=== PATIENT | male | born 1935 | race Caucasian/White ===

== ENCOUNTER → 2017-05-05 | Outpatient (REF) | payer MEDICARE, OTHER ==
[2017-05-10 00:08] LABS: HEMOGLOBIN A 95.2 % (96.4-98.8); HEMOGLOBIN A2 4.8 % (1.8-3.2); HGB SOLUBILITY Negative (Negative)
== END ==
LOC: M LAB REF 12:21
DX: D56.3 Thalassemia minor (principal)
CPT/HCPCS: 83021

== ENCOUNTER 2017-06-18 09:36 | Inpatient (IN) | payer MEDICARE, OTHER ==
[2017-06-18 10:23] LABS: BASO % 0.6 % (0.0-1.0); EOS # 0.2 10^3/uL (0.0-0.50); EOS % 2.1 % (0.0-3.0); HEMATOCRIT 39.2 % (42.0-52.0); HEMOGLOBIN 12.3 g/dl (14.0-18.0); IMMATURE GRANULOCYTE % 0.3 % (0-3.0); LYMPH # 1.5 10^3/uL (1.5-4.5); LYMPH % 21.9 % (24.0-44.0); MEAN CORPUSCULAR HEMOGLOBIN 18.9 pg (27.0-33.0); MEAN CORPUSCULAR HGB CONC 31.4 g/dl (32.0-36.5); MEAN CORPUSCULAR VOLUME 60.2 fl (80.0-96.0); MONO # 0.8 10^3/uL (0.0-0.8); MONO % 10.7 % (0.0-5.0); NEUTROPHILS # 4.5 10^3/uL (1.8-7.7); NEUTROPHILS % 64.4 % (36.0-66.0); PLATELET COUNT, AUTOMATED 216 10^3/uL (150-450); RED BLOOD COUNT 6.51 10^6/uL (4.30-6.10); RED CELL DISTRIBUTION WIDTH 17.8 % (11.5-14.5)
[2017-06-18] MEDS: NS 1,000 ML IV ×2 (10:23→18:45)
[2017-06-18 10:25] LABS: VENOUS PARTIAL PRESSURE CO2 54.5 mmHg (38.0-50.0); VENOUS PARTIAL PRESSURE O2 32.7 mmHg (30.0-50.0); VENOUS PH 7.328 UNITS (7.330-7.430); VENOUS TOTAL CO2 29.6 MEQ/L (24.0-28.0)
[2017-06-18 10:26] LABS: VENOUS O2 SATURATION 57.4 % (60.0-80.0); VENOUS STANDARD HCO3 24.4 MEQ/L
[2017-06-18 10:43] LABS: AMMONIA 13 uMOL/L (<32)
[2017-06-18 10:49] LABS: ALBUMIN 3.8 GM/DL (3.2-5.2); ALBUMIN/GLOBULIN RATIO 1.12 (1.00-1.93); ALKALINE PHOSPHATASE 124 U/L (45-117); ALT/SGPT 37 U/L (12-78); AMPHETAMINES LEVEL URINE NEGATIVE (NEGATIVE); ANION GAP 7 MEQ/L (8-16); AST/SGOT 25 U/L (7-37); BARBITURATES URINE NEGATIVE (NEGATIVE); BENZODIAZEPINES URINE NEGATIVE (NEGATIVE); BILIRUBIN,DIRECT 0.2 MG/DL (0.0-0.2); BILIRUBIN,TOTAL 0.7 MG/DL (0.2-1.0); BLOOD UREA NITROGEN 19 MG/DL (7-18); CALCIUM LEVEL 8.8 MG/DL (8.8-10.2); CANNABINOIDS URINE NEGATIVE (NEGATIVE); CARBON DIOXIDE LEVEL 29 MEQ/L (21-32); CHLORIDE LEVEL 104 MEQ/L (98-107); COCAINE METABOLITE URINE NEGATIVE (NEGATIVE); CPK CREATINE PHOSPHOKINASE 127 U/L (39-308); CREATININE FOR GFR 1.18 MG/DL (0.70-1.30); GLOMERULAR FILTRATION RATE > 60.0 (>35); GLUCOSE, FASTING 179 MG/DL (70-100); METHADONE URINE NEGATIVE (NEGATIVE); OPIATES URINE NEGATIVE (NEGATIVE); PHENCYCLIDINE URINE NEGATIVE (NEGATIVE); POTASSIUM SERUM 4.1 MEQ/L (3.5-5.1); SALICYLATE LEVEL < 1.7 MG/DL (5.0-30.0); SODIUM LEVEL 140 MEQ/L (136-145); TOTAL PROTEIN 7.2 GM/DL (6.4-8.2); TROPONIN I < 0.02 NG/ML (< 0.10)
[2017-06-18 10:51] LABS: ACETAMINOPHEN LEVEL < 2.0 UG/ML (10.0-30.0); ETHYL ALCOHOL (ETHANOL) < 0.003 % (0.000-0.010); MB/CK RELATIVE INDEX 1.57 (< OR =4)
[2017-06-18 11:08] LABS: APPEARANCE, URINE CLEAR (CLEAR); BACTERIA, URINE AUTO NEGATIVE (NEGATIVE); BILIRUBIN, URINE AUTO NEGATIVE (NEGATIVE); BLOOD, URINE BLOOD NEGATIVE (NEGATIVE); COLOR, URINE YELLOW (YELLOW); GLUCOSE, URINE (UA) AUTO 1+ mg/dL (NEGATIVE); KETONE, URINE AUTO NEGATIVE (NEGATIVE); LEUKOCYTE ESTERASE, URINE AUTO NEGATIVE (NEGATIVE); MUCUS, URINE SMALL (NEGATIVE); NITRITE, URINE AUTO NEGATIVE (NEGATIVE); PROTEIN, URINE AUTO 1+ mg/dL (NEGATIVE); RBC, URINE AUTO 1 /HPF (0-3); SPECIFIC GRAVITY URINE AUTO 1.011 (1.002-1.035); SQUAMOUS EPITHELIAL CELL UR AU 0 /HPF (0-6); WBC, URINE AUTO 0 /HPF (0-3)
[2017-06-18] MEDS ORDERED: ONDANSETRON 4MG/2ML VIAL (J2405) IV (16:15)
[2017-06-18 16:42] LABS: INR 1.05; PROTHROMBIN TIME 13.8 SECONDS (12.4-14.5)
[2017-06-18 16:47] LABS: CHOLESTEROL LEVEL 130 MG/DL (<200); CHOLESTEROL RISK RATIO 3.333 (<5); HDL CHOLESTEROL 39 MG/DL (>40); LDL CHOLESTEROL 71.4 MG/DL (<100); NON-HDL-C 91 MG/DL; TRIGLYCERIDES LEVEL 98 MG/DL (<150)
[2017-06-18 18:34] LABS: ESTIMATED AVERAGE GLUCOSE 137 MG/DL (60-110); HEMOGLOBIN A1c 6.4 %
[2017-06-18] MEDS: HEPARIN SOD (PORCINE) 5000 UNITS/ML VIAL SC (22:22)
[2017-06-18] MEDS: ATORVASTATIN 20 MG TAB PO (22:23)
[2017-06-18] MEDS: FAMOTIDINE 20 MG TAB PO (22:23)
[2017-06-18] MEDS: RAMIPRIL 5 MG CAP PO (22:23)
[2017-06-19] MEDS: NS 1,000 ML IV (04:41)
[2017-06-19] MEDS: HEPARIN SOD (PORCINE) 5000 UNITS/ML VIAL SC ×3 (05:29→20:25)
[2017-06-19 05:36] LABS: HEMOGLOBIN 11.2 g/dl (14.0-18.0); MEAN CORPUSCULAR HEMOGLOBIN 18.7 pg (27.0-33.0); MEAN CORPUSCULAR HGB CONC 31.1 g/dl (32.0-36.5); PLATELET COUNT, AUTOMATED 213 10^3/uL (150-450); RED CELL DISTRIBUTION WIDTH 17.2 % (11.5-14.5); WHITE BLOOD COUNT 6.6 10^3/uL (4.0-10.0)
[2017-06-19 05:59] LABS: ALBUMIN 3.3 GM/DL (3.2-5.2); ALBUMIN/GLOBULIN RATIO 0.87 (1.00-1.93); ALKALINE PHOSPHATASE 110 U/L (45-117); ALT/SGPT 35 U/L (12-78); ANION GAP 8 MEQ/L (8-16); AST/SGOT 24 U/L (7-37); BILIRUBIN,TOTAL 0.8 MG/DL (0.2-1.0); BLOOD UREA NITROGEN 20 MG/DL (7-18); CALCIUM LEVEL 8.3 MG/DL (8.8-10.2); CARBON DIOXIDE LEVEL 27 MEQ/L (21-32); CHLORIDE LEVEL 108 MEQ/L (98-107); CREATININE FOR GFR 1.01 MG/DL (0.70-1.30); GLOMERULAR FILTRATION RATE > 60.0 (>35); GLUCOSE, FASTING 94 MG/DL (70-100); MAGNESIUM LEVEL 2.1 MG/DL (1.8-2.4); POTASSIUM SERUM 4.2 MEQ/L (3.5-5.1); SODIUM LEVEL 143 MEQ/L (136-145); TOTAL PROTEIN 7.1 GM/DL (6.4-8.2)
[2017-06-19] MEDS: FAMOTIDINE 20 MG TAB PO ×2 (09:30→20:25)
[2017-06-19] MEDS: CLOPIDOGREL 75 MG TAB PO (09:30)
[2017-06-19] MEDS ORDERED: SLF 3 ML SYR IV (10:30)
[2017-06-19] MEDS: SLF 3 ML SYR IV ×2 (14:00→20:25)
[2017-06-19] MEDS: ASPIRIN 81 MG ENTERIC TAB PO (14:50)
[2017-06-19] MEDS ORDERED: ISOVUE-370 76% 100ML VIAL (Q9967) As Ordered (17:43)
[2017-06-19] MEDS: RAMIPRIL 5 MG CAP PO (20:26)
[2017-06-19] MEDS: ATORVASTATIN 20 MG TAB PO (20:26)
[2017-06-19] MEDS: ACETAMINOPHEN TAB 650MG DOSE (2X325MG) PO (20:26)
[2017-06-19 20:58] LABS: ANION GAP 8 MEQ/L (8-16); BLOOD UREA NITROGEN 22 MG/DL (7-18); CALCIUM LEVEL 8.3 MG/DL (8.8-10.2); CARBON DIOXIDE LEVEL 27 MEQ/L (21-32); CHLORIDE LEVEL 107 MEQ/L (98-107); GLOMERULAR FILTRATION RATE > 60.0 (>35); GLUCOSE, FASTING 100 MG/DL (70-100); POTASSIUM SERUM 4.3 MEQ/L (3.5-5.1); SODIUM LEVEL 142 MEQ/L (136-145)
[2017-06-19 22:25] LABS: MAGNESIUM LEVEL 2.2 MG/DL (1.8-2.4)
[2017-06-20] MEDS: HEPARIN SOD (PORCINE) 5000 UNITS/ML VIAL SC ×3 (05:41→23:26)
[2017-06-20] MEDS: SLF 3 ML SYR IV ×3 (05:41→23:27)
[2017-06-20 05:58] LABS: HEMATOCRIT 36.3 % (42.0-52.0); HEMOGLOBIN 11.4 g/dl (14.0-18.0); MEAN CORPUSCULAR HEMOGLOBIN 18.9 pg (27.0-33.0); MEAN CORPUSCULAR HGB CONC 31.4 g/dl (32.0-36.5); MEAN CORPUSCULAR VOLUME 60.3 fl (80.0-96.0); PLATELET COUNT, AUTOMATED 228 10^3/uL (150-450); RED BLOOD COUNT 6.02 10^6/uL (4.30-6.10); RED CELL DISTRIBUTION WIDTH 17.5 % (11.5-14.5); WHITE BLOOD COUNT 7.6 10^3/uL (4.0-10.0)
[2017-06-20 06:23] LABS: ALBUMIN 3.6 GM/DL (3.2-5.2); ALBUMIN/GLOBULIN RATIO 0.95 (1.00-1.93); ALKALINE PHOSPHATASE 111 U/L (45-117); ALT/SGPT 34 U/L (12-78); ANION GAP 5 MEQ/L (8-16); AST/SGOT 26 U/L (7-37); BILIRUBIN,TOTAL 0.7 MG/DL (0.2-1.0); BLOOD UREA NITROGEN 19 MG/DL (7-18); CALCIUM LEVEL 8.9 MG/DL (8.8-10.2); CARBON DIOXIDE LEVEL 30 MEQ/L (21-32); CHLORIDE LEVEL 107 MEQ/L (98-107); GLOMERULAR FILTRATION RATE > 60.0 (>35); GLUCOSE, FASTING 93 MG/DL (70-100); MAGNESIUM LEVEL 2.2 MG/DL (1.8-2.4); POTASSIUM SERUM 4.3 MEQ/L (3.5-5.1); SODIUM LEVEL 142 MEQ/L (136-145); TOTAL PROTEIN 7.4 GM/DL (6.4-8.2)
[2017-06-20] MEDS: ASPIRIN 81 MG ENTERIC TAB PO (08:37)
[2017-06-20] MEDS: CLOPIDOGREL 75 MG TAB PO (08:37)
[2017-06-20] MEDS: FAMOTIDINE 20 MG TAB PO ×2 (08:37→19:53)
[2017-06-20 17:27] LABS: CK-MB VALUE MASS 4.4 NG/ML (0.0-3.6); CPK CREATINE PHOSPHOKINASE 236 U/L (39-308); MB/CK RELATIVE INDEX 1.86 (< OR =4); TROPONIN I < 0.02 NG/ML (< 0.10)
[2017-06-20] MEDS: ATORVASTATIN 20 MG TAB PO (19:52)
[2017-06-20] MEDS: RAMIPRIL 5 MG CAP PO (19:53)
[2017-06-21] MEDS: SLF 3 ML SYR IV (05:18)
[2017-06-21] MEDS: HEPARIN SOD (PORCINE) 5000 UNITS/ML VIAL SC (05:18)
[2017-06-21 06:15] LABS: HEMATOCRIT 35.9 % (42.0-52.0); HEMOGLOBIN 11.1 g/dl (14.0-18.0); MEAN CORPUSCULAR HEMOGLOBIN 18.5 pg (27.0-33.0); MEAN CORPUSCULAR HGB CONC 30.9 g/dl (32.0-36.5); MEAN CORPUSCULAR VOLUME 59.8 fl (80.0-96.0); PLATELET COUNT, AUTOMATED 226 10^3/uL (150-450); RED CELL DISTRIBUTION WIDTH 16.8 % (11.5-14.5); WHITE BLOOD COUNT 8.4 10^3/uL (4.0-10.0)
[2017-06-21 06:30] LABS: ALBUMIN 3.5 GM/DL (3.2-5.2); ALBUMIN/GLOBULIN RATIO 0.88 (1.00-1.93); ALKALINE PHOSPHATASE 115 U/L (45-117); ALT/SGPT 37 U/L (12-78); ANION GAP 5 MEQ/L (8-16); AST/SGOT 31 U/L (7-37); BILIRUBIN,TOTAL 0.7 MG/DL (0.2-1.0); BLOOD UREA NITROGEN 16 MG/DL (7-18); CALCIUM LEVEL 8.8 MG/DL (8.8-10.2); CARBON DIOXIDE LEVEL 30 MEQ/L (21-32); CHLORIDE LEVEL 107 MEQ/L (98-107); CREATININE FOR GFR 1.06 MG/DL (0.70-1.30); GLOMERULAR FILTRATION RATE > 60.0 (>35); GLUCOSE, FASTING 89 MG/DL (70-100); MAGNESIUM LEVEL 2.2 MG/DL (1.8-2.4); SODIUM LEVEL 142 MEQ/L (136-145); TOTAL PROTEIN 7.5 GM/DL (6.4-8.2)
[2017-06-21] MEDS: ASPIRIN 81 MG ENTERIC TAB PO (09:54)
[2017-06-21] MEDS: CLOPIDOGREL 75 MG TAB PO (09:54)
[2017-06-21] MEDS: FAMOTIDINE 20 MG TAB PO (09:54)
== END 2017-06-21 17:50 | disposition home or self-care (01) | DRG 65 ==
LOC: M ED 09:36 → M ED INP 16:13 → M PCU 18:17
DX: I63.8 Other cerebral infarction (principal); I47.2 Ventricular tachycardia; E78.5 Hyperlipidemia, unspecified; K21.9 Gastro-esophageal reflux disease without esophagitis; I10 Essential (primary) hypertension; F03.90 Unspecified dementia, unspecified severity, without behavioral disturbance, psychotic disturbance, mood disturbance, and anxiety; Z79.899 Other long term (current) drug therapy; I25.10 Atherosclerotic heart disease of native coronary artery without angina pectoris

== ENCOUNTER 2017-11-08 10:36 | Emergency (ER) | payer MEDICARE, OTHER ==
[2017-11-08 11:33] LABS: KETONE, URINE AUTO RFX NEGATIVE (NEGATIVE); LEUKOCYTE ESTERASE UR AUTO RFX NEGATIVE (NEGATIVE); MUCUS, URINE RFX SMALL (NEGATIVE); NITRITE, URINE AUTO RFX NEGATIVE (NEGATIVE); RBC, URINE AUTO RFX 10 /HPF (0-3); SPECIFIC GRAVITY UR AUTO RFX 1.012 (1.002-1.035); SQUAM EPITHELIAL CELL UR AURFX 0 /HPF (0-6); WBC, URINE AUTO RFX 1 /HPF (0-3)
[2017-11-08 11:41] LABS: BASO # 0.1 10^3/uL (0.0-0.2); BASO % 0.5 % (0.0-1.0); EOS # 0.1 10^3/uL (0.0-0.50); EOS % 0.9 % (0.0-3.0); HEMATOCRIT 37.3 % (42.0-52.0); HEMOGLOBIN 11.7 g/dl (13.5-17.5); IMMATURE GRANULOCYTE % 0.3 % (0-3.0); LYMPH # 1.4 10^3/uL (1.5-4.5); LYMPH % 15.3 % (24.0-44.0); MEAN CORPUSCULAR HEMOGLOBIN 18.6 pg (27.0-33.0); MEAN CORPUSCULAR HGB CONC 31.4 g/dl (32.0-36.5); MEAN CORPUSCULAR VOLUME 59.4 fl (80.0-96.0); MONO # 0.9 10^3/uL (0.0-0.8); MONO % 9.3 % (0.0-5.0); NEUTROPHILS # 6.9 10^3/uL (1.8-7.7); NEUTROPHILS % 73.7 % (36.0-66.0); PLATELET COUNT, AUTOMATED 240 10^3/uL (150-450); RED BLOOD COUNT 6.28 10^6/uL (4.30-6.10); RED CELL DISTRIBUTION WIDTH 17.8 % (11.5-14.5); WHITE BLOOD COUNT 9.4 10^3/uL (4.0-10.0)
[2017-11-08 12:04] LABS: ANION GAP 7 MEQ/L (8-16); BLOOD UREA NITROGEN 20 MG/DL (7-18); CALCIUM LEVEL 9.2 MG/DL (8.8-10.2); CARBON DIOXIDE LEVEL 28 MEQ/L (21-32); CHLORIDE LEVEL 106 MEQ/L (98-107); CREATININE FOR GFR 1.02 MG/DL (0.70-1.30); GLOMERULAR FILTRATION RATE > 60.0 (>35); GLUCOSE, FASTING 121 MG/DL (70-100); POTASSIUM SERUM 4.3 MEQ/L (3.5-5.1); SODIUM LEVEL 141 MEQ/L (136-145)
== END 2017-11-08 15:06 | disposition home or self-care (01) ==
LOC: M ED 10:36
DX: R33.9 Retention of urine, unspecified (principal); I25.2 Old myocardial infarction; I10 Essential (primary) hypertension; K21.9 Gastro-esophageal reflux disease without esophagitis; Z95.5 Presence of coronary angioplasty implant and graft; Z87.891 Personal history of nicotine dependence; Z79.82 Long term (current) use of aspirin; Z79.899 Other long term (current) drug therapy
CPT/HCPCS: 80048

== ENCOUNTER 2017-11-10 06:29 | Emergency (ER) | payer MEDICARE, OTHER | END 2017-11-10 06:57 | disposition home or self-care (01) | LOC: M ED 06:29 | DX: T83.098A Other mechanical complication of other urinary catheter, initial encounter (principal); Y92.9 Unspecified place or not applicable; Y93.9 Activity, unspecified; I25.2 Old myocardial infarction; I10 Essential (primary) hypertension; Z86.73 Personal history of transient ischemic attack (TIA), and cerebral infarction without residual deficits; K21.9 Gastro-esophageal reflux disease without esophagitis; Z79.82 Long term (current) use of aspirin; Z79.899 Other long term (current) drug therapy | CPT/HCPCS: G0463 ==

== ENCOUNTER 2017-11-16 07:33 | Emergency (ER) | payer MEDICARE, OTHER | END 2017-11-16 09:17 | disposition home or self-care (01) | LOC: M ED 07:33 | DX: T83.098A Other mechanical complication of other urinary catheter, initial encounter (principal); X58.XXXA Exposure to other specified factors, initial encounter; Y92.89 Other specified places as the place of occurrence of the external cause; I10 Essential (primary) hypertension; E78.9 Disorder of lipoprotein metabolism, unspecified; I25.2 Old myocardial infarction; Z79.02 Long term (current) use of antithrombotics/antiplatelets; Z79.82 Long term (current) use of aspirin; Z79.899 Other long term (current) drug therapy | CPT/HCPCS: 81001 ==

== ENCOUNTER → 2017-11-16 | Outpatient (REF) | payer MEDICARE, OTHER ==
[2017-11-16 18:03] LABS: APPEARANCE, URINE CLOUDY (CLEAR); BACTERIA, URINE AUTO NEGATIVE (NEGATIVE); BILIRUBIN, URINE AUTO NEGATIVE (NEGATIVE); BLOOD, URINE BLOOD 3+ (NEGATIVE); COLOR, URINE RED (YELLOW); GLUCOSE, URINE (UA) AUTO NEGATIVE (NEGATIVE); KETONE, URINE AUTO NEGATIVE (NEGATIVE); LEUKOCYTE ESTERASE, URINE AUTO 1+ (NEGATIVE); MUCUS, URINE SMALL (NEGATIVE); NITRITE, URINE AUTO NEGATIVE (NEGATIVE); PROTEIN, URINE AUTO 2+ mg/dL (NEGATIVE); RBC, URINE AUTO TNTC /HPF (0-3); SPECIFIC GRAVITY URINE AUTO 1.018 (1.002-1.035); SQUAMOUS EPITHELIAL CELL UR AU 0 /HPF (0-6); UROBILINOGEN, URINE AUTO 0.2 mg/dL (0.0-2.0); WBC, URINE AUTO 29 /HPF (0-3)
== END ==
LOC: M SMT 16:49
DX: R31.0 Gross hematuria (principal)
CPT/HCPCS: 81001

== ENCOUNTER 2017-11-17 00:12 | Emergency (ER) | payer MEDICARE, OTHER | END 2017-11-17 03:39 | disposition home or self-care (01) | LOC: M ED 00:12 | DX: R31.9 Hematuria, unspecified (principal); T83.091A Other mechanical complication of indwelling urethral catheter, initial encounter; Y84.6 Urinary catheterization as the cause of abnormal reaction of the patient, or of later complication, without mention of misadventure at the time of the procedure; N40.0 Benign prostatic hyperplasia without lower urinary tract symptoms; I25.10 Atherosclerotic heart disease of native coronary artery without angina pectoris; I11.9 Hypertensive heart disease without heart failure; K21.9 Gastro-esophageal reflux disease without esophagitis; Z95.5 Presence of coronary angioplasty implant and graft; Z79.899 Other long term (current) drug therapy; Z79.82 Long term (current) use of aspirin | CPT/HCPCS: 51700 ==

== ENCOUNTER → 2017-11-21 | Outpatient (CLI) | payer MEDICARE, OTHER ==
[~2017-11-21] MED LIST: ISOVUE-370 76% 100ML VIAL (Q9967) As Ordered
== END ==
LOC: M RAD 13:34
DX: R31.0 Gross hematuria (principal); J47.9 Bronchiectasis, uncomplicated; R91.1 Solitary pulmonary nodule; N40.0 Benign prostatic hyperplasia without lower urinary tract symptoms; N28.1 Cyst of kidney, acquired
CPT/HCPCS: Q9967

== ENCOUNTER → 2017-12-29 | Outpatient (CLI) | payer MEDICARE, OTHER | LOC: M RAD 10:34 | DX: I66.22 Occlusion and stenosis of left posterior cerebral artery (principal); D18.02 Hemangioma of intracranial structures; I63.09 Cerebral infarction due to thrombosis of other precerebral artery | CPT/HCPCS: Q9967 ==

== ENCOUNTER → 2018-02-08 | Outpatient (CLI) | payer MEDICARE, OTHER ==
[2018-02-08 14:04] LABS: HEMATOCRIT 39.5 % (42.0-52.0); HEMOGLOBIN 11.8 g/dl (13.5-17.5); MEAN CORPUSCULAR HEMOGLOBIN 18.5 pg (27.0-33.0); MEAN CORPUSCULAR HGB CONC 29.9 g/dl (32.0-36.5); MEAN CORPUSCULAR VOLUME 61.9 fl (80.0-96.0); PLATELET COUNT, AUTOMATED 253 10^3/uL (150-450); RED BLOOD COUNT 6.38 10^6/uL (4.30-6.10); RED CELL DISTRIBUTION WIDTH 18.4 % (11.5-14.5); WHITE BLOOD COUNT 7.4 10^3/uL (4.0-10.0)
[2018-02-08 14:13] LABS: ANION GAP 3 MEQ/L (8-16); BLOOD UREA NITROGEN 24 MG/DL (7-18); CALCIUM LEVEL 9.1 MG/DL (8.8-10.2); CARBON DIOXIDE LEVEL 30 MEQ/L (21-32); CHLORIDE LEVEL 110 MEQ/L (98-107); CREATININE FOR GFR 1.11 MG/DL (0.70-1.30); GLOMERULAR FILTRATION RATE > 60.0 (>35); GLUCOSE, FASTING 149 MG/DL (70-100); INR 1.04; POTASSIUM SERUM 4.7 MEQ/L (3.5-5.1); PROTHROMBIN TIME 13.8 SECONDS (12.1-14.4); SODIUM LEVEL 143 MEQ/L (136-145)
[2018-02-08 14:14] LABS: PARTIAL THROMBOPLASTIN TIME 35.4 SECONDS (25.4-37.6)
== END ==
LOC: M SMT 11:05
DX: Z01.818 Encounter for other preprocedural examination (principal); N40.1 Benign prostatic hyperplasia with lower urinary tract symptoms; N39.0 Urinary tract infection, site not specified; E78.00 Pure hypercholesterolemia, unspecified; I10 Essential (primary) hypertension; I25.2 Old myocardial infarction; Z86.73 Personal history of transient ischemic attack (TIA), and cerebral infarction without residual deficits; Z79.01 Long term (current) use of anticoagulants
CPT/HCPCS: 80048

== ENCOUNTER → 2018-02-26 | Outpatient (REF) | payer MEDICARE, OTHER ==
[2018-02-26 17:49] LABS: APPEARANCE, URINE CLEAR (CLEAR); BACTERIA, URINE AUTO NEGATIVE (NEGATIVE); BILIRUBIN, URINE AUTO NEGATIVE (NEGATIVE); BLOOD, URINE BLOOD 2+ (NEGATIVE); COLOR, URINE YELLOW (YELLOW); GLUCOSE, URINE (UA) AUTO NEGATIVE (NEGATIVE); KETONE, URINE AUTO NEGATIVE (NEGATIVE); LEUKOCYTE ESTERASE, URINE AUTO 1+ (NEGATIVE); MUCUS, URINE SMALL (NEGATIVE); NITRITE, URINE AUTO NEGATIVE (NEGATIVE); PROTEIN, URINE AUTO 2+ mg/dL (NEGATIVE); RBC, URINE AUTO 46 /HPF (0-3); SPECIFIC GRAVITY URINE AUTO 1.014 (1.002-1.035); SQUAMOUS EPITHELIAL CELL UR AU 0 /HPF (0-6); UROBILINOGEN, URINE AUTO 0.2 mg/dL (0.0-2.0); WBC, URINE AUTO 5 /HPF (0-3)
== END ==
LOC: M SMT 16:58
DX: N39.0 Urinary tract infection, site not specified (principal)
CPT/HCPCS: 81001

== ENCOUNTER 2018-03-05 11:51 | Day surgery (SDC) | payer MEDICARE, OTHER ==
[2018-03-05] MEDS: LR 1,000 ML IV (12:30)
[2018-03-05] MEDS ORDERED: dexameTHASONE 4 MG/ML 1ML VIAL (J1100) As Ordered ×2 (12:53→18:52)
[2018-03-05] MEDS ORDERED: ROCURONIUM BROMIDE 50 MG/5 ML VIAL As Ordered ×3 (12:53→16:41)
[2018-03-05] MEDS ORDERED: LIDOCAINE 2% INJ 100 MG/5 ML SDV (FOR ANES.) As Ordered (12:53)
[2018-03-05] MEDS ORDERED: PROPOFOL 200 MG/20 ML VIAL As Ordered (12:53)
[2018-03-05] MEDS ORDERED: MIDAZOLAM INJ 2 MG/2 ML VIAL (J2250) As Ordered (12:54)
[2018-03-05] MEDS ORDERED: fentaNYL 100 MCG/2 ML INJECTION (J3010) As Ordered ×3 (12:54→15:01)
[2018-03-05] MEDS ORDERED: ONDANSETRON 4MG/2ML VIAL (J2405) As Ordered (13:54)
[2018-03-05] MEDS ORDERED: NEOSTIGMINE 10 MG/10 ML VIAL (J2710) As Ordered ×2 (15:03)
[2018-03-05] MEDS ORDERED: GLYCOPYRROLATE INJ 0.2 MG/ML 2 ML VIAL As Ordered (15:03)
[2018-03-05] MEDS ORDERED: FUROSEMIDE 100 MG/10 ML VIAL (J1940) As Ordered (17:08)
[2018-03-05] MEDS ORDERED: LR 1,000 ML IV (18:30)
[2018-03-05] MEDS ORDERED: ONDANSETRON 4MG/2ML VIAL (J2405) IV (18:30)
[2018-03-05] MEDS ORDERED: ACETAMINOPHEN TAB 650MG DOSE (2X325MG) PO (18:30)
[2018-03-05] MEDS ORDERED: fentaNYL 100 MCG/2 ML INJECTION (J3010) IV (18:30)
== END 2018-03-05 21:00 | disposition home or self-care (01) ==
LOC: M SDC 11:51
DX: N40.1 Benign prostatic hyperplasia with lower urinary tract symptoms (principal); R32 Unspecified urinary incontinence; I10 Essential (primary) hypertension; I25.10 Atherosclerotic heart disease of native coronary artery without angina pectoris; I25.2 Old myocardial infarction; E78.00 Pure hypercholesterolemia, unspecified; I69.998 Other sequelae following unspecified cerebrovascular disease; R94.31 Abnormal electrocardiogram [ECG] [EKG]; R73.03 Prediabetes; K21.9 Gastro-esophageal reflux disease without esophagitis; I35.8 Other nonrheumatic aortic valve disorders; D56.3 Thalassemia minor; R01.1 Cardiac murmur, unspecified; Z79.899 Other long term (current) drug therapy; Z79.01 Long term (current) use of anticoagulants; Z79.82 Long term (current) use of aspirin; Z95.5 Presence of coronary angioplasty implant and graft; Z87.891 Personal history of nicotine dependence
CPT/HCPCS: 52601

== ENCOUNTER 2018-03-13 07:41 | Emergency (ER) | payer MEDICARE, OTHER ==
[2018-03-13 09:28] LABS: ALBUMIN 3.2 GM/DL (3.2-5.2); ANION GAP 11 MEQ/L (8-16); BLOOD UREA NITROGEN 22 MG/DL (7-18); CALCIUM LEVEL 8.7 MG/DL (8.8-10.2); CARBON DIOXIDE LEVEL 24 MEQ/L (21-32); CHLORIDE LEVEL 102 MEQ/L (98-107); CREATININE FOR GFR 1.54 MG/DL (0.70-1.30); GLOMERULAR FILTRATION RATE 45.9 (>35); GLUCOSE, FASTING 157 MG/DL (70-100); PHOSPHORUS LEVEL 2.2 MG/DL (2.5-4.9); SODIUM LEVEL 137 MEQ/L (136-145)
[2018-03-13 09:34] LABS: APPEARANCE, URINE CLOUDY (CLEAR); BACTERIA, URINE AUTO 1+ (NEGATIVE); BILIRUBIN, URINE AUTO NEGATIVE (NEGATIVE); BLOOD, URINE BLOOD 3+ (NEGATIVE); COLOR, URINE YELLOW (YELLOW); GLUCOSE, URINE (UA) AUTO NEGATIVE (NEGATIVE); KETONE, URINE AUTO NEGATIVE (NEGATIVE); LEUKOCYTE ESTERASE, URINE AUTO 1+ (NEGATIVE); MUCUS, URINE SMALL (NEGATIVE); NITRITE, URINE AUTO NEGATIVE (NEGATIVE); PROTEIN, URINE AUTO 2+ mg/dL (NEGATIVE); RBC, URINE AUTO TNTC /HPF (0-3); SPECIFIC GRAVITY URINE AUTO 1.014 (1.002-1.035); SQUAMOUS EPITHELIAL CELL UR AU 0 /HPF (0-6); UROBILINOGEN, URINE AUTO 0.2 mg/dL (0.0-2.0); WBC, URINE AUTO 109 /HPF (0-3)
== END 2018-03-13 10:37 | disposition home or self-care (01) ==
LOC: M ED 07:41
DX: N13.8 Other obstructive and reflux uropathy (principal); Z98.890 Other specified postprocedural states; N40.1 Benign prostatic hyperplasia with lower urinary tract symptoms; I11.9 Hypertensive heart disease without heart failure; I25.10 Atherosclerotic heart disease of native coronary artery without angina pectoris; I25.2 Old myocardial infarction; Z87.891 Personal history of nicotine dependence; Z79.82 Long term (current) use of aspirin; Z79.899 Other long term (current) drug therapy; Z79.02 Long term (current) use of antithrombotics/antiplatelets
CPT/HCPCS: 80069

== ENCOUNTER 2018-03-15 10:14 | Emergency (ER) | payer MEDICARE, OTHER ==
[2018-03-15] MEDS: LevoFLOXacin 250 MG TABLET PO (11:19)
== END 2018-03-15 11:41 | disposition home or self-care (01) ==
LOC: M ED 10:14
DX: T83.098A Other mechanical complication of other urinary catheter, initial encounter (principal); X58.XXXA Exposure to other specified factors, initial encounter; Y92.89 Other specified places as the place of occurrence of the external cause; N39.0 Urinary tract infection, site not specified; I10 Essential (primary) hypertension; I25.10 Atherosclerotic heart disease of native coronary artery without angina pectoris; K21.9 Gastro-esophageal reflux disease without esophagitis; N40.0 Benign prostatic hyperplasia without lower urinary tract symptoms; Z79.899 Other long term (current) drug therapy
CPT/HCPCS: 99283

== ENCOUNTER 2018-03-16 04:31 | Emergency (ER) | payer MEDICARE, OTHER | END 2018-03-16 06:05 | disposition home or self-care (01) | LOC: M ED 04:31 | DX: T83.031A Leakage of indwelling urethral catheter, initial encounter (principal); Y73.2 Prosthetic and other implants, materials and accessory gastroenterology and urology devices associated with adverse incidents; R33.9 Retention of urine, unspecified; I10 Essential (primary) hypertension; I25.2 Old myocardial infarction; Z79.899 Other long term (current) drug therapy | CPT/HCPCS: 99282 ==

== ENCOUNTER 2018-03-20 21:35 | Emergency (ER) | payer MEDICARE, OTHER | END 2018-03-21 01:35 | disposition home or self-care (01) | LOC: M ED 03-21 01:35 | DX: T83.031A Leakage of indwelling urethral catheter, initial encounter (principal); Y73.2 Prosthetic and other implants, materials and accessory gastroenterology and urology devices associated with adverse incidents; N32.89 Other specified disorders of bladder; N40.0 Benign prostatic hyperplasia without lower urinary tract symptoms; I10 Essential (primary) hypertension; K21.9 Gastro-esophageal reflux disease without esophagitis; Z79.899 Other long term (current) drug therapy; Z95.1 Presence of aortocoronary bypass graft; Z95.5 Presence of coronary angioplasty implant and graft; Z79.02 Long term (current) use of antithrombotics/antiplatelets | CPT/HCPCS: 99284 ==

== ENCOUNTER 2018-03-24 08:45 | Observation (INO) | payer MEDICARE, OTHER ==
[~2018-03-24] VITALS: Ht 167.6 cm; Wt 75.8 kg
[~2018-03-24 08:45] MED LIST changes: +ASPI81TA85 PO; +ASPI81TAEC PO; +ATOR1TAB21 PO; +FLOM0.4C39 PO; -ISOVUE-370 76% 100ML VIAL (Q9967) As Ordered; +LEVA250T13 PO; +MACR25CA2 PO; +PHEN-500 PO; +PLAV1TAB2 PO; +RAMI1CAP26 PO; +RANI150C PO; +TAMS1CAP17
[2018-03-24] MEDS ORDERED: OXYB5TAB PO (08:52)
[2018-03-24 10:06] LABS: BASO # 0.1 10^3/uL (0.0-0.2); BASO % 0.7 % (0.0-1.0); EOS # 0.2 10^3/uL (0.0-0.50); EOS % 2.5 % (0.0-3.0); HEMATOCRIT 24.5 % (42.0-52.0); HEMOGLOBIN 7.6 g/dl (13.5-17.5); LYMPH # 1.5 10^3/uL (1.5-4.5); LYMPH % 18.6 % (24.0-44.0); MEAN CORPUSCULAR HEMOGLOBIN 19.3 pg (27.0-33.0); MEAN CORPUSCULAR VOLUME 62.2 fl (80.0-96.0); MONO # 0.6 10^3/uL (0.0-0.8); MONO % 7.3 % (0.0-5.0); NEUTROPHILS # 5.7 10^3/uL (1.8-7.7); NEUTROPHILS % 70.3 % (36.0-66.0); PLATELET COUNT, AUTOMATED 349 10^3/uL (150-450); RED BLOOD COUNT 3.94 10^6/uL (4.30-6.10); WHITE BLOOD COUNT 8.1 10^3/uL (4.0-10.0)
[2018-03-24] MEDS ORDERED: LIDOCAINE 2% 5ML JELLY UROJET TOP ONE (10:15)
[2018-03-24 10:48] LABS: BLOOD UREA NITROGEN 25 MG/DL (7-18); CALCIUM LEVEL 8.2 MG/DL (8.8-10.2); CARBON DIOXIDE LEVEL 27 MEQ/L (21-32); CHLORIDE LEVEL 108 MEQ/L (98-107); GLOMERULAR FILTRATION RATE > 60.0 (>35); GLUCOSE, FASTING 161 MG/DL (70-100); POTASSIUM SERUM 4.5 MEQ/L (3.5-5.1); SODIUM LEVEL 142 MEQ/L (136-145)
[2018-03-24 10:51] LABS: INR 1.1; PARTIAL THROMBOPLASTIN TIME 30.8 SECONDS (25.4-37.6); PROTHROMBIN TIME 14.4 SECONDS (12.1-14.4)
[2018-03-24] MEDS ORDERED: ONDANSETRON 4MG/2ML VIAL (J2405) IV ONE (11:00)
[2018-03-24] MEDS ORDERED: MORPHINE 2 MG/ML 1ML SYRINGE (J2270) IV ONE (11:00)
[2018-03-24 13:25] VITALS: BP 139/63
--- NOTE | 2018-03-24 14:35 | HPEPDOC ---
General Date of Admission Mar 24, 2018 at 13:57 Attending Physician: FEI MONAHAN MD Chief Complaint The patient is a 83-year-old male admitted with a reason for visit of Pisano Catheter Problem, Symtomatic Anemia. Source: Patient, Family History of Present Illness This patient is a 83-year-old male who recently underwent a TURP procedure with Dr. Nunn for urinary retention secondary to BPH. He was off his Plavix for the procedure but the Plavix was restarted several days after the procedure. Unfortunately he developed gross hematuria after the Plavix was restarted. Unfortunately he has had recurrent gross hematuria since then and been evaluated in the clinic in the emergency department several times. In the last several days there has been some improvement in the degree of gross hematuria however his family reports that last night there was an increased amount of leakage around the urinary catheter. They also report that there was a rupture of the urine catheter bag. They brought him to the emergency department for these concerns. In the emergency department the urine catheter was removed and he was noted to have increased gross hematuria. He replaced a 20 [place] three-way Pisano catheter and his bladder was irrigated. This irrigation yielded large amount of clots. He was started on continuous bladder irrigation in the emergency department. Laboratory examination emerged department demonstrated some anemia with his hemoglobin down to 7.6 from a baseline level of around 11. The urology service was consulted. Home Medications Scheduled Atorvastatin Calcium (Atorvastatin Calcium) 20 Mg Tab, 20 MG PO QHS, (Reported) Oxybutynin Chloride (Oxybutynin Chloride ER) 5 Mg Tab, 5 MG PO DAILY, (Reported) Ramipril (Ramipril) 10 Mg Cap, 10 MG PO QHS, (Reported) Ranitidine HCl (Ranitidine HCl) 150 Mg Cap, 1 CAP PO BID, (Reported) Tamsulosin Hydrochloride (Flomax) 0.4 Mg Cap, 0.4 MG PO DAILY, (Reported) Allergies Coded Allergies: No Known Allergies (Unverified , 02/19/18) Past Medical History Medical History CVA in 2014 and again in 2018 Hypertension Dyslipidemia CAD status post stenting in 1994 and 2004 Aortic valve disease Osteoarthritis First-degree AV block Urinary retention secondary to BPH Surgical History Appendectomy 1969 Cardiac stenting as noted in past medical history TURP on 03/05/2018 Family History Significant Family History: No pertinent family hx, Heart disease Family history of premature coronary artery disease Social History * Smoker: former Smoker Alcohol: occationally Drugs: denies Review of Systems Genitourinary: Reports: Dysuria, Hematuria Physical Examination General Exam: Positive: Alert, No Acute Distress Eye Exam: Positive: PERRLA, Conjunctiva & lids normal, EOMI; Negative: Sclera icteric ENT Exam: Positive: Atraumatic, Mucous membr. moist/pink, Pharynx Normal Neck Exam: Positive: Supple; Negative: JVD, thyromegaly Chest Exam: Positive: Clear to auscultation, Normal air movement Heart Exam: Positive: Rate Normal; Negative: Murmurs, Rubs Telemetry: Positive: No significant arrhythmia Abdomen Exam: Positive: Normal bowel sounds, Soft; Negative: Tenderness, Hepatospenomegaly Extremity Exam: Positive: Normal pulses; Negative: Clubbing, Cyanosis, Edema Skin Exam: Positive: Nl turgor and temperature; Negative: Breakdown, Lesion Neuro Exam: Positive: Normal Gait, Normal Speech, Cranial Nerves 3-12 NL, Reflexes 2+ Psych Exam: Positive: Mental status NL, Mood NL, Oriented x 3 Other physical findings 20 [place] 3-way Pisano catheter in place draining light pink urine while connected to the very low rate continuous bladder irrigation Vital Signs Vital Signs Date Time Temp Pulse Resp B/P (MAP) Pulse Ox O2 Delivery O2 Flow Rate FiO2 03/24/18 13:01 66 03/24/18 12:45 97.2 18 150/64 (92) 98 Room Air Laboratory Data Labs 24H Laboratory Tests 2 03/24/18 09:53: Immature Granulocyte % (Auto) 0.6, White Blood Count 8.1, Red Blood Count 3.94L, Hemoglobin 7.6L, Hematocrit 24.5L, Mean Corpuscular Volume 62.2L, Mean Corpuscular Hemoglobin 19.3L, Mean Corpuscular Hemoglobin Concent 31.0L, Red Cell Distribution Width 17.7H, Platelet Count 349, Neutrophils (%) (Auto) 70.3H, Lymphocytes (%) (Auto) 18.6L, Monocytes (%) (Auto) 7.3H, Eosinophils (%) (Auto) 2.5, Basophils (%) (Auto) 0.7, Neutrophils # (Auto) 5.7, Lymphocytes # (Auto) 1.5, Monocytes # (Auto) 0.6, Eosinophils # (Auto) 0.2, Basophils # (Auto) 0.1, Nucleated Red Blood Cells % (auto) 0.0, Anion Gap 7L, Glomerular Filtration Rate > 60.0, Blood Urea Nitrogen 25H, Creatinine 1.20, Sodium Level 142, Potassium Level 4.5, Chloride Level 108H, Carbon Dioxide Level 27, Calcium Level 8.2L 03/24/18 10:26: Prothrombin Time 14.4, Prothromb Time International Ratio 1.10, Activated Partial Thromboplast Time 30.8 CBC/BMP Laboratory Tests 03/24/18 09:53 Red Blood Count 3.94 L, Mean Corpuscular Volume 62.2 L, Mean Corpuscular Hemoglobin 19.3 L, Mean Corpuscular Hemoglobin Concent 31.0 L, Red Cell Distribution Width 17.7 H, Neutrophils (%) (Auto) 70.3 H, Lymphocytes (%) (Auto) 18.6 L, Monocytes (%) (Auto) 7.3 H, Eosinophils (%) (Auto) 2.5, Basophils (%) (Auto) 0.7, Neutrophils # (Auto) 5.7, Lymphocytes # (Auto) 1.5, Monocytes # (Auto) 0.6, Eosinophils # (Auto) 0.2, Basophils # (Auto) 0.1, Calcium Level 8.2 L Assessment/Plan 83-year-old male status post recent TURP with recurrent gross hematuria and anemia Plan / VTE VTE Prophylaxis Ordered?: Yes VTE Exclusion Pharmacological: Active Bleeding Plan / Urinary Catheter Urinary Catheter: Other Catheter: (20 [place] three-way Pisano catheter with continuous bladder irrigation) Plan Plan #1 admit patient to the urology service. #2 continue giving 2 units of packed red blood cells as ordered by the emergency department team. #3 recheck CBC after the second unit of packed red blood cells is complete. #4 maintain current three-way catheter with continuous bladder irrigation. Titrate the rate of inflow to result in a light pink appearance of the outflow urine. If the urine outflow is light pink or clear even with the continuous bladder irrigation inflow off then discontinue CBI. #5 we appreciate the assistance from the hospitalist team who has ordered the patient's medications and who is following him for his non-urologic issues. FEI MONAHAN MD Mar 24, 2018 14:35
--- NOTE | 2018-03-24 15:54 | CR ---
DATE OF CONSULTATION: 03/24/2018 REASON FOR CONSULTATION: Medical management. PRIMARY CARE PROVIDER: Yoel Pritchard MD UROLOGIST: Christiano Nunn MD HISTORY OF PRESENT ILLNESS: The patient is an 83-year-old man who is status post transurethral resection of prostate (TURP) approximately 2 weeks ago. Since then, he has had recurrent episodes of bleeding, prompting him to have visits in the urology clinic, as well as the emergency room, with catheter exchanges, irrigations. However, each time, he has recurrent bleeding and clotting, which caused him to present to the emergency room once again this morning. He was most recently seen in the urology clinic 2 days ago. At this time, the patient tells me he is feeling tired and weak and frustrated with the situation but otherwise has no specific complaints. He denies nausea, vomiting, diarrhea, lightheadedness, or dizziness, fevers, or chills. PAST MEDICAL HISTORY: 1. Hypertension. 2. Coronary artery disease. 3. Dyslipidemia. 4. Cerebrovascular accident (CVA). HOME MEDICATIONS: - aspirin 81 mg daily - oxybutynin extended release 5 mg daily - tamsulosin 0.4 mg daily - atorvastatin 20 mg nightly - ramipril 10 mg nightly - ranitidine 150 mg twice a day SOCIAL HISTORY: He is a former smoker. He quit in the 1960s. He denies alcohol or illicit drug use. He lives with his . He is accompanied in the emergency room by his son. He is a F[employer]. He has no known drug allergies. SURGICAL HISTORY: He has had an appendectomy, cardiac stent placement, cystoscopy, and TURP completed last month. FAMILY HISTORY: Is noncontributory. REVIEW OF SYSTEMS: Negative other than in history of present illness (HPI). PHYSICAL EXAMINATION: VITAL SIGNS: Temperature 97.6, pulse 84, respiratory rate 16, blood pressure (BP) 143/67, oxygen (O2) saturation 96% on room air. GENERAL: He is a very pleasant elderly man sitting up on the stretcher at a 30-degree angle, accompanied by his and son. The patient does not appear to be in any acute distress. HEENT: He is mildly pallorous. He has moist mucous membranes. No elevation in central venous pressure (CVP). CARDIOVASCULAR EXAMINATION: S1, S2. regular. RESPIRATORY EXAMINATION: Is quite clear. There is no costovertebral angle (CVA) tenderness. There is mild suprapubic tenderness on palpation, but he tells me it is significantly improved. His abdomen is obese. Bowel sounds are present. Abdomen is soft. EXTREMITIES: There is no clubbing, cyanosis, or edema. LABORATORY STUDIES: WBC 8.1, hemoglobin 7.6 dropped down from 11 prior to preoperative Hgb platelet count 349. Chemistry panel: Sodium 142, potassium 4.5, chloride 108, bicarbonate 27, BUN 25, creatinine 1.2. INR is 1.1. No new imaging. ASSESSMENT AND PLAN: This is an 83-year-old man with post TURP continued bleeding and clotting. PROBLEMS: 1. Postprocedural bleeding. This is a known complication related to the procedure. Will defer management of antibiotics, potential cystoscopy as per urology's recommendations. At the present time, his catheter appears to be draining mildly sanguinous urine. 2. Hypertension. Continue with ramipril with holding parameters. Monitor renal function. No evidence of obstruction at this time. 3. History of cerebrovascular accident. Continue with Lipitor. Hold aspirin. It is okay to hold aspirin at the present time. 4. History of coronary artery disease. No anginal symptoms for many years. Stable. Continue with Lipitor. Once again, hold aspirin. He is not on any beta rica. Will defer to his outpatient providers regarding this. 5. Symptomatic anemia. He is somewhat weak related to his anemia. I would recommend transfusing him 2 units of packed red blood cells (PRBC). I think he would benefit from this greatly. 6. In regard to deep venous thrombosis (DVT) prophylaxis, would suggest sequentials and thromboembolic deterrents (TEDs) and avoid pharmacological agents in the setting of his recent bleeding. Thank you for involving us in this interesting patient's care. We will be happy to follow along with you. Please do not hesitate to call with any specific questions. ENHAL
[2018-03-24 16:00] VITALS: BP 121/56
[2018-03-24 17:35] VITALS: BP 134/62
[2018-03-24 19:00] VITALS: BP 142/65
[2018-03-24] MEDS: FAMOTIDINE 20 MG TAB PO SCH (20:27)
[2018-03-24 20:28] VITALS: BP 140/64
[2018-03-24] MEDS ORDERED: ATORVASTATIN 20 MG TAB PO SCH (21:00)
[2018-03-24] MEDS ORDERED: RAMIPRIL 5 MG CAP PO SCH (21:00)
[2018-03-24 21:05] LABS: HEMATOCRIT 29.4 % (42.0-52.0); HEMOGLOBIN 9.4 g/dl (13.5-17.5); MEAN CORPUSCULAR HEMOGLOBIN 21.2 pg (27.0-33.0); MEAN CORPUSCULAR VOLUME 66.2 fl (80.0-96.0); PLATELET COUNT, AUTOMATED 324 10^3/uL (150-450); RED BLOOD COUNT 4.44 10^6/uL (4.30-6.10); WHITE BLOOD COUNT 9.8 10^3/uL (4.0-10.0)
[2018-03-24 22:00] VITALS: BP 140/64
[2018-03-25 04:47] LABS: HEMOGLOBIN 9.5 g/dl (13.5-17.5); MEAN CORPUSCULAR HEMOGLOBIN 20.8 pg (27.0-33.0); MEAN CORPUSCULAR HGB CONC 31.7 g/dl (32.0-36.5); MEAN CORPUSCULAR VOLUME 65.8 fl (80.0-96.0); PLATELET COUNT, AUTOMATED 282 10^3/uL (150-450); RED BLOOD COUNT 4.56 10^6/uL (4.30-6.10); WHITE BLOOD COUNT 8.7 10^3/uL (4.0-10.0)
[2018-03-25 04:58] LABS: BLOOD UREA NITROGEN 21 MG/DL (7-18); CALCIUM LEVEL 8.6 MG/DL (8.8-10.2); CARBON DIOXIDE LEVEL 29 MEQ/L (21-32); CHLORIDE LEVEL 108 MEQ/L (98-107); CREATININE FOR GFR 1.09 MG/DL (0.70-1.30); GLOMERULAR FILTRATION RATE > 60.0 (>35); GLUCOSE, FASTING 94 MG/DL (70-100); POTASSIUM SERUM 4.2 MEQ/L (3.5-5.1); SODIUM LEVEL 142 MEQ/L (136-145)
[2018-03-25 06:00] VITALS: BP 146/65
[2018-03-25] MEDS: FAMOTIDINE 20 MG TAB PO SCH (09:43)
--- NOTE | 2018-03-25 12:14 | IPNPDOC ---
Date Seen The patient was seen on 03/25/18. Progress Note SUBJECTIVE: Patient tells me he feels significantly better after getting the blood he has no lightheadedness or dizziness he tells me is no abdominal pain and is feeling quite well today OBJECTIVE PHYSICAL EXAMINATION: VITAL SIGNS: Please see below. GENERAL: Elderly man lying flat in bed he does not appear to be in any acute distress whatsoever HEENT: Cranial nerves II through XII grossly intact CARDIOVASCULAR: 1 S2 regular. RESPIRATORY: Clear to auscultation bilaterally. ABDOMINAL: Sounds present abdomen soft and nontenderpubic tenderness no CVA tenderness EXTREMITIES: No clubbing cyanosis or edema he has a Pisano catheter in place which is draining blood-tinged urine LABORATORY DATA, IMAGING STUDIES, MICROBIOLOGY: Please see below. ASSESSMENT AND PLAN: This is an 83-year-old man with post TURP continued bleeding and clotting. PROBLEMS: 1. Postprocedural bleeding. This is a known complication related to the procedure. Will defer management of antibiotics, potential cystoscopy as per urology's recommendations. At the present time, his catheter appears to be draining mildly sanguinous urine. He appears fairly asymptomatic but has had recurrent bleeding 2. Hypertension. Adequate control renal function is stable continue with ramipril 3. History of cerebrovascular accident. Continue with Lipitor. Hold aspirin. Until okay with urology service 4. History of coronary artery disease. No anginal symptoms for many years. Stable. Continue with Lipitor. Once again, hold aspirin as above. He is not on any beta rica. Will defer to his outpatient providers regarding this. 5. Symptomatic anemia. Likely secondary to continued hematuria appears to be significantly improved today and is no longer symptomatically: 2 units of PRBCs provided yesterday 6. In regard to deep venous thrombosis (DVT) prophylaxis, would suggest sequentials and thromboembolic deterrents (TEDs) and avoid pharmacological agents in the setting of his recent bleeding. VS, I&O, 24H, Fishbone Vital Signs/I&O Vital Signs Date Time Temp Pulse Resp B/P (MAP) Pulse Ox O2 Delivery O2 Flow Rate FiO2 03/25/18 06:00 97.8 56 18 146/65 (92) 95 Room Air I&O- Last 24 Hours up to 6 AM 03/25/18 06:00 Intake Total 2180 ml Output Total 1550 ml Balance 630 ml Laboratory Data 24H LABS Laboratory Tests 2 03/24/18 21:01: Nucleated Red Blood Cells % (auto) 0.0 03/25/18 03:55: Nucleated Red Blood Cells % (auto) 0.0, Anion Gap 5L, Glomerular Filtration Rate > 60.0, Blood Urea Nitrogen 21H, Creatinine 1.09, Sodium Level 142, Potassium Level 4.2, Chloride Level 108H, Carbon Dioxide Level 29, Calcium Level 8.6L CBC/BMP Laboratory Tests 03/24/18 21:01 Red Blood Count 4.44, Mean Corpuscular Volume 66.2 L, Mean Corpuscular Hemoglobin 21.2 L, Mean Corpuscular Hemoglobin Concent 32.0, Red Cell Distribution Width 23.0 H 03/25/18 03:55 Red Blood Count 4.56, Mean Corpuscular Volume 65.8 L, Mean Corpuscular Hemoglobin 20.8 L, Mean Corpuscular Hemoglobin Concent 31.7 L, Red Cell Distribution Width 22.8 H, Calcium Level 8.6 L ALISHA LIU MD Mar 25, 2018 12:14
[2018-03-25 14:00] VITALS: BP 137/63
[2018-04-08] MEDS ORDERED: CIPR-249 PO (20:18)
[2018-04-11] MEDS ORDERED: ASPI1TAB PO (15:15)
[2018-04-11] MEDS ORDERED: PLAV1TAB2 PO (15:15)
[2018-04-12] MEDS ORDERED: ACE65ERTAB PO (10:18)
[2018-04-12] MEDS ORDERED: COLA100C5 PO (10:18)
[2018-04-12] MEDS ORDERED: CIPR500T19 PO (10:18)
== END 2018-03-25 15:30 | disposition home or self-care (01) ==
LOC: M ED 08:45 → M ED INP 13:57 → M MS5PR 14:00
PROVIDERS: ADMIT Urology Pediatric Urology; ATTEND Urology Pediatric Urology
DX: N99.820 Postprocedural hemorrhage of a genitourinary system organ or structure following a genitourinary system procedure (principal); D64.9 Anemia, unspecified; I10 Essential (primary) hypertension; Z86.73 Personal history of transient ischemic attack (TIA), and cerebral infarction without residual deficits; Z79.899 Other long term (current) drug therapy; I25.10 Atherosclerotic heart disease of native coronary artery without angina pectoris; E78.5 Hyperlipidemia, unspecified; Z79.82 Long term (current) use of aspirin; Z87.891 Personal history of nicotine dependence
CPT/HCPCS: 36415; 36430; 51700; 80048; 85025; 85027; 85610; 85730; 86850; 86900; 86901; 86920; 88108; 99285; G0378; P9016

== ENCOUNTER 2018-04-08 18:23 | Emergency (ER) | payer MEDICARE, OTHER ==
[2018-04-08 19:27] LABS: KETONE, URINE AUTO RFX NEGATIVE (NEGATIVE); MUCUS, URINE RFX SMALL (NEGATIVE); RBC, URINE AUTO RFX 101 /HPF (0-3); SPECIFIC GRAVITY UR AUTO RFX 1.012 (1.002-1.035); SQUAM EPITHELIAL CELL UR AURFX 0 /HPF (0-6)
[2018-04-08 19:32] LABS: LEUKOCYTE ESTERASE UR AUTO RFX 3+ (NEGATIVE); NITRITE, URINE AUTO RFX POSITIVE (NEGATIVE); WBC, URINE AUTO RFX TNTC /HPF (0-3)
[2018-04-08] MEDS: CIPROFLOXACIN 500 MG TAB PO (20:20)
== END 2018-04-08 21:05 | disposition home or self-care (01) ==
LOC: M ED 18:23
DX: N30.90 Cystitis, unspecified without hematuria (principal); Z79.899 Other long term (current) drug therapy; Z79.82 Long term (current) use of aspirin; Z79.02 Long term (current) use of antithrombotics/antiplatelets
CPT/HCPCS: 81001

== ENCOUNTER 2018-04-11 14:29 | Day surgery (SDC) | payer MEDICARE, OTHER ==
[2018-04-11] MEDS ORDERED: ONDANSETRON 4MG/2ML VIAL (J2405) As Ordered (17:47)
[2018-04-11] MEDS ORDERED: fentaNYL 100 MCG/2 ML INJECTION (J3010) As Ordered ×3 (17:47→19:07)
[2018-04-11] MEDS ORDERED: PROPOFOL 200 MG/20 ML VIAL As Ordered (17:47)
[2018-04-11] MEDS ORDERED: METOCLOPRAMIDE INJ 10MG/2ML VIAL (J2765) As Ordered (17:47)
[2018-04-11] MEDS ORDERED: MIDAZOLAM INJ 2 MG/2 ML VIAL (J2250) As Ordered (17:47)
[2018-04-11] MEDS ORDERED: LIDOCAINE 2% INJ 100 MG/5 ML SDV (FOR ANES.) As Ordered (17:47)
[2018-04-11] MEDS ORDERED: dexameTHASONE 4 MG/ML 1ML VIAL (J1100) As Ordered (17:47)
[2018-04-11] MEDS ORDERED: ePHEDrine SULFATE 25 MG/5 ML(5MG/ML) SYRINGE As Ordered ×3 (18:09→20:24)
[2018-04-11] MEDS ORDERED: FUROSEMIDE 100 MG/10 ML VIAL (J1940) As Ordered ×2 (20:22)
[2018-04-11] MEDS ORDERED: PERCOCET 5MG/325MG TAB PO (21:30)
[2018-04-11] MEDS ORDERED: ONDANSETRON 4MG/2ML VIAL (J2405) IV ×2 (21:30)
[2018-04-11] MEDS ORDERED: fentaNYL 100 MCG/2 ML INJECTION (J3010) IV (21:30)
[2018-04-11] MEDS ORDERED: NITROFURANTOIN (MACROBID) 100 MG CAP PO (21:30)
[2018-04-11] MEDS ORDERED: ACETAMINOPHEN TAB 650MG DOSE (2X325MG) PO (21:30)
[2018-04-11 22:00] LABS: HEMATOCRIT 32.1 % (42.0-52.0); HEMOGLOBIN 9.9 g/dl (13.5-17.5); MEAN CORPUSCULAR HEMOGLOBIN 20.5 pg (27.0-33.0); MEAN CORPUSCULAR HGB CONC 30.8 g/dl (32.0-36.5); MEAN CORPUSCULAR VOLUME 66.6 fl (80.0-96.0); PLATELET COUNT, AUTOMATED 200 10^3/uL (150-450); RED BLOOD COUNT 4.82 10^6/uL (4.30-6.10); RED CELL DISTRIBUTION WIDTH 20.9 % (11.5-14.5); WHITE BLOOD COUNT 10.6 10^3/uL (4.0-10.0)
[2018-04-11 22:19] LABS: ANION GAP 5 MEQ/L (8-16); BLOOD UREA NITROGEN 17 MG/DL (7-18); CALCIUM LEVEL 8.2 MG/DL (8.8-10.2); CARBON DIOXIDE LEVEL 31 MEQ/L (21-32); CHLORIDE LEVEL 107 MEQ/L (98-107); CREATININE FOR GFR 1.16 MG/DL (0.70-1.30); GLOMERULAR FILTRATION RATE > 60.0 (>35); GLUCOSE, FASTING 169 MG/DL (70-100); POTASSIUM SERUM 4.3 MEQ/L (3.5-5.1); SODIUM LEVEL 143 MEQ/L (136-145)
[2018-04-11] MEDS: LR 1,000 ML IV (22:57)
[2018-04-11] MEDS: RAMIPRIL 5 MG CAP PO (23:06)
[2018-04-11] MEDS: DOCUSATE SODIUM 100 MG CAP PO (23:06)
[2018-04-11] MEDS: CIPROFLOXACIN 400 MG in APPROPRIATE DILUENT 1 EA IV (23:06)
[2018-04-11] MEDS: ATORVASTATIN 20 MG TAB PO (23:06)
[2018-04-12] MEDS: GENTAMICIN 80 MG in APPROPRIATE DILUENT 1 EA IV (02:26)
[2018-04-12 06:18] LABS: HEMATOCRIT 30.5 % (42.0-52.0); HEMOGLOBIN 9.4 g/dl (13.5-17.5); MEAN CORPUSCULAR HEMOGLOBIN 20.3 pg (27.0-33.0); MEAN CORPUSCULAR HGB CONC 30.8 g/dl (32.0-36.5); PLATELET COUNT, AUTOMATED 212 10^3/uL (150-450); RED BLOOD COUNT 4.62 10^6/uL (4.30-6.10); RED CELL DISTRIBUTION WIDTH 20.8 % (11.5-14.5); WHITE BLOOD COUNT 6.6 10^3/uL (4.0-10.0)
[2018-04-12 06:33] LABS: ANION GAP 6 MEQ/L (8-16); BLOOD UREA NITROGEN 18 MG/DL (7-18); CALCIUM LEVEL 8.5 MG/DL (8.8-10.2); CARBON DIOXIDE LEVEL 29 MEQ/L (21-32); CHLORIDE LEVEL 105 MEQ/L (98-107); CREATININE FOR GFR 1.25 MG/DL (0.70-1.30); GLOMERULAR FILTRATION RATE 58.4 (>35); GLUCOSE, FASTING 147 MG/DL (70-100); POTASSIUM SERUM 4.5 MEQ/L (3.5-5.1); SODIUM LEVEL 140 MEQ/L (136-145)
[2018-04-12] MEDS: TAMSULOSIN 0.4 MG CAP PO (08:14)
[2018-04-12] MEDS: DOCUSATE SODIUM 100 MG CAP PO (08:14)
[2018-04-12] MEDS: CIPROFLOXACIN 500 MG TAB PO (08:14)
[2018-04-12] MEDS: ASPIRIN 81 MG ENTERIC TAB PO (08:15)
== END 2018-04-12 10:50 | disposition home or self-care (01) ==
LOC: M SDC 04-12 10:50 → M MSPAV 22:13
DX: R31.0 Gross hematuria (principal); R33.9 Retention of urine, unspecified; N40.0 Benign prostatic hyperplasia without lower urinary tract symptoms; I10 Essential (primary) hypertension; I25.2 Old myocardial infarction; Z79.899 Other long term (current) drug therapy; Z79.01 Long term (current) use of anticoagulants; Z86.73 Personal history of transient ischemic attack (TIA), and cerebral infarction without residual deficits
CPT/HCPCS: 52001

== ENCOUNTER → 2018-04-11 | Outpatient (CLI) | payer MEDICARE, OTHER ==
[2018-04-11 12:39] LABS: HEMATOCRIT 34.8 % (42.0-52.0); HEMOGLOBIN 10.6 g/dl (13.5-17.5); MEAN CORPUSCULAR HEMOGLOBIN 20.5 pg (27.0-33.0); MEAN CORPUSCULAR HGB CONC 30.5 g/dl (32.0-36.5); MEAN CORPUSCULAR VOLUME 67.2 fl (80.0-96.0); PLATELET COUNT, AUTOMATED 201 10^3/uL (150-450); RED BLOOD COUNT 5.18 10^6/uL (4.30-6.10); RED CELL DISTRIBUTION WIDTH 21.5 % (11.5-14.5); WHITE BLOOD COUNT 7.5 10^3/uL (4.0-10.0)
[2018-04-11 13:08] LABS: ANION GAP 8 MEQ/L (8-16); BLOOD UREA NITROGEN 19 MG/DL (7-18); CALCIUM LEVEL 8.6 MG/DL (8.8-10.2); CARBON DIOXIDE LEVEL 27 MEQ/L (21-32); CHLORIDE LEVEL 109 MEQ/L (98-107); CREATININE FOR GFR 1.14 MG/DL (0.70-1.30); GLOMERULAR FILTRATION RATE > 60.0 (>35); GLUCOSE, FASTING 117 MG/DL (70-100); POTASSIUM SERUM 4.2 MEQ/L (3.5-5.1); SODIUM LEVEL 144 MEQ/L (136-145)
== END ==
LOC: M LAB 12:06
DX: Z01.818 Encounter for other preprocedural examination (principal); R31.0 Gross hematuria
CPT/HCPCS: 80048

== ENCOUNTER → 2018-04-30 | Outpatient (REF) | payer MEDICARE, OTHER ==
[~2018-04-30] MED LIST changes: +ACE65ERTAB PO; +ASPI1TAB PO; +CIPR-249 PO; +CIPR500T19 PO; +COLA100C5 PO; +OXYB5TAB PO
[2018-04-30 13:43] LABS: APPEARANCE, URINE HAZY (CLEAR); BACTERIA, URINE AUTO 1+ (NEGATIVE); BILIRUBIN, URINE AUTO NEGATIVE (NEGATIVE); BLOOD, URINE BLOOD 3+ (NEGATIVE); COLOR, URINE YELLOW (YELLOW); GLUCOSE, URINE (UA) AUTO NEGATIVE (NEGATIVE); KETONE, URINE AUTO NEGATIVE (NEGATIVE); LEUKOCYTE ESTERASE, URINE AUTO 3+ (NEGATIVE); MUCUS, URINE SMALL (NEGATIVE); NITRITE, URINE AUTO NEGATIVE (NEGATIVE); PROTEIN, URINE AUTO 2+ mg/dL (NEGATIVE); RBC, URINE AUTO TNTC /HPF (0-3); SPECIFIC GRAVITY URINE AUTO 1.014 (1.002-1.035); SQUAMOUS EPITHELIAL CELL UR AU 0 /HPF (0-6); UROBILINOGEN, URINE AUTO 0.2 mg/dL (0.0-2.0); WBC, URINE AUTO TNTC /HPF (0-3)
== END ==
LOC: M SMT 12:48
PROVIDERS: ATTEND Nurse Practitioner Family
DX: R33.9 Retention of urine, unspecified (principal)

== ENCOUNTER → 2018-05-17 | Outpatient (REF) | payer MEDICARE, OTHER ==
[2018-05-17 13:51] LABS: AMORPHOUS SEDIMENT SMALL (NEGATIVE); APPEARANCE, URINE HAZY (CLEAR); BACTERIA, URINE AUTO 1+ (NEGATIVE); BILIRUBIN, URINE AUTO NEGATIVE (NEGATIVE); BLOOD, URINE BLOOD 2+ (NEGATIVE); COLOR, URINE YELLOW (YELLOW); GLUCOSE, URINE (UA) AUTO 2+ mg/dL (NEGATIVE); KETONE, URINE AUTO NEGATIVE (NEGATIVE); LEUKOCYTE ESTERASE, URINE AUTO 3+ (NEGATIVE); MUCUS, URINE SMALL (NEGATIVE); NITRITE, URINE AUTO NEGATIVE (NEGATIVE); PROTEIN, URINE AUTO 2+ mg/dL (NEGATIVE); RBC, URINE AUTO 40 /HPF (0-3); SQUAMOUS EPITHELIAL CELL UR AU 0 /HPF (0-6); UROBILINOGEN, URINE AUTO 0.2 mg/dL (0.0-2.0); WBC, URINE AUTO 111 /HPF (0-3)
== END ==
LOC: M SMT 12:51
PROVIDERS: ATTEND Nurse Practitioner Family
DX: R33.9 Retention of urine, unspecified (principal)

== ENCOUNTER → 2018-07-26 | Outpatient (CLI) | payer MEDICARE, OTHER ==
[~2018-07-26] MED LIST changes: -ASPI1TAB PO; +ASPI81TA26 PO
--- NOTE | 2018-07-26 13:40 | REP ---
Chest x-ray: Two views. History: Cough. Comparison chest x-ray: February 08, 2018. Findings: Some pleuroparenchymal fibrosis in the left base unchanged from prior study. No new infiltrate is seen. Pleural angles are sharp. Heart size is normal. There are degenerative changes in the thoracic spine. Pulmonary vasculature is not increased. Impression: Pleuroparenchymal fibrosis left base. No acute disease seen. Electronically Signed by Gio Read MD 07/26/2018 02:21 P
== END ==
LOC: M WUC 12:01
PROVIDERS: ATTEND Family Medicine
DX: R05 Cough (principal); J84.10 Pulmonary fibrosis, unspecified

== ENCOUNTER → 2018-08-08 | Outpatient (REF) | payer MEDICARE, OTHER ==
[2018-08-08 18:31] LABS: APPEARANCE, URINE CLEAR (CLEAR); BACTERIA, URINE AUTO NEGATIVE (NEGATIVE); BILIRUBIN, URINE AUTO NEGATIVE (NEGATIVE); BLOOD, URINE BLOOD 1+ (NEGATIVE); COLOR, URINE YELLOW (YELLOW); GLUCOSE, URINE (UA) AUTO 2+ mg/dL (NEGATIVE); KETONE, URINE AUTO NEGATIVE (NEGATIVE); LEUKOCYTE ESTERASE, URINE AUTO NEGATIVE (NEGATIVE); MUCUS, URINE SMALL (NEGATIVE); NITRITE, URINE AUTO NEGATIVE (NEGATIVE); PROTEIN, URINE AUTO 2+ mg/dL (NEGATIVE); RBC, URINE AUTO 2 /HPF (0-3); SPECIFIC GRAVITY URINE AUTO 1.021 (1.002-1.035); SQUAMOUS EPITHELIAL CELL UR AU 0 /HPF (0-6); UROBILINOGEN, URINE AUTO 0.2 mg/dL (0.0-2.0); WBC, URINE AUTO 3 /HPF (0-3)
== END ==
LOC: M SMT 17:17
PROVIDERS: ATTEND Nurse Practitioner Family
DX: R35.0 Frequency of micturition (principal)

== ENCOUNTER → 2018-11-02 | Outpatient (REF) | payer MEDICARE, OTHER | LOC: M SMT 13:10 | PROVIDERS: ATTEND Urology | DX: R33.9 Retention of urine, unspecified (principal) ==

== ENCOUNTER → 2019-03-05 | Outpatient (REF) | payer MEDICARE, OTHER ==
[~2019-03-05] MED LIST changes: -OXYB5TAB PO; +OXYB5TAB2 PO
[2019-03-05 18:12] LABS: FREE T4 0.84 NG/DL (0.76-1.46); THYROID STIMULATING HORMONE 2.7 uIU/ML (0.358-3.740)
[2019-03-05 18:21] LABS: HEMOGLOBIN A1c 6.3 %
== END ==
LOC: M LABNEURO 13:39
PROVIDERS: ATTEND Psychiatry & Neurology Neurology
DX: E11.9 Type 2 diabetes mellitus without complications (principal); E07.9 Disorder of thyroid, unspecified

== ENCOUNTER 2019-06-01 01:34 | Emergency (ER) | payer MEDICARE, OTHER ==
[~2019-06-01 01:34] MED LIST changes: +OXYB-54 PO; -OXYB5TAB2 PO
[2019-06-01 05:36] LABS: BASO # 0.1 10^3/uL (0.0-0.2); BASO % 0.5 % (0.0-1.0); EOS # 0.1 10^3/uL (0.0-0.5); EOS % 0.6 % (0.0-3.0); HEMATOCRIT 36.4 % (42.0-52.0); LYMPH # 1.9 10^3/uL (1.5-5.0); LYMPH % 13.2 % (24.0-44.0); MEAN CORPUSCULAR HEMOGLOBIN 18.5 pg (27.0-33.0); MEAN CORPUSCULAR HGB CONC 30.2 g/dl (32.0-36.5); MEAN CORPUSCULAR VOLUME 61.1 fl (80.0-96.0); MONO # 1.2 10^3/uL (0.0-0.8); MONO % 8.6 % (0.0-5.0); NEUTROPHILS # 10.7 10^3/uL (1.5-8.5); NEUTROPHILS % 76.7 % (36.0-66.0); PLATELET COUNT, AUTOMATED 210 10^3/uL (150-450); RED BLOOD COUNT 5.96 10^6/uL (4.30-6.10)
[2019-06-01 05:46] LABS: INR 1.2
[2019-06-01 05:47] LABS: PARTIAL THROMBOPLASTIN TIME 36.9 SECONDS (25.0-38.4)
[2019-06-01 05:57] LABS: BLOOD UREA NITROGEN 24 MG/DL (7-18); CALCIUM LEVEL 8.3 MG/DL (8.8-10.2); CARBON DIOXIDE LEVEL 27 MEQ/L (21-32); CHLORIDE LEVEL 110 MEQ/L (98-107); CREATININE FOR GFR 1.15 MG/DL (0.70-1.30); GLOMERULAR FILTRATION RATE > 60.0 (>35); GLUCOSE, FASTING 136 MG/DL (70-100); POTASSIUM SERUM 4.5 MEQ/L (3.5-5.1); SODIUM LEVEL 141 MEQ/L (136-145)
[2019-06-01] MEDS ORDERED: CIPR-249 PO (08:44)
[2019-06-01] MEDS ORDERED: CIPROFLOXACIN 500 MG TAB PO ONE (08:45)
[2019-06-01 08:56] VITALS: BP 149/71
== END 2019-06-01 09:07 | disposition home or self-care (01) ==
LOC: M ED 01:34
DX: Z46.6 Encounter for fitting and adjustment of urinary device (principal); R31.0 Gross hematuria; N39.0 Urinary tract infection, site not specified; Z96.0 Presence of urogenital implants; I11.0 Hypertensive heart disease with heart failure; Z79.899 Other long term (current) drug therapy

== ENCOUNTER 2019-08-04 12:16 | Inpatient (IN) | payer MEDICARE, OTHER ==
[~2019-08-04] VITALS: Ht 167.6 cm; Wt 103.4 kg
[2019-08-04] MEDS ORDERED: FAMO1TAB11 PO (12:38)
[2019-08-04] MEDS ORDERED: ASPI81TA85 PO (12:38)
[2019-08-04 12:49] LABS: BASO # 0.1 10^3/uL (0.0-0.2); BASO % 0.6 % (0.0-1.0); EOS # 0.2 10^3/uL (0.0-0.5); EOS % 1.5 % (0.0-3.0); HEMATOCRIT 40.1 % (42.0-52.0); LYMPH % 28.4 % (24.0-44.0); MEAN CORPUSCULAR HEMOGLOBIN 18.3 pg (27.0-33.0); MEAN CORPUSCULAR HGB CONC 29.9 g/dl (32.0-36.5); MONO # 1.3 10^3/uL (0.0-0.8); MONO % 12.3 % (0.0-5.0); NEUTROPHILS % 56.9 % (36.0-66.0); PLATELET COUNT, AUTOMATED 213 10^3/uL (150-450); RED BLOOD COUNT 6.57 10^6/uL (4.30-6.10); WHITE BLOOD COUNT 10.5 10^3/uL (4.0-10.0)
--- NOTE | 2019-08-04 13:05 | REP ---
REASON: Altered mental status. COMPARISON EXAMINATIONS: 06/21/2017 and 12/29/2017. There is a new area of decreased density seen in the right temporoparietal lobe watershed distribution. There are other low density areas seen throughout the brain, consistent with old infarctions and unchanged from 06/21/2017. 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 There are no acute extra-axial fluid collections, and there is no shift to the midline structures. The imaged paranasal sinuses show small bilateral maxillary sinus air-fluid levels along with soft tissue density in the frontal sinuses and frontal ethmoid recess on the left. IMPRESSION: 1. Acute infarct is suspected in the right temporoparietal watershed distribution. 2. Chronic brain changes, as described above. 3. Sinusitis. Electronically Signed by Ruperto Candelario DO 08/04/2019 01:51 P
--- NOTE | 2019-08-04 13:08 | REP ---
REASON FOR EXAM: Altered mental status. LATEST PRIOR FOR COMPARISON: 07/26/2018 The technique utilized in obtaining the radiograph has magnified the cardiac silhouette and accentuated the interstitial markings. There is no significant change from the prior exam. There is an area of fibrosis suspected in the left lower lobe, status quo. The cardiac silhouette is magnified by technique. There is no gross cardiomegaly. The pleural angles are sharp. The osseous structures are within normal limits. IMPRESSION: Essentially stable-appearing chronic changes, as described above. There is no evidence of acute cardiopulmonary disease. Electronically Signed by Ruperto Candelario DO 08/04/2019 01:52 P
[2019-08-04 13:18] LABS: ALBUMIN 3.7 GM/DL (3.2-5.2); ALT/SGPT 33 U/L (12-78); BILIRUBIN,DIRECT 0.2 MG/DL (0.0-0.2); BILIRUBIN,TOTAL 0.7 MG/DL (0.2-1.0); BLOOD UREA NITROGEN 21 MG/DL (7-18); CALCIUM LEVEL 8.9 MG/DL (8.8-10.2); CARBON DIOXIDE LEVEL 29 MEQ/L (21-32); CHLORIDE LEVEL 105 MEQ/L (98-107); CK-MB VALUE MASS 3.8 NG/ML (<3.6); CPK CREATINE PHOSPHOKINASE 277 U/L (39-308); CREATININE FOR GFR 1.24 MG/DL (0.70-1.30); GLOMERULAR FILTRATION RATE 58.8 (>35); GLUCOSE, FASTING 106 MG/DL (70-100); MB/CK RELATIVE INDEX 1.37 (< OR =4); SODIUM LEVEL 140 MEQ/L (136-145); TOTAL PROTEIN 7.7 GM/DL (6.4-8.2); TROPONIN I < 0.02 NG/ML (< 0.10)
[2019-08-04] MEDS ORDERED: ACET-907 PO (13:26)
[2019-08-04 13:59] LABS: AMORPHOUS SEDIMENT SMALL (NEGATIVE); APPEARANCE, URINE CLOUDY (CLEAR); BACTERIA, URINE AUTO 1+ (NEGATIVE); BILIRUBIN, URINE AUTO NEGATIVE (NEGATIVE); BLOOD, URINE BLOOD 1+ (NEGATIVE); COLOR, URINE YELLOW (YELLOW); GLUCOSE, URINE (UA) AUTO NEGATIVE (NEGATIVE); KETONE, URINE AUTO NEGATIVE (NEGATIVE); LEUKOCYTE ESTERASE, URINE AUTO 3+ (NEGATIVE); MUCUS, URINE SMALL (NEGATIVE); NITRITE, URINE AUTO POSITIVE (NEGATIVE); PROTEIN, URINE AUTO 2+ mg/dL (NEGATIVE); RBC, URINE AUTO 16 /HPF (0-3); SQUAMOUS EPITHELIAL CELL UR AU 0 /HPF (0-6); UROBILINOGEN, URINE AUTO 0.2 mg/dL (0.0-2.0); WBC, URINE AUTO 61 /HPF (0-3)
[2019-08-04 15:24] LABS: INR 1.15; PROTHROMBIN TIME 14.4 SECONDS (11.8-14.0)
[2019-08-04 15:25] LABS: PARTIAL THROMBOPLASTIN TIME 35.5 SECONDS (25.0-38.4)
[2019-08-04] MEDS ORDERED: NS 1,000 ML IV SCH (15:30)
[2019-08-04] MEDS ORDERED: ACETAMINOPHEN TAB 650MG DOSE (2X325MG) PO PRN (15:45)
--- NOTE | 2019-08-04 15:57 | ECGEPIP ---
[facility] - ED Test Date: 2019-08-04 Pat Name: KALYAN MILLAN Department: Room: - Gender: Male Transportation Specialist: annejessica : [id number] Requested By: Todd Torres Order Number: [id number] Reading MD: Onel Salvador Measurements Intervals [place] Rate: 64 P: 56 CO: 236 QRS: 9 QRSD: 95 T: 124 QT: 400 QTc: 414 Interpretive Statements SINUS RHYTHM WITH FIRST DEGREE AV BLOCK WITH OCCASIONAL VENTRICULAR PREMATURE C COMPLEXES LEFT VENTRICULAR HYPERTROPHY AND ST-T CHANGE NONSPECIFIC ST T WAVE CHANGES DELAYED R WAVE PROGRESSION CW 06/18/[address] T WAVE CHANGES Electronically Signed on 08-04-2019 15:57:27 EDT by Onel Salvador
--- NOTE | 2019-08-04 16:26 | HPEPDOC ---
[facility] Medical History & Physical Date of Admission Aug 04, 2019 Date of Service: Aug 04, 2019 Attending Physician: Oliva Rivera MD History and Physical CHIEF COMPLAINT: Altered mental status HISTORY OF PRESENT ILLNESS: The patient is an 84-year-old male with extensive past medical history including multiple CVAs hemorrhagic and ischemic, hypertension, hyperlipidemia, CAD status post stenting, GERD, dementia, BPH with chronic indwelling Nelson catheter who presented to [facility] with the chief complaint by family that he was altered. The patient has been complaining of a headache since yesterday afternoon. He took Tylenol and felt better. According to family he was himself before bed last evening. This morning the patient complained of headache increased with movement of his head and sneezing. He was not oriented according to his family to those around him and was having some depth perception issues. They denied any facial drooping, difficulty walking, difficulty swallowing, slurring of his speech. The patient cannot recall being confused this morning; however, admits to headaches being present and Tylenol helping pain. Due to the patient's history of stroke the family brought him in to get further assessed. In the emergency room the patient's vital signs showed blood pressure 173/77, temperature 90.8, pulse 60, respiratory rate 18, O2 sat 97% on room air. ECG showed first degree AV block, PVCs with nonspecific ST changes. When compared to prior ECG on file this was similar. Troponin was negative. CT of the head showed an acute infarct in the right temporal parietal watershed distribution along with chronic changes from prior infarcts. On examination by the emergency room the patient had no focal deficits and according to his daughter, who was at the bedside, he was at his baseline. The patient was alert and oriented 3 and denies fevers, chills, stressors at home, recent illnesses, falls, recent medication changes, chest pain or shortness of breath. UA was done due to the patient's chronic Nelson catheter and AMS, later found to be UTI positive. Neurological exam by myself showed no focal deficits, strength 5 out of 5 in all extremities, cranial nerves were all intact. The case was discussed with Dr. Hinds, neurology. The patient will be admitted under inpatient status for further workup and close monitoring of acute right temporoparietal CVA. REVIEW OF SYSTEMS: CONSTITUTIONAL: Denies lack of energy, unexplained weight gain or weight loss, loss of appetite, fever, night sweats EYES: Denies eye drainage, eye pain, visual changes, dry/irritated eye EARS, NOSE, MOUTH, THROAT: Denies difficulty hearing, ringing in ears, mouth sor es, loose teeth, sore throat, facial numbness or pain NECK: Denies swollen glands CARDIOVASCULAR: Denies irregular heartbeat, racing heart, chest pains, swelling of feet or legs, pain in legs with walking RESPIRATORY: Denies shortness of breath, night sweats, wheezing, sputum production, oxygen at home, coughing up blood, cough lasting > 1 month GASTROINTESTINAL: Denies abdominal pain, constipation, bloody stool, diarrhea, heartburn, nausea, vomiting GENITOURINARY: Denies painful urination, bloody urine, frequent urination, urgency, leaking urine, impotence MUSCULOSKELETAL: Denies joint pain, muscle pain, leg swelling INTEGUMENTARY: Denies rash, itching, new skin lesion, change in existing skin lesion, hair loss or increase, breast changes. NEUROLOGICAL: Denies dizziness, numbness or tingling PSYCHIATRIC: Denies depression, anxiety, recurrent bad thoughts, mood swings, hallucinations PAST MEDICAL HISTORY: 1. History of CVA (2014, 2017), hemorrhagic and ischemic 2. History of UTI 3. Hypertension 4. Hyperlipidemia 5. Coronary artery disease status post stent 6. GERD 7. Dementia 8. BPH with chronic indwelling Nelson catheter PAST SURGICAL HISTORY: 1. Cardiac stent placement 1997, 2014 2. TRUP 3. Appendectomy 4. Cystoscopy FAMILY HISTORY: Father: CAD, stroke. at 88 years old Mother: DJD. at 94 years old Siblings: Sisterdiabetes, pericarditis. in her 60s SOCIAL HISTORY: The patient has a remote smoking history in his 20s of cigarettes; however did not smoke daily. He has a history of occasionally smoking cigars for the past 20 years. He has social alcohol history, no drug use history. He lives with his independently in a house. He does not use a walker or cane. He is a DNR but it was unclear about intubation by his daughter. His healthcare proxy is his Migdalia [phone] and his daughter Mirela [phone]. PCP is unknown by patient and his daughter at the bedside. Neurologist is Dr. Arellano. Dividend Clerk is Dr. Sam. Urologist is Dr. Nunn. ALLERGIES: Please see below. HOME MEDICATIONS: Please see below. PHYSICAL EXAMINATION: CONSTITUTIONAL: Very pleasant older male, in no acute distress, resting comfortably, AAO x 3 EYES: PERRLA, EOM intact HENT, MOUTH: Normocephalic, atraumatic, moist mucous membranes, NECK: SUPPLE, no JVD, no lymphadenopathy, no carotid bruit CV: Regular rate and rhythm, S1S2 normal, no murmurs/rubs/gallops RESPIRATORY: Clear to auscultation bilaterally, no rales/rhonchi/wheezes GI: BS positive in 4 quadrants, soft, nontender, nondistended, no rebound or guarding, no organomegaly : Deferred MUSCULOSKELETAL: Normal ROM. No cyanosis, clubbing, swelling, joint deformity, extremity edema INTEGUMENTARY: Intact, no rashes, no lesions, no erythema NEUROLOGIC: Cranial Nerves II-XII are intact, no focal deficits, strength 5/5 in all extremities. No sensory or motor deficits on exam. PSYCHIATRIC: Mood and affect are normal LABORATORY DATA: Please see below IMAGING: CT head: Acute infarct in the right temporal parietal watershed distribution. CXR: Essentially stable-appearing chronic changes, as described above. There is no evidence of acute cardiopulmonary disease. ASSESSMENT: 84-year-old male admitted under inpatient status for further treatment and monitoring of acute right temporal parietal CVA. PLAN: 1. Acute ischemic right temporoparietal CVA. History of multiple CVAs in past of ischemic and hemorrhagic etiology. Keep IVFs to allow BP to stay in 140-150 mmHg systolic, permissive HTN. As per neurology, continue aspirin, Plavix, statin. Follow-up swallow evaluation, PT/OT, neuro checks Q2hrs, echocardiogram, carotid doppler. Neurology to follow up as outpatient. 2. UTI. Chronic indwelling nelson catheter (last changed on 07/31/19 and then today also). Ceftriaxone IV Q24 hrs. F/u UCx. 3. Abnormal ECG. Hx of CAD. Trop neg, when compared to prior on file, similar. Cycle 2 more sets of troponin. Monitor on tele. C/w ASA, statin. 4. HTN. C/w plan above under problem #1. Holding antihypertensive meds. 5. HLD. C/w statin 6. CAD s/p stent. Trop neg. C/w plan under problem #3. 7. BPH. Chronic nelson catheter. F/u with urology as outpatient. 8. GERD. C/w famotidine. 9. 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 Operates independently with , Taryn 3 c urrently. According to daughter, this can wax and wane. Encourage gentle redirection. 10. DVT px. On ASA, plavix only. Hold heparin products. SCDs. DISPOSITION: The patient is currently admitted under inpatient status. We will monitor closely with the aforementioned plan and hope to discharge patient home when medically improved. Vital Signs Vital Signs Date Time Temp Pulse Resp B/P (MAP) Pulse Ox O2 Delivery O2 Flow Rate FiO2 08/04/19 15:45 52 18 139/66 (90) 97 08/04/19 12:31 98.0 Laboratory Data Labs 24H Laboratory Tests 2 08/04/19 12:34: Immature Granulocyte % (Auto) 0.3, Neutrophils (%) (Auto) 56.9, Lymphocytes (%) (Auto) 28.4, Monocytes (%) (Auto) 12.3H, Eosinophils (%) (Auto) 1.5, Basophils (%) (Auto) 0.6, Neutrophils # (Auto) 6.0, Lymphocytes # (Auto) 3.0, Monocytes # (Auto) 1.3H, Eosinophils # (Auto) 0.2, Basophils # (Auto) 0.1, Nucleated Red Blood Cells % (auto) 0.0, Prothrombin Time 14.4H, Prothromb Time International Ratio 1.15, Activated Partial Thromboplast Time 35.5, Anion Gap 6L, Glomerular Filtration Rate 58.8, Lactic Acid Level 1.7, Calcium Level 8.9, Total Bilirubin 0.7, Direct Bilirubin 0.2, Aspartate Amino Transf (AST/SGOT) 27, Alanine Amino transferase (ALT/SGPT) 33, Alkaline Phosphatase 144H, Total Creatine Kinase 277, Creatine Kinase MB 3.8H, Creatine Kinase MB Relative Index 1.37, Troponin I < 0.02, Total Protein 7.7, Albumin 3.7, Albumin/Globulin Ratio 0.93L, Thyroid Stimulating Hormone (TSH) 2.330 08/04/19 12:45: Bedside Glucose (Misc Panel) 106 08/04/19 13:44: Urine Color YELLOW, Urine Appearance CLOUDYH, Urine pH 6.0, Urine Specific [place] 1.010, Urine Protein 2+H, Urine Glucose (Auto)(UA) NEGATIVE, Urine Ketones (Auto) NEGATIVE, Urine Blood 1+H, Urine Nitrite POSITIVE, Urine Bilir ubin NEGATIVE, Urine Urobilinogen 0.2, Urine Leukocyte Esterase (Auto) 3+H, Urine WBC (Auto) 61H, Urine RBC (Auto) 16H, Urine Hyaline Casts (Auto) 0, Urine Bacteria (Auto) 1+H, Urine Squamous Epithelial Cells 0, Urine Amorphous Sediment (Auto) SMALLH, Urine Mucus (Auto) SMALL, Urine Sperm (Auto) CBC/BMP Laboratory Tests 08/04/19 12:34 Microbiology Microbiology 08/04/19 Urine Culture, Received Pending 08/04/19 Blood Culture, Received Pending 08/04/19 Blood Culture, Received Pending Home Medications Scheduled Aspirin (Aspir 81) 81 Mg Tablet.dr, 81 MG PO DAILY Atorvastatin Calcium (Atorvastatin Calcium) 20 Mg Tab, 20 MG PO QHS Clopidogrel Bisulfate (Plavix) 75 Mg Tab, 75 MG PO DAILY Famotidine (Famotidine) 20 Mg Tablet, 20 MG PO BID Ramipril (Ramipril) 10 Mg Cap, 10 MG PO QHS Scheduled PRN Acetaminophen (Tylenol) 325 Mg Tablet, 325 MG PO QID PRN for PAIN Allergies Coded Allergies: No Known Allergies (Unverified , 04/11/18) A-FIB/CHADSVASC A-FIB History Current/History of A-Fib/PAF?: No Current PO Anticoag Therapy: No Age/Risk Factor Scoring CHADSVASC: CHADSVASC Response (Comments) Value Age Risk Factor Age >/= 75 years old 2 Gender Risk Factor Male 0 Hx of CHF No 0 Hx of HTN Yes 1 Hx of Stroke/TIA/or VTE Yes 2 Hx of Diabetes No 0 Hx of Vascular Disease No 0 Total 5 Treatment Treatment ordered: Other Other anticoagulant ordered: ASA, plavix Oliva Rivera MD Aug 04, 2019 16:26
[2019-08-04] MEDS ORDERED: ASPIRIN 81 MG CHEW TABLET PO ONE (16:30)
[2019-08-04] MEDS ORDERED: CLOPIDOGREL 75 MG TAB PO ONE (16:30)
[2019-08-04 16:39] VITALS: BP 180/75
[2019-08-04] MEDS: cefTRIAXone SOD 1 GM in D5W MINI-BAG PLUS 50 ML IV SCH (17:38)
[2019-08-04 18:08] VITALS: BP 165/70
[2019-08-04 20:00] VITALS: BP 158/70
[2019-08-04] MEDS: FAMOTIDINE 20 MG TAB PO SCH (20:29)
[2019-08-04] MEDS: ATORVASTATIN 20 MG TAB PO SCH (20:29)
[2019-08-04 22:00] VITALS: BP 156/68
[2019-08-05] VITALS (8 sets, daily range): BP systolic 146–160; BP diastolic 46–80
[2019-08-05 06:00] LABS: HEMATOCRIT 35.5 % (42.0-52.0); HEMOGLOBIN 10.9 g/dl (13.5-17.5); MEAN CORPUSCULAR HEMOGLOBIN 18.5 pg (27.0-33.0); MEAN CORPUSCULAR HGB CONC 30.7 g/dl (32.0-36.5); MEAN CORPUSCULAR VOLUME 60.3 fl (80.0-96.0); PLATELET COUNT, AUTOMATED 194 10^3/uL (150-450); RED BLOOD COUNT 5.89 10^6/uL (4.30-6.10); WHITE BLOOD COUNT 10.8 10^3/uL (4.0-10.0)
[2019-08-05 06:28] LABS: BLOOD UREA NITROGEN 18 MG/DL (7-18); CALCIUM LEVEL 8.7 MG/DL (8.8-10.2); CARBON DIOXIDE LEVEL 26 MEQ/L (21-32); CHLORIDE LEVEL 107 MEQ/L (98-107); CHOLESTEROL LEVEL 108 MG/DL (<200); CREATININE FOR GFR 1.09 MG/DL (0.70-1.30); GLOMERULAR FILTRATION RATE > 60.0 (>35); GLUCOSE, FASTING 96 MG/DL (70-100); HDL CHOLESTEROL 36 MG/DL (>40); LDL CHOLESTEROL 57 MG/DL (<100); NON-HDL-C 72 MG/DL; POTASSIUM SERUM 4.2 MEQ/L (3.5-5.1); SODIUM LEVEL 140 MEQ/L (136-145); TRIGLYCERIDES LEVEL 76 MG/DL (<150)
--- NOTE | 2019-08-05 07:21 | REP ---
REASON: Stroke-like symptoms. Comp 06/18/2017 Once again, patchy echogenic material is seen along the carotid arterial carmichael, some of which cast a slight acoustic shadow but essentially unchanged from the prior exam. RIGHT LEFT CCA systolic 57.2 cm/s 57.0 cm/s CCA diastolic 10.2 cm/s 12.2 cm/s ICA systolic 48.7 cm/s 33.3 cm/s ICA diastolic 12.6 cm/s 8.44 cm/s ICA/CCA ratio 0.85 0.76 Analysis of the spectral waveforms shows no significant spectral broadening. There is antegrade flow seen in both vertebral arteries. IMPRESSION: No significant change from the prior exam. Once again, according to the NASCET consensus criteria, there is less than 50% stenosis of the internal carotid artery bilaterally. Electronically Signed by Ruperto Candelario DO 08/05/2019 08:56 A
[2019-08-05] MEDS: FAMOTIDINE 20 MG TAB PO SCH ×2 (08:30→20:41)
[2019-08-05] MEDS: cefTRIAXone SOD 1 GM in D5W MINI-BAG PLUS 50 ML IV SCH (15:42)
[2019-08-05] MEDS: ASPIRIN 81 MG CHEW TABLET PO SCH (16:41)
[2019-08-05] MEDS: CLOPIDOGREL 75 MG TAB PO SCH (16:41)
[2019-08-05] MEDS ORDERED: SLF 3 ML SYR IV PRN (19:00)
[2019-08-05] MEDS: SLF 3 ML SYR IV SCH (20:41)
[2019-08-05] MEDS: ATORVASTATIN 20 MG TAB PO SCH (20:41)
--- NOTE | 2019-08-05 23:43 | IPNPDOC ---
Date Seen The patient was seen on 08/05/19. Progress Note SUBJECTIVE: Confused today from his baseline; however, no neurological deficits. Would not sit still for MRI brain so it was cancelled. When PT when in to evaluate, patient was moving with adequate mobility but was very confused. Family was attempted to be called and message left. He did not sleep well last evening with Q2 hr neuro and VS ordered and he is + for UTI. Hoping for him to sleep better this evening and will order MRI in AM. He is following commands well. He denies any pain, n/v, shortness of breath, chest pain but is unreliable source at this time. OBJECTIVE: VITAL SIGNS: see below PHYSICAL EXAMINATION: CONSTITUTIONAL: confused male but in no acute distress, resting comfortably, AAO x 3 EYES: PERRLA, EOM intact HENT, MOUTH: Normocephalic, atraumatic, moist mucous membranes, NECK: SUPPLE, no JVD, no lymphadenopathy, no carotid bruit CV: Regular rate and rhythm, S1S2 normal, no murmurs/rubs/gallops RESPIRATORY: Clear to auscultation bilaterally, no rales/rhonchi/wheezes GI: BS positive in 4 quadrants, soft, nontender, nondistended, no rebound or guarding, no organomegaly : Deferred MUSCULOSKELETAL: Normal ROM. No cyanosis, clubbing, swelling, joint deformity, extremity edema INTEGUMENTARY: Intact, no rashes, no lesions, no erythema NEUROLOGIC: Cranial Nerves II-XII are intact, no focal deficits, strength 5/5 in all extremities. No sensory or motor deficits on exam. PSYCHIATRIC: Mood and affect are normal LABORATORY DATA: Please see below IMAGING: Carotid doppler: <50% stenosis bilaterally Echocardiogram pending dictation. ASSESSMENT: 84-year-old male admitted under inpatient status for further treatment and monitoring of acute right temporal parietal CVA. PLAN: 1. Altered mental status likely 2/2 to sleep deprivation, UTI and pt with dementia in new setting. His dementia is not normally this confused. No new neurological deficits, neuro exam wnl. Can given something for sleep this evening to have him rest. F/u in the AM. Encourage gentle redirection. 2. Acute ischemic right temporoparietal CVA. No new neuro changes overnight outside of increased confusion. BP 140-160's. History of multiple CVAs in past of ischemic and hemorrhagic etiology. Echo pending dictation. As per neurology, continue aspirin, Plavix, statin. PT/OT evaluated and he was very confused today. Neurology to follow up as outpatient. Rescheduled MRI for the AM 3. UTI. Chronic indwelling nelson catheter (last changed on 08/04/19). Ceftriaxone (day 2) Q24 hrs. F/u UCx. 4. Abnormal ECG. Hx of CAD. Trops neg. Monitor on tele. C/w ASA, statin. 5. HTN. C/w plan above under problem #1. Holding antihypertensive meds. 6. HLD. C/w statin 7. CAD s/p stent. Trop neg. C/w plan under problem #3. 8. BPH. Chronic nelson catheter. F/u with urology as outpatient. 9. GERD. C/w famotidine. 10. 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 Operates independently with , Taryn 3 currently. According to daughter, this can wax and wane. 11. DVT px. On ASA, plavix only. Hold heparin products. SCDs. DISPOSITION: The patient is currently admitted under inpatient status. If patient remains this confused will need 24 hour care. We will monitor closely with the aforementioned plan and hope to discharge patient home when medically improved. VS, I&O, 24H, Ami Vital Signs/I&O Vital Signs Date Time Temp Pulse Resp B/P (MAP) Pulse Ox O2 Delivery O2 Flow Rate FiO2 08/05/19 20:00 99.0 68 18 147/72 (97) 93 Room Air I&O- Last 24 Hours up to 6 AM 08/05/19 06:00 Intake Total 200 ml Output Total 1450 ml Balance -1250 ml Laboratory Data 24H LABS Laboratory Tests 2 08/05/19 05:37: Nucleated Red Blood Cells % (auto) 0.0, Anion Gap 7L, Glomerular Filtration Rate > 60.0, Calcium Level 8.7L, Triglycerides Level 76, Total Cholesterol 108, LDL Cholesterol 57, Non-HDL Cholesterol (LDL + VLDL) 72, Total HDL Cholesterol 36L, Cholesterol/HDL Ratio 3.000 CBC/BMP Laboratory Tests 08/05/19 05:37 Microbiology Microbiology 08/04/19 Urine Culture, Received Pending 08/04/19 Blood Culture - Preliminary, Resulted No growth after 24 hours . All specim... 08/04/19 Blood Culture - Preliminary, Resulted No growth after 24 hours . All specim... Current Medications Current Medications Medications (Trade) Dose Ordered Sig/Anson Route PRN Reason Start Time Stop Time Status Last Admin Dose Admin Acetaminophen (Tylenol Tab) 650 mg Q6HP PRN PO PAIN / FEVER 08/04/19 15:45 Aspirin (Aspirin Chewable) 81 mg DAILY PO 08/05/19 09:00 08/05/19 16:41 Atorvastatin Calcium (Lipitor) 20 mg QHS PO 08/04/19 21:00 08/05/19 20:41 Ceftriaxone Sodium 1 gm/ Dextrose 50 ml @ 100 mls/hr Q24H IV 08/04/19 16:00 08/05/19 15:42 Clopidogrel Bisulfate (PLAVix) 75 mg DAILY PO 08/05/19 09:00 08/05/19 16:41 Famotidine (Pepcid) 20 mg BID PO 08/04/19 21:00 08/05/19 20:41 Home Med (Med Rec Complete!) ASDIRECTED XX 08/04/19 13:30 08/04/19 13:28 DC Sodium Chloride 1,000 ml @ 60 mls/hr [id number] IV 08/04/19 15:30 08/05/19 08:50 DC 08/04/19 17:38 Sodium Chloride (Saline Lock Flush) 2 ml ASDIRECTED PRN IV SEE LABEL COMMENTS 08/05/19 19:00 Sodium Chloride (Saline Lock Flush) 2 ml SLF IV 08/05/19 22:00 08/05/19 20:41 Allergies Coded Allergies: No Known Allergies (Unverified , 04/11/18) Oliva Rivera MD Aug 05, 2019 23:43
[2019-08-06] VITALS: BP 142/55
[2019-08-06 04:00] VITALS: BP 162/79
[2019-08-06] MEDS: SLF 3 ML SYR IV SCH (05:18)
[2019-08-06 06:05] LABS: HEMOGLOBIN 11.4 g/dl (13.5-17.5); MEAN CORPUSCULAR HEMOGLOBIN 18.7 pg (27.0-33.0); MEAN CORPUSCULAR HGB CONC 30.8 g/dl (32.0-36.5); MEAN CORPUSCULAR VOLUME 60.6 fl (80.0-96.0); PLATELET COUNT, AUTOMATED 198 10^3/uL (150-450); RED BLOOD COUNT 6.11 10^6/uL (4.30-6.10); WHITE BLOOD COUNT 9.5 10^3/uL (4.0-10.0)
[2019-08-06 06:11] LABS: CALCIUM LEVEL 8.7 MG/DL (8.8-10.2); CREATININE FOR GFR 1.24 MG/DL (0.70-1.30); GLOMERULAR FILTRATION RATE 58.8 (>35); POTASSIUM SERUM 4.4 MEQ/L (3.5-5.1)
[2019-08-06 07:26] VITALS: BP 162/73
[2019-08-06] MEDS: CLOPIDOGREL 75 MG TAB PO SCH (08:08)
[2019-08-06] MEDS: ASPIRIN 81 MG CHEW TABLET PO SCH (08:08)
[2019-08-06] MEDS: FAMOTIDINE 20 MG TAB PO SCH (08:08)
[2019-08-06] MEDS ORDERED: amLODIPine 5 MG TAB PO SCH (09:00)
--- NOTE | 2019-08-06 09:13 | ECHO ---
DATE OF PROCEDURE: 08/05/2019 REFERRING PHYSICIAN: Dr. Oliva Rivera. INDICATION: Acute stroke. HEIGHT: 168 cm. WEIGHT: 81 kg. 2D MEASUREMENTS: Aortic root - 3.3 cm Left atrium - 3.5 cm Aortic annulus - 2.4 cm Ventricular septum - 1.31 cm Posterior wall - 1.31 cm Left ventricle diastole - 3.8 cm DOPPLER MEASUREMENTS: Mild aortic regurgitation. No aortic stenosis. Aortic valve velocity - 210 cm/s. LVOT velocity - 98.7 cm/s LVOT VTI - 21.6 cm. Very mild mitral regurgitation. Mitral E velocity - 46.9 cm/s Mitral A velocity - 116 cm/s Mitral deceleration time - 204 ms Mild tricuspid regurgitation. Estimated right ventricle systolic pressure - 53-58 mmHg. Estimated right atrial pressure - 5-10 mmHg. No pulmonic regurgitation. Pulmonary artery systolic pressure - 43 mmHg. MITRAL ANNULAR TISSUE DOPPLER: E prime septal - 4.3 cm/s E prime lateral - 7.3 cm/s DESCRIPTION: Rhythm was sinus. This was a moderately technically difficult echocardiogram. No pericardial effusion. This study was 2D, M-mode, color flow Doppler, pulsed wave Doppler, continuous wave Doppler and mitral annular tissue Doppler. CONCLUSIONS: 1. Mild concentric left ventricular hypertrophy without regional wall motion abnormalities. Hyperdynamic LV systolic function LVEF 75% by visual estimate. Grade 1 LV diastolic dysfunction (impaired relaxation filling time). 2. Moderate aortic valve sclerosis of a three-cuspid aortic valve. Mild aortic regurgitation. No aortic stenosis. 3. Mild mitral annular calcification. Very mild mitral regurgitation. 4. Suggestive of moderate elevation of estimated right ventricle systolic pressure (53-58 mmHg). Very mild tricuspid regurgitation. Normal right ventricle size and systolic function. Appearance of normal right atrial size. 5. No pericardial effusion.
--- NOTE | 2019-08-06 10:43 | REP ---
MRI BRAIN: MRI brain performed utilizing sagittal and axial sequences without the use of intravenous contrast. Sagittal T1, axial ADC, DWI, and T2-weighted images performed. Other imaging sequences could not be performed as the patient would not remain still for the exam. There is moderate atrophy. There is no midline shift or mass effect. Old left occipital infarct and right temporal lobe infarct are noted. There is an old lacunar infarct in the right basal ganglia. Hyperintense signal is seen in the peripheral right parietal region in the vascular distribution of the right middle cerebral artery. This hyperintensity on DWI images is hypointense on ADC images. This is consistent with an acute infarct. There is no abnormal signal in the brainstem or cerebellum. There is diffuse moderate mucosal thickening throughout the paranasal sinuses. The seventh and eighth cranial nerve complexes appear unremarkable. IMPRESSION: Acute infarct right parietal lobe peripherally in the vascular distribution of the right middle cerebral artery. There are other chronic ischemic changes as discussed above. Electronically Signed by Endy Busch MD 08/06/2019 12:46 P
--- NOTE | 2019-08-06 11:52 | IPNPDOC ---
Subjective Date Seen The patient was seen on 08/06/19. Subjective Chief Complaint/HPI Patient is comfortable and in no apparent distress. Offers no new complaints General: Denies: ROS Unobtainable, Chills, Night Sweats, Fatigue, Malaise, Normal Appetite, Other Symptoms Constitutional: Denies: Chills, Fever, Malaise, Night Sweats, Weakness, Fatigue, Weight Loss, Lethargy, Other Pulmonary: Denies: Dyspnea, Cough, Pleuritic Chest Pain, Other Symptoms Cardiovascular: Denies: Chest Pain, Palpitations, Orthopnea, Paroxysmal Noc. Dyspnea, Edema, Lt Headedness, Other Symptoms Gastrointestinal: Denies: Nausea, Vomiting, Abdominal Pain, Diarrhea, Constipation, Melena, Hematochezia, Other Symptoms Genitourinary: Denies: Dysuria, Frequency, Incontinence, Hematuria, Retention, Other Symptoms Musculoskeletal: Denies: Neck Pain, Back Pain, Shoulder Pain, Arm Pain, Hand Pain, Leg Pain, Foot Pain, Joint Pain, Muscle Pain, Spasms, Other Symptoms Neurological: Denies: Weakness, Numbness, Incoordination, Change in speech, Confusion, Seizures, Other Symptoms Objective Physical Examination Eye Exam: Positive: PERRLA, Conjunctiva & lids normal Neck Exam: Positive: Supple Chest Exam: Positive: Clear to auscultation, Normal air movement Heart Exam: Positive: Rate Normal, Normal S1, Normal S2 Abdomen Exam: Positive: Normal bowel sounds, Soft Extremity Exam: Positive: Normal pulses Skin Exam: Positive: Nl turgor and temperature Neuro Exam: Positive: Strength at 5/5 X4 ext, Sensation Intact, Cranial Nerves 3-12 NL Assessment /Plan Problems (1) Acute metabolic encephalopathy Status: Acute Problem Text: Acute metabolic encephalopathy secondary to acute right parietal lobe infarct and UTI MRI of the brain shows: Acute infarct right parietal lobe peripherally in the vascular distribution of the right middle cerebral artery. There are other chronic ischemic changes as discussed above. . She was already started on aspirin, Plavix and statin Neurology consultation is still pending PT, OT evaluation Possible transfer to rehabilitation facility (2) CVA (cerebral vascular accident) Status: Acute Problem Text: MRI of the brain showed acute right temporal CVA Continue aspirin, Plavix and Lipitor Physical therapy and occupational therapy consult called Possible transfer to rehabilitation facility (3) UTI (urinary tract infection) Status: Acute Problem Text: UA consistent with UTI Urine cultures pending Continue Rocephin as per orders (4) HTN (hypertension) Status: Chronic Problem Text: Most likely chronic hypertension, which is not under well control Started Norvasc 5 mg by mouth daily and adjust dose accordingly Plan/VTE VTE Prophylaxis Ordered?: Yes VS, I&O, 24H, Fishbone Vital Signs/I&O Vital Signs Date Time Temp Pulse Resp B/P (MAP) Pulse Ox O2 Delivery O2 Flow Rate FiO2 08/06/19 07:26 98.4 57 18 162/73 (102) 98 Room Air I&O- Last 24 Hours up to 6 AM 08/06/19 05:59 Intake Total 920 ml Output Total 2775 ml Balance -1855 ml Laboratory Data 24H LABS Laboratory Tests 2 08/06/19 05:14: Nucleated Red Blood Cells % (auto) 0.0, Anion Gap 5L, Glomerular Filtration Rate 58.8, Calcium Level 8.7L CBC/BMP Laboratory Tests 08/06/19 05:14 Microbiology Microbiology 08/04/19 Urine Culture, Received Pending 08/04/19 Blood Culture - Preliminary, Resulted No growth after 24 hours . All specim... 08/04/19 Blood Culture - Preliminary, Resulted No growth after 24 hours . All specim... LES BARONE MD Aug 06, 2019 11:51
[2019-08-06 12:00] VITALS: BP 148/73
[2019-08-06] MEDS ORDERED: AMLO5TAB6 PO (12:30)
[2019-08-06] MEDS ORDERED: KEFL250C11 PO (12:30)
[2019-08-06 13:17] VITALS: BP 148/73
--- NOTE | 2019-08-06 13:22 | DS.PDOC ---
Discharge Summary General Date of Admission Aug 04, 2019 at 15:01 Date of Discharge 08/06/19 Primary Care Physician: Evelyn Discharge Summary PROCEDURES PERFORMED DURING STAY: None. ADMITTING DIAGNOSES: 1. CVA. DISCHARGE DIAGNOSES: 1. Acute metabolic encephalopathy, acute right parietal ischemic CVA, chronic cerebral ischemic changes, UTI, dementia, hypertension, hyperlipidemia, CAD, G ERD, BPH. COMPLICATIONS/CHIEF COMPLAINT: CVA. HISTORY OF PRESENT ILLNESS: The patient is an 84-year-old male with extensive past medical history including multiple CVAs hemorrhagic and ischemic, hyp ertension, hyperlipidemia, CAD status post stenting, GERD, dementia, BPH with chronic indwelling Pisano catheter who presented to [facility] with the chief complaint by family that he was altered. The patient has been complaining of a headache since yesterday afternoon. He took Tylenol and felt better. According to family he was himself before bed last evening. This morning the patient complained of headache increased with movement of his head and sneezing. He was not oriented according to his family to those around him and was having some depth perception issues. They denied any facial drooping, difficulty walking, difficulty swallowing, slurring of his speech. The patient cannot recall being confused this morning; however, admits to headaches being present and Tylenol helping pain. Due to the patient's history of stroke the family brought him in to get further assessed. In the emergency room the patient's vital signs showed blood pressure 173/77, temperature 90.8, pulse 60, respiratory rate 18, O2 sat 97% on room air. ECG showed first degree AV block, PVCs with nonspecific ST changes. When compared to prior ECG on file this was similar. Troponin was negative. CT of the head showed an acute infarct in the right temporal parietal watershed distribution along with chronic changes from prior infarcts. On examination by the emergency room the patient had no focal deficits and according to his daughter, who was at the bedside, he was at his baseline. The patient was alert and oriented 3 and denies fevers, chills, stressors at home, recent illnesses, falls, recent medication changes, chest pain or shortness of breath. UA was done due to the patient's chronic Pisano catheter and AMS, later found to be UTI positive. Neurological exam by myself showed no focal deficits, strength 5 out of 5 in all extremities, cranial nerves were all intact. The case was discussed with Dr. Hinds, neurology. The patient will be admitted under inpatient status for further workup and close monitoring of acute right temporoparietal CVA.. HOSPITAL COURSE: Acute metabolic encephalopathy secondary to acute right parietal lobe infarct and UTI MRI of the brain shows: Acute infarct right parietal lobe peripherally in the vascular distribution of the right middle cerebral artery. There are other chronic ischemic changes as discussed above. Pt was already started on aspirin, Plavix and statin Physical therapy and occupational therapy evaluation has been called. Patient will be seen and hopefully will be transferred to acute rehabilitation unit for further rehabilitation Patient was started on Rocephin for UTI. Urine cultures are pending, but p atient's antibiotic has been changed to by mouth Keflex. Please follow his urine cultures when available Shows blood pressure wasn't under control with the ramipril hence Norvasc 5 mg by mouth daily has been started. Please follow the patient's vital signs and adjust medication accordingly. For further information, please review patient's from inpatient admission. . DISCHARGE MEDICATIONS: Please see below. ALLERGIES: Please see below. PHYSICAL EXAMINATION ON DISCHARGE: VITAL SIGNS: Please see below. GENERAL: Within normal limits HEENT: PERRLA. Extraocular muscles intact NECK: Supple CARDIOVASCULAR EXAMINATION: S1, S2, regular RESPIRATORY EXAMINATION: Clear to A&P ABDOMINAL EXAMINATION: , Soft, nontender, bowel sounds present EXTREMITIES: No clubbing, cyanosis, edema SKIN: Normal NEUROLOGICAL EXAMINATION: PSYCHIATRIC EXAMINATION: Normal LABORATORY DATA: Please see below. IMAGING: MRI brain:Acute infarct right parietal lobe peripherally in the va scular distribution of the right middle cerebral artery. There are other chronic ischemic changes as discussed above. PROGNOSIS: Good ACTIVITY: As tolerated. DIET: As tolerated DISCHARGE PLAN: Discharged to acute rehabilitation unit DISPOSITION: . DISCHARGE INSTRUCTIONS: 1. As per discharge instructions. ITEMS TO FOLLOWUP ON ON OUTPATIENT: 1. Urine cultures. DISCHARGE CONDITION: Stable. TIME SPENT ON DISCHARGE: 38 minutes. Vital Signs/I&Os Vital Signs Date Time Temp Pulse Resp B/P (MAP) Pulse Ox O2 Delivery O2 Flow Rate FiO2 08/06/19 12:00 97.9 55 20 148/73 (98) 96 Room Air I&O- Last 24 Hours up to 6 AM 08/06/19 05:59 Intake Total 920 ml Output Total 2775 ml Balance -1855 ml Laboratory Data Labs 24H Laboratory Tests 2 08/06/19 05:14: Nucleated Red Blood Cells % (auto) 0.0, Anion Gap 5L, Glomerular Filtration Rate 58.8, Calcium Level 8.7L CBC/BMP Laboratory Tests 08/06/19 05:14 Microbiology Microbiology 08/04/19 Urine Culture, Received Pending 08/04/19 Blood Culture - Preliminary, Resulted No growth after 24 hours . All specim... 08/04/19 Blood Culture - Preliminary, Resulted No Growth after 48 hours. All Specime... Discharge Medications Scheduled Amlodipine Besylate (Amlodipine Besylate) 5 Mg Tablet, 5 MG PO DAILY Aspirin (Aspir 81) 81 Mg Tablet.dr, 81 MG PO DAILY, (Reported) Atorvastatin Calcium (Atorvastatin Calcium) 20 Mg Tab, 20 MG PO QHS, (Reported) Cephalexin (Keflex) 250 Mg Capsule, 1 CAP PO TID Clopidogrel Bisulfate (Plavix) 75 Mg Tab, 75 MG PO DAILY, (Reported) Famotidine (Famotidine) 20 Mg Tablet, 20 MG PO BID, (Reported) Ramipril (Ramipril) 10 Mg Cap, 10 MG PO QHS, (Reported) Scheduled PRN Acetaminophen (Tylenol) 325 Mg Tablet, 325 MG PO QID PRN for PAIN, (Reported) Allergies Coded Allergies: No Known Allergies (Unverified , 04/11/18) LES BARONE MD Aug 06, 2019 13:22
--- NOTE | 2019-08-06 15:29 | HPEPDOC ---
Moth Proofer Note DATE OF ADMISSION: 08-06-19 DATE OF SERVICE: 08-06-19 TIME OF ADMISSION: Please refer to physician's admission order. SOURCE OF ADMISSION INFORMATION: [facility] record and patient CHIEF COMPLAINT: stroke with encephalopathy HISTORY OF PRESENT ILLNESS: 84M pmh multiple CVA both hemorrhagic and ischemic, BPH with chronic Nelson, GERD, dementia, HTN, HLD, CAD s/p stent who presented to [facility] ED on 08-04-19 with worsening confusion and headaches. Cardiac work-up was negative for acute pathology, but CTH did show, Acute infarct is suspected in the right temporoparietal watershed distribution and MRI confirmed, Acute infarct right parietal lobe peripherally in the vascular distribution of the right middle cerebral artery. He was outside the TPA window and monitored closely on telemetry with ECHO findings consistent with grade 1 diastolic CHF . He was found to be encephalopathic likely due to stroke and found to have a urinary tract infection for which he was started on IV ceftriaxone. He was evaluated by therapy, noted to be below his prior level of function in mobility and ADLs and deemed medically appropriate for discharge to ARU on 08-06-19. REVIEW OF SYSTEMS: The following is a completed review of systems and has been r eviewed. Review of systems otherwise unremarkable. PAIN: Patient self reports [no pain]. EYES: [No recent vision changes]. EARS, NOSE, & THROAT: [No throat pain, or dysphagia, or rhinorrhea]. CARDIOVASCULAR: [Denies chest pain or palpitations]. PULMONARY: [Denies shortness of breath]. GASTROINTESTINAL: [Denies constipation/diarrhea]. GENITOURINARY: +nelson MUSCULOSKELETAL: . NEUROLOGICAL:. HEMATOLOGICAL: . SKIN: . PSYCHIATRIC: [Unremarkable]. All other review of systems found to be negative. PAST MEDICAL HISTORY: as per HPI PAST SURGICAL HISTORY: Appendectomy, cystoscopy, TURP, cardiac stents ALLERGIES: Please see below. MEDICATIONS: Please see below. FAMILY HISTORY: Cardiac, stroke, DM SOCIAL HISTORY: Former smoker, no etoh/illicit drugs DIET: low sodium, fluid restrict PHYSICAL EXAMINATION: VITAL SIGNS: Please see below. GENERAL: [Pleasant and cooperative. No acute distress. Alert and oriented times three.] HEENT: [PERRL. Extraocular movements intact. Clear conjunctiva]. CARDIOVASCULAR: [Regular rate and rhythm. No murmurs, rubs, or gallops]. LUNGS: [Clear to auscultation bilaterally. No wheezes. No rhonchi]. ABDOMEN: [Soft, nontender, nondistended. Positive bowel sounds. Normal active bowel sounds]. NEUROLOGICAL: [Alert and oriented times three. Cranial nerves II through XII grossly intact. Sensation grossly intact]. EXTREMITIES: [\5 strength bilateral upper extremities. \5 strength right lower extremity. /5 strength in left lower extremity. range of motion in left lower extremity]. SKIN: . LABORATORY DATA: Please see below. IMAGING: Imaging documentation personally reviewed by record FUNCTIONAL STATUS: Premorbid: Modified Independent with mobility, requiring some assistance with ADLs On Admission: Contact guard with RW 10 feet, Min assist for lower body dressing, Mod-assist for toileting GOALS: Mod-I community distances, stairs, functional transfers, toileting, dressing, toileting, supervision bathing, medical optimization, assess for DME needs ASSESSMENT:84-year-old M with past medical history of HTN, multiple CVAs, dementia who presents status post new right parietal infarct PLAN: 1. Rehab- PT/OT advance gait and ADL impairment, strengthen/stretch/maintain ROM all 4 limbs, dynamic balance -ORGANIZATIONAL CONSULTANT f/u Sobeida f/u with Dr. Nunn f/u with Dr. Arellano f/u Dr Sam POST ADMISSION PHYSICIAN EVALUATION: Medical and functional status: Description of medical status, medical assessment: As above. Rehabilitation diagnosis and current and prior cold morbid medical conditions as above. Risk of complications and plans to mitigate them as above. Description of functional status current status is as above. Prior status as above. Status compared to preadmission: There are no clinically significant differences between the patient's current status and the information described on the preadmission screening document. Treatment plan anticipated: Treatment plan is as described above. Required disciplines including physical therapy, occupational therapy, others as noted above. Intensity of services: 3 hours a day, 6 days a week. Special considerations: There are no specific special or safety considerations that would likely preclude immediate implementation of an intensive rehabilitation program or subsequently influence the plan of care. ATTESTATION: Considering all the information above, it is my best judgment that this patient requires intensive rehabilitation therapy as described above and an inpatient hospital environment due to the complexity of nursing, medical, and rehabilitation needs required by the patient. Furthermore, this patient can reasonably be expected to participate in an benefit from an inpatient rehabilitation stay with an interdisciplinary team approach to the delivery of rehabilitation care under the direction and supervision of rehabilitation physician. PROGNOSIS: good ESTIMATED LENGTH OF STAY:18-21 days. PROJECTED DISCHARGE DESTINATION: Home with family support and any durable medical equipment required to increase functional safety and mobility. TIME SPENT COUNSELING AND COORDINATING INITIAL CARE: Greater than 70 minutes. Vital Signs Vital Sign - Last 24 Hours 08/05/19 08/05/19 08/06/19 08/06/19 16:00 20:00 00:00 04:00 Temp 98.6 99.0 98.4 100.1 Pulse 77 68 60 59 Resp 18 18 18 16 B/P (MAP) 156/46 (82) 147/72 (97) 142/55 (84) 162/79 (106) Pulse Ox 92 93 93 98 O2 Delivery Room Air Room Air Room Air Room Air 08/06/19 08/06/19 08/06/19 08/06/19 06:05 07:26 12:00 13:17 Temp 98.5 98.4 97.9 Pulse 57 55 55 Resp 18 20 B/P (MAP) 162/73 (102) 148/73 (98) 148/73 Pulse Ox 98 96 O2 Delivery Room Air Room Air Laboratory Data CBC/BMP Laboratory Tests 08/06/19 05:14 Labs 24H Laboratory Tests 2 08/06/19 05:14: Nucleated Red Blood Cells % (auto) 0.0, Anion Gap 5L, Glomerular Filtration Rate 58.8, Calcium Level 8.7L Microbiology Microbiology 08/04/19 Urine Culture, Received Pending 08/04/19 Blood Culture - Preliminary, Resulted No Growth after 48 hours. All Specime... 08/04/19 Blood Culture - Preliminary, Resulted No Growth after 48 hours. All Specime... Home Medications Scheduled Amlodipine Besylate (Amlodipine Besylate) 5 Mg Tablet, 5 MG PO DAILY Aspirin (Aspir 81) 81 Mg Tablet.dr, 81 MG PO DAILY, (Reported) Atorvastatin Calcium (Atorvastatin Calcium) 20 Mg Tab, 20 MG PO QHS, (Reported) Cephalexin (Keflex) 250 Mg Capsule, 1 CAP PO TID Clopidogrel Bisulfate (Plavix) 75 Mg Tab, 75 MG PO DAILY, (Reported) Famotidine (Famotidine) 20 Mg Tablet, 20 MG PO BID, (Reported) Ramipril (Ramipril) 10 Mg Cap, 10 MG PO QHS, (Reported) Scheduled PRN Acetaminophen (Tylenol) 325 Mg Tablet, 325 MG PO QID PRN for PAIN, (Reported) Allergies Coded Allergies: No Known Allergies (Unverified , 04/11/18) A-FIB/CHADSVASC A-FIB History Current/History of A-Fib/PAF?: No LILLY DE LA TORRE MD Aug 06, 2019 15:29
== END 2019-08-06 14:11 | DRG 64 ==
LOC: M ED 12:16 → M ED INP 15:01 → ENRESERV 15:28 → M PCU 16:03 → M MSPAV 08-05 14:04
PROVIDERS: ADMIT Internal Medicine; ATTEND Internal Medicine
DX: I63.9 Cerebral infarction, unspecified (principal); G93.41 Metabolic encephalopathy; N39.0 Urinary tract infection, site not specified; F03.90 Unspecified dementia, unspecified severity, without behavioral disturbance, psychotic disturbance, mood disturbance, and anxiety; I10 Essential (primary) hypertension; E78.5 Hyperlipidemia, unspecified; I25.10 Atherosclerotic heart disease of native coronary artery without angina pectoris; K21.9 Gastro-esophageal reflux disease without esophagitis; N40.0 Benign prostatic hyperplasia without lower urinary tract symptoms; Z95.2 Presence of prosthetic heart valve; Z79.82 Long term (current) use of aspirin; Z79.899 Other long term (current) drug therapy; Z86.73 Personal history of transient ischemic attack (TIA), and cerebral infarction without residual deficits

== ENCOUNTER 2019-08-06 14:15 | Inpatient (IN) | payer MEDICARE, OTHER ==
[~2019-08-06] VITALS: Ht 167.6 cm; Wt 76.5 kg
[~2019-08-06 14:15] MED LIST changes: +ACET-907 PO; +AMLO5TAB6 PO; +FAMO1TAB11 PO; +KEFL250C11 PO
[2019-08-06 14:41] VITALS: BP 167/74
--- NOTE | 2019-08-06 15:36 | HPEPDOC ---
Buyers' Agent Note DATE OF ADMISSION: 08-06-19 DATE OF SERVICE: 08-06-19 TIME OF ADMISSION: Please refer to physician's admission order. SOURCE OF ADMISSION INFORMATION: [facility] record and patient CHIEF COMPLAINT: stroke with encephalopathy HISTORY OF PRESENT ILLNESS: 84M pmh multiple CVA both hemorrhagic and ischemic, BPH with chronic Nelson, GERD, dementia, HTN, HLD, CAD s/p stent who presented to [facility] ED on 08-04-19 with worsening confusion and headaches. Cardiac work-up was negative for acute pathology, but CTH did show, Acute infarct is suspected in the right temporoparietal watershed distribution and MRI confirmed, Acute infarct right parietal lobe peripherally in the vascular distribution of the right middle cerebral artery. He was outside the TPA window and monitored closely on telemetry with ECHO findings consistent with grade 1 diastolic CHF . He was found to be encephalopathic likely due to stroke and found to have a urinary tract infection for which he was started on IV ceftriaxone. He was evaluated by therapy, noted to be below his prior level of function in mobility and ADLs and deemed medically appropriate for discharge to ARU on 08-06-19. REVIEW OF SYSTEMS: The following is a completed review of systems and has been reviewed. Review of systems otherwise unremarkable. PAIN: Patient self reports no pain EYES: No recent vision changes EARS, NOSE, & THROAT: No throat pain, or dysphagia, or rhinorrhea CARDIOVASCULAR: Denies chest pain or palpitations PULMONARY: Denies shortness of breath GASTROINTESTINAL: Denies constipation/diarrhea GENITOURINARY: +nelson MUSCULOSKELETAL:denies weakness NEUROLOGICAL: +confused SKIN: no rash PSYCHIATRIC: +dementia All other review of systems found to be negative. PAST MEDICAL HISTORY: as per HPI PAST SURGICAL HISTORY: Appendectomy, cystoscopy, TURP, cardiac stents ALLERGIES: Please see below. MEDICATIONS: Please see below. FAMILY HISTORY: Cardiac, stroke, DM SOCIAL HISTORY: Former smoker, no etoh/illicit drugs DIET: low sodium, fluid restrict PHYSICAL EXAMINATION: VITAL SIGNS: Please see below. GENERAL: Pleasant and cooperative. No acute distress. HEENT: PERRL. Extraocular movements intact. Clear conjunctiva CARDIOVASCULAR: Regular rate and rhythm. No murmurs, rubs, or gallops LUNGS: Clear to auscultation bilaterally. No wheezes. No rhonchi ABDOMEN: Soft, nontender, nondistended. Positive bowel sounds. Normal active bowel sounds NEUROLOGICAL: Alert and oriented to self only. Cranial nerves II through XII grossly intact. Sensation grossly intact (-) pronator drift EXTREMITIES:5\5 strength bilateral upper extremities. 5\5 strength right lower extremity. 5/5 strength in left lower extremity. SKIN: intact LABORATORY DATA: Please see below. IMAGING: Imaging documentation personally reviewed by record FUNCTIONAL STATUS: Premorbid: Modified Independent with mobility, requiring some assistance with ADLs On Admission: Contact guard with RW 10 feet, Min assist for lower body dressing, Mod-assist for toileting GOALS: Mod-I community distances, stairs, functional transfers, toileting, dressing, toileting, supervision bathing, medical optimization, assess for DME needs ASSESSMENT:84-year-old M with past medical history of HTN, multiple CVAs, dementia who presents status post new right parietal infarct PLAN: 1. Rehab- PT/OT advance gait and ADL impairment, strengthen/stretch/maintain ROM all 4 limbs, dynamic balance -CADET DECK for cognition, c/u regular consistency diet 2. Neuro: hx of multiple CVA both hemorrhagic and ischemic now s/p right parietal lobe infarct- c/u statin and DAPT, optimize BP control -will start SSRI for motor recovery and for possible pseudodementia -encephalopathy c/u stroke and UTI treatment -f/u with Dr. Arellano on d/c 3. CArdiac: hx of CAD s/p stenting, c/u ASA and Plavix -HTN with grade 1 diastolic CHF c/u amlodipine, MARVIN-I, daily weights, fluid restrict, medicine consulted to assist in overall management -HLD-c/u statin -f/u Dr Sam on d/c 4. Resp: encourage incentive spirometry, monitor for infection 5. : hx of BPH with chronic Nelson, c/u Keflex for suspected UTI, f/u Ucx -f/u with Dr. Nunn on d/c 6. DVT ppx: TEDs, holding heparin given hx of hemorrhagic infarcts, on ASA and Plavix 7. GI ppx: protonix 8. Dispo: TBD POST ADMISSION PHYSICIAN EVALUATION: Medical and functional status: Description of medical status, medical assessment: As above. Rehabilitation diagnosis and current and prior cold morbid medical conditions as above. Risk of complications and plans to mitigate them as above. Description of functional status current status is as above. Prior status as above. Status compared to preadmission: There are no clinically significant differences between the patient's current status and the information described on the preadmission screening document. Treatment plan anticipated: Treatment plan is as described above. Required disci plines including physical therapy, occupational therapy, others as noted above. Intensity of services: 3 hours a day, 6 days a week. Special considerations: There are no specific special or safety considerations that would likely preclude immediate implementation of an intensive rehabilitation program or subsequently influence the plan of care. ATTESTATION: Considering all the information above, it is my best judgment that this patient requires intensive rehabilitation therapy as described above and an inpatient hospital environment due to the complexity of nursing, medical, and re habilitation needs required by the patient. Furthermore, this patient can reasonably be expected to participate in an benefit from an inpatient rehabilitation stay with an interdisciplinary team approach to the delivery of rehabilitation care under the direction and supervision of rehabilitation physician. PROGNOSIS: good ESTIMATED LENGTH OF STAY:10-14 days. PROJECTED DISCHARGE DESTINATION: Home with family support and any durable medical equipment required to increase functional safety and mobility. TIME SPENT COUNSELING AND COORDINATING INITIAL CARE: Greater than 70 minutes. Vital Signs Vital Sign - Last 24 Hours 08/06/19 14:41 Temp 97.4 Pulse 55 Resp 17 B/P (MAP) 167/74 (105) Pulse Ox 97 O2 Delivery Room Air Home Medications Scheduled Amlodipine Besylate (Amlodipine Besylate) 5 Mg Tablet, 5 MG PO DAILY Aspirin (Aspir 81) 81 Mg Tablet.dr, 81 MG PO DAILY, (Reported) Atorvastatin Calcium (Atorvastatin Calcium) 20 Mg Tab, 20 MG PO QHS, (Reported) Cephalexin (Keflex) 250 Mg Capsule, 1 CAP PO TID Clopidogrel Bisulfate (Plavix) 75 Mg Tab, 75 MG PO DAILY, (Reported) Famotidine (Famotidine) 20 Mg Tablet, 20 MG PO BID, (Reported) Ramipril (Ramipril) 10 Mg Cap, 10 MG PO QHS, (Reported) Scheduled PRN Acetaminophen (Tylenol) 325 Mg Tablet, 325 MG PO QID PRN for PAIN, (Reported) Allergies Coded Allergies: No Known Allergies (Unverified , 04/11/18) A-FIB/CHADSVASC A-FIB History Current/History of A-Fib/PAF?: No LILLY DE LA TORRE MD Aug 06, 2019 15:36
[2019-08-06] MEDS ORDERED: ACETAMINOPHEN TAB 650MG DOSE (2X325MG) PO PRN (15:45)
[2019-08-06] MEDS: CEPHALEXIN 250MG CAPSULE PO SCH ×2 (17:22→21:00)
[2019-08-06] MEDS: FAMOTIDINE 20 MG TAB PO SCH (21:00)
[2019-08-06] MEDS: DOCUSATE SODIUM 100 MG CAP PO SCH (21:00)
[2019-08-06] MEDS: ramipriL 5 MG CAP PO SCH (21:00)
[2019-08-06] MEDS: SENNA 8.6 MG TAB (SENOKOT) PO SCH (21:00)
[2019-08-06] MEDS: ATORVASTATIN 20 MG TAB PO SCH (21:00)
[2019-08-06] MEDS: REMEDY PHYTOPLEX Z-GUARD PASTE 113GM TUBE (FROM STOREROOM PRODUCT) TOP SCH (21:06)
[2019-08-06 22:00] VITALS: BP 138/62
[2019-08-07 06:00] VITALS: BP 152/68
[2019-08-07 07:26] LABS: BASO # 0.1 10^3/uL (0.0-0.2); BASO % 0.7 % (0.0-1.0); EOS # 0.4 10^3/uL (0.0-0.5); EOS % 4.2 % (0.0-3.0); HEMATOCRIT 40.5 % (42.0-52.0); HEMOGLOBIN 12.4 g/dl (13.5-17.5); LYMPH # 2.2 10^3/uL (1.5-5.0); LYMPH % 23.7 % (24.0-44.0); MEAN CORPUSCULAR HEMOGLOBIN 18.5 pg (27.0-33.0); MEAN CORPUSCULAR HGB CONC 30.6 g/dl (32.0-36.5); MEAN CORPUSCULAR VOLUME 60.4 fl (80.0-96.0); MONO # 0.8 10^3/uL (0.0-0.8); MONO % 8.8 % (0.0-5.0); NEUTROPHILS # 5.9 10^3/uL (1.5-8.5); NEUTROPHILS % 62.3 % (36.0-66.0); PLATELET COUNT, AUTOMATED 230 10^3/uL (150-450); RED BLOOD COUNT 6.71 10^6/uL (4.30-6.10); WHITE BLOOD COUNT 9.5 10^3/uL (4.0-10.0)
[2019-08-07 07:49] LABS: BLOOD UREA NITROGEN 18 MG/DL (7-18); CARBON DIOXIDE LEVEL 26 MEQ/L (21-32); CHLORIDE LEVEL 106 MEQ/L (98-107); CREATININE FOR GFR 1.11 MG/DL (0.70-1.30); GLOMERULAR FILTRATION RATE > 60.0 (>35); GLUCOSE, FASTING 95 MG/DL (70-100); POTASSIUM SERUM 4.4 MEQ/L (3.5-5.1); SODIUM LEVEL 140 MEQ/L (136-145)
[2019-08-07 07:50] LABS: ALBUMIN 3.5 GM/DL (3.2-5.2); ALT/SGPT 42 U/L (12-78); BILIRUBIN,TOTAL 0.7 MG/DL (0.2-1.0); TOTAL PROTEIN 7.4 GM/DL (6.4-8.2)
[2019-08-07] MEDS: CLOPIDOGREL 75 MG TAB PO SCH (09:02)
[2019-08-07] MEDS: PANTOPRAZOLE 40MG TAB (PROTONIX) PO SCH (09:02)
[2019-08-07] MEDS: DOCUSATE SODIUM 100 MG CAP PO SCH ×2 (09:02→22:31)
[2019-08-07] MEDS: FLUoxetine 20 MG CAP PO SCH (09:02)
[2019-08-07] MEDS: ASPIRIN 81 MG ENTERIC TAB PO SCH (09:02)
[2019-08-07] MEDS: CEPHALEXIN 250MG CAPSULE PO SCH ×3 (09:02→22:31)
[2019-08-07] MEDS: amLODIPine 5 MG TAB PO SCH (09:02)
[2019-08-07] MEDS: FAMOTIDINE 20 MG TAB PO SCH ×2 (09:02→22:31)
[2019-08-07] MEDS: REMEDY PHYTOPLEX Z-GUARD PASTE 113GM TUBE (FROM STOREROOM PRODUCT) TOP SCH ×3 (09:13→22:32)
--- NOTE | 2019-08-07 09:58 | CR.PDOC ---
General Date of Consultation: Aug 07, 2019 Referring Provider: LILLY DE LA TORRE MD Consultation REASON FOR CONSULTATION/CHIEF COMPLAINT: [Medical management]. HISTORY OF PRESENT ILLNESS: [This is 84 years old white male was admitted to inpatient medical health unit with the diagnosis of acute right parietal lobe in farct and UTI. Patient's diagnosis was confirmed with MRI which showed right parietal lobe infarct, possible right middle cerebral artery distribution. Patient was also treated for UTI with Rocephin which were changed to by mouth Keflex pending urine cultures. Patient also started on a statin, aspirin and Plavix for CVA and case was discussed with neurology over the phone by admitting physician. Patient has been transferred to acute rehabilitation unit for physical therapy secondary to acute CVA ]. ALLERGIES: Please see below. HOME MEDICATIONS: Please see below. PAST MEDICAL HISTORY: 1. Acute CVA with history of previous CVAs in the past 2. UTI 3. Hypertension 4. Hyperlipidemia 5. Coronary artery disease status post stent 6. GERD 7. Dementia 8. BPH with chronic indwelling Pisano catheter PAST SURGICAL HISTORY: 1. Cardiac stent placement 1997, 2014 2. TRUP 3. Appendectomy 4. Cystoscopy FAMILY HISTORY: Father: CAD, stroke. at 88 years old Mother: DJD. at 94 years old Siblings: Sisterdiabetes, pericarditis. in her 60s SOCIAL HISTORY: The patient has a remote smoking history in his 20s of cigarettes; however did not smoke daily. He has a history of occasionally smoking cigars for the past 20 years. He has social alcohol history, no drug use history. He lives with his independently in a house. He does not use a walker or cane. He is a DNR but it was unclear about intubation by his daughter. His healthcare proxy is his Migdalia [phone] and his daughter Mirela [phone]. PCP is unknown . Neurologist is Dr. Arellano. Inspector Watch Train is Dr. Sam. Urologist is Dr. Nunn. REVIEW OF SYSTEMS: CONSTITUTIONAL: [No fever, lethargy]. HEENT: [No eyes, ear pain]. CARDIOVASCULAR: [no Chest pain, palpitations]. RESPIRATORY: [no Shortness of breath or cough]. GENITOURINARY: [No dysuria, frequency]. MUSCULOSKELETAL: [No muscle aches or ligament injuries]. GASTROINTESTINAL: [, No nausea, vomiting, diarrhea]. SKIN: [No rash]. NEUROLOGICAL: [No motor or sensory weakness]. PSYCHIATRIC: [No anxiety or depression]. ENDOCRINE: [, No thyroid problems]. HEMATOLOGIC/LYMPHATIC: [No history of anemia]. ALLERGIC/IMMUNOLOGIC: [No allergies]. PHYSICAL EXAMINATION: VITAL SIGNS: Please see below. GENERAL APPEARANCE: [Within normal limits]. HEENT: [PERRLA. Extraocular muscles intact]. RESPIRATORY: [Clear to A&P]. CARDIOVASCULAR: [S1, S2, regular]. ABDOMEN: [Benign]. EXTREMITIES: [No clubbing, cyanosis, edema]. NEUROLOGICAL: [. No focal motor sensory deficit]. PSYCHIATRIC: [Normal]. LABORATORY DATA: Please see below. ASSESSMENT/PLAN: #1. Acute metabolic encephalopathy secondary to CVA. Resolved. #2. Acute CVA in the right temporal area #3. UTI #4. Hypertension Patient was started on aspirin, Plavix and statin. During inpatient stay, neurology was also consulted over the phone MRI of the brain was done which confirmed the diagnosis of her acute right temporal CVA Regarding patient's UTI. He was started initially on Rocephin, but has been changed to Keflex and urine cultures are still pending But patient seems to be responding cephalosporins Patient was also added on Norvasc 5 mg by mouth daily along with his MARVIN inhibitor for better blood pressure control Physical therapy as per Dr. Sheets Continue all current meds and will follow patient with you. Thank you for calling this consult, Dr. Sheets Vital Signs/I&O Vital Signs Date Time Temp Pulse Resp B/P (MAP) Pulse Ox O2 Delivery O2 Flow Rate FiO2 08/07/19 09:02 72 138/72 08/07/19 06:00 97.7 16 95 Room Air I&O- Last 24 Hours up to 6 AM 08/07/19 06:00 Intake Total 480 ml Output Total 1500 ml Balance -1020 ml Laboratory Data Labs 24H Laboratory Tests 2 08/07/19 06:55: Immature Granulocyte % (Auto) 0.3, Neutrophils (%) (Auto) 62.3, Lymphocytes (%) (Auto) 23.7L, Monocytes (%) (Auto) 8.8H, Eosinophils (%) (Auto) 4.2H, Basophils (%) (Auto) 0.7, Neutrophils # (Auto) 5.9, Lymphocytes # (Auto) 2.2, Monocytes # (Auto) 0.8, Eosinophils # (Auto) 0.4, Basophils # (Auto) 0.1, Nucleated Red Blood Cells % (auto) 0.0, Anion Gap 8, Glomerular Filtration Rate > 60.0, Calcium Level 9.0, Total Bilirubin 0.7, Aspartate Amino Transf (AST/SGOT) 33, Alanine Aminotransferase (ALT/SGPT) 42, Alkaline Phosphatase 146H, Total Protein 7.4, Albumin 3.5, Albumin/Globulin Ratio 0.90L CBC/BMP Laboratory Tests 08/07/19 06:55 Allergies Coded Allergies: No Known Allergies (Unverified , 04/11/18) Home Medications Scheduled Amlodipine Besylate (Amlodipine Besylate) 5 Mg Tablet, 5 MG PO DAILY, #30 Aspirin (Aspir 81) 81 Mg Tablet.dr, 81 MG PO DAILY, (Reported) Atorvastatin Calcium (Atorvastatin Calcium) 20 Mg Tab, 20 MG PO QHS, (Reported) Cephalexin (Keflex) 250 Mg Capsule, 1 CAP PO TID for 7 Days, #21 Clopidogrel Bisulfate (Plavix) 75 Mg Tab, 75 MG PO DAILY, (Reported) Famotidine (Famotidine) 20 Mg Tablet, 20 MG PO BID, (Reported) Ramipril (Ramipril) 10 Mg Cap, 10 MG PO QHS, (Reported) Scheduled PRN Acetaminophen (Tylenol) 325 Mg Tablet, 325 MG PO QID PRN for PAIN, (Reported) LES BARONE MD Aug 07, 2019 09:58
[2019-08-07] MEDS: FLUTICASONE PROP 0.05% NASAL SPRAY 16 GM (FLONASE) NARES SCH ×2 (12:49→22:32)
[2019-08-07 14:00] VITALS: BP 132/64
[2019-08-07] MEDS: IPRATROPIUM 0.5MG/ALBUTEROL 2.5MG INH SOL UD 3ML (DUONEB)(J7620) NEB SCH ×2 (15:12→19:43)
[2019-08-07] MEDS: guaiFENesin 200 MG TAB PO SCH ×2 (16:46→22:31)
[2019-08-07] MEDS: SODIUM CHLORIDE NASAL 0.65% SPRAY BTL (OCEAN) SCH ×2 (16:46→22:31)
[2019-08-07 22:30] VITALS: BP 146/76
[2019-08-07] MEDS: ramipriL 5 MG CAP PO SCH (22:31)
[2019-08-07] MEDS: SENNA 8.6 MG TAB (SENOKOT) PO SCH (22:31)
[2019-08-07] MEDS: ATORVASTATIN 20 MG TAB PO SCH (22:31)
[2019-08-08 06:00] VITALS: BP 147/67
[2019-08-08] MEDS ORDERED: BACTRIM 160MG/800MG DS TAB PO SCH (09:00)
[2019-08-08] MEDS: REMEDY PHYTOPLEX Z-GUARD PASTE 113GM TUBE (FROM STOREROOM PRODUCT) TOP SCH (09:00)
[2019-08-08] MEDS: IPRATROPIUM 0.5MG/ALBUTEROL 2.5MG INH SOL UD 3ML (DUONEB)(J7620) NEB SCH (09:00)
[2019-08-08 09:05] LABS: BASO # 0.1 10^3/uL (0.0-0.2); BASO % 0.7 % (0.0-1.0); EOS # 0.3 10^3/uL (0.0-0.5); EOS % 2.5 % (0.0-3.0); HEMATOCRIT 41.9 % (42.0-52.0); HEMOGLOBIN 12.8 g/dl (13.5-17.5); LYMPH # 2.2 10^3/uL (1.5-5.0); LYMPH % 19.4 % (24.0-44.0); MEAN CORPUSCULAR HEMOGLOBIN 18.7 pg (27.0-33.0); MEAN CORPUSCULAR HGB CONC 30.5 g/dl (32.0-36.5); MEAN CORPUSCULAR VOLUME 61.1 fl (80.0-96.0); MONO # 0.9 10^3/uL (0.0-0.8); MONO % 7.8 % (0.0-5.0); NEUTROPHILS # 7.9 10^3/uL (1.5-8.5); NEUTROPHILS % 69.3 % (36.0-66.0); PLATELET COUNT, AUTOMATED 271 10^3/uL (150-450); RED BLOOD COUNT 6.86 10^6/uL (4.30-6.10); WHITE BLOOD COUNT 11.4 10^3/uL (4.0-10.0)
[2019-08-08] MEDS: SODIUM CHLORIDE NASAL 0.65% SPRAY BTL (OCEAN) SCH (09:30)
[2019-08-08] MEDS: FLUTICASONE PROP 0.05% NASAL SPRAY 16 GM (FLONASE) NARES SCH (09:30)
[2019-08-08 09:31] VITALS: BP 147/67
[2019-08-08] MEDS: amLODIPine 5 MG TAB PO SCH (09:31)
[2019-08-08] MEDS: CEPHALEXIN 250MG CAPSULE PO SCH (09:31)
[2019-08-08] MEDS: PANTOPRAZOLE 40MG TAB (PROTONIX) PO SCH (09:31)
[2019-08-08] MEDS: DOCUSATE SODIUM 100 MG CAP PO SCH (09:31)
[2019-08-08] MEDS: FLUoxetine 20 MG CAP PO SCH (09:31)
[2019-08-08] MEDS: CLOPIDOGREL 75 MG TAB PO SCH (09:31)
[2019-08-08] MEDS: FAMOTIDINE 20 MG TAB PO SCH (09:31)
[2019-08-08] MEDS: guaiFENesin 200 MG TAB PO SCH (09:31)
[2019-08-08] MEDS: ASPIRIN 81 MG ENTERIC TAB PO SCH (09:31)
[2019-08-08] MEDS ORDERED: ASPI81TA85 PO (11:06)
[2019-08-08] MEDS ORDERED: AMLO5TAB6 PO (11:06)
[2019-08-08] MEDS ORDERED: PLAV1TAB2 PO (11:06)
[2019-08-08] MEDS ORDERED: RAMI1CAP26 PO (11:06)
[2019-08-08] MEDS ORDERED: KEFL250C11 PO (11:06)
[2019-08-08] MEDS ORDERED: ATOR1TAB21 PO (11:06)
[2019-08-08] MEDS ORDERED: FAMO1TAB11 PO (11:06)
[2019-08-08] MEDS ORDERED: BACT800T5 PO (11:29)
--- NOTE | 2019-08-08 11:35 | IPNPDOC ---
PM&R Progress Note DATE OF SERVICE: Aug 07, 2019 Production Support Consultant Progress Note Subjective: Patient seen in OT following a shower stating he feels good, that he has a bit of a cough, but denies fever or chills. REVIEW OF SYSTEMS: The following is a completed review of systems and has been reviewed. Review of systems otherwise unremarkable. PAIN: Patient self reports no pain EYES: No recent vision changes EARS, NOSE, & THROAT: No throat pain, or dysphagia, or rhinorrhea CARDIOVASCULAR: Denies chest pain or palpitations PULMONARY: Denies shortness of breath GASTROINTESTINAL: Denies constipation/diarrhea GENITOURINARY: +nelson MUSCULOSKELETAL:denies weakness NEUROLOGICAL: +confused SKIN: no rash PSYCHIATRIC: +dementia All other review of systems found to be negative. PHYSICAL EXAMINATION: VITAL SIGNS: Please see below. GENERAL: Pleasant and cooperative. No acute distress. HEENT: PERRL. Extraocular movements intact. Clear conjunctiva CARDIOVASCULAR: Regular rate and rhythm. No murmurs, rubs, or gallops LUNGS: Clear to auscultation bilaterally. No wheezes. No rhonchi, +cough with deep inhalations ABDOMEN: Soft, nontender, nondistended. Positive bowel sounds. Normal active bowel sounds NEUROLOGICAL: Alert and oriented to self only. Cranial nerves II through XII grossly intact. Sensation grossly intact (-) pronator drift EXTREMITIES:5\5 strength bilateral upper extremities. 5\5 strength right lower extremity. 5/5 strength in left lower extremity. SKIN: intact ASSESSMENT:84-year-old M with past medical history of HTN, multiple CVAs, dementia who presents status post new right parietal infarct PLAN: 1. Rehab- PT/OT advance gait and ADL impairment, strengthen/stretch/maintain ROM all 4 limbs, dynamic balance, ambulating without AD -SILK WEAVER for cognition, c/u regular consistency diet 2. 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 Arellano on d/c 3. CArdiac: hx of CAD s/p stenting, c/u ASA and Plavix -HTN with grade 1 diastolic CHF c/u amlodipine, MARVIN-I, daily weights, fluid restrict, medicine consulted to assist in overall management -HLD-c/u statin -f/u Dr Sam on d/c 4. Resp: encourage incentive spirometry, monitor for infection -patient with cough following a shower, will start breathing treatments and flonase-no concern at this time for infectious process, will monitor 5. : hx of BPH with chronic Nelson, c/u Keflex for suspected UTI, f/u Ucx -f/u with Dr. Nunn on d/c 6. DVT ppx: TEDs, holding heparin given hx of hemorrhagic infarcts, on ASA and Plavix 7. GI ppx: protonix 8. Dispo: Patient is doing very well in therapy and is functionally/cognitively seems to be at his baseline with good mobility that requires supervision and cueing for completing tasks, will likely be a short stay depending on his quality of participation in therapy tomorrow-patient has 24-7 care at home and family is comfortable taking him home Allergies Coded Allergies: No Known Allergies (Unverified , 04/11/18) Vital Signs Vital Signs Date Time Temp Pulse Resp B/P (MAP) Pulse Ox O2 Delivery O2 Flow Rate FiO2 08/08/19 09:31 56 147/67 08/08/19 06:00 97.9 18 94 Room Air Laboratory Data CBC/BMP Laboratory Tests 08/08/19 08:47 Labs 24H Laboratory Tests 2 08/08/19 08:47: Immature Granulocyte % (Auto) 0.3, Neutrophils (%) (Auto) 69.3H, Lymphocytes (%) (Auto) 19.4L, Monocytes (%) (Auto) 7.8H, Eosinophils (%) (Auto) 2.5, Basophils (%) (Auto) 0.7, Neutrophils # (Auto) 7.9, Lymphocytes # (Auto) 2.2, Monocytes # (Auto) 0.9H, Eosinophils # (Auto) 0.3, Basophils # (Auto) 0.1, Nucleated Red B lood Cells % (auto) 0.0 Current Medications Current Medications Current Medications Medications (Trade) Dose Ordered Sig/Anson Route PRN Reason Start Time Stop Time Status Last Admin Dose Admin Acetaminophen (Tylenol Tab) 650 mg Q4HP PRN PO fever/MILD PAIN (PS 1-4) 08/06/19 15:45 Albuterol/ Ipratropium (Duoneb (Ipr 0.5mg/Alb 2.5mg)) 3 ml RTID NEB 08/07/19 14:00 08/08/19 09:00 Amlodipine Besylate (Norvasc) 5 mg DAILY PO 08/07/19 09:00 08/08/19 09:31 Aspirin (Ecotrin) 81 mg DAILY PO 08/07/19 09:00 08/08/19 09:31 Atorvastatin Calcium (Lipitor) 20 mg QHS PO 08/06/19 21:00 08/07/19 22:31 Cephalexin Monohydrate (Keflex) 250 mg TID PO 08/06/19 16:00 08/08/19 09:31 Clopidogrel Bisulfate (PLAVix) 75 mg DAILY PO 08/07/19 09:00 08/08/19 09:31 Docusate Sodium (Colace) 100 mg BID PO 08/06/19 21:00 08/08/19 09:31 Famotidine (Pepcid) 20 mg BID PO 08/06/19 21:00 08/08/19 09:31 Fluoxetine HCl (PROzac) 20 mg DAILY PO 08/07/19 09:00 08/08/19 09:31 Fluticasone Propionate (Flonase 0.05% Nasal [place]) 1 spray BID NARES 08/07/19 09:00 08/08/19 09:30 Guaifenesin (Robitussin Tab) 400 mg TID PO 08/07/19 16:00 08/08/19 09:31 Pantoprazole Sodium (Protonix) 40 mg DAILY PO 08/07/19 09:00 08/08/19 09:31 Ramipril (Altace) 10 mg QHS PO 08/06/19 21:00 08/07/19 22:31 Senna (Senokot) 1 tab QHS PO 08/06/19 21:00 08/07/19 22:31 Sodium Chloride (Loving Nasal [place]) 2 spray TID NA 08/07/19 16:00 08/08/19 09:30 LILLY DE LA TORRE MD Aug 08, 2019 11:35
--- NOTE | 2019-08-08 11:51 | PMRDS ---
DATE OF ADMISSION: 08/06/2019 DATE OF DISCHARGE: 08/08/2019 CHIEF COMPLAINT/DISCHARGE DIAGNOSIS: Stroke. HISTORY OF PRESENT ILLNESS: 84M pmh multiple CVA both hemorrhagic and ischemic, BPH with chronic Pisano, GERD, dementia, HTN, HLD, CAD s/p stent who presented to [facility] ED on 08-04-19 with worsening confusion and headaches. Cardiac work-up was negative for acute pathology, but CTH did show, Acute infarct is suspected in the right temporoparietal watershed distribution and MRI confirmed, Acute infarct right parietal lobe peripherally in the vascular distribution of the right middle cerebral artery. He was outside the TPA window and monitored closely on telemetry with ECHO findings consistent with grade 1 diastolic CHF . He was found to be encephalopathic likely due to stroke and found to have a urinary tract infection for which he was started on IV ceftriaxone. He was evaluated by therapy, noted to be below his prior level of function in mobility and ADLs and deemed medically appropriate for discharge to ARU on 08-06-19. PAST MEDICAL HISTORY: As per history of present illness (HPI). HOSPITAL COURSE: The patient was admitted and enrolled in a comprehensive physical therapy (PT), occupational therapy (OT), speech language pathology program. He received 24-hour nursing supervision. The patient was quickly deemed to be at his baseline functionally and cognitively following multiple sessions in occupational therapy, physical therapy, and speech therapy. The patient was maintained on antibiotics for his urinary tract infection; and on day of discharge, his antibiotic was switched from Keflex to Bactrim to cover his urine culture. The patient was instructed and his family to followup with urology, neurology, primary care, and cardiology. DISCHARGE MEDICATIONS: As per instructions. FUNCTIONAL HISTORY ON DISCHARGE: The patient was standby assist for functional transfers and toileting, able to ambulate 180 feet, standby assist without an assistive device. In occupational therapy, the patient was independent with grooming, standby assist for bathing. Thank you for this referral. edited: 08/09/2019 Leonel CALEVRT
== END 2019-08-08 13:33 | disposition home or self-care (01) | DRG 57 ==
LOC: M PM&R 14:15
PROVIDERS: ADMIT Physical Medicine & Rehabilitation; ATTEND Physical Medicine & Rehabilitation
DX: I69.398 Other sequelae of cerebral infarction (principal); I50.30 Unspecified diastolic (congestive) heart failure; N39.0 Urinary tract infection, site not specified; N40.0 Benign prostatic hyperplasia without lower urinary tract symptoms; K21.9 Gastro-esophageal reflux disease without esophagitis; F03.90 Unspecified dementia, unspecified severity, without behavioral disturbance, psychotic disturbance, mood disturbance, and anxiety; I10 Essential (primary) hypertension; I25.10 Atherosclerotic heart disease of native coronary artery without angina pectoris; Z95.2 Presence of prosthetic heart valve; Z79.82 Long term (current) use of aspirin; Z79.899 Other long term (current) drug therapy; E78.5 Hyperlipidemia, unspecified; Z87.891 Personal history of nicotine dependence

== ENCOUNTER 2019-08-18 12:40 | Emergency (ER) | payer MEDICARE, OTHER ==
[~2019-08-18] VITALS: Ht 167.6 cm; Wt 74.0 kg
[~2019-08-18 12:40] MED LIST changes: +BACT800T5 PO
[2019-08-18] MEDS ORDERED: NITR100C2 PO (14:32)
[2019-08-18 14:57] VITALS: BP 119/63
== END 2019-08-18 14:58 | disposition home or self-care (01) ==
LOC: M ED 12:40
DX: T83.011A Breakdown (mechanical) of indwelling urethral catheter, initial encounter (principal); Y73.2 Prosthetic and other implants, materials and accessory gastroenterology and urology devices associated with adverse incidents; R33.8 Other retention of urine; N39.0 Urinary tract infection, site not specified; I11.9 Hypertensive heart disease without heart failure; I25.2 Old myocardial infarction; I25.10 Atherosclerotic heart disease of native coronary artery without angina pectoris; F03.90 Unspecified dementia, unspecified severity, without behavioral disturbance, psychotic disturbance, mood disturbance, and anxiety; R51 Headache; Z95.5 Presence of coronary angioplasty implant and graft; Z86.73 Personal history of transient ischemic attack (TIA), and cerebral infarction without residual deficits; Z79.899 Other long term (current) drug therapy; Z79.02 Long term (current) use of antithrombotics/antiplatelets; Z79.82 Long term (current) use of aspirin

== ENCOUNTER → 2019-08-19 | Outpatient (REF) | payer MEDICARE, OTHER ==
[~2019-08-19] MED LIST changes: +NITR100C2 PO
[2019-08-19 17:37] LABS: TOTAL PROTEIN 8.1 GM/DL (6.4-8.2)
== END ==
LOC: M LAB REF 16:09
PROVIDERS: ATTEND Family Medicine
DX: D64.9 Anemia, unspecified (principal)

== ENCOUNTER 2019-09-07 22:41 | Emergency (ER) | payer MEDICARE, OTHER ==
[~2019-09-07] VITALS: Ht 167.6 cm; Wt 80.9 kg
[2019-09-07] MEDS ORDERED: ASPI81TA26 PO (22:54)
[2019-09-07] MEDS ORDERED: FAMO20TA5 PO (22:54)
[2019-09-07] MEDS ORDERED: NORT10CA2 PO (22:54)
[2019-09-07] MEDS ORDERED: CLOP75TA2 (22:54)
[2019-09-08 00:30] LABS: BASO # 0.1 10^3/uL (0.0-0.2); BASO % 0.8 % (0.0-1.0); EOS # 0.7 10^3/uL (0.0-0.5); EOS % 7.4 % (0.0-3.0); HEMATOCRIT 36.3 % (42.0-52.0); LYMPH # 2.3 10^3/uL (1.5-5.0); LYMPH % 23.8 % (24.0-44.0); MEAN CORPUSCULAR HEMOGLOBIN 18.5 pg (27.0-33.0); MEAN CORPUSCULAR HGB CONC 30.3 g/dl (32.0-36.5); MONO % 10.5 % (0.0-5.0); NEUTROPHILS # 5.4 10^3/uL (1.5-8.5); NEUTROPHILS % 57.2 % (36.0-66.0); PLATELET COUNT, AUTOMATED 323 10^3/uL (150-450); RED BLOOD COUNT 5.95 10^6/uL (4.30-6.10); WHITE BLOOD COUNT 9.5 10^3/uL (4.0-10.0)
[2019-09-08 00:31] LABS: INR 1.15; PARTIAL THROMBOPLASTIN TIME 37.1 SECONDS (25.0-38.4); PROTHROMBIN TIME 14.4 SECONDS (11.8-14.0)
[2019-09-08 00:47] VITALS: BP 151/70
== END 2019-09-08 00:57 | disposition home or self-care (01) ==
LOC: M ED 22:41
DX: R31.0 Gross hematuria (principal); T83.098A Other mechanical complication of other urinary catheter, initial encounter; X58.XXXA Exposure to other specified factors, initial encounter; Y92.89 Other specified places as the place of occurrence of the external cause; I10 Essential (primary) hypertension; E78.5 Hyperlipidemia, unspecified; N40.1 Benign prostatic hyperplasia with lower urinary tract symptoms; R33.9 Retention of urine, unspecified; Z86.73 Personal history of transient ischemic attack (TIA), and cerebral infarction without residual deficits; Z95.5 Presence of coronary angioplasty implant and graft; Z79.899 Other long term (current) drug therapy; Z79.82 Long term (current) use of aspirin; Z79.01 Long term (current) use of anticoagulants; Z87.891 Personal history of nicotine dependence

== ENCOUNTER → 2019-09-10 | Outpatient (REF) | payer MEDICARE, OTHER ==
[~2019-09-10] MED LIST changes: +CIPR500T3 PO; +CLOP75TA2; +FAMO20TA5 PO; +NORT10CA2 PO
[2019-09-10 18:13] LABS: APPEARANCE, URINE CLOUDY (CLEAR); BACTERIA, URINE AUTO NEGATIVE (NEGATIVE); BILIRUBIN, URINE AUTO NEGATIVE (NEGATIVE); BLOOD, URINE BLOOD 3+ (NEGATIVE); COLOR, URINE RED (YELLOW); GLUCOSE, URINE (UA) AUTO 2+ mg/dL (NEGATIVE); KETONE, URINE AUTO NEGATIVE (NEGATIVE); LEUKOCYTE ESTERASE, URINE AUTO 1+ (NEGATIVE); NITRITE, URINE AUTO NEGATIVE (NEGATIVE); PROTEIN, URINE AUTO 2+ mg/dL (NEGATIVE); RBC, URINE AUTO TNTC /HPF (0-3); RENAL EPITHELIAL CELLS 1 /HPF; SPECIFIC GRAVITY URINE AUTO 1.017 (1.002-1.035); SQUAMOUS EPITHELIAL CELL UR AU 0 /HPF (0-6); UROBILINOGEN, URINE AUTO 0.2 mg/dL (0.0-2.0); WBC, URINE AUTO TNTC /HPF (0-3)
== END ==
LOC: M SMT 16:38
PROVIDERS: ATTEND Nurse Practitioner Family
DX: R31.0 Gross hematuria (principal)

== ENCOUNTER 2019-09-11 23:06 | Inpatient (IN) | payer MEDICARE, OTHER ==
[~2019-09-11] VITALS: Ht 162.6 cm; Wt 77.6 kg
[~2019-09-11 23:06] MED LIST changes: -CIPR500T3 PO
[2019-09-11] MEDS ORDERED: CIPR500T3 PO (23:15)
[2019-09-12 00:51] LABS: BASO # 0.1 10^3/uL (0.0-0.2); BASO % 0.3 % (0.0-1.0); EOS % 0.2 % (0.0-3.0); HEMATOCRIT 30.8 % (42.0-52.0); HEMOGLOBIN 9.7 g/dl (13.5-17.5); LYMPH # 1.6 10^3/uL (1.5-5.0); LYMPH % 8.4 % (24.0-44.0); MEAN CORPUSCULAR HEMOGLOBIN 18.7 pg (27.0-33.0); MEAN CORPUSCULAR HGB CONC 31.5 g/dl (32.0-36.5); MEAN CORPUSCULAR VOLUME 59.3 fl (80.0-96.0); MONO # 1.5 10^3/uL (0.0-0.8); MONO % 7.6 % (0.0-5.0); NEUTROPHILS # 15.8 10^3/uL (1.5-8.5); NEUTROPHILS % 82.9 % (36.0-66.0); PLATELET COUNT, AUTOMATED 214 10^3/uL (150-450); RED BLOOD COUNT 5.19 10^6/uL (4.30-6.10)
[2019-09-12 02:44] LABS: AMORPHOUS SEDIMENT SMALL (NEGATIVE); APPEARANCE, URINE TURBID (CLEAR); BACTERIA, URINE AUTO 2+ (NEGATIVE); BILIRUBIN, URINE AUTO NEGATIVE (NEGATIVE); BLOOD, URINE BLOOD 3+ (NEGATIVE); COLOR, URINE YELLOW (YELLOW); GLUCOSE, URINE (UA) AUTO NEGATIVE (NEGATIVE); KETONE, URINE AUTO NEGATIVE (NEGATIVE); LEUKOCYTE ESTERASE, URINE AUTO 2+ (NEGATIVE); MUCUS, URINE LARGE (NEGATIVE); NITRITE, URINE AUTO NEGATIVE (NEGATIVE); PROTEIN, URINE AUTO 2+ mg/dL (NEGATIVE); RBC, URINE AUTO 154 /HPF (0-3); SPECIFIC GRAVITY URINE AUTO 1.015 (1.002-1.035); SQUAMOUS EPITHELIAL CELL UR AU 2 /HPF (0-6); TRANSITIONAL EPITHELIAL AUTO 7 /HPF; UROBILINOGEN, URINE AUTO 0.2 mg/dL (0.0-2.0); WBC, URINE AUTO TNTC /HPF (0-3)
[2019-09-12] MEDS ORDERED: cefTRIAXone SOD 1 GM in D5W MINI-BAG PLUS 50 ML IV ONE (03:30)
[2019-09-12] MEDS ORDERED: FLUCONAZOLE 50MG TABLET PO ONE (03:30)
--- NOTE | 2019-09-12 04:24 | HPEPDOC ---
[facility] Medical History & Physical Date of Admission September 12, 2019 Date of Service: September 12, 2019 Primary Care Physician: WALTER DOWELL M.D. Attending Physician: Oliva Rivera MD History and Physical CHIEF COMPLAINT: abdominal pain, decreased drainage from chronic indwelling nelson catheter HISTORY OF PRESENT ILLNESS: The patient is an 84-year-old male with extensive past medical history including multiple CVAs hemorrhagic and ischemic, hypertension, hyperlipidemia, CAD status post stenting, GERD, dementia, BPH with chronic indwelling Nelson catheter who presented to [facility] with the chief complaint of decreased drainage from indwelling Nelson catheter, increased abdominal pain and penile pain. The patient at baseline is pleasantly confused at times but his is at the bedside to help provide information. The patient's followed closely by outpatient urology and he was seen yesterday in the office by Dr. Nunn. There do not appear to be any problems at that time with his catheter. Today his catheter would not drain at home. He was seen a week ago for hematuria. The patient also complained of the abdominal pain which was in the lower left and right quadrants, 3 out of 10 on pain scale, dull in character and nonradiating. Due to the above symptoms the patient was brought to the emergency room for further evaluation. In the emergency room the patient's vital signs were stable. When attempted to flush the Nelson catheter the nurses experienced difficulty. A new Nelson catheter was placed and when it was advanced there was a lot of sediment that passed through the new tubing. His abdominal pain and penile pain significantly improv ed after placement of new catheter. Dr. Nunn with urology was contacted and made aware of Nelson catheter change. WBC 19K, H/H lower than normal at 9.7/36.8. Recent labs done as outpatient on 09/08/2019 reported WBC wnl and H/H 11/36. UA was positive for UTI and appeared cloudy with a lot of sediment. The patient had been on an outpatient antibiotic (believed to be ciprofloxacin) for the past several days, but appeared to have failed outpatient treatment despite compliance according to . He had no acute signs of bleeding, chest pain, shortness of breath, cough, lightheadedness or dizziness. Patient was admitted for further treatment of UTI, worsening anemia. REVIEW OF SYSTEMS: Although pleasantly confused, patient was able to answer the following: CONSTITUTIONAL: Denies lack of energy, unexplained weight gain or weight loss, loss of appetite, fever, night sweats EYES: Denies eye drainage, eye pain, visual changes, dry/irritated eye EARS, NOSE, MOUTH, THROAT: Denies difficulty hearing, ringing in ears, mouth sores, loose teeth, sore throat, facial numbness or pain NECK: Denies swollen glands CARDIOVASCULAR: Denies irregular heartbeat, racing heart, chest pains, swelling of feet or legs, pain in legs with walking RESPIRATORY: Denies shortness of breath, night sweats, wheezing, sputum production, oxygen at home, coughing up blood, cough lasting > 1 month GASTROINTESTINAL: Denies abdominal pain, constipation, bloody stool, diarrhea, heartburn, nausea, vomiting GENITOURINARY: Denies frequent urination, urgency, leaking urine, impotence MUSCULOSKELETAL: Denies joint pain, muscle pain, leg swelling INTEGUMENTARY: Denies rash, itching, new skin lesion, change in existing skin lesion, hair loss or increase, breast changes. NEUROLOGICAL: Denies dizziness, numbness or tingling PSYCHIATRIC: Denies depression, anxiety, recurrent bad thoughts, mood swings, hallucinations PAST MEDICAL HISTORY: 1. History of CVA (2014, 2017), hemorrhagic and ischemic 2. History of UTI 3. Hypertension 4. Hyperlipidemia 5. Coronary artery disease status post stent 6. GERD 7. Dementia 8. BPH with chronic indwelling Nelson catheter PAST SURGICAL HISTORY: 1. Cardiac stent placement 1997, 2014 2. TURP 3. Appendectomy 4. Cystoscopy FAMILY HISTORY: Father: CAD, stroke. at 88 years old Mother: DJD. at 94 years old Siblings: Sisterdiabetes, pericarditis. in her 60s SOCIAL HISTORY: The patient has a remote smoking history in his 20s of cigarettes; however did not smoke daily. He has a history of occasionally smoking cigars for the past 20 years. He has social alcohol history, no drug use history. He lives with his independently in a house. He does not use a walker or cane. He is a DNR but it was unclear about intubation by his daughter. His healthcare proxy is his Migdalia [phone] and his daughter Mirela [phone]. PCP is unknown by patient and his daughter at the bedside. Neurologist is Dr. Arellano. Eastern Philosophy Professor is Dr. Sam. Urologist is Dr. Nunn. ALLERGIES: Please see below. HOME MEDICATIONS: Please see below. PHYSICAL EXAMINATION: CONSTITUTIONAL: NAD, resting comfortably, AAO x 2, pleasantly confused EYES: PERRLA, EOM intact HENT, MOUTH: Normocephalic, atraumatic, moist mucous membranes, NECK: SUPPLE, no JVD, no lymphadenopathy, no carotid bruit CV: Regular rate and rhythm, S1S2 normal, no murmurs/rubs/gallops RESPIRATORY: Clear to auscultation bilaterally, no rales/rhonchi/wheezes GI: BS positive in 4 quadrants, soft, nontender, nondistended, no rebound or guarding, no organomegaly : nelson catheter MUSCULOSKELETAL: Normal ROM. No cyanosis, clubbing, swelling, joint deformity, extremity edema INTEGUMENTARY: Intact, no rashes, no lesions, no erythema NEUROLOGIC: Cranial Nerves II-XII are intact, no focal deficits, strength 5/5 in all extremities. No sensory or motor deficits on exam. PSYCHIATRIC: Mood and affect are normal LABORATORY DATA: Please see below IMAGING: None ASSESSMENT: 84-year-old male admitted under inpatient status for UTI, failing outpatient treatment, urinary retention, worsening anemia. PLAN: 1. UTI. Failed outpatient antibiotics, WBC now 19K. Chronic indwelling nelson catheter changed today. Ceftriaxone IV Q24 hrs. F/u UCx. 2. Urinary retention, abdominal pain likely 2/2 to obstructed nelson catheter. Improved after placement of new catheter. Hx of BPH. Follows with urology, Dr. Nunn, as outpatient. He was notified of current situation by ED. 3. Anemia. No signs of acute bleeding currently;however, recent episode of hematuria with now a sudden drop in H/H. Ordered occult blood, ferritin, TIBC, iron level. Holding ASA, plavix or other anticoagulation. High risk for another CVA so resume as soon as possible. 4. HTN. C/w antihypertensive meds. 5. HLD. C/w statin 6. CAD s/p stent. Denies chest pain, shortness of breath. Holding ASA, C/wstatin. 7. GERD. C/w famotidine. 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 Operates independently with , AAOx 3 currently. According to daughter, this can wax and wane. Encourage gentle redirection. 9. Hx of CVA. No new focal deficits. Holding aspirin, Plavix- resume as soon as possible. C/w statin 10. DVT px. HOlding ASA, plavix or heparin due to drop in H/H. resume when appropriate. SCDs. DISPOSITION: The patient is currently admitted under inpatient status. Plan is discharge home when medically improved. Vital Signs Vital Signs Date Time Temp Pulse Resp B/P (MAP) Pulse Ox O2 Delivery O2 Flow Rate FiO2 09/12/19 01:00 98.5 85 16 146/66 (92) 92 Room Air Laboratory Data Labs 24H Laboratory Tests 2 09/12/19 00:38: POC Glucose (Misc Panel) 155H, POC Sodium (Misc Panel) 138, POC Potassium (Misc Panel) 4.0, POC Chloride (Misc Panel) 101, POC Total CO2 (Misc Panel) 24.0, POC Blood Urea Nitrogen (Misc Panel 29H, POC Ionized Calcium (Misc Panel) 4.7, POC Creatinine (Misc Panel) 1.4H, POC Hematocrit (Misc Panel) 31.0L 09/12/19 02:18: Urine Color YELLOW, Urine Appearance TURBIDH, Urine pH 5.0, Urine Specific [place] 1.015, Urine Protein 2+H, Urine Glucose (Auto)(UA) NEGATIVE, Urine Ketones (Auto) NEGATIVE, Urine Blood 3+H, Urine Nitrite NEGATIVE, Urine Bilirubin NEGATIVE, Urine Urobilinogen 0.2, Urine Leukocyte Esterase (Auto) 2+H, Urine WBC (Auto) TNTCH, Urine RBC (Auto) 154H, Urine Hyaline Casts (Auto) 31, Urine Bacteria (Auto) 2+H, Urine Squamous Epithelial Cells 2, Urine Transitional Epithelial Cells 7, Urine Amorphous Sediment (Auto) SMALLH, Urine Mucus (Auto) LARGE, Urine Yeast-Like Cells (Auto) LARGEH, Urine Sperm (Auto) , Lactic Acid Level 0.8 Microbiology Microbiology 09/12/19 Urine Culture, Received Pending 09/12/19 Blood Culture, Received Pending Home Medications Scheduled Amlodipine Besylate (Amlodipine Besylate) 5 Mg Tablet, 5 MG PO DAILY Atorvastatin Calcium (Atorvastatin Calcium) 20 Mg Tab, 20 MG PO QHS Ciprofloxacin HCl (Ciprofloxacin HCl) 500 Mg Tablet, 500 MG PO DAILY Ramipril (Ramipril) 10 Mg Cap, 10 MG PO QHS Scheduled PRN Acetaminophen (Tylenol) 325 Mg Tablet, 325 MG PO QID PRN for PAIN Miscellaneous Medications Aspirin (Aspirin EC) 81 Mg Tablet. Clopidogrel Bisulfate (Clopidogrel) 75 Mg Tablet Famotidine (Famotidine) 20 Mg Tablet Nortriptyline HCl (Nortriptyline HCl) 10 Mg Capsule Allergies Coded Allergies: No Known Allergies (Unverified , 04/11/18) A-FIB/CHADSVASC A-FIB History Current/History of A-Fib/PAF?: No Current PO Anticoag Therapy: Yes Age/Risk Factor Scoring CHADSVASC: CHADSVASC Response (Comments) Value Age Risk Factor Age >/= 75 years old 2 Gender Risk Factor Male 0 Hx of CHF No 0 Hx of HTN Yes 1 Hx of Stroke/TIA/or VTE Yes 2 Hx of Diabetes No 0 Hx of Vascular Disease No 0 Total 5 Treatment Treatment ordered: NONE Reason Anticoagulant not given: Current bleeding (r/o current bleeding with low h/h) Oliva Rivera MD September 12, 2019 04:24
[2019-09-12 05:00] VITALS: BP 139/80
[2019-09-12] MEDS ORDERED: ACETAMINOPHEN TAB 650MG DOSE (2X325MG) PO PRN (05:15)
[2019-09-12 05:35] LABS: HEMATOCRIT 32.6 % (42.0-52.0); MEAN CORPUSCULAR HEMOGLOBIN 18.2 pg (27.0-33.0); MEAN CORPUSCULAR HGB CONC 30.7 g/dl (32.0-36.5); MEAN CORPUSCULAR VOLUME 59.5 fl (80.0-96.0); PLATELET COUNT, AUTOMATED 222 10^3/uL (150-450); RED BLOOD COUNT 5.48 10^6/uL (4.30-6.10); WHITE BLOOD COUNT 18.6 10^3/uL (4.0-10.0)
[2019-09-12 05:41] LABS: ALBUMIN 2.8 GM/DL (3.2-5.2); BILIRUBIN,TOTAL 0.7 MG/DL (0.2-1.0); CALCIUM LEVEL 8.5 MG/DL (8.8-10.2); CREATININE FOR GFR 1.37 MG/DL (0.70-1.30); GLOMERULAR FILTRATION RATE 52.4 (>35); PERCENT SATURATION 10.7 % (19.7-50.0); POTASSIUM SERUM 3.9 MEQ/L (3.5-5.1)
[2019-09-12] MEDS ORDERED: AMLO5TAB6 PO (06:41)
[2019-09-12] MEDS ORDERED: RAMI1CAP26 PO (06:41)
[2019-09-12] MEDS ORDERED: ATOR1TAB21 PO (06:41)
[2019-09-12] MEDS ORDERED: ASPIRIN 81 MG ENTERIC TAB PO SCH (09:00)
[2019-09-12] MEDS: FAMOTIDINE 20 MG TAB PO SCH (09:22)
[2019-09-12] MEDS: amLODIPine 5 MG TAB PO SCH (09:22)
[2019-09-12 14:00] VITALS: BP 142/66
--- NOTE | 2019-09-12 14:42 | IPNPDOC ---
Text Note Date of Service The patient was seen on 09/12/19. NOTE Subjective: No negative answer overnight. Hematuria resolved Patient denies fever, chills, nausea, chest pain, palpitations, vomiting, diarrhea Objective: VITAL SIGNS: Please see below. GENERAL: awake, alert, NAD HEENT: NCAT, anicteric sclera, LYN NECK: supple, no JVD CARDIOVASCULAR EXAMINATION: NS1S2, regular rate/rhythm RESPIRATORY EXAMINATION: CTA b/l, no wheezes/rales/rhonchi ABDOMINAL EXAMINATION: positive bowel sounds x 4, NT EXTREMITIES: no cyanosis, clubbing, edema SKIN: warm, no rashes. NEUROLOGICAL EXAMINATION: AAO x 3, no motor/sensory deficits PSYCHIATRIC EXAMINATION: calm, normal affect Patient is 84 years old male with past history of a CVA, coronary artery diseases, dementia, BPH with chronic indwelling Pisano catheter presented hospital with UTI UTI UA showed pyuria Await urine culture Continue ceftriaxone IV Urinary retention Resolved, after Pisano was changed Hypertension Blood pressures under control continue home meds Coronary artery diseases Continue home cardioprotective medications Aspirin restarted, hematuria resolved VS,Ruddye, I+O VS, Fishbone, I+O Laboratory Tests 09/12/19 05:06 Vital Signs Date Time Temp Pulse Resp B/P (MAP) Pulse Ox O2 Delivery O2 Flow Rate FiO2 09/12/19 09:22 69 139/80 09/12/19 05:00 98.7 18 94 Room Air I&O- Last 24 Hours up to 6 AM 09/12/19 06:00 Intake Total 50 ml Output Total 450 ml Balance -400 ml POLO CANO DO September 12, 2019 14:42
[2019-09-12] MEDS: NS 1,000 ML IV SCH (14:45)
[2019-09-12 18:47] LABS: HEMOGLOBIN 10.2 g/dl (13.5-17.5)
--- NOTE | 2019-09-12 19:34 | REPVR ---
PROCEDURE INFORMATION: Exam: CT Abdomen And Pelvis Without Contrast Exam date and time: 09/12/2019 6:41 PM Age: 84 years old Clinical indication: Other: R/O kidney and bladder cancer TECHNIQUE: Imaging protocol: Computed tomography of the abdomen and pelvis without contrast. Radiation optimization: All CT scans at this facility use at least one of these dose optimization techniques: automated exposure control; mA and/or kV adjustment per patient size (includes targeted exams where dose is matched to clinical indication); or iterative reconstruction. COMPARISON: CT ABD PELVIS W/O FOL BY WIT 11/21/2017 1:54 PM FINDINGS: Lungs: Consolidation in the visualized left lung base which may represent infiltrates. Mediastinum: Small hiatal hernia. Liver: Normal. No mass. Gallbladder and bile ducts: Normal. No calcified stones. No ductal dilation. Pancreas: Normal. No ductal dilation. Spleen: Normal. No splenomegaly. Adrenals: Normal. No mass. Kidneys and ureters: Cyst in the midpole of the right kidney measuring 9 x 6 cm. 2.4 cm cyst in the midpole of left kidney. Stomach and bowel: Unremarkable. No obstruction. No mucosal thickening. Appendix: No evidence of appendicitis. Intraperitoneal space: Unremarkable. No free air. No significant fluid collection. Vasculature: Unremarkable. No abdominal aortic aneurysm. Lymph nodes: Unremarkable. No enlarged lymph nodes. Bladder: Pisano's catheter in the bladder. The bladder is collapsed. Bladder wall thickening. Reproductive: Prostate is enlarged and measures 5.8 by 6.2 cm. Bones/joints: Unremarkable. No acute fracture. Soft tissues: Right inguinal hernia containing part of the small bowel. No evidence for obstruction. Other findings: Motion artifact degrades the images. IMPRESSION: Consolidation in the visualized left lung base which may represent pneumonia. Bladder wall thickening. Etiology infectious/inflammatory/neoplastic. Direct visualization with cystoscopy is recommended. Enlarged prostate. Electronically signed by: David Rincon On 09/12/2019 19:34:25 PM
[2019-09-12] MEDS ORDERED: NORTRIPTYLINE 10 MG CAP PO SCH (21:00)
[2019-09-12] MEDS ORDERED: ramipriL 5 MG CAP PO SCH (21:00)
[2019-09-12] MEDS ORDERED: ATORVASTATIN 20 MG TAB PO SCH (21:00)
[2019-09-12 21:31] VITALS: BP 147/72
[2019-09-13 00:27] LABS: HEMATOCRIT 31.5 % (42.0-52.0); HEMOGLOBIN 9.8 g/dl (13.5-17.5)
[2019-09-13] MEDS ORDERED: diphenhydrAMINE 50MG/ML VIAL (J1200) IV ONE (01:15)
[2019-09-13] MEDS: NS 1,000 ML IV SCH ×2 (03:48→10:45)
[2019-09-13 05:02] VITALS: BP 141/65
[2019-09-13 06:38] LABS: HEMATOCRIT 29.5 % (42.0-52.0); HEMOGLOBIN 9.1 g/dl (13.5-17.5); MEAN CORPUSCULAR HEMOGLOBIN 18.4 pg (27.0-33.0); MEAN CORPUSCULAR HGB CONC 30.8 g/dl (32.0-36.5); MEAN CORPUSCULAR VOLUME 59.6 fl (80.0-96.0); PLATELET COUNT, AUTOMATED 240 10^3/uL (150-450); RED BLOOD COUNT 4.95 10^6/uL (4.30-6.10); WHITE BLOOD COUNT 9.7 10^3/uL (4.0-10.0)
[2019-09-13 06:58] LABS: BLOOD UREA NITROGEN 29 MG/DL (7-18); CALCIUM LEVEL 8.1 MG/DL (8.8-10.2); CARBON DIOXIDE LEVEL 26 MEQ/L (21-32); CHLORIDE LEVEL 111 MEQ/L (98-107); CREATININE FOR GFR 1.08 MG/DL (0.70-1.30); GLOMERULAR FILTRATION RATE > 60.0 (>35); GLUCOSE, FASTING 113 MG/DL (70-100); MAGNESIUM LEVEL 2.1 MG/DL (1.8-2.4); POTASSIUM SERUM 3.9 MEQ/L (3.5-5.1); SODIUM LEVEL 142 MEQ/L (136-145)
[2019-09-13] MEDS: FAMOTIDINE 20 MG TAB PO SCH (08:36)
[2019-09-13 08:37] VITALS: BP 141/65
[2019-09-13] MEDS: amLODIPine 5 MG TAB PO SCH (08:37)
[2019-09-13] MEDS ORDERED: cefTRIAXone SOD 1 GM in D5W MINI-BAG PLUS 50 ML IV SCH (09:00)
[2019-09-13] MEDS ORDERED: BACT800T5 PO (11:45)
[2019-09-13] MEDS ORDERED: DIFL50TA PO (11:45)
[2019-09-13 12:11] LABS: HEMATOCRIT 29.5 % (42.0-52.0); HEMOGLOBIN 9.1 g/dl (13.5-17.5)
--- NOTE | 2019-09-13 14:32 | DS.PDOC ---
Discharge Summary General Date of Admission September 12, 2019 at 05:56 Date of Discharge 09/13/19 Discharge Summary PROCEDURES PERFORMED DURING STAY: [None]. ADMITTING DIAGNOSES: UTI Urinary retention Anemia HTN HLD CAD s/p stent GERD Dementia Hx of CVA. DISCHARGE DIAGNOSES: UTI Urinary retention Anemia HTN HLD CAD s/p stent GERD Dementia Hx of CVA. COMPLICATIONS/CHIEF COMPLAINT: UTI. HISTORY OF PRESENT ILLNESS: The patient is an 84-year-old male with extensive past medical history including multiple CVAs hemorrhagic and ischemic, hypertension, hyperlipidemia, CAD status post stenting, GERD, dementia, BPH with chronic indwelling Pisano catheter who presented to [facility] with the chief complaint of decreased drainage from indwelling Pisano catheter, increased abdominal pain and penile pain. The patient at baseline is pleasantly confused at times but his is at the bedside to help provide information. The patient's followed closely by outpatient urology and he was seen yesterday in the office by Dr. Nunn. There do not appear to be any problems at that time with his catheter. Today his catheter would not drain at home. He was seen a week ago for hematuria. The patient also complained of the abdominal pain which was in the lower left and right quadrants, 3 out of 10 on pain scale, dull in character and nonradiating. Due to the above symptoms the patient was brought to the emergency room for further evaluation. In the emergency room the patient's vital signs were stable. When attempted to flush the Pisano catheter the nurses experienced difficulty. A new Pisano catheter was placed and when it was advanced there was a lot of sediment that passed through the new tubing. His abdominal pain and penile pain significantly improved after placement of new catheter. Dr. Nunn with urology was contacted and made aware of Pisano catheter change. WBC 19K, H/H lower than normal at 9.7/36.8. Recent labs done as outpatient on 09/08/2019 reported WBC wnl and H/H 11/36. UA was positive for UTI and appeared cloudy with a lot of sediment. The patient had been on an outpatient antibiotic (believed to be ciprofloxacin) for the past several days, but appeared to have failed outpatient treatment despite compliance according to . He had no acute signs of bleeding, chest pain, shortness of breath, cough, lightheadedness or dizziness. Patient was admitted for further treatment of UTI, worsening anemia. HOSPITAL COURSE: During hospital stay following issue addressed UA showed pyuria urine culture positive for Samantha infection Patient received treatment with ceftriaxone IV and Diflucan Urinary retention Resolved, after Pisano was changed DISCHARGE MEDICATIONS: Please see below. ALLERGIES: Please see below. PHYSICAL EXAMINATION ON DISCHARGE: VITAL SIGNS: Please see below. GENERAL: awake, alert, NAD HEENT: NCAT, anicteric sclera, LYN NECK: supple, no JVD CARDIOVASCULAR EXAMINATION: NS1S2, regular rate/rhythm RESPIRATORY EXAMINATION: CTA b/l, no wheezes/rales/rhonchi ABDOMINAL EXAMINATION: positive bowel sounds x 4, NT EXTREMITIES: no cyanosis, clubbing, edema SKIN: warm, no rashes. NEUROLOGICAL EXAMINATION: AAO x 3, no motor/sensory deficits PSYCHIATRIC EXAMINATION: calm, normal affect LABORATORY DATA: Please see below. PROGNOSIS: Fair ACTIVITY: [As tolerated]. DIET: Cardiac DISPOSITION: . Home with home health DISCHARGE INSTRUCTIONS: Pisano care ITEMS TO FOLLOWUP ON ON OUTPATIENT: Urologist and PCP DISCHARGE CONDITION: [Stable]. TIME SPENT ON DISCHARGE: Greater than 20 minutes. Vital Signs/I&Os Vital Signs Date Time Temp Pulse Resp B/P (MAP) Pulse Ox O2 Delivery O2 Flow Rate FiO2 09/13/19 08:37 78 141/65 09/13/19 05:02 97.8 20 97 Room Air I&O- Last 24 Hours up to 6 AM 09/13/19 05:59 Intake Total 660 ml Output Total 1000 ml Balance -340 ml Laboratory Data Labs 24H Laboratory Tests 2 09/13/19 06:14: Nucleated Red Blood Cells % (auto) 0.0 09/13/19 06:16: Anion Gap 5L, Glomerular Filtration Rate > 60.0, Calcium Level 8.1L, Magnesium Level 2.1 CBC/BMP Laboratory Tests 09/12/19 18:12 09/13/19 00:14 09/13/19 06:14 09/13/19 06:16 09/13/19 11:58 Microbiology Microbiology 09/12/19 Blood Culture - Preliminary, Resulted No growth after 24 hours . All specim... 09/12/19 Urine Culture - Final, Complete Yeast Like Organism 09/12/19 Blood Culture - Preliminary, Resulted No growth after 24 hours . All specim... Discharge Medications Scheduled Amlodipine Besylate (Amlodipine Besylate) 5 Mg Tablet, 5 MG PO DAILY, (Reported) Aspirin (Aspirin EC) 81 Mg Tablet.dr, 81 MG PO DAILY, (Reported) Atorvastatin Calcium (Atorvastatin Calcium) 20 Mg Tablet, 20 MG PO QHS, (Reported) Famotidine (Famotidine) 20 Mg Tablet, 20 MG PO BID, (Reported) Fluconazole (Diflucan) 50 Mg Tablet, 150 MG PO DAILY@1800 Nortriptyline HCl (Nortriptyline HCl) 10 Mg Capsule, 10 MG PO QHS, (Reported) Ramipril (Ramipril) 10 Mg Capsule, 10 MG PO QHS, (Reported) Sulfamethoxazole/Trimethoprim (Bactrim Ds Tablet) 1 Each Tablet, 1 TAB PO BID Scheduled PRN Acetaminophen (Tylenol) 325 Mg Tablet, 325 MG PO QID PRN for PAIN, (Reported) Allergies Coded Allergies: No Known Allergies (Unverified , 04/11/18) POLO CANO DO September 13, 2019 14:31
[2019-09-13] MEDS ORDERED: FLUCONAZOLE 50MG TABLET PO SCH (18:00)
== END 2019-09-13 14:25 | disposition home health service (06) | DRG 690 ==
LOC: M ED 23:06 → M ED INP 09-12 04:05 → ENRESERV 09-12 04:20 → M MS5PR 09-12 04:49 → OBSVTOIN 09-12 05:56
PROVIDERS: ADMIT Internal Medicine; ATTEND Internal Medicine
DX: N39.0 Urinary tract infection, site not specified (principal); D64.9 Anemia, unspecified; I10 Essential (primary) hypertension; K21.9 Gastro-esophageal reflux disease without esophagitis; R33.9 Retention of urine, unspecified; I25.10 Atherosclerotic heart disease of native coronary artery without angina pectoris; Z95.2 Presence of prosthetic heart valve; F03.90 Unspecified dementia, unspecified severity, without behavioral disturbance, psychotic disturbance, mood disturbance, and anxiety; Z86.73 Personal history of transient ischemic attack (TIA), and cerebral infarction without residual deficits; E78.5 Hyperlipidemia, unspecified; N40.0 Benign prostatic hyperplasia without lower urinary tract symptoms; Z79.899 Other long term (current) drug therapy; Z79.82 Long term (current) use of aspirin

== ENCOUNTER 2019-09-15 07:15 | Emergency (ER) | payer MEDICARE, OTHER ==
[~2019-09-15] VITALS: Ht 167.6 cm; Wt 77.4 kg
[~2019-09-15 07:15] MED LIST changes: +CIPR500T3 PO; +DIFL50TA PO
[2019-09-15] MEDS ORDERED: CLOP75TA2 PO (07:28)
[2019-09-15] MEDS ORDERED: LIDOCAINE 2% 5ML JELLY UROJET TOP ONE (08:45)
[2019-09-15 08:47] LABS: BASO # 0.1 10^3/uL (0.0-0.2); BASO % 0.5 % (0.0-1.0); EOS # 0.1 10^3/uL (0.0-0.5); EOS % 1.1 % (0.0-3.0); HEMATOCRIT 32.2 % (42.0-52.0); LYMPH # 1.2 10^3/uL (1.5-5.0); LYMPH % 10.2 % (24.0-44.0); MEAN CORPUSCULAR HEMOGLOBIN 18.2 pg (27.0-33.0); MEAN CORPUSCULAR HGB CONC 31.1 g/dl (32.0-36.5); MEAN CORPUSCULAR VOLUME 58.8 fl (80.0-96.0); MONO % 8.1 % (0.0-5.0); NEUTROPHILS # 9.3 10^3/uL (1.5-8.5); PLATELET COUNT, AUTOMATED 322 10^3/uL (150-450); RED BLOOD COUNT 5.48 10^6/uL (4.30-6.10); WHITE BLOOD COUNT 11.8 10^3/uL (4.0-10.0)
[2019-09-15 09:07] LABS: ALBUMIN 3.1 GM/DL (3.2-5.2); BILIRUBIN,DIRECT 0.2 MG/DL (0.0-0.2); BILIRUBIN,TOTAL 0.4 MG/DL (0.2-1.0); CALCIUM LEVEL 8.8 MG/DL (8.8-10.2); CREATININE FOR GFR 1.25 MG/DL (0.70-1.30); GLOMERULAR FILTRATION RATE 58.3 (>35); POTASSIUM SERUM 4.2 MEQ/L (3.5-5.1); TOTAL PROTEIN 7.5 GM/DL (6.4-8.2)
[2019-09-15] MEDS ORDERED: GLYCERIN ADULT SUPP PR ONE (09:45)
[2019-09-15] MEDS ORDERED: COLA100C5 PO (11:03)
[2019-09-15] MEDS ORDERED: MIRA3350 PO (11:03)
[2019-09-15 11:06] VITALS: BP 136/68
== END 2019-09-15 11:26 | disposition home or self-care (01) ==
LOC: M ED 07:15
DX: T83.011A Breakdown (mechanical) of indwelling urethral catheter, initial encounter (principal); Y73.2 Prosthetic and other implants, materials and accessory gastroenterology and urology devices associated with adverse incidents; N39.0 Urinary tract infection, site not specified; K59.00 Constipation, unspecified; R31.29 Other microscopic hematuria; R10.30 Lower abdominal pain, unspecified; I11.9 Hypertensive heart disease without heart failure; I25.2 Old myocardial infarction; I25.10 Atherosclerotic heart disease of native coronary artery without angina pectoris; K21.9 Gastro-esophageal reflux disease without esophagitis; N40.0 Benign prostatic hyperplasia without lower urinary tract symptoms; F03.90 Unspecified dementia, unspecified severity, without behavioral disturbance, psychotic disturbance, mood disturbance, and anxiety; R51 Headache; Z86.73 Personal history of transient ischemic attack (TIA), and cerebral infarction without residual deficits; Z79.899 Other long term (current) drug therapy; Z79.02 Long term (current) use of antithrombotics/antiplatelets; Z79.2 Long term (current) use of antibiotics; Z79.82 Long term (current) use of aspirin

== ENCOUNTER 2019-09-21 18:19 | Emergency (ER) | payer MEDICARE, OTHER ==
[~2019-09-21] VITALS: Ht 170.2 cm; Wt 76.8 kg
[~2019-09-21 18:19] MED LIST changes: +CLOP75TA2 PO; +MIRA3350 PO
[2019-09-21] MEDS ORDERED: LIDOCAINE 2% 5ML JELLY UROJET As Ordered ONE (19:32)
[2019-09-21 20:14] LABS: BASO # 0.1 10^3/uL (0.0-0.2); BASO % 0.7 % (0.0-1.0); EOS # 0.6 10^3/uL (0.0-0.5); EOS % 5.6 % (0.0-3.0); HEMATOCRIT 32.6 % (42.0-52.0); LYMPH # 2.6 10^3/uL (1.5-5.0); LYMPH % 25.6 % (24.0-44.0); MEAN CORPUSCULAR HEMOGLOBIN 18.3 pg (27.0-33.0); MEAN CORPUSCULAR HGB CONC 30.7 g/dl (32.0-36.5); MEAN CORPUSCULAR VOLUME 59.6 fl (80.0-96.0); MONO # 0.8 10^3/uL (0.0-0.8); MONO % 7.9 % (0.0-5.0); NEUTROPHILS % 59.6 % (36.0-66.0); PLATELET COUNT, AUTOMATED 544 10^3/uL (150-450); RED BLOOD COUNT 5.47 10^6/uL (4.30-6.10); WHITE BLOOD COUNT 10.1 10^3/uL (4.0-10.0)
[2019-09-21 20:24] LABS: BLOOD UREA NITROGEN 23 MG/DL (7-18); CALCIUM LEVEL 8.5 MG/DL (8.8-10.2); CARBON DIOXIDE LEVEL 29 MEQ/L (21-32); CHLORIDE LEVEL 104 MEQ/L (98-107); CREATININE FOR GFR 1.08 MG/DL (0.70-1.30); GLOMERULAR FILTRATION RATE > 60.0 (>35); GLUCOSE, FASTING 117 MG/DL (70-100); POTASSIUM SERUM 5.1 MEQ/L (3.5-5.1); SODIUM LEVEL 140 MEQ/L (136-145)
[2019-09-21 20:34] LABS: INR 1.14; PARTIAL THROMBOPLASTIN TIME 36.1 SECONDS (25.0-38.4); PROTHROMBIN TIME 14.3 SECONDS (11.8-14.0)
[2019-09-21 21:28] VITALS: BP 125/58
== END 2019-09-21 21:30 | disposition home or self-care (01) ==
LOC: M ED 18:19
DX: N40.1 Benign prostatic hyperplasia with lower urinary tract symptoms (principal); R33.9 Retention of urine, unspecified; R31.0 Gross hematuria; T83.098A Other mechanical complication of other urinary catheter, initial encounter; X58.XXXA Exposure to other specified factors, initial encounter; Y92.89 Other specified places as the place of occurrence of the external cause; I10 Essential (primary) hypertension; I25.2 Old myocardial infarction; Z79.899 Other long term (current) drug therapy; Z79.82 Long term (current) use of aspirin; Z79.01 Long term (current) use of anticoagulants

== ENCOUNTER 2019-09-22 14:18 | Inpatient (IN) | payer MEDICARE, OTHER ==
[~2019-09-22] VITALS: Ht 170.2 cm; Wt 74.2 kg
[2019-09-22 16:37] LABS: BASO # 0.1 10^3/uL (0.0-0.2); BASO % 0.6 % (0.0-1.0); EOS # 0.3 10^3/uL (0.0-0.5); EOS % 2.8 % (0.0-3.0); HEMATOCRIT 35.4 % (42.0-52.0); HEMOGLOBIN 10.7 g/dl (13.5-17.5); LYMPH # 2.6 10^3/uL (1.5-5.0); LYMPH % 26.2 % (24.0-44.0); MEAN CORPUSCULAR HEMOGLOBIN 18.2 pg (27.0-33.0); MEAN CORPUSCULAR HGB CONC 30.2 g/dl (32.0-36.5); MEAN CORPUSCULAR VOLUME 60.1 fl (80.0-96.0); MONO # 0.7 10^3/uL (0.0-0.8); MONO % 6.7 % (0.0-5.0); NEUTROPHILS # 6.2 10^3/uL (1.5-8.5); NEUTROPHILS % 63.2 % (36.0-66.0); PLATELET COUNT, AUTOMATED 589 10^3/uL (150-450); RED BLOOD COUNT 5.89 10^6/uL (4.30-6.10); WHITE BLOOD COUNT 9.9 10^3/uL (4.0-10.0)
[2019-09-22 16:42] LABS: GLUCOSE, URINE (UA) MANUAL NEGATIVE (NEGATIVE); KETONE, URINE MANUAL 1+ mg/dL (NEGATIVE); UROBILINOGEN, URINE MANUAL NORMAL (NORMAL)
[2019-09-22 16:43] LABS: BILIRUBIN, URINE MANUAL NEGATIVE (NEGATIVE)
[2019-09-22 16:50] LABS: BACTERIA, URINE SMALL AMOUNT; RBC, URINE TNTC /hpf (0-3); SQUAMOUS EPITHELIAL CELL URINE NONE SEEN /hpf (SMALL AMT)
[2019-09-22 16:51] LABS: MUCUS, URINE SMALL AMOUNT (NEGATIVE)
[2019-09-22 16:52] LABS: HYALINE CAST, URINE NONE SEEN /lpf (0-1)
--- NOTE | 2019-09-22 17:35 | SMCUROLCON ---
Urology Consultation General Date of Consultation 09/22/19 Reason For Consultation This patient is seen for Pisano Cath Problem. History of Present Illness This is an 84 y/o M w/ a PMH significant for CAD (s/p stenting x2), CVD (on plavix), HTN, HL, and urinary retention 2/2 BPH managed w/ a chronic catheter, presenting to the ER for the 2nd time in 2 days for gross hematuria and clot retention. Per the patient's , he woke up this morning w/ a bag full of blood. The catheter was connected to a new bag and he had very minimal output over a few hours. After arrival to the ER his catheter was changed out to a 24Fr 3 way catheter w/ immediate output of a moderate amount of bloody urine. At this time the patient denies pain. He denies light headedness. He denies chest pain or SOB. Of note, his last dose of plavix was yesterday. Past Medical History Medical History see HPI Surgical Hstory - cardiac stenting - TURP - appendectomy Medications Current Medications Current Medications Medications (Trade) Dose Ordered Sig/Anson Route PRN Reason Start Time Stop Time Status Last Admin Dose Admin Home Med (Med Rec Complete!) ASDIRECTED XX 09/22/19 16:45 09/22/19 16:40 NC Allergies Allergies: Coded Allergies: No Known Allergies (Unverified , 04/11/18) Review of Systems Constitutional: Denies: Fever, Chills, Sweats, Weakness, Malaise Skin: Denies: Rash, Lesions, Breakdown, Nail Changes Pulmonary: Denies: Dyspnea, Cough Cardiovascular: Denies Chest Pain, Denies Palpitations Gastrointestinal: Denies: Nausea, Vomiting, Abdominal Pain Genitourinary: Reports: Incontinence, Hematuria, Retention; Denies: Dysuria, Frequency Hematologic: Reports: Bleeding Excessively Musculoskeletal: Denies: Neck Pain, Back Pain Psych: Reports: Mood Normal Physical Examination General Exam: Alert, Cooperative, No Acute Distress Chest Exam: Normal air movement Heart Exam: Regular Rhythm Abdomen Exam: Soft Male Exam 3-way catheter in place w/ irrigation port plugged and small amount of bright red urine in bag Skin Exam: Nl turgor and temperature Neuro Exam: Normal Speech Psych Exam: Mental status NL, Mood NL Vital Signs/I&O Vital Signs Date Time Temp Pulse Resp B/P (MAP) Pulse Ox O2 Delivery O2 Flow Rate FiO2 09/22/19 14:36 09/22/19 14:18 97.3 77 16 97 Room Air Laboratory Data 24H Labs Laboratory Tests 2 09/22/19 16:26: Immature Granulocyte % (Auto) 0.5, Neutrophils (%) (Auto) 63.2, Lymphocytes (%) (Auto) 26.2, Monocytes (%) (Auto) 6.7H, Eosinophils (%) (Auto) 2.8, Basophils (%) (Auto) 0.6, Neutrophils # (Auto) 6.2, Lymphocytes # (Auto) 2.6, Monocytes # (Auto) 0.7, Eosinophils # (Auto) 0.3, Basophils # (Auto) 0.1, Nucleated Red Blood Cells % (auto) 0.0, Urine Color (RAYNE) REDH, Urine Appearance (RAYNE) TURBIDH, Urine pH (RAYNE) 5.0, Urine Specific [place] (RAYNE) 1.020, Urine Protein 3+H, Bedside Urine Glucose (UA) NEGATIVE, Bedside Urine Ketones (LAB) 1+H, Bedside Urine Blood POSITIVEH, Bedside Urine Nitrite (LAB) NEGATIVE, Bedside Urine Bilirubin (LAB) NEGATIVE, Bedside Urine Urobilinogen (LAB) NORMAL, Bedside Urine Leukocyte Esterase (L POSITIVEH, Urine Sediment Examination PERFORMED, U rine RBC TNTCH, Urine WBC 40-50, Urine Squamous Epithelial Cells NONE SEEN, Urine Bacteria SMALL AMOUNTH, Urine Hyaline Casts NONE SEEN, Urine Mucus SMALL AMOUNTH 09/22/19 16:33: POC Glucose (Misc Panel) 115H, POC Sodium (Misc Panel) 139, POC Potassium (Misc Panel) 4.9, POC Chloride (Misc Panel) 101, POC Total CO2 (Misc Panel) 28.0H, POC Blood Urea Nitrogen (Misc Panel 23, POC Ionized Calcium (Misc Panel) 5.0, POC Creatinine (Misc Panel) 1.1, POC Hematocrit (Misc Panel) 35.0L CBC/BMP Laboratory Tests 09/22/19 16:26 Microbiology Microbiology 09/22/19 Urine Culture, Received Pending Assessment This is an 84 y/o M w/ urinary retention 2/2 BPH, presenting to the ER w/ gross hematuria and clot retention. Upon assessment, I manually irrigated the patient's bladder w/ a total of 1L sterile water and removed a large amount of clots. Once done irrigating, the outflow was pink, indicating the bleeding to be minimal at this point. His Hb is stable at 10.7. Based on office cystoscopy from 2 days ago, his bleeding is from his prostate. Given he has a very vascular prostate and him being on plavix, his prostate bleeds easily with catheter changes. I discussed managing his urinary retention w/ a suprapubic catheter instead to help decrease catheter trauma to his prostate and hopefully lessen these episodes of hematuria. They are in agreement w/ this approach. Given his last dose of plavix was yesterday, we will likely try to arrange to schedule him for suprapubic catheter later this week (most likely Monday). Plan - admit to hospitalist service - start CBI and titrate irrigation so that outflow is pink or clearer - continue to hold plavix - ok for him to take ASA 81mg - start cipro - ok for regular diet as no plan for surgery DC Hernandez MD September 22, 2019 17:35
[2019-09-22] MEDS ORDERED: MIRALAX *UNIT DOSE* 17GM PACKET PO PRN (18:00)
[2019-09-22 18:11] VITALS: BP 165/71
[2019-09-22 18:33] LABS: HEMOGLOBIN 10.2 g/dl (13.5-17.5)
[2019-09-22] MEDS: CIPROFLOXACIN 500MG TABLET PO SCH (19:02)
[2019-09-22] MEDS: NORTRIPTYLINE 10 MG CAP PO SCH (21:09)
[2019-09-22] MEDS: FAMOTIDINE 20 MG TAB PO SCH (21:09)
[2019-09-22] MEDS: ATORVASTATIN 20 MG TAB PO SCH (21:09)
[2019-09-22] MEDS: ramipriL 5 MG CAP PO SCH (21:11)
[2019-09-22 22:00] VITALS: BP 123/60
[2019-09-22 23:46] LABS: HEMATOCRIT 29.7 % (42.0-52.0); HEMOGLOBIN 9.1 g/dl (13.5-17.5)
[2019-09-23] MEDS: CIPROFLOXACIN 500MG TABLET PO SCH ×2 (05:40→18:28)
[2019-09-23 06:00] VITALS: BP 145/71
[2019-09-23 06:33] LABS: BASO # 0.1 10^3/uL (0.0-0.2); BASO % 0.5 % (0.0-1.0); EOS # 0.4 10^3/uL (0.0-0.5); EOS % 3.7 % (0.0-3.0); HEMATOCRIT 30.9 % (42.0-52.0); HEMOGLOBIN 9.3 g/dl (13.5-17.5); LYMPH # 2.3 10^3/uL (1.5-5.0); LYMPH % 24.5 % (24.0-44.0); MEAN CORPUSCULAR HGB CONC 30.1 g/dl (32.0-36.5); MEAN CORPUSCULAR VOLUME 59.9 fl (80.0-96.0); MONO # 0.7 10^3/uL (0.0-0.8); MONO % 7.4 % (0.0-5.0); NEUTROPHILS % 63.5 % (36.0-66.0); RED BLOOD COUNT 5.16 10^6/uL (4.30-6.10); WHITE BLOOD COUNT 9.4 10^3/uL (4.0-10.0)
[2019-09-23 06:34] LABS: PLATELET COUNT, AUTOMATED 447 10^3/uL (150-450)
[2019-09-23 06:54] LABS: BLOOD UREA NITROGEN 23 MG/DL (7-18); CALCIUM LEVEL 8.9 MG/DL (8.8-10.2); CARBON DIOXIDE LEVEL 30 MEQ/L (21-32); CHLORIDE LEVEL 104 MEQ/L (98-107); CREATININE FOR GFR 1.11 MG/DL (0.70-1.30); GLOMERULAR FILTRATION RATE > 60.0 (>35); GLUCOSE, FASTING 89 MG/DL (70-100); POTASSIUM SERUM 4.8 MEQ/L (3.5-5.1); SODIUM LEVEL 138 MEQ/L (136-145)
--- NOTE | 2019-09-23 08:40 | IPNPDOC ---
Subjective Review oF Systems Chief Complaint The patient is a 84-year-old male admitted with a reason for visit of Pisano Cath Problem. Events since Last Encounter No acute events o/n. Denies pain. Catheter drained well w/o need for manual irrigation. Objective Physical Examination General Exam: Alert, Cooperative, No Acute Distress Skin Exam: Nl turgor and temperature Neuro Exam: Normal Speech Psych Exam: Mood NL Other physical findings 3-way catheter in place w/ irrigation on minimal drip and outflow clear yellow Vital Signs/I&O Vital Signs Date Time Temp Pulse Resp B/P (MAP) Pulse Ox O2 Delivery O2 Flow Rate FiO2 09/23/19 06:00 97.8 67 17 145/71 (95) 98 Room Air I&O- Last 24 Hours up to 6 AM 09/23/19 06:00 Intake Total 180 ml Output Total 0 ml Balance 180 ml Laboratory Data Labs 24H Laboratory Tests 2 09/22/19 16:26: Immature Granulocyte % (Auto) 0.5, Neutrophils (%) (Auto) 63.2, Lymphocytes (%) (Auto) 26.2, Monocytes (%) (Auto) 6.7H, Eosinophils (%) (Auto) 2.8, Basophils (%) (Auto) 0.6, Neutrophils # (Auto) 6.2, Lymphocytes # (Auto) 2.6, Monocytes # (Auto) 0.7, Eosinophils # (Auto) 0.3, Basophils # (Auto) 0.1, Nucleated Red Blo od Cells % (auto) 0.0, Urine Color (RAYNE) REDH, Urine Appearance (RAYNE) TURBIDH, Urine pH (RAYNE) 5.0, Urine Specific [place] (RAYNE) 1.020, Urine Protein 3+H, Bedside Urine Glucose (UA) NEGATIVE, Bedside Urine Ketones (LAB) 1+H, Bedside Urine Blood POSITIVEH, Bedside Urine Nitrite (LAB) NEGATIVE, Bedside Urine Bilirubin (LAB) NEGATIVE, Bedside Urine Urobilinogen (LAB) NORMAL, Bedside Urine Leukocyte Esterase (L POSITIVEH, Urine Sediment Examination PERFORMED, Urine RBC TNTCH, Urine WBC 40-50, Urine Squamous Epithelial Cells NONE SEEN, Urine Bacteria SMALL AMOUNTH, Urine Hyaline Casts NONE SEEN, Urine Mucus SMALL AMOUNTH 09/22/19 16:33: POC Glucose (Misc Panel) 115H, POC Sodium (Misc Panel) 139, POC Potassium (Misc Panel) 4.9, POC Chloride (Misc Panel) 101, POC Total CO2 (Misc Panel) 28.0H, POC Blood Urea Nitrogen (Misc Panel 23, POC Ionized Calcium (Misc Panel) 5.0, POC C reatinine (Misc Panel) 1.1, POC Hematocrit (Misc Panel) 35.0L 09/23/19 05:35: Immature Granulocyte % (Auto) 0.4, Neutrophils (%) (Auto) 63.5, Lymphocytes (%) (Auto) 24.5, Monocytes (%) (Auto) 7.4H, Eosinophils (%) (Auto) 3.7H, Basophils (%) (Auto) 0.5, Neutrophils # (Auto) 6.0, Lymphocytes # (Auto) 2.3, Monocytes # (Auto) 0.7, Eosinophils # (Auto) 0.4, Basophils # (Auto) 0.1, Nucleated Red Blood Cells % (auto) 0.0, Anion Gap 4L, Glomerular Filtration Rate > 60.0, Calcium Level 8.9 CBC/BMP Laboratory Tests 09/22/19 16:26 09/22/19 18:10 09/22/19 23:38 09/23/19 05:35 Microbiology Microbiology 09/22/19 Urine Culture, Received Pending Assessment/Plan Date Seen The patient was seen on 09/23/19. Patient Summary This is an 84 y/o M w/ urinary retention 2/2 BPH admitted for gross hematuria and clot retention. His urine is clear this morning w/ minimal CBI running. His Hb is stable. Plan/VTE VTE Prophylaxis Ordered?: Yes VTE Exclusion Mechanical Proph: N/A:VTE Prophy Ordered Plan/Urinary Catheter Urinary Catheter: Other Catheter: (keep catheter in for urinary retention) Plan - stop CBI - request that the hospitalist service optimize the patient for surgery on Monday - plan for suprapubic catheter placement at that time - once patient optimized, ok for discharge home - please continue to hold plavix - patient should continue ASA 81mg DC WHITEHEAD MD Sep 23, 2019 08:40
[2019-09-23] MEDS: amLODIPine 5 MG TAB PO SCH (10:39)
[2019-09-23] MEDS: ASPIRIN 81 MG ENTERIC TAB PO SCH (10:40)
[2019-09-23] MEDS: FAMOTIDINE 20 MG TAB PO SCH ×2 (10:40→20:24)
[2019-09-23 11:47] LABS: HEMATOCRIT 33.5 % (42.0-52.0); HEMOGLOBIN 10.2 g/dl (13.5-17.5)
--- NOTE | 2019-09-23 11:55 | HPE ---
DATE OF ADMISSION: 09/22/2019 PRIMARY CARE PHYSICIAN: Dr. Yoel Pritchard CHIEF COMPLAINT: Hematuria. HISTORY OF PRESENT ILLNESS: 84-year-old male who presented to the emergency room with ongoing hematuria through his Pisano catheter. The said that they had been in and out of the emergency room. Pisano catheter was changed yesterday. He had a previous admission on 09/12/2019 for which he presented with the same issues. He is currently on aspirin and Plavix for history of multiple CVAs, hemorrhagic and ischemic, history of coronary artery disease and stenting. Per Dr. Nunn, urologist district operations manager, due to ongoing issues with hematuria most likely secondary to traumatic injury from frequent Pisano catheter replacement as well as clotting of the tubing causing urinary retention, the patient is going to be brought in and evaluated for the next three days and possibly suprapubic catheter placement on Monday. He is suggested continuing the aspirin and discontinue the Plavix, type and cross, monitor hemoglobin/hematocrit (H/H), transfuse as needed and continue with the Pisano catheter at this time. In the ER, the patient was found to have gross hematuria and blood clots after flushing and evacuation. The patient continues to bleed bright red blood as well as multiple clots. He otherwise denies any chest pain, pressure, tightness, shortness of breath, lightheadedness, or dizziness. He was ambulating well without any falls at home. The hospitalist was called to admit. He was hemodynamically stable with blood pressure 160/72 and saturating 97% on room air. Hemoglobin was 10 and hematocrit was 35. PAST MEDICAL HISTORY: 1. Coronary artery disease (CAD). 2. Multiple CVAs, hemorrhagic and ischemic. 3. Hypertension. 4. Hyperlipidemia. 5. Reflux. 6. Dementia. 7. Benign prostatic hypertrophy (BPH) with chronic indwelling Pisano catheter. 8. Multiple admissions for hematuria. 9. Urinary tract infection. PAST SURGICAL HISTORY: 1. Cardiac stent placement in 2014. 2. 1998 transurethral resection of prostate (TURP). 3. Appendectomy. 4. Cystoscopy. FAMILY HISTORY: Sibling with diabetes, pericarditis, in her 60s. Mother at age 94 with degenerative joint disease. Father with a stroke at age 88 with CAD. HOME MEDICATIONS: - acetaminophen 325 four times a day - Norvasc 5 daily - aspirin 81 daily - atorvastatin 20 daily - famotidine 20 twice a day - ramipril 10 at bedtime - Nortriptyline 10 at bedtime - MiraLAX 17 grams daily ALLERGIES: No known drug allergies. SOCIAL HISTORY: The patient lives with his at home. Health care proxy is the patient's Migdalia, [phone], and daughter Mirela, . The patient is DO NOT RESUSCITATE (DNR), but unclear about intubation. Smoking history in his 20s. Does not smoke daily, he had been using a cigar for the past 20 years. Social alcohol use. No recreational drug use. 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 REVIEW OF SYSTEMS: Per history of present illness (HPI). 12 point system otherwise negative. PHYSICAL EXAMINATION: Temperature 98.1, pulse 69, respiratory rate 16, blood pressure 161/69, 98% on room air. Generally, the patient is awake, alert and oriented to himself and place. Answering questions appropriately. Speech is fluent. Face is symmetric. No jugular venous distention or thyromegaly. No pallor or icterus. No jaundice. Lungs are clear to auscultation. No wheezing or rales. Heart: S1, S2. Sinus rhythm. Abdomen soft. Nontender. Nondistended. Positive bowel sounds. Extremities: No cyanosis, clubbing or pitting edema. Pisano catheter with bright red blood. Multiple maroon blood clots. Gross hematuria. LABORATORY DATA: White count 9.9, hemoglobin 10, hematocrit 35, platelet count 589. Sodium 139, potassium 4.9, chloride 101, bicarbonate 28, BUN 23, creatinine 1.1, glucose 115. Urinalysis positive for leukocyte esterase and 40-50 WBCs. IMPRESSION: 1. Acute blood loss anemia secondary to gross hematuria. The patient will be monitored with serial hemoglobin and hematocrit. He has been typed and screened. He currently is asymptomatic with hemoglobin of 10 and does not require immediate transfusion. 2. Pisano catheter malfunction with trauma causing gross hematuria. Dr. Nunn would like the patient to be on aspirin 81 mg, off Plavix for three days and suprapubic catheter planned for Monday. 3. History of CVA. Continued on aspirin 81 mg. 4. Urinary tract infection. Continue on IV ceftriaxone. 5. Urinary retention and BPH. Will need suprapubic catheter. Will keep the Pisano on now. 6. Hypertension. Continue with antihypertensive. 7. Hyperlipidemia. Continue on statin. 8. History of CAD and stent. Per asad Girard to continue the aspirin and statin, but no Plavix. 9. Reflux. On famotidine. 10. 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 is very supportive and provides most of the history. 11. Deep vein thrombosis (DVT) prophylaxis. Compression stockings due to acute hematuria. MTDD
--- NOTE | 2019-09-23 12:18 | IPNPDOC ---
Date Seen The patient was seen on 09/23/19. Progress Note Overnight into early this morning, pt has had clearing of the gross hematuria, and blood clotting. no c/o sob, cp, pressure, lightheadedness, or dizziness. Pt worried that his is not with him, and wanting to go home. Per Dr. Nunn, pt may be wa'ed home. However, after pt worked with physical therapy, pt had recurrent gross hematuria with large blood clot,and aguilar colored hematuria which is persistent. Urology agreed that pt should be monitored as an inpt. discharge postponed. PHYSICAL EXAMINATION: VS: see below Generally no pallor. no conversational dyspnea. HEENT no jvd no cervical LAD. dry mucus membranes Lungs are clear to auscultation. No wheezing or rales. Heart: S1, S2. Sinus rhythm. no gallops or rubs noted. Abdomen soft. Nontender. Nondistended. Positive bowel sounds. Extremities: No cyanosis, clubbing or pitting edema. Pisano catheter: aguilar colored hematuria LABORATORY DATA:pls see below IMPRESSION: 1. Acute blood loss anemia secondary to gross hematuria. The patient will be monitored with serial hemoglobin and hematocrit. He has been typed and screened. He currently is asymptomatic. consented for transfusion if becomes symptomatic or hgb<8. 2. Pisano catheter malfunction with trauma causing gross hematuria. Dr. Nunn would like the patient to be on aspirin 81 mg, off Plavix for three days and suprapubic catheter planned for Monday. 3. History of CVA. Continued on aspirin 81 mg. 4. Urinary tract infection. Continue on IV ceftriaxone. 5. Urinary retention and BPH. Will need suprapubic catheter on monday. Will keep the Pisano on now. 6. Hypertension. Continue with antihypertensive. 7. Hyperlipidemia. Continue on statin. 8. History of CAD and stent. Per Dr. Nunn, okay to continue the aspirin and statin, but no Plavix. 9. Reflux. On famotidine. 10. 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 is very supportive and provides most of the history. 11. Deep vein thrombosis (DVT) prophylaxis. Compression stockings due to acute hematuria. disposition: hold off on discharge due to persistent hematuria. VS, I&O, 24H, Fishbone Vital Signs/I&O Vital Signs Date Time Temp Pulse Resp B/P (MAP) Pulse Ox O2 Delivery O2 Flow Rate FiO2 09/23/19 10:39 67 145/71 09/23/19 06:00 97.8 17 98 Room Air I&O- Last 24 Hours up to 6 AM 09/23/19 05:59 Intake Total 0 ml Output Total 0 ml Balance 0 ml Laboratory Data 24H LABS Laboratory Tests 2 09/22/19 16:26: Immature Granulocyte % (Auto) 0.5, Neutrophils (%) (Auto) 63.2, Lymphocytes (%) (Auto) 26.2, Monocytes (%) (Auto) 6.7H, Eosinophils (%) (Auto) 2.8, Basophils (%) (Auto) 0.6, Neutrophils # (Auto) 6.2, Lymphocytes # (Auto) 2.6, Monocytes # (Auto) 0.7, Eosinophils # (Auto) 0.3, Basophils # (Auto) 0.1, Nucleated Red Blood Cells % (auto) 0.0, Urine Color (RAYNE) REDH, Urine Appearance (RAYNE) TURBIDH, Urine pH (RAYNE) 5.0, Urine Specific Frost (RAYNE) 1.020, Urine Protein 3+H, Bedside Urine Glucose (UA) NEGATIVE, Bedside Urine Ketones (LAB) 1+H, Bedside Urine Blood POSITIVEH, Bedside Urine Nitrite (LAB) NEGATIVE, Bedside Urine Bilirubin (LAB) NEGATIVE, Bedside Urine Urobilinogen (LAB) NORMAL, Bedside Urine Leukocyte Esterase (L POSITIVEH, Urine Sediment Examination PERFORMED, Urine RBC TNTCH, Urine WBC 40-50, Urine Squamous Epithelial Cells NONE SEEN, Urine Bacteria SMALL AMOUNTH, Urine Hyaline Casts NONE SEEN, Urine Mucus SMALL AMOUNTH 09/22/19 16:33: POC Glucose (Misc Panel) 115H, POC Sodium (Misc Panel) 139, POC Potassium (Misc Panel) 4.9, POC Chloride (Misc Panel) 101, POC Total CO2 (Misc Panel) 28.0H, POC Blood Urea Nitrogen (Misc Panel 23, POC Ionized Calcium (Misc Panel) 5.0, POC Creatinine (Misc Panel) 1.1, POC Hematocrit (Misc Panel) 35.0L 09/23/19 05:35: Immature Granulocyte % (Auto) 0.4, Neutrophils (%) (Auto) 63.5, Lymphocytes (%) (Auto) 24.5, Monocytes (%) (Auto) 7.4H, Eosinophils (%) (Auto) 3.7H, Basophils (%) (Auto) 0.5, Neutrophils # (Auto) 6.0, Lymphocytes # (Auto) 2.3, Monocytes # (Auto) 0.7, Eosinophils # (Auto) 0.4, Basophils # (Auto) 0.1, Nucleated Red Blood Cells % (auto) 0.0, Anion Gap 4L, Glomerular Filtration Rate > 60.0, Calcium Level 8.9 CBC/BMP Laboratory Tests 09/22/19 16:26 09/22/19 18:10 09/22/19 23:38 09/23/19 05:35 09/23/19 11:35 Microbiology Microbiology 09/22/19 Urine Culture, Received Pending SETH GÓMEZ MD Sep 23, 2019 12:13
[2019-09-23 14:00] VITALS: BP 114/55
[2019-09-23 18:12] LABS: HEMATOCRIT 34.8 % (42.0-52.0); HEMOGLOBIN 10.7 g/dl (13.5-17.5)
--- NOTE | 2019-09-23 18:15 | IPNPDOC ---
Date Seen The patient was seen on 09/23/19. Progress Note CODE 25-PT LEFT THE FLOOR AND WAS FOUND IN THE [facility]. PLAN: ROSINA AWARE SITTER CONTACT INFO FOR FAMILY [id number] EVITA, [phone] MYRA, [id number] VS, I&O, 24H, Fishbone Vital Signs/I&O Vital Signs Date Time Temp Pulse Resp B/P (MAP) Pulse Ox O2 Delivery O2 Flow Rate FiO2 09/23/19 14:00 99.0 81 18 114/55 (74) 94 Room Air I&O- Last 24 Hours up to 6 AM 09/23/19 06:00 Intake Total 180 ml Output Total 0 ml Balance 180 ml Laboratory Data 24H LABS Laboratory Tests 2 09/23/19 05:35: Immature Granulocyte % (Auto) 0.4, Neutrophils (%) (Auto) 63.5, Lymphocytes (%) (Auto) 24.5, Monocytes (%) (Auto) 7.4H, Eosinophils (%) (Auto) 3.7H, Basophils (%) (Auto) 0.5, Neutrophils # (Auto) 6.0, Lymphocytes # (Auto) 2.3, Monocytes # (Auto) 0.7, Eosinophils # (Auto) 0.4, Basophils # (Auto) 0.1, Nucleated Red Bl ood Cells % (auto) 0.0, Anion Gap 4L, Glomerular Filtration Rate > 60.0, Calcium Level 8.9 CBC/BMP Laboratory Tests 09/22/19 18:10 09/22/19 23:38 09/23/19 05:35 09/23/19 11:35 Microbiology Microbiology 09/22/19 Urine Culture, Received Pending SETH GÓMEZ MD Sep 23, 2019 18:15
[2019-09-23] MEDS ORDERED: oxyBUTYnin 5 MG TAB PO PRN (20:15)
[2019-09-23] MEDS: ATORVASTATIN 20 MG TAB PO SCH (20:24)
[2019-09-23] MEDS: ACETAMINOPHEN 325 MG TAB PO PRN (20:24)
[2019-09-23] MEDS: NORTRIPTYLINE 10 MG CAP PO SCH (20:24)
[2019-09-23] MEDS: ramipriL 5 MG CAP PO SCH (20:25)
[2019-09-23 22:00] VITALS: BP 166/77
[2019-09-23] MEDS ORDERED: FLEET ENEMA PR PRN (22:30)
[2019-09-23 22:45] VITALS: BP 135/71
[2019-09-24 01:04] VITALS: BP 118/64
[2019-09-24] MEDS: CIPROFLOXACIN 500MG TABLET PO SCH ×2 (05:49→18:46)
[2019-09-24 06:00] VITALS: BP 116/58
[2019-09-24 06:20] LABS: BASO # 0.1 10^3/uL (0.0-0.2); BASO % 0.2 % (0.0-1.0); HEMATOCRIT 28.9 % (42.0-52.0); LYMPH # 1.4 10^3/uL (1.5-5.0); LYMPH % 5.1 % (24.0-44.0); MEAN CORPUSCULAR HEMOGLOBIN 18.4 pg (27.0-33.0); MEAN CORPUSCULAR HGB CONC 31.1 g/dl (32.0-36.5); MEAN CORPUSCULAR VOLUME 59.2 fl (80.0-96.0); MONO # 1.1 10^3/uL (0.0-0.8); MONO % 3.9 % (0.0-5.0); NEUTROPHILS # 24.4 10^3/uL (1.5-8.5); PLATELET COUNT, AUTOMATED 471 10^3/uL (150-450); RED BLOOD COUNT 4.88 10^6/uL (4.30-6.10); WHITE BLOOD COUNT 27.2 10^3/uL (4.0-10.0)
[2019-09-24 06:40] LABS: CALCIUM LEVEL 8.8 MG/DL (8.8-10.2); CREATININE FOR GFR 1.82 MG/DL (0.70-1.30); GLOMERULAR FILTRATION RATE 37.8 (>35); POTASSIUM SERUM 5.5 MEQ/L (3.5-5.1)
--- NOTE | 2019-09-24 08:35 | IPNPDOC ---
Subjective Review oF Systems Chief Complaint The patient is a 84-year-old male admitted with a reason for visit of Pisano Cath Problem. Events since Last Encounter The patient went into retention yesterday evening as his catheter migrated out of his bladder and into his urethra. That catheter was removed and a new 3-way catheter was placed w/ immediate outflow of a large amount of urine. The patient feels well this morning and denies pain. Objective Physical Examination General Exam: Alert, Cooperative, No Acute Distress Skin Exam: Nl turgor and temperature Neuro Exam: Normal Speech Psych Exam: Mood NL Other physical findings 3-way catheter in place and draining yellow urine w/ CBI on minimal drip Vital Signs/I&O Vital Signs Date Time Temp Pulse Resp B/P (MAP) Pulse Ox O2 Delivery O2 Flow Rate FiO2 09/24/19 06:00 98.2 89 17 116/58 (77) 94 Room Air I&O- Last 24 Hours up to 6 AM 09/24/19 06:00 Intake Total 960 ml Output Total 950 ml Balance 10 ml Laboratory Data Labs 24H Laboratory Tests 2 09/24/19 06:08: Immature Granulocyte % (Auto) 0.8, Neutrophils (%) (Auto) 90.0H, Lymphocytes (%) (Auto) 5.1L, Monocytes (%) (Auto) 3.9, Eosinophils (%) (Auto) 0.0, Basophils (%) (Auto) 0.2, Neutrophils # (Auto) 24.4H, Lymphocytes # (Auto) 1.4L, Monocytes # (Auto) 1.1H, Eosinophils # (Auto) 0.0, Basophils # (Auto) 0.1, Nucleated Red Blood Cells % (auto) 0.0, Anion Gap 8, Glomerular Filtration Rate 37.8, Calcium Level 8.8 CBC/BMP Laboratory Tests 09/23/19 11:35 09/23/19 18:02 09/24/19 06:08 Microbiology Microbiology 09/22/19 Urine Culture - Final, Complete Assessment/Plan Date Seen The patient was seen on 09/24/19. Patient Summary This is an 84 y/o M w/ urinary retention 2/2 BPH admitted for gross hematuria and clot retention. His hematuria has stopped again. The hematuria experienced yesterday appears to be 2/2 his catheter getting dislodged into his urethra and obstructing him. His Hb is stable, but his Cr has gone up to 1.8, likely 2/2 the obstruction caused by his dislodged catheter yesterday. Plan/VTE VTE Prophylaxis Ordered?: Yes VTE Exclusion Mechanical Proph: N/A:VTE Prophy Ordered Plan/Urinary Catheter Urinary Catheter: Other Catheter: (keep catheter in for urinary retention) Plan - wean down CBI as long as urine is pink or clearer - plan for OR tomorrow for suprapubic catheter placement - if patient will be in house through tomorrow, will need to make him NPO at midnight DC WHITEHEAD MD Sep 24, 2019 08:35
[2019-09-24] MEDS: FAMOTIDINE 20 MG TAB PO SCH ×2 (08:41→20:09)
[2019-09-24] MEDS: amLODIPine 5 MG TAB PO SCH (08:41)
[2019-09-24] MEDS: ASPIRIN 81 MG ENTERIC TAB PO SCH (08:41)
[2019-09-24] MEDS: MIRALAX *UNIT DOSE* 17GM PACKET PO SCH (08:42)
--- NOTE | 2019-09-24 09:02 | IPNPDOC ---
Date Seen The patient was seen on 09/24/19. 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 Pt is s/p bladder irrigation w/ a total of 1L sterile water and removed a large amount of clots by urology. It was noted that pt had out-office cystoscopy from 2 days prior to admission and the bleeding source is from his prostate. Pt denies any fever or chills. It was noted that pt reported some abdominal pain earlier, when being asked, pt pointed toward her hypogastric region in the midline. He reported not having a BM for about a week OBJECTIVE PHYSICAL EXAMINATION: VITAL SIGNS: Please see below. GENERAL: Pt laying on bed. Not in acte distress, alert and awake HEENT: Normocephalic, atraumatic. Mucosa moist NECK: Supple CARDIOVASCULAR EXAMINATION: S1, S2, no murmurs RESPIRATORY EXAMINATION: Clear to auscultation b/l, no wheezing, rhonchi, rales. ABDOMINAL EXAMINATION: Soft, nondistended, bowel sounds aus in all 4 quadrants. No guarding or distention. Pressure/discomfort upon palpation in all 4 quadrants SKIN: No obvious rash NEUROLOGICAL EXAMINATION: Alert and oriented 3, no focal neurological deficits. Able to carry normal conversations. PSYCHIATRIC EXAMINATION: Mood stable and appropriate to situation. Cooperative GENITOURINARY EXAMINATION: nelson catheter in place, very faint clear pink urine in nelson catheter, no blood clots noted LABORATORY DATA, IMAGING STUDIES, MICROBIOLOGY: Please see below. DVT prophylaxis ordered?: yes ASSESSMENT AND PLAN: This is a 84-year-old [RACE] [GENDER] with chronic nelson catheter presented due to gross hematuria with source noted to be prostate on outpt cystoscopy. His hematuria cont to improve. Pt also has anemia and BOUCHRA. PROBLEMS: 1. Acute blood loss anemia secondary to gross hematuriam, iron deficiency anemia. Pt's Hg roughly stable since admission buy mildly decreased compared to yesterday. Prior recent iron studies consistent with iron deficiency anemia. Start ferrous sulfate BID PO. It was noted that pt had out-office cystoscopy from 2 days prior to admission and the bleeding source is from his prostate. Plan to change pt's catheter to suprapubic catheter tmrw . Start ferrous sulfate for iron defeciency anemia. 2. Nelson catheter malfunction with trauma causing gross hematuria. Urology is following, recommended pt to be on aspirin 81 mg, off Plavix for three days. Plan for suprapubic catheter on Mon. Pt NPO after midnight for procedure. 3. History of CVA. Continued on aspirin 81 mg. 4. Urinary retention and BPH. Will need suprapubic catheter. Currently on nelson catheter. Followed by urology. On Ciprofloxacin 5. Hypertension. Continue with amlodipine 6. Hyperlipidemia. Continue on statin. 7. History of CAD and stent. Per asad Girard to continue the aspirin and statin, but no Plavix. 8. GERD. Cont famotidine. 9. Dementia. Hx of dementia, pt able to carry conversation and answering questions. Cont sitters and fall precaution. It was noted that is very supportive and provides most of the history. 10. Constipation. Pt reported no BM for a week. He received a dose of miralax this morning. Cont miralax and enema PRN 11. BOUCHRA. Will hold home med Rampril at this time. Start IV NS as pt only had 1080ml PO intake 04/2019 and will be NPO for procedure after midnight. DVT prophylaxis. SCD due to acute hematuria. DISPOSITION: Hematuria improving, plan for suprapubic catheter placement 09/25/2019 for chronic urinary retention VS, I&O, 24H, Ami Vital Signs/I&O Vital Signs Date Time Temp Pulse Resp B/P (MAP) Pulse Ox O2 Delivery O2 Flow Rate FiO2 09/24/19 06:00 98.2 89 17 116/58 (77) 94 Room Air I&O- Last 24 Hours up to 6 AM 09/24/19 06:00 Intake Total 960 ml Output Total 950 ml Balance 10 ml Laboratory Data 24H LABS Laboratory Tests 2 09/24/19 06:08: Immature Granulocyte % (Auto) 0.8, Neutrophils (%) (Auto) 90.0H, Lymphocytes (%) (Auto) 5.1L, Monocytes (%) (Auto) 3.9, Eosinophils (%) (Auto) 0.0, Basophils (%) (Auto) 0.2, Neutrophils # (Auto) 24.4H, Lymphocytes # (Auto) 1.4L, Monocytes # (Auto) 1.1H, Eosinophils # (Auto) 0.0, Basophils # (Auto) 0.1, Nucleated Red Blood Cells % (auto) 0.0, Anion Gap 8, Glomerular Filtration Rate 37.8, Calcium Level 8.8 CBC/BMP Laboratory Tests 09/23/19 11:35 09/23/19 18:02 09/24/19 06:08 Microbiology Microbiology 09/22/19 Urine Culture - Final, Complete GME ATTESTATION GME ATTESTATION My faculty preceptor for this patient encounter was physically present during the encounter and was fully available. All aspects of the patient interview, examination, medical decision making process, and medical care plan development were reviewed and approved by the faculty preceptor. The faculty preceptor is aware and concurs with the plan as stated in the body of this note and will attest to such by his/her cosignature. TRISTEN KHAN DO Sep 24, 2019 09:02
[2019-09-24] MEDS: FERROUS SULFATE 325MG TAB PO SCH ×2 (10:43→20:09)
[2019-09-24 14:00] VITALS: BP 135/62
[2019-09-24 14:12] LABS: HEMATOCRIT 27.6 % (42.0-52.0); HEMOGLOBIN 8.9 g/dl (13.5-17.5); MEAN CORPUSCULAR HGB CONC 32.2 g/dl (32.0-36.5); PLATELET COUNT, AUTOMATED 506 10^3/uL (150-450); RED BLOOD COUNT 4.68 10^6/uL (4.30-6.10); WHITE BLOOD COUNT 20.6 10^3/uL (4.0-10.0)
[2019-09-24 14:40] LABS: CALCIUM LEVEL 8.7 MG/DL (8.8-10.2); CREATININE FOR GFR 1.58 MG/DL (0.70-1.30); GLOMERULAR FILTRATION RATE 44.5 (>35); POTASSIUM SERUM 4.3 MEQ/L (3.5-5.1)
[2019-09-24] MEDS: ACETAMINOPHEN 325 MG TAB PO PRN (20:09)
[2019-09-24] MEDS: NORTRIPTYLINE 10 MG CAP PO SCH (20:09)
[2019-09-24] MEDS: ATORVASTATIN 20 MG TAB PO SCH (20:10)
[2019-09-24] MEDS: NS 1,000 ML IV SCH (21:24)
[2019-09-24 22:00] VITALS: BP 137/67
[2019-09-25] MEDS: NS 1,000 ML IV SCH (04:54)
[2019-09-25] MEDS: CIPROFLOXACIN 500MG TABLET PO SCH (05:30)
[2019-09-25 06:00] VITALS: BP 101/46
[2019-09-25 06:56] LABS: BASO # 0.1 10^3/uL (0.0-0.2); BASO % 0.7 % (0.0-1.0); EOS # 0.3 10^3/uL (0.0-0.5); EOS % 2.4 % (0.0-3.0); HEMATOCRIT 25.6 % (42.0-52.0); HEMOGLOBIN 7.9 g/dl (13.5-17.5); LYMPH # 2.6 10^3/uL (1.5-5.0); LYMPH % 21.6 % (24.0-44.0); MEAN CORPUSCULAR HEMOGLOBIN 18.5 pg (27.0-33.0); MEAN CORPUSCULAR HGB CONC 30.9 g/dl (32.0-36.5); MONO # 0.9 10^3/uL (0.0-0.8); MONO % 7.5 % (0.0-5.0); NEUTROPHILS % 67.3 % (36.0-66.0); RED BLOOD COUNT 4.27 10^6/uL (4.30-6.10); WHITE BLOOD COUNT 11.8 10^3/uL (4.0-10.0)
[2019-09-25 06:59] LABS: PLATELET COUNT, AUTOMATED 396 10^3/uL (150-450)
[2019-09-25 07:13] LABS: CALCIUM LEVEL 8.3 MG/DL (8.8-10.2); CREATININE FOR GFR 1.36 MG/DL (0.70-1.30); GLOMERULAR FILTRATION RATE 52.9 (>35); POTASSIUM SERUM 4.7 MEQ/L (3.5-5.1)
[2019-09-25] MEDS ORDERED: METOCLOPRAMIDE INJ 10MG/2ML VIAL (J2765 PER 1) As Ordered ONE (07:23)
[2019-09-25] MEDS ORDERED: ONDANSETRON 4MG/2ML VIAL As Ordered ONE (07:23)
[2019-09-25] MEDS ORDERED: LIDOCAINE 2% 100MG/5ML SDV (FOR ANES.) As Ordered ONE (07:23)
[2019-09-25] MEDS ORDERED: propofoL 200 MG/20 ML VIAL As Ordered ONE (07:23)
[2019-09-25] MEDS ORDERED: ROCURONIUM BROMIDE 50 MG/5 ML VIAL As Ordered ONE (07:23)
[2019-09-25] MEDS ORDERED: fentaNYL 100 MCG/2 ML INJECTION (J3010) As Ordered ONE ×2 (07:23→08:11)
--- NOTE | 2019-09-25 07:34 | IPNPDOC ---
Subjective Review oF Systems Chief Complaint The patient is a 84-year-old male admitted with a reason for visit of Pisano Cath Problem. Events since Last Encounter No acute events o/n. Catheter drained well. Objective Physical Examination General Exam: Alert, Cooperative, No Acute Distress Chest Exam: Normal air movement Heart Exam: Positive: Rate Normal Skin Exam: Nl turgor and temperature Neuro Exam: Normal Speech Psych Exam: Mood NL Other physical findings catheter draining yellow urine Vital Signs/I&O Vital Signs Date Time Temp Pulse Resp B/P (MAP) Pulse Ox O2 Delivery O2 Flow Rate FiO2 09/25/19 06:00 98.1 66 15 101/46 (64) 94 Room Air I&O- Last 24 Hours up to 6 AM 09/25/19 06:00 Intake Total 1220 ml Output Total 1725 ml Balance -505 ml Laboratory Data Labs 24H Laboratory Tests 2 09/24/19 13:54: Nucleated Red Blood Cells % (auto) 0.0, Anion Gap 8, Glomerular Filtration Rate 44.5, Calcium Level 8.7L 09/24/19 19:34: Coronavirus (COVID-19)(PCR) NEGATIVE 09/25/19 06:24: Nucleated Red Blood Cells % (auto) 0.0, Anion Gap 4L, Glomerular Filtration Rate 52.9, Calcium Level 8.3L, Immature Granulocyte % (Auto) 0.5, Neutrophils (%) (Auto) 67.3H, Lymphocytes (%) (Auto) 21.6L, Monocytes (%) (Auto) 7.5H, Eosinophils (%) (Auto) 2.4, Basophils (%) (Auto) 0.7, Neutrophils # (Auto) 8.0, Lymphocytes # (Auto) 2.6, Monocytes # (Auto) 0.9H, Eosinophils # (Auto) 0.3, Basophils # (Auto) 0.1 CBC/BMP Laboratory Tests 09/24/19 13:54 09/25/19 06:24 Microbiology Microbiology 09/22/19 Urine Culture - Final, Complete Assessment/Plan Date Seen The patient was seen on 09/25/19. Patient Summary This is an 84 y/o M w/ urinary retention 2/2 BPH admitted for gross hematuria and clot retention. His catheter drained well o/n w/o need for irrigation. Plan/VTE VTE Prophylaxis Ordered?: Yes VTE Exclusion Mechanical Proph: N/A:VTE Prophy Ordered Plan/Urinary Catheter Urinary Catheter: Other Catheter: (keep catheter in for urinary retention) Plan - plan OR this morning for suprapubic catheter placement - urethral catheter will be removed at the end of surgery - NPO - 2g ancef OCOR - may resume regular diet postop DC WHITEHEAD MD Sep 25, 2019 07:34
[2019-09-25] MEDS ORDERED: ceFAZolin SOD 2 GM in IV 1 EA IV ONE (07:45)
[2019-09-25] MEDS ORDERED: LABETALOL 100MG/20ML VIAL As Ordered ONE (08:24)
[2019-09-25] MEDS: FAMOTIDINE 20 MG TAB PO SCH (09:00)
[2019-09-25] MEDS: MIRALAX *UNIT DOSE* 17GM PACKET PO SCH (09:00)
--- NOTE | 2019-09-25 09:46 | ROOPDOC ---
[facility] Report Of Operation Report of Operation DATE OF PROCEDURE: 09/25/19 PREPROCEDURE DIAGNOSIS: Urinary Retention. POSTPROCEDURE DIAGNOSIS: Urinary Retention. PROCEDURE: Open cystotomy with suprapubic catheter placement. SURGEON: Dc Whitehead MD WARP DRAWER: None. ANESTHESIA: General. OPERATIVE INDICATIONS: This is an 84-year-old male with urinary retention managed with a chronic indwelling catheter. He was brought to the operating room today for the above procedure. DESCRIPTION OF PROCEDURE: The patient was brought to the operating room and generall anesthesia was administered. Prophylactic antibiotics were infused. He was placed in the supine position and prepped and draped in the usual sterile fashion. At this point, an 18Fr Pisano catheter was inserted in the urethra and advanced into the bladder. The balloon was filled with 10mL of sterile water and the catheter was clamped off. At this point, an approximately 5-6 cm suprapubic incision was made. We then dissected down through the subcutaneous tissues. The rectus fascia was then opened using electrocautery and then the bellies of the rectus muscle were bluntly spread. At this point, the bladder was then filled with normal saline using the urethral catheter. At this point, we dissected down to the bladder. The bladder was then palpated and then a syringe was utilized to aspirate what appeared to be the bladder. And at this point, clear fluid did aspirate into the syringe. This confirmed we were indeed staring at the bladder. I then used a #2-[address] a pursestring stitch through the dome of the bladder. At this point, a cystotomy was then made in the middle of the pursestring stitch and then clear fluid drained out. I then inserted a #20-Chinese catheter into the cystostomy and the balloon was filled with 7 mL of sterile water. The pursestring stitch was then tied down around the #20-Chinese catheter. Once this was done, I then irrigated the pelvis around the bladder several times and then suctioned out the fluid. We then closed the rectus fascia with interrupted #1 non-looped PDS sutures in a [id number] fashion. Once the fascia was closed, the subcutaneous tissues were reapproximated using interrupted #3-0 Vicryl suture. The skin was then closed around the suprapubic catheter using a running #4-0 Monocryl subcuticular suture. The suprapubic catheter was then further secured to the skin with a #2-0 Prolene suture. At this point, Dermabond and dressings were applied, and this marked the conclusion of the procedure. The suprapubic catheter was connected to gravity drainage. The patient was then awakened from anesthesia and transported to the recovery room in stable condition. Estimated blood loss: 10 mL. Complications: None. Specimens: None. PLAN: The patient will follow up in clinic in 6 weeks for his first suprapubic catheter change. DC WHITEHEAD MD Sep 25, 2019 09:46
[2019-09-25 10:15] VITALS: BP 128/62
[2019-09-25 10:45] VITALS: BP_SYST 124; BP_SYST 135; BP_DIAS 57; BP_DIAS 77
--- NOTE | 2019-09-25 11:24 | DS.PDOC ---
Discharge Summary General Date of Admission September 22, 2019 at 16:24 Date of Discharge 09/25/2019 Discharge Summary PROCEDURES PERFORMED DURING STAY: Open cystotomy with suprapubic catheter placement 09/25/2019 ADMITTING DIAGNOSES: 1. Acute blood loss anemia secondary to gross hematuria 2. Nelson catheter malfunction with trauma causing gross hematuria 3. History of CVA 4. Urinary tract infection 5. Urinary retention and BPH 6. Hypertension 7. Hyperlipidemia 8. History of CAD and stent 9. Reflux 10. 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 Acute blood loss anemia secondary to gross hematuria, iron deficiency anemia. 2.Nelson catheter malfunction with trauma causing gross hematuria, replaced 3. History of CVA 4. Urinary retention and BPH 5. Hypertension 6. Hyperlipidemia 7. History of CAD and stent 8. GERD 9. Dementia 10. Constipation 11. BOUCHRA, improving COMPLICATIONS/CHIEF COMPLAINT: Nelson Cath Problem. 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 Pt is s/p bladder irrigation w/ a total of 1L sterile water and removed a large amount of clots by urology. It was noted that pt had out-office cystoscopy from 2 days prior to admission and the bleeding source is from his prostate. Pt denies fever, chills, pain, lightheadedness, chest pain, or dyspnea. It was noted his last dose of plavix was the day prior to admission. HOSPITAL COURSE: In the ER his catheter by urology to a 24Fr 3 way catheter w/ immediate output of a moderate amount of bloody urine. Pt was also given Cipro by urology. Given pt's plavix was taken the day prior to admission, his suprapubic catheter placement was scheduled to be today. It was noted that pt reported some abdominal pain 09/24/2019 when being asked, pt pointed toward her hypogastric region in the midline. He reported not having a BM for about a week, miralax and enema PRN was offered and still no BM. On the day of discharge, pt suprapubic catheter placement in the morning. On the day of discharge after suprapubic catheter placement,pt denies any chest pain, palpitation, dyspnea, nausea, vomiting, abdominal pain or pain at the incision site. Pt also denies any subjective fever or chills. Confirmed with urology and pt was determined to be ready to be discharged home. DISCHARGE MEDICATIONS: Please see below. ALLERGIES: Please see below. PHYSICAL EXAMINATION ON DISCHARGE: VITAL SIGNS: Please see below. GENERAL: Pt laying on bed. Not in acte distress, alert and awake HEENT: Normocephalic, atraumatic. Mucosa moist NECK: Supple CARDIOVASCULAR EXAMINATION: S1, S2, no murmurs RESPIRATORY EXAMINATION: Clear to auscultation b/l, no wheezing, rhonchi, rales. ABDOMINAL EXAMINATION: Soft, nondistended, bowel sounds aus in all 4 quadrants. No guarding or distention. SKIN: No obvious rash NEUROLOGICAL EXAMINATION: Alert and oriented 3, no focal neurological deficits. Able to carry normal conversations. PSYCHIATRIC EXAMINATION: Mood stable and appropriate to situation. Cooperative GENITOURINARY EXAMINATION: Suprapubic catheter in place LABORATORY DATA: Please see below. PROGNOSIS: Good ACTIVITY: [As tolerated]. DIET: 2g Na diet DISCHARGE PLAN AND INSTRUCTIONS: 1.Change dressings around suprapubic catheter daily for 5 days and then PRN. You can shower starting 09/26/2019. Drain the suprapubic catheter bag and switch from the leg back to the bigger bag in the same fashion as his previous catheters. Call urology office or go to the nearest ER if having fevers>101 F, severe abdominal pain, chest pain, shortness of breath, persistent nausea/vomiting, difficulty urinating, or any concerning symptoms. ITEMS TO FOLLOWUP ON ON OUTPATIENT: 1. Suprapubic catheter care/change 2. Hematuria DISCHARGE CONDITION: [Improved]. TIME SPENT ON DISCHARGE: Greater than [40] minutes. Vital Signs/I&Os Vital Signs Date Time Temp Pulse Resp B/P (MAP) Pulse Ox O2 Delivery O2 Flow Rate FiO2 09/25/19 10:45 98.2 68 16 124/57 (79) 94 Room Air 09/25/19 09:05 3 I&O- Last 24 Hours up to 6 AM 09/25/19 06:00 Intake Total 1220 ml Output Total 1725 ml Balance -505 ml Laboratory Data Labs 24H Laboratory Tests 2 09/24/19 13:54: Nucleated Red Blood Cells % (auto) 0.0, Anion Gap 8, Glomerular Filtration Rate 44.5, Calcium Level 8.7L 09/24/19 19:34: Coronavirus (COVID-19)(PCR) NEGATIVE 09/25/19 06:24: Nucleated Red Blood Cells % (auto) 0.0, Anion Gap 4L, Glomerular Filtration Rate 52.9, Calcium Level 8.3L, Immature Granulocyte % (Auto) 0.5, Neutrophils (%) (Auto) 67.3H, Lymphocytes (%) (Auto) 21.6L, Monocytes (%) (Auto) 7.5H, Eosinophils (%) (Auto) 2.4, Basophils (%) (Auto) 0.7, Neutrophils # (Auto) 8.0, Lymphocytes # (Auto) 2.6, Monocytes # (Auto) 0.9H, Eosinophils # (Auto) 0.3, Basophils # (Auto) 0.1 CBC/BMP Laboratory Tests 09/24/19 13:54 09/25/19 06:24 Microbiology Microbiology 09/22/19 Urine Culture - Final, Complete Discharge Medications Scheduled Amlodipine Besylate (Amlodipine Besylate) 5 Mg Tablet, 5 MG PO DAILY, (Reported) Aspirin (Aspirin EC) 81 Mg Tablet.dr, 81 MG PO DAILY, (Reported) Atorvastatin Calcium (Atorvastatin Calcium) 20 Mg Tablet, 20 MG PO QHS, (Reported) Famotidine (Famotidine) 20 Mg Tablet, 20 MG PO BID, (Reported) Ferrous Sulfate (Ferrous Sulfate) 325 Mg Tablet, 325 MG PO BID Nortriptyline HCl (Nortriptyline HCl) 10 Mg Capsule, 10 MG PO QHS, (Reported) Ramipril (Ramipril) 10 Mg Capsule, 10 MG PO QHS, (Reported) Scheduled PRN Acetaminophen (Tylenol) 325 Mg Tablet, 325 MG PO QID PRN for PAIN, (Reported) Polyethylene Glycol 3350 (Miralax) 119 Gm Powder, 17 GM PO DAILY PRN for CONSTIPATION dilute in 8 ounces of water or juice Allergies Coded Allergies: No Known Allergies (Unverified , 04/11/18) GME ATTESTATION GME ATTESTATION My faculty preceptor for this patient encounter was physically present during the encounter and was fully available. All aspects of the patient interview, examination, medical decision making process, and medical care plan development were reviewed and approved by the faculty preceptor. The faculty preceptor is aware and concurs with the plan as stated in the body of this note and will attest to such by his/her cosignature. TRISTEN KHAN DO Sep 25, 2019 11:24
[2019-09-25 11:45] VITALS: BP 121/55
[2019-09-25] MEDS ORDERED: FERR325T18 PO (11:45)
[2019-09-25 12:45] VITALS: BP 139/64
[2019-09-25 12:59] VITALS: BP 139/64
[2019-09-25] MEDS: ASPIRIN 81 MG ENTERIC TAB PO SCH (12:59)
[2019-09-25] MEDS: amLODIPine 5 MG TAB PO SCH (12:59)
[2019-09-25] MEDS: FERROUS SULFATE 325MG TAB PO SCH (13:00)
[2019-09-25] MEDS: ACETAMINOPHEN 325 MG TAB PO PRN (13:00)
== END 2019-09-25 15:00 | disposition home or self-care (01) | DRG 908 ==
LOC: M ED 14:18 → M ED INP 16:24 → ENRESERV 16:38 → M MS5PR 17:59
PROVIDERS: ADMIT General Practice; ATTEND Internal Medicine
PROC: 0T9B00Z Drainage of Bladder with Drainage Device, Open Approach (ICD-10-PCS; principal; 2019-09-25 07:30)
DX: N99.820 Postprocedural hemorrhage of a genitourinary system organ or structure following a genitourinary system procedure (principal); N39.0 Urinary tract infection, site not specified; D62 Acute posthemorrhagic anemia; N17.9 Acute kidney failure, unspecified; R33.9 Retention of urine, unspecified; T83.091A Other mechanical complication of indwelling urethral catheter, initial encounter; N40.1 Benign prostatic hyperplasia with lower urinary tract symptoms; T83.021A Displacement of indwelling urethral catheter, initial encounter; R31.0 Gross hematuria; Z86.73 Personal history of transient ischemic attack (TIA), and cerebral infarction without residual deficits; F01.50 Vascular dementia, unspecified severity, without behavioral disturbance, psychotic disturbance, mood disturbance, and anxiety; K59.00 Constipation, unspecified; E78.5 Hyperlipidemia, unspecified; I25.10 Atherosclerotic heart disease of native coronary artery without angina pectoris; Z95.2 Presence of prosthetic heart valve; Z79.899 Other long term (current) drug therapy; Z79.82 Long term (current) use of aspirin; Y84.6 Urinary catheterization as the cause of abnormal reaction of the patient, or of later complication, without mention of misadventure at the time of the procedure

== ENCOUNTER 2019-11-10 17:50 | Emergency (ER) | payer MEDICARE, OTHER ==
[~2019-11-10] VITALS: Ht 162.6 cm; Wt 75.0 kg
[~2019-11-10 17:50] MED LIST changes: +AMLO1TAB24 PO; -AMLO5TAB6 PO; -ASPI81TA85 PO; +ASPI81TA86 PO; +FERR325T18 PO
[2019-11-10 19:03] LABS: APPEARANCE, URINE CLOUDY (CLEAR); BACTERIA, URINE AUTO 2+ (NEGATIVE); BILIRUBIN, URINE AUTO NEGATIVE (NEGATIVE); BLOOD, URINE BLOOD 1+ (NEGATIVE); COLOR, URINE YELLOW (YELLOW); GLUCOSE, URINE (UA) AUTO 3+ mg/dL (NEGATIVE); KETONE, URINE AUTO NEGATIVE (NEGATIVE); LEUKOCYTE ESTERASE, URINE AUTO 3+ (NEGATIVE); MUCUS, URINE SMALL (NEGATIVE); NITRITE, URINE AUTO POSITIVE (NEGATIVE); PROTEIN, URINE AUTO 2+ mg/dL (NEGATIVE); RBC, URINE AUTO 6 /HPF (0-3); SPECIFIC GRAVITY URINE AUTO 1.018 (1.002-1.035); SQUAMOUS EPITHELIAL CELL UR AU 0 /HPF (0-6); UROBILINOGEN, URINE AUTO 0.2 mg/dL (0.0-2.0); WBC, URINE AUTO 126 /HPF (0-3)
[2019-11-10] MEDS ORDERED: KEFL500C17 PO (19:12)
[2019-11-10] MEDS ORDERED: CEPHALEXIN 500 MG CAP PO ONE (19:15)
[2019-11-10 19:50] VITALS: BP 144/66
== END 2019-11-10 19:58 | disposition home or self-care (01) ==
LOC: M ED 17:50
DX: T83.198A Other mechanical complication of other urinary devices and implants, initial encounter (principal); X58.XXXA Exposure to other specified factors, initial encounter; N39.0 Urinary tract infection, site not specified; N40.1 Benign prostatic hyperplasia with lower urinary tract symptoms; K21.9 Gastro-esophageal reflux disease without esophagitis; I25.2 Old myocardial infarction; I63.9 Cerebral infarction, unspecified; Z79.899 Other long term (current) drug therapy

== ENCOUNTER 2020-01-05 08:26 | Emergency (ER) | payer MEDICARE, OTHER ==
[~2020-01-05] VITALS: Ht 157.5 cm; Wt 73.5 kg
[~2020-01-05 08:26] MED LIST changes: +KEFL500C17 PO
[2020-01-05] MEDS ORDERED: NITR0.4S14 SL (08:37)
[2020-01-05] MEDS ORDERED: CLOP75TA2 PO (08:37)
[2020-01-05 09:15] LABS: BASO # 0.1 10^3/uL (0.0-0.2); BASO % 0.7 % (0.0-1.0); EOS # 0.3 10^3/uL (0.0-0.5); EOS % 3.3 % (0.0-3.0); HEMATOCRIT 35.8 % (42.0-52.0); HEMOGLOBIN 10.9 g/dl (13.5-17.5); LYMPH % 20.3 % (24.0-44.0); MEAN CORPUSCULAR HEMOGLOBIN 18.1 pg (27.0-33.0); MEAN CORPUSCULAR HGB CONC 30.4 g/dl (32.0-36.5); MEAN CORPUSCULAR VOLUME 59.4 fl (80.0-96.0); MONO # 0.7 10^3/uL (0.0-0.8); MONO % 7.5 % (0.0-5.0); NEUTROPHILS # 6.6 10^3/uL (1.5-8.5); PLATELET COUNT, AUTOMATED 328 10^3/uL (150-450); RED BLOOD COUNT 6.03 10^6/uL (4.30-6.10); WHITE BLOOD COUNT 9.6 10^3/uL (4.0-10.0)
[2020-01-05 09:24] LABS: INR 1.03; PROTHROMBIN TIME 13.8 SECONDS (11.8-14.0)
[2020-01-05 09:28] LABS: BILIRUBIN, URINE MANUAL OBSCURED (NEGATIVE); GLUCOSE, URINE (UA) MANUAL NEGATIVE (NEGATIVE); KETONE, URINE MANUAL OBSCURED mg/dL (NEGATIVE); UROBILINOGEN, URINE MANUAL OBSCURED mg/dl (NORMAL)
[2020-01-05 09:29] LABS: RBC, URINE TNTC /hpf (0-3); SQUAMOUS EPITHELIAL CELL URINE SMALL AMOUNT /hpf (SMALL AMT)
[2020-01-05 09:30] LABS: BACTERIA, URINE MOD AMOUNT; HYALINE CAST, URINE NONE SEEN /lpf (0-1)
[2020-01-05 09:37] LABS: BLOOD UREA NITROGEN 20 MG/DL (7-18); CALCIUM LEVEL 9.2 MG/DL (8.8-10.2); CARBON DIOXIDE LEVEL 27 MEQ/L (21-32); CHLORIDE LEVEL 105 MEQ/L (98-107); GLOMERULAR FILTRATION RATE > 60.0 (>35); GLUCOSE, FASTING 120 MG/DL (70-100); POTASSIUM SERUM 4.3 MEQ/L (3.5-5.1); SODIUM LEVEL 138 MEQ/L (136-145)
[2020-01-05] MEDS ORDERED: OXYB5TAB10 PO (09:56)
[2020-01-05] MEDS ORDERED: CIPR250T3 PO (09:57)
[2020-01-05] MEDS ORDERED: CIPROFLOXACIN 250MG TAB PO ONE (10:00)
[2020-01-05] MEDS ORDERED: PILL CUTTER 1 EACH XX ONE (10:07)
[2020-01-05] MEDS ORDERED: CIPROFLOXACIN 500MG TABLET PO ONE (10:15)
[2020-01-05 10:23] VITALS: BP 147/69
== END 2020-01-05 10:26 | disposition home or self-care (01) ==
LOC: M ED 08:26
DX: N32.89 Other specified disorders of bladder (principal); I25.2 Old myocardial infarction; E78.5 Hyperlipidemia, unspecified; Z79.01 Long term (current) use of anticoagulants; Z79.82 Long term (current) use of aspirin; Z79.899 Other long term (current) drug therapy; Z87.891 Personal history of nicotine dependence

== ENCOUNTER → 2020-02-05 | Outpatient (REF) | payer MEDICARE, OTHER ==
[~2020-02-05] MED LIST changes: +CIPR250T3 PO; +NITR0.4S14 SL; +OXYB5TAB10 PO
[2020-02-05 17:52] LABS: PERCENT SATURATION 23.3 % (19.7-50.0)
== END ==
LOC: M LAB REF 16:22
PROVIDERS: ATTEND Family Medicine
DX: D64.9 Anemia, unspecified (principal)

== ENCOUNTER 2020-02-16 10:22 | Emergency (ER) | payer MEDICARE, OTHER ==
[~2020-02-16] VITALS: Ht 162.6 cm; Wt 74.0 kg
[2020-02-16 11:42] VITALS: BP 156/74
[2020-02-16 11:52] LABS: AMORPHOUS SEDIMENT SMALL (NEGATIVE); APPEARANCE, URINE CLOUDY (CLEAR); BACTERIA, URINE AUTO NEGATIVE (NEGATIVE); BILIRUBIN, URINE AUTO NEGATIVE (NEGATIVE); BLOOD, URINE BLOOD 3+ (NEGATIVE); COLOR, URINE YELLOW (YELLOW); GLUCOSE, URINE (UA) AUTO 1+ mg/dL (NEGATIVE); KETONE, URINE AUTO NEGATIVE (NEGATIVE); LEUKOCYTE ESTERASE, URINE AUTO NEGATIVE (NEGATIVE); MUCUS, URINE SMALL (NEGATIVE); NITRITE, URINE AUTO NEGATIVE (NEGATIVE); PROTEIN, URINE AUTO 2+ mg/dL (NEGATIVE); RBC, URINE AUTO 13 /HPF (0-3); SPECIFIC GRAVITY URINE AUTO 1.018 (1.002-1.035); SQUAMOUS EPITHELIAL CELL UR AU 0 /HPF (0-6); UROBILINOGEN, URINE AUTO 0.2 mg/dL (0.0-2.0); WBC, URINE AUTO 7 /HPF (0-3)
== END 2020-02-16 12:00 | disposition home or self-care (01) ==
LOC: M ED 10:22
DX: T83.098A Other mechanical complication of other urinary catheter, initial encounter (principal); R31.9 Hematuria, unspecified; N40.1 Benign prostatic hyperplasia with lower urinary tract symptoms; K21.9 Gastro-esophageal reflux disease without esophagitis; Z79.899 Other long term (current) drug therapy

== ENCOUNTER 2020-05-11 08:29 | Emergency (ER) | payer MEDICARE, OTHER ==
[~2020-05-11] VITALS: Ht 165.1 cm; Wt 77.3 kg
--- OUTSIDE RECORDS SUMMARY | 2020-05-11 08:34 | CCD ---
Author Author [facility] Organization [facility] Address Unknown Phone Unavailable Care Team Providers Care Electric Solderer Name Role Phone EdouardChristiano ahumada Unavailable PROBLEMS Type Condition ICD9-CM Code [id number] Code Onset Dates Condition S tatus SNOMED Code Notes Problem Urinary retention R33.9 Active 263067520 Problem BPH with obstruction/lower urinary tract symptoms N40.1 Active 303319195 Problem Suprapubic catheter Z93.59 Active 140912478 Problem Gross hematuria R31.0 Active 799501601 Problem Benign prostatic hyperplasia without lower urina ry tract symptoms N40.0 Active 070701537 Problem UTI (urinary tract infection) N39.0 Active 68 338949 Problem Preop testing Z01.818 Active 348205793 ALLERGIES No Known Allergies ENCOUNTERS from 1933 to 2020-03-28 Encounter Location Date Provider Diagnosis [facility] Urology [address] [place] [address] Mar Christiano Nunn Urinary retention R33.9 ; Suprapubic cat heter Z93.59 and Immunization not carried out because of patient refusal Z28.21 IMMUNIZATIONS No Information SOCIAL HISTORY Tobacco Use: Social History Observation Description Date Details (start date - stop date) Former Smoker Sex Assigned At : Social History Observation Description Sex Assigned At Unknown Education: Question Answer Notes Level of Education: Finished College Language: Question Answer Notes Languages spoken: Citizen [place] Rastafarian: Question Answer Notes Rastafarian 21 Sikhism No hinduism beliefs that would impact health care. Sexual Hx: Question Answer Notes Had sex in the last 12 months (vaginal, oral, or anal)? No Have you ever had an STD? No Alcohol Screening: Question Answer Notes Did you have a drink containing alcohol in the past year? Ye s Points 1 Interpretation Negative How often did you have six or more drinks on one occas ion in the past year? Never (0 points) How many drinks did you have on a typica l day when you were drinking in the past year? 1 or 2 (0 points) How often did you have a drink containing alcohol in t he past year? Monthly or less (1 point) Tobacco Use: Question Answer Notes Are you a: former smoker SMOKED 1 PACK PER MO NTH AND OCCASIONAL CIGARS. QUIT IN THE 1960S. REASON FOR REFERRAL No Information VITAL SIGNS Weight 166 lbs Mar, Height 66 in Mar, BMI 26.79 kg/m2 Mar, Heart Rate 64 /min Mar, Respiratory Rate 18 /min Mar, Temperature 97.4 degrees Fahrenheit Mar, Oximetry 98% Mar, Blood pressure systolic 162 mm Hg Mar, Blood pressure diastolic 76 mm Hg Mar, MEDICATIONS Medication SIG (Take, Route, Frequency, Duration) Notes Start Da te End Date Status Macrobid 100 MG 1 capsule with food Orally every 12 hrs for 10 d ay(s) Jan, Not-Taking Ecotrin Not-Taking Nortriptyline HCl 10 MG 1 capsule Orally Once a day for 30 day(s) Active Bactrim DS 800-160 MG 1 tablet Orally Twice a day for 10 day(s) Oct, Not-Taking Nystatin 688425 UNIT/GM 1 application to affected ar ea Externally to scrotum Twice a day for 14 day(s) Feb, Not-Ta felix Ramipril 10 MG 1 capsule Orally Once a day Active AmLODIPine Besylate 5 MG 1 tablet Orally Once a day for 30 day(s) Active Aspirin Adult Low Strength 81 MG 1 tablet Orally Once a day Active Bactrim DS 800-160 MG 1 tablet Orally Twice a day for 7 day(s) Nov, Not-Taking Lipitor 20 MG 1 tablet Orally Once a day Active Oxybutynin Chloride ER 5 MG 1 tablet Orally Once a day for 30 da y(s) Feb, Not-Taking Diflucan 50 MG 2 tablets Orally for 10 day(s) Not-Taking Famotidine 20 MG Orally Once a day Active Ciprofloxacin HCl 500 MG 1 tablet Orally every 12 hrs 20 D 2017 Not-Taking Ciprofloxacin HCl 500 MG 1 tablet Orally every 12 hrs for 14 day s Oct, Not-Taking Plavix 75 MG 1 tablet Orally Once a day Active Pyridium 200 MG 1 tablet after meals Orally Three times a day fo r 4 days Feb, Not-Taking Pyridium 100 MG 1 tablet after meals Orally Three times a day as needed for irritation for 30 day(s) Not-Florian ing Atorvastatin Calcium Not- Taking Ciprofloxacin HCl 500 MG 1 tablet Orally every 12 hrs for 10 day (s) Jan, Active Altace Not-Taking Bactrim DS 800-160 MG 1 tablet Orally Twice a day for 10 day(s) Not-Taking Nitroglycerin Active Levofloxacin 250 MG 2 tablets Orally Once a day Not-Taking PROCEDURES from 1933 to 2020-03-28 Procedure Date Ordered Result Body Site Insert Supra Pubic Catheter 20F, Simple 2020-03-27 N/A RESULTS No Results REASON FOR VISIT S/P CATH CHANGE MEDICAL (GENERAL) HISTORY Type Description Date Medical History Myocardial Infarction 1994 Medical History S/P coronary stent placement x2 Medical History Hypercholesterolemia Medical History HTN Medical History URINARY RETENTION Medical History STROKE 06/2017 Surgical History Appendectomy 1969 Surgical History Cardiac stent placement Surgical History CYSTOSCOPY 11/30/2017 Surgical History TURP 02/2018 Surgical History CYSTOSCOPY, CLOT EVACUATION, FULGURATION OF BLEEDING, BUTTON TRANSURETHRAL ELECTROVAPORIZATION OF THE PROSTATE 04/11/2018 Surgical History CYSTOSCOPY 10/01/2018 Surgical History CYSTOSCOPY 09/20/2019 Surgical History sp cath placement 09/25/2019 Hospitalization History surgical related Hospitalization History CATHETER ISSUES WITH BLOOD TRANSFUSI ON 03/24/18 Hospitalization History monday morning Goals Section No Information Health Concerns No Information MEDICAL EQUIPMENT No Information MENTAL STATUS No Information FUNCTIONAL STATUS No Information ASSESSMENTS Encounter Date Diagnosis Assessment Notes Treatment Notes Treatm ent Clinical Notes Mar, Urinary retention (ICD-10 - R33.9) Mar, Suprapubic catheter (ICD-10 - Z93.59) Mar, Immunization not carried out because of patient refusal (ICD-10 - Z28.21) Mar, Other Caring for a suprapubic cath eter material was printed PLAN OF TREATMENT Next Appt Details 4 Weeks Reason:s/p cath Provider Name:Christiano Nunn, 01:00:00 PM, [address], [place], [address], Follow Up:4 Weekss/p cath Insurance Providers Payer Name Payer Address Payer Phone Insured Name Patient Relati onship to Insured Coverage Start Date Coverage End Date [employer] [address] [place] [address] KALYAN MILLAN MEDICARE Part A and B [address] [facility] [id number] [phone] KALYAN MILLAN self
--- OUTSIDE RECORDS SUMMARY | 2020-05-11 08:34 | CCD ---
Author Author [facility] Organization [facility] Address Unknown Phone Unavailable Care Team Providers Care Respiratory Therapy Director Name Role Phone Francois Will Unavailable PROBLEMS Type Condition ICD9-CM Code [id number] Code Onset Dates Condition S tatus SNOMED Code Notes Problem Urinary retention R33.9 Active 132119889 Problem BPH with obstruction/lower urinary tract symptoms N40.1 Active 469438377 Problem Suprapubic catheter Z93.59 Active 151568671 Problem Gross hematuria R31.0 Active 198909990 Problem Benign prostatic hyperplasia without lower urina ry tract symptoms N40.0 Active 448255330 Problem UTI (urinary tract infection) N39.0 Active 68 707810 Problem Preop testing Z01.818 Active 343331706 ALLERGIES No Known Allergies ENCOUNTERS from 1933 to 2020-04-23 Encounter Location Date Provider Diagnosis [facility] Urology [address] [place] [address] Mar Francois Will Urinary retention R33.9 IMMUNIZATIONS No Information SOCIAL HISTORY Tobacco Use: Social History Observation Description Date Details (start date - stop date) Former Smoker Sex Assigned At : Social History Observation Description Sex Assigned At Unknown Education: Question Answer Notes Level of Education: Finished College Language: Question Answer Notes Languages spoken: [place] Religious: Question Answer Notes Religious 21 Methodist No sabianist beliefs that would impact health care. Sexual [...] Mar, BMI 26.79 kg/m2 Mar, Heart Rate 82 /min Mar, Respiratory Rate 18 /min Mar, Temperature 97.1 degrees Fahrenheit Mar, Oximetry 96% Mar, Blood pressure systolic 152 mm Hg Mar, Blood pressure diastolic 84 mm Hg Mar, MEDICATIONS Medication SIG (Take, Route, Frequency, Duration) Notes Start Da te End Date Status AmLODIPine Besylate 5 MG 1 tablet Orally Once a day for 30 day(s) Active Ciprofloxacin HCl 500 MG 1 tablet Orally every 12 hrs for 10 day (s) Jan, Active Ecotrin Not-Taking Atorvastatin Calcium Not- Taking Nortriptyline HCl 10 MG 1 capsule Orally Once a day for 30 day(s) Active Pyridium 100 MG 1 tablet after meals Orally Three times a day as needed for irritation for 30 day(s) Not-Florian ing Nystatin 151041 UNIT/GM 1 application to affected ar ea Externally to scrotum Twice a day for 14 day(s) Feb, Not-Ta felix Pyridium 200 MG 1 tablet after meals Orally Three times a day fo r 4 days Feb, Not-Taking Macrobid 100 MG 1 capsule with food Orally every 12 hrs for 10 d ay(s) Jan, Not-Taking Bactrim DS 800-160 MG 1 tablet Orally Twice a day for 10 day(s) Not-Taking Bactrim DS 800-160 MG 1 tablet Orally Twice a day for 10 day(s) Oct, Not-Taking Bactrim DS 800-160 MG 1 tablet Orally Twice a day for 7 day(s) Nov, Not-Taking Ciprofloxacin HCl 500 MG 1 tablet Orally every 12 hrs for 14 day s Oct, Not-Taking Aspirin Adult Low Strength 81 MG 1 tablet Orally Once a day Active Ramipril 10 MG 1 capsule Orally Once a day Active Lipitor 20 MG 1 tablet Orally Once a day Active Levofloxacin 250 MG 2 tablets Orally Once a day Not-Taking Nitroglycerin Active Altace Not-Taking Plavix 75 MG 1 tablet Orally Once a day Active Famotidine 20 MG Orally Once a day Active Diflucan 50 MG 2 tablets Orally for 10 day(s) Not-Taking Ciprofloxacin HCl 500 MG 1 tablet Orally every 12 hrs 20 D 2017 Not-Taking Oxybutynin Chloride ER 5 MG 1 tablet Orally Once a day for 30 da y(s) Feb, Not-Taking PROCEDURES from 1933 to 2020-04-23 Procedure Date Ordered Result Body Site Insert Supra Pubic Catheter 20F, Complex 2020-04-23 N/A RESULTS No Results REASON FOR VISIT catheter problem, blood in urine with clots, cath check MEDICAL (GENERAL) HISTORY Type Description Date Medical History Myocardial Infarction 1994 Medical History S/P coronary stent placement x2 Medical History Hypercholesterolemia Medical History HTN Medical History URINARY RETENTION Medical History STROKE 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 Surgical History Appendectomy 1968 Surgical History Cardiac stent placement Surgical History [...] Notes Mar, Urinary retention (ICD-10 - R33.9) PLAN OF TREATMENT Next Appt Details 4 Weeks Reason:catheter change Provider Name:Christiano Nunn, 09:30:00 AM, [address], [place], [address], Follow Up:4 Weekscatheter change Insurance Providers Payer Name Payer Address Payer Phone Insured Name Patient Relati onship to Insured Coverage Start Date Coverage End Date [employer] [address] [place] [address] KALYAN MILLAN MEDICARE Part A and B [address] [facility] [id number] KALYAN MILLAN self
--- OUTSIDE RECORDS SUMMARY | 2020-05-11 08:34 | CCD ---
Author Author [facility] Organization [facility] Address Unknown Phone Unavailable Care Team Providers Care Twisting Operator Name Role Phone NicoletteFrancois Unavailable PROBLEMS Type Condition ICD9-CM Code [id number] Code Onset Dates Condition S tatus SNOMED Code Notes Problem Urinary retention R33.9 Active 636795356 Problem BPH with obstruction/lower urinary tract symptoms N40.1 Active 506813287 Problem Suprapubic catheter Z93.59 Active 834590022 Problem Gross hematuria R31.0 Active 108737947 Problem Benign prostatic hyperplasia without lower urina ry tract symptoms N40.0 Active 988754680 Problem UTI (urinary tract infection) N39.0 Active 68 830445 Problem Preop testing Z01.818 Active 752451321 ALLERGIES No Known Allergies ENCOUNTERS from 1933 to 2020-04-23 Encounter Location Date Provider Diagnosis [facility] Urology [address] [place] [address] Mar Francois Will IMMUNIZATIONS No Information SOCIAL HISTORY Tobacco Use: Social History Observation Description Date Details (start date - stop date) Former Smoker Sex Assigned At : Social History Observation Description Sex Assigned At Unknown Education: Question Answer Notes Level of Education: Finished College Language: Question Answer Notes Languages spoken: Japanese Hinduism: Question Answer Notes Hinduism 21 Lutheran No latter day beliefs that would impact health care. Sexual [...] REASON FOR REFERRAL No Information VITAL SIGNS No information MEDICATIONS Medication SIG (Take, Route, Frequency, Duration) [...] needed for irritation for 30 day(s) Not-Florian kary Nystatin 142733 UNIT/GM 1 application to affected ar ea [...] for 30 da y(s) Feb, Not-Taking PROCEDURES No Information RESULTS No Results REASON FOR VISIT blood in catheter MEDICAL (GENERAL) HISTORY Type Description Date Medical [...] No Information FUNCTIONAL STATUS No Information ASSESSMENTS No Information PLAN OF TREATMENT Next Appt Details Provider Name:Christiano Arango Edouard, 09:30:00 AM, [address], [place], [address], Insurance Providers Payer Name Payer Address Payer Phone Insured Name Patient Relati onship to Insured Coverage Start Date Coverage End Date [employer] [address] [place] [address] KALYAN MILLAN self MEDICARE Part A and B [address] [facility] [phone] KALYAN MILLAN A self
--- OUTSIDE RECORDS SUMMARY | 2020-05-11 08:35 | CCD | Continuity of Care Document ---
Author Organization Unknown Address Unknown Phone Unavailable Care Team Providers Care Breakfast Attendant Name Role Phone Yoel Pritchard MD AUTM [phone] Nell Hinds MD AUTM [phone] Christiano Nunn MD AUTM [phone] Problems Active Problems Provider Date Coronary arteriosclerosis BRITTANY Turner Onset: 06/02/2011 Patient post percutaneous transluminal coronary angiop lasty BRITTANY Turner Onset: 06/02/2011 Benign hypertensive heart disease without congestive h eart failure BRITTANY Turner Onset: 06/02/2011 Electrocardiogram abnormal Maddie Villalta PA-C Onset: 05/14 First degree atrioventricular block CRYSTAL Turner Onset: 06/02/2011 Aortic valve disorder BRITTANY Turner Onset: 12/2011 Pure hypercholesterolemia BRITTANY Turner Onset: 06/02/2011 Cardiovascular symptoms Maddie Villalta PA-C Onset: 05/14/19 14 Mitral valve disorder Maddie Villalta PA-C Onset: 02/10/2017 Carotid artery occlusion Maddie Villalta PA-C Onset: 018 Social History Type Date Description Comments Sex Unknown ETOH Use Consumes Wine 1 glass a couple times monthly Tobacco Use Start: Unknown End: Unknown Patient is a former smoker 1 pack/month for 9 years, quit 1962 Smoking Status Reviewed: 09/02/19 Patient is a former smoker 1 pack/month for 9 years, quit 1962 Exercise Type/Frequency Plays golf 5 times a wee k in season, walking course Exercise Type/Frequency Does yardwork sporadical ly some snow shoveling, snow blowing as needed Exercise Limitations Vision Impairment Allergies, Adverse Reactions, Alerts Active Allergies Reaction Severity Comments Date Amlodipine lips swollen, leg edema 08/22 Inactive Allergies NKDA 05/01/2006 Medications Active Medications SIG Qnty Indications Ordering Provide r Date Famotidine 20mg Tablets 1 tab by mouth twice a day Unknown 09/01/2019 Amlodipine Besylate 5mg Tablets 1 by mouth every day Unknown 09/01/2019 Acetaminophen 325mg Tablets 1-2 every 4 hours as needed Unknown 09/01/2019 Nortriptyline HCL 10mg Capsules 2 by mouth at bedtime Unknown 09/01/2019 Aspirin 81mg Tablets 1 by mouth daily I25.10 Yoel Pritchard MD 03/28/2017 Ramipril 10mg Capsules 1 by mouth every night at bedtime Unknown 02/09/2017 Lipitor 20mg Tablets 1 by mouth every day Unknown 02/04/2016 Plavix 75mg Tablets 1 by mouth every day Unknown 02/04/2016 Nitrostat 0.4mg Tablets Sub 1 sl every 5min x3 as needed for chest pain 25tabs I25.10 Rahul Sam MD 05/13/2013 Immunizations Description No Information Available Vital Signs Date Vital Result Comment 09/02/2019 7:50am Weight 172.00 lb Height 68 inches 5'8" BMI (Body Mass Index) 26.1 kg/m2 Heart Rate 64 /min Regular Respiratory Rate 16 /min BP Systolic Right Arm 134 mmHg sitting, regular c uff BP Diastolic Right Arm 68 mmHg sitting, regular cuff BP Systolic Left Arm 136 mmHg sitting BP Diastolic Left Arm 68 mmHg sitting 02/06/2019 10:38am Weight 173.00 lb Height 68 inches 5'8" BMI (Body Mass Index) 26.3 kg/m2 Heart Rate 64 /min Regular Respiratory Rate 16 /min BP Systolic Right Arm 122 mmHg Sitting, regular c uff BP Diastolic Right Arm 60 mmHg Sitting, regular cuff BP Systolic Left Arm 126 mmHg Sitting BP Diastolic Left Arm 60 mmHg Sitting Results Test Acquired Date Facility Test Result H/L Range Note CBC without Differential 02/05/2020 [facility] [address] [place], [place] [id number] [phone] White Blood Count 8.8 4.1-10.9 Red Blood Count 5.94 4.2-6.30 Platelets 387 140-440 Hemoglobin 11.7 Low 12.0-18.0 Hematocrit 34.4 37.0-51.0 Hemoglobin A1c 02/05/2020 [facility] [address] [address] [phone] Hemoglobin A1c 7.4 CMP 02/05/2020 [facility] [address] [place] [address] [phone] Albumin Serum/Plasma 3.4 Alt - SGPT 31 Calcium Ser/Plasma Mass/Vol 9.7 Carbon Dioxide Ser/Plasm 30 Chloride Serum/Plasma 104 Alkaline Phosphatase 165 Potassium 4.3 Protein Total 8.4 Sodium 140 Ast - Sgot 21 BUN - Urea Nitrogen 23 Glucose 113 High 74-99 Creatinine For GFR 1.3 Lipid Profile/Cardiac Risk Pro 02/05/2020 [facility] [address] [place], [place] [address] [phone] Triglycerides 84 30-150 Cholesterol 126 Low 131-200 HDL 46 35-60 LDL Cholesterol 63 50-159 Chol/HDL Ratio -- Tibc/Iron/% Saturation 02/05/2020 [facility] [address] [place] [id number] [phone] Iron 74 Tibc 318 Tibc % Saturation 23.3 Procedures Date Code Description Status 09/02/2019 06519 ECG 12-Lead Completed Medical Devices Description No Information Available Encounters Type Date Location Provider Dx Diagnosis Office Visit 09/02/2019 7:45a Main Office Maddie Villalta PA-C I25.1 0 Athscl heart disease of saxman coronary artery w/o ang pctrs Z95.5 Presence of coronary angiopl asty implant and graft I11.9 Hypertensive heart disease w ithout heart failure R94.31 Abnormal electrocardiogram [ ECG] [EKG] I44.0 Atrioventricular block, firs t degree I35.1 Nonrheumatic aortic (valve) insufficiency I34.0 Nonrheumatic mitral (valve) insufficiency E78.00 Pure hypercholesterolemia, u nspecified I65.23 Occlusion and stenosis of bi lateral carotid arteries Assessments Date Code Description Provider 09/02/2019 I25.10 Atherosclerotic heart disease of saxman coronary artery with Maddie Villalta PA-C 09/02/2019 Z95.5 Presence of coronary angioplasty implant and graft Maddie Villalta PA-C 09/02/2019 I11.9 Hypertensive heart disease witho ut heart failure Maddie Villalta PA-C 09/02/2019 R94.31 Abnormal electrocardiogram [ECG] [EKG] Maddie Villalta PA-C 09/02/2019 I44.0 Atrioventricular block, first de gree Maddie Villalta PA-C 09/02/2019 I35.1 Nonrheumatic aortic (valve) insu fficiency Maddie Villalta PA-C 09/02/2019 I34.0 Nonrheumatic mitral (valve) insu fficiency Maddie Villalta PA-C 09/02/2019 E78.00 Pure hypercholesterolemia, unspe cified Maddie Villalta PA-C 09/02/2019 I65.23 Occlusion and stenosis of bilate ral carotid arteries Maddie Villalta PA-C Plan of Treatment Future Appointment(s):* 03/04/2020 8:15 am - Maddie Villalta PA-C at Main Office 09/02/2019 - Maddie Villalta PA-C* I25.10 Atherosclerotic heart disease of saxman coronary artery with * Z95.5 Presence of coronary angioplasty implant and graft * I11.9 Hypertensive heart disease without heart failure * R94.31 Abnormal electrocardiogram [ECG] [EKG] * I44.0 Atrioventricular block, first degree * I35.1 Nonrheumatic aortic (valve) insufficiency * I34.0 Nonrheumatic mitral (valve) insufficiency * E78.00 Pure hypercholesterolemia, unspecified * I65.23 Occlusion and stenosis of bilateral carotid arteries * All * Follow up:* 6 month follow up. Functional Status Functional Condition Comment Date Status Independent with all ADL's Activ e Mental Status Description No Information Available Referrals Description No Information Available
--- OUTSIDE RECORDS SUMMARY | 2020-05-11 08:35 | CCD | Continuity of Care Document ---
Author Author Brown MARROQIUN M.D. Organization Unknown Address [address] [place] [address] Phone [phone] Care Team Providers Care Forest Products Gatherer Name Role Phone Yoel Pritchard M.D. AUTM [phone] Problems Active Problems Provider Date Ischemic stroke Nell Marroquin M.D. Onset: 06/23/2017 Non-traumatic intracranial subdural hematoma Nell Marroquin M.D. Onset: 06/23/2017 Social History Type Date Description Comments Sex Unknown Tobacco Use Start: Unknown End: Unknown Patient is a former smoker Allergies, Adverse Reactions, Alerts Description No Known Drug Allergies Medications Active Medications SIG Qnty Indications Ordering Provide r Date Nortriptyline HCL 10mg Capsules take 2 tabs at bedtime. 180caps Nell Marroquin M.D. 0 Aspirin Ec 81mg Tablets DR 1 by mouth every day 90tabs Nell Marroquin M.D. Plavix 75mg Tablets 1 by mouth every day 30tabs Nell Marroquin M.D. Lipitor 20mg Tablets 1 tab by mouth every night at bedtime Nell Marroquin M.D. 0 Immunizations Description No Information Available Vital Signs Date Vital Result Comment 02/24/2020 11:33am Respiratory Rate 12 /min Height 66 inches 5'6" Weight 165.00 lb BMI (Body Mass Index) 26.6 kg/m2 [place] Body Weight 142 lb 11/14/2019 1:24pm Respiratory Rate 12 /min Height 66 inches 5'6" Weight 165.00 lb BMI (Body Mass Index) 26.6 kg/m2 [place] Body Weight 142 lb Results Description No Information Available Procedures Date Code Description Status 01/24/2020 83762 Sympathetic Skin Responses Compl eted 01/24/2020 87042 Sympathetic Skin Responses Compl eted 01/24/2020 10694 Test Autonomic Nervous System, C ardiovagal Innervation Completed 01/24/2020 41587 Test Autonomic Nervous System, C ardiovagal Innervation Completed 12/13/2019 40870 EEG Recording Awake & Asleep Com pleted 12/13/2019 11130 EEG Recording Awake & Asleep Com pleted Medical Devices Description No Information Available Encounters Type Date Location Provider Dx Diagnosis Office Visit 11/14/2019 1:00p [facility] Nell ponce M.D. I63.9 Cerebral infarction, unspecified Assessments Date Code Description Provider 02/24/2020 G62.9 Polyneuropathy, unspecified Rosio Marroquin M.D. 02/24/2020 I63.9 Cerebral infarction, unspecified Nell Marroquin M.D. 01/24/2020 G62.9 Polyneuropathy, unspecified Rosio Marroquin M.D. 01/24/2020 G62.9 Polyneuropathy, unspecified Ans/ VS 12/13/2019 R41.82 Altered mental status, unspecifi ed Macy Varghese M.D. 12/13/2019 R41.82 Altered mental status, unspecifi ed EEG 11/14/2019 I63.9 Cerebral infarction, unspecified Nell Marroquin M.D. Plan of Treatment Future Appointment(s):* 05/28/2020 12:45 pm - Nell Marroquin M.D. at [facility] Functional Status Description No Information Available Mental Status Description No Information Available Referrals Description No Information Available
--- OUTSIDE RECORDS SUMMARY | 2020-05-11 08:35 | CCD ---
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 810620187 Problem Suprapubic catheter Z93.59 Active 968441140 Problem Gross hematuria R31.0 Active 234562200 Problem Benign prostatic hyperplasia without lower urina ry tract symptoms N40.0 Active 186054399 Problem UTI (urinary tract infection) N39.0 Active 68 231848 Problem Preop testing Z01.818 Active 757725603 ALLERGIES No Known Allergies ENCOUNTERS from 1935 to 2020-03-28 Encounter Location Date Provider Diagnosis [facility] Urology [address] [place] [address] Mar Faviola Grijalva IMMUNIZATIONS No Information SOCIAL HISTORY Tobacco Use: Social History Observation Description Date Details (start date - stop date) Former Smoker Sex Assigned At : Social History Observation Description Sex Assigned At Unknown Education: Question Answer Notes Level of Education: Finished College Language: Question Answer Notes Languages spoken: Indonesian Jain: Question Answer Notes Jain 21 Taoism No taoism beliefs that would impact health care. Sexual [...] day for 10 day(s) Oct, Not-Taking Nystatin 550558 UNIT/GM 1 application to affected ar ea [...] tablets Orally Once a day Not-Taking PROCEDURES No Information RESULTS No Results REASON FOR VISIT cath orders MEDICAL (GENERAL) HISTORY Type Description Date Medical [...] Next Appt Details Provider Name:Christiano Arango Edouard, 01:00:00 PM, [address], [place], [address], Insurance Providers Payer Name Payer Address Payer Phone Insured Name Patient Relati onship to Insured Coverage Start Date Coverage End Date [employer] [address] [place] [address] KALYAN MILLAN self MEDICARE Part A and B [address] [facility] [address] [phone] KALYAN MILLAN self
--- OUTSIDE RECORDS SUMMARY | 2020-05-11 08:35 | CCD ---
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 201952486 Problem Suprapubic catheter Z93.59 Active 263914997 Problem Gross hematuria R31.0 Active 981524612 Problem Benign prostatic hyperplasia without lower urina ry tract symptoms N40.0 Active 081950325 Problem UTI (urinary tract infection) N39.0 Active 68 488995 Problem Preop testing Z01.818 Active 131790761 ALLERGIES No Known Allergies ENCOUNTERS from 1933 to 2020-02-27 Encounter Location Date Provider Diagnosis [facility] Urology [address] [place] [address] Jan Francois Will Acute urinary retention R33.8 ; Gross he maturia R31.0 and Clot retention of urine R33.8 IMMUNIZATIONS No Information SOCIAL HISTORY Tobacco Use: Social History Observation Description Date Details (start date - stop date) Former Smoker Sex Assigned At : Social History Observation Description Sex Assigned At Unknown Education: Question Answer Notes Level of Education: Finished College Language: Question Answer Notes Languages spoken: Mosotho Congregational: Question Answer Notes Congregational 21 Episcopalian No judaism beliefs that would impact health care. Sexual [...] FOR REFERRAL No Information VITAL SIGNS Weight 161 lbs Jan, Height 66 in Jan, BMI 25.98 kg/m2 Jan, Heart Rate 96 /min Jan, Respiratory Rate 20 /min Jan, Temperature 97.8 degrees Fahrenheit Jan, Oximetry 92 Jan, Blood pressure systolic 132 mm Hg Jan, Blood pressure diastolic 66 mm Hg Jan, MEDICATIONS Medication SIG (Take, Route, Frequency, Duration) Start Date En d Date Status Bactrim DS 800-160 MG 1 tablet Orally Twice a day for 10 day(s) Not-Taking Ciprofloxacin HCl 500 MG 1 tablet Orally every 12 hrs Mar, Not-Taking Bactrim DS 800-160 MG 1 tablet Orally Twice a day for 7 day(s) 2017 Not-Taking Lipitor 20 MG 1 tablet Orally Once a day Active Ciprofloxacin HCl 500 MG 1 tablet Orally every 12 hrs for 14 day s Oct, Not-Taking AmLODIPine Besylate 5 MG 1 tablet Orally Once a day for 30 day(s) Active Bactrim DS 800-160 MG 1 tablet Orally Twice a day for 10 day(s) Oct, Not-Taking Plavix 75 MG 1 tablet Orally Once a day A ctive Altace Not-Taking Nitroglycerin Active Levofloxacin 250 MG 2 tablets Orally Once a day Not-Taking Pyridium 100 MG 1 tablet after meals Orally Three times a day as needed for irritation for 30 day(s) Not-Taking Macrobid 100 MG 1 capsule with food Orally every 12 hrs for 10 day(s) Jan, Not-Taking Ciprofloxacin HCl 500 MG 1 tablet Orally every 12 hrs for 10 day(s) Jan, Active Atorvastatin Calcium Not-Florian ing Pyridium 200 MG 1 tablet after meals Orally Three times a day for 4 days Feb, Not-Taking Oxybutynin Chloride ER 5 MG 1 tablet Orally Once a day for 3 0 day(s) Feb, Not-Taking Nystatin 591483 UNIT/GM 1 application to affected ar ea Externally to scrotum Twice a day for 14 day(s) Feb, Not-Taking Nortriptyline HCl 10 MG 1 capsule Orally Once a day for 30 day(s) Active Aspirin Adult Low Strength 81 MG 1 tablet Orally Once a day Active Ecotrin Not-Taking Ramipril 10 MG 1 capsule Orally Once a day Active Famotidine 20 MG Orally Once a day Activ e Diflucan 50 MG 2 tablets Orally for 10 day(s) Not-Taking PROCEDURES Procedure Date Ordered Result Body Site Medication: Lidocaine HCl 2% Jelly 5mL Intravesically 2020-02-12 N/A RESULTS No Results REASON FOR VISIT cath issues.. ok per DR Will MEDICAL (GENERAL) HISTORY Type Description Date Medical [...] STATUS No Information ASSESSMENTS Encounter Date Diagnosis Notes Jan, Gross hematuria (ICD-10 - R31.0) Jan, Acute urinary retention (ICD-10 - R33.8) Jan, Clot retention of urine (ICD-10 - R33.8) PLAN OF TREATMENT Medication Medication Name Sig Start Date Stop Date Ciprofloxacin HCl 500 MG 1 tablet Orally every 12 hrs for 10 day(s) Jan, Treatment Notes Assessment Notes Clinical Notes Acute urinary retention The bladder was irrigated trough the SP tube until the urine cleared. Bleeding would resume shortly after.Pt had large amounts of clots and urine drained with a yovany syringe - not draining well on its own.Because of this, the decision was made to perform a cystoscopy.Cysto showed urethral channel was normal, Prostate was large with a large median lobe. Clots still present in bladder which obscurred vision. When this clot was finally evacuated through the scope vision finally cleared.Ureteral orifices were in the normal position. Left orifice effluxed well. The right orifice was poorly effluxing, b ut urine was clear bilaterally. Left would efflux 6 times before the right did once.SP tube was changed.No evidence of bleeding from any source.Bladder was flaccid and the catheter drainage eyelets would get buried in the mucosa. Next Appt Details 4 Weeks Reason:SP cath change Provider Name:Christiano Arango Edouard, 2019-11- 01:30:00 PM, [address], [place], [address], Follow Up:4 WeeksSP cath change Insurance Providers Payer Name Payer Address Payer Phone Insured Name Patient Relati onship to Insured Coverage Start Date Coverage End Date [employer] [address] [place] [address] KALYAN MILLAN MEDICARE Part A and B [address] [facility] [phone] KALYAN MILLAN self
--- OUTSIDE RECORDS SUMMARY | 2020-05-11 08:35 | CCD ---
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 845576051 Problem Suprapubic catheter Z93.59 Active 388991182 Problem Gross hematuria R31.0 Active 348942739 Problem Benign prostatic hyperplasia without lower urina ry tract symptoms N40.0 Active 318172483 Problem UTI (urinary tract infection) N39.0 Active 68 649089 Problem Preop testing Z01.818 Active 575873027 ALLERGIES No Known Allergies ENCOUNTERS from 1935 to 2020-03-02 Encounter Location Date Provider Diagnosis [facility] Urology [address] [place] [address] Feb Faviola Grijalva IMMUNIZATIONS No Information SOCIAL HISTORY Tobacco Use: Social History Observation Description Date Details (start date - stop date) Former Smoker Sex Assigned At : Social History Observation Description Sex Assigned At Unknown Education: Question Answer Notes Level of Education: Finished College Language: Question Answer Notes Languages spoken: Kinyarwanda Oriental Orthodox: Question Answer Notes Oriental Orthodox 21 Anglican No christianity beliefs that would impact health care. Sexual [...] Duration) Start Date En d Date Status AmLODIPine Besylate 5 MG 1 tablet Orally Once a day for 30 day(s) Active Altace Not-Taking Famotidine 20 MG Orally Once a day Activ e Ciprofloxacin HCl 500 MG 1 tablet Orally every 12 hrs for 14 day s Oct, Not-Taking Ciprofloxacin HCl 500 MG 1 tablet Orally every 12 hrs for 10 day(s) Jan, Active Levofloxacin 250 MG 2 tablets Orally Once a day Not-Taking Nortriptyline HCl 10 MG 1 capsule Orally Once a day for 30 day(s) Active Oxybutynin Chloride ER 5 MG 1 tablet Orally Once a day for 3 0 day(s) Feb, Not-Taking Diflucan 50 MG 2 tablets Orally for 10 day(s) Not-Taking Ramipril 10 MG 1 capsule Orally Once a day Active Nitroglycerin Active Lipitor 20 MG 1 tablet Orally Once a day Active Nystatin 174228 UNIT/GM 1 application to affected ar ea Externally to scrotum Twice a day for 14 day(s) Feb, Not-Taking Atorvastatin Calcium Not-Florian ing Ecotrin Not-Taking Pyridium 200 MG 1 tablet after meals Orally Three times a day for 4 days Feb, Not-Taking Bactrim DS 800-160 MG 1 tablet Orally Twice a day for 10 day(s) Not-Taking Pyridium 100 MG 1 tablet after meals Orally Three times a day as needed for irritation for 30 day(s) Not-Taking Macrobid 100 MG 1 capsule with food Orally every 12 hrs for 10 day(s) Jan, Not-Taking Bactrim DS 800-160 MG 1 tablet Orally Twice a day for 7 day(s) 2017 Not-Taking Bactrim DS 800-160 MG 1 tablet Orally Twice a day for 10 day(s) Oct, Not-Taking Aspirin Adult Low Strength 81 MG 1 tablet Orally Once a day Active Ciprofloxacin HCl 500 MG 1 tablet Orally every 12 hrs Mar, Not-Taking Plavix 75 MG 1 tablet Orally Once a day A ctive PROCEDURES No Information RESULTS No Results REASON [...] Next Appt Details Provider Name:Christiano Arango Edouard, 10:30:00 AM, [address], [place], [address], Insurance Providers Payer Name Payer Address Payer Phone Insured Name Patient Relati onship to Insured Coverage Start Date Coverage End Date [employer] [address] [place] [address] [phone] KALYAN MILLAN self MEDICARE Part A and B [address] [facility] [phone] KALYAN MILLAN A self
--- OUTSIDE RECORDS SUMMARY | 2020-05-11 08:35 | CCD ---
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 975994832 Problem Suprapubic catheter Z93.59 Active 698622164 Problem Gross hematuria R31.0 Active 886174204 Problem Benign prostatic hyperplasia without lower urina ry tract symptoms N40.0 Active 962536889 Problem UTI (urinary tract infection) N39.0 Active 68 830693 Problem Preop testing Z01.818 Active 592013433 ALLERGIES No Known Allergies ENCOUNTERS from 1933 to 2020-03-02 Encounter Location Date Provider Diagnosis [facility] Urology [address] [place] [address] Feb Christiano Nunn Urinary retention R33.9 ; Suprapubic [...] College Language: Question Answer Notes Languages spoken: Ecuadorean Latter-Day: Question Answer Notes Latter-Day 21 Yarsanism No yarsani beliefs that would impact health care. Sexual [...] FOR REFERRAL No Information VITAL SIGNS Weight 167 lbs Feb, Height 66 in Feb, BMI 26.95 kg/m2 Feb, Heart Rate 72 /min Feb, Respiratory Rate 18 /min Feb, Temperature 97.7 degrees Fahrenheit Feb, Oximetry 93% Feb, Blood pressure systolic 150 mm Hg Feb, Blood pressure diastolic 74 mm Hg Feb, MEDICATIONS Medication SIG (Take, Route, Frequency, Duration) [...] tablet Orally Once a day Active Nystatin 559943 UNIT/GM 1 application to affected ar ea [...] Orally Once a day A ctive PROCEDURES Procedure Date Ordered Result Body Site Insert Supra Pubic Catheter 20F, Simple 2020-03-02 N/A RESULTS No Results REASON FOR VISIT pt pulled out s/p catheter MEDICAL (GENERAL) HISTORY Type Description Date [...] No Information ASSESSMENTS Encounter Date Diagnosis Notes Feb, Suprapubic catheter (ICD-10 - Z93.59) Feb, Urinary retention (ICD-10 - R33.9) Feb, Immunization not carried out because of patient refusal (ICD-10 - Z28.21) PLAN OF TREATMENT Next Appt Details 4 Weeks Reason:s/p cath chg Provider Name:Christiano Nunn, 10:30:00 AM, [address], [place], [address], Follow Up:4 Weekss/p cath chg Insurance Providers Payer Name Payer Address Payer Phone Insured Name Patient Relati onship to Insured Coverage Start Date Coverage End Date [employer] [address] [place] [phone] [id number] KALYAN MILLAN MEDICARE Part A and B [address] [facility] [phone] KALYAN MILLAN self
--- OUTSIDE RECORDS SUMMARY | 2020-05-11 08:35 | CCD | Continuity of Care Document ---
Author Author Brown QUINONEZ PA-C Organization Unknown Address [id number] [place] [address] [place] [address] Phone [phone] Care Team Providers Care Lock Technician Name Role Phone Yoel Pritchard MD AUTM [phone] Nell Hinds MD AUTM [phone] Christiano Nunn MD AUTM [phone] Problems Active Problems Provider Date Coronary arteriosclerosis BRITTANY Turner Onset: 06/02/2011 Patient post percutaneous transluminal coronary angiop lasty BRITTANY Turner Onset: 06/02/2011 Benign hypertensive heart disease without congestive h eart failure BRITTANY Turner Onset: 06/02/2011 Electrocardiogram abnormal Maddie Quinonez PA-C Onset: 05/14 First degree atrioventricular block CRYSTAL Turner Onset: 06/02/2011 Aortic valve disorder BRITTANY Turner Onset: 12/2011 Pure hypercholesterolemia BRITTANY Turner Onset: 06/02/2011 Cardiovascular symptoms Maddie Quinonez PA-C Onset: 05/14/19 14 Mitral valve disorder Maddie Quinonez PA-C Onset: 02/10/2017 Carotid artery occlusion Maddie Quinonez PA-C Onset: 018 Social History Type Date Description Comments Sex Unknown ETOH Use Consumes Wine 1 glass a few ti mes a year Tobacco Use Start: Unknown End: Unknown Patient is a former smoker 1 pack/month for 9 years, quit 1963 Smoking Status Reviewed: 03/04/20 Patient is a former smoker 1 pack/month for 9 years, quit 1963 Exercise Type/Frequency Plays golf 5 times a wee k in season, walking course Exercise Type/Frequency Does yardwork sporadical ly some snow shoveling, snow blowing as needed Exercise Type/Frequency Walks sporadically Exercise Limitations Fatigue Allergies, Adverse Reactions, Alerts Active Allergies Reaction [...] Available Vital Signs Date Vital Result Comment 03/04/2020 8:32am Weight 163.00 lb Height 68 inches 5'8" BMI (Body Mass Index) 24.8 kg/m2 Heart Rate 72 /min Regular Respiratory Rate 16 /min BP Systolic Right Arm 136 mmHg sitting, regular c uff BP Diastolic Right Arm 74 mmHg sitting, regular cuff BP Systolic Left Arm 140 mmHg sitting BP Diastolic Left Arm 74 mmHg sitting 09/02/2019 7:50am Weight 172.00 lb Height 68 inches 5'8" BMI (Body Mass Index) 26.1 kg/m2 Heart Rate 64 /min Regular Respiratory Rate 16 /min BP Systolic Right Arm 134 mmHg sitting, regular c uff BP Diastolic Right Arm 68 mmHg sitting, regular cuff BP Systolic Left Arm 136 mmHg sitting BP Diastolic Left Arm 68 mmHg sitting Results Test Acquired Date Facility Test Result H/L Range Note CBC without Differential 02/05/2020 [facility] [address] [phone] White Blood Count 8.8 4.1-10.9 Red Blood Count 5.94 4.2-6.30 Platelets 387 140-440 Hemoglobin 11.7 Low 12.0-18.0 Hematocrit 34.4 37.0-51.0 Hemoglobin A1c 02/05/2020 [facility] [address] [id number] [phone] Hemoglobin A1c 7.4 CMP 02/05/2020 [facility] [address] [id number] [phone] Albumin Serum/Plasma 3.4 Alt - SGPT 31 Calcium Ser/Plasma Mass/Vol 9.7 Carbon Dioxide Ser/Plasm 30 Chloride Serum/Plasma 104 Alkaline Phosphatase 165 Potassium 4.3 Protein Total 8.4 Sodium 140 Ast - Sgot 21 BUN - Urea Nitrogen 23 Glucose 113 High 74-99 Creatinine For GFR 1.3 Lipid Profile/Cardiac Risk Pro 02/05/2020 [facility] [address] [place] [phone] Triglycerides 84 30-150 Cholesterol 126 Low 131-200 HDL 46 35-60 LDL Cholesterol 63 50-159 Chol/HDL Ratio -- Tibc/Iron/% Saturation 02/05/2020 [facility] [address] [id number] [phone] Iron 74 Tibc 318 Tibc % Saturation 23.3 Procedures Date Code Description Status 03/04/2020 71033 ECG 12-Lead Completed Medical Devices Description No Information Available Encounters Type Date Location Provider Dx Diagnosis Office Visit 03/04/2020 8:15a Main Office Maddie Quinonez PA-C I25.1 0 Athscl heart disease of [place] coronary artery w/o ang pctrs Z95.5 Presence of coronary angiopl asty implant and graft I11.9 Hypertensive heart disease w ithout heart failure R94.31 Abnormal electrocardiogram [ ECG] [EKG] I44.0 Atrioventricular block, firs t degree I35.1 Nonrheumatic aortic (valve) insufficiency I34.0 Nonrheumatic mitral (valve) insufficiency E78.00 Pure hypercholesterolemia, u nspecified I65.23 Occlusion and stenosis of bi lateral carotid arteries Assessments Date Code Description Provider 03/04/2020 I25.10 Atherosclerotic heart disease of [place] coronary artery with Maddie Quinonez PA-C 03/04/2020 Z95.5 Presence of coronary angioplasty implant and graft Maddie Quinonez PA-C 03/04/2020 I11.9 Hypertensive heart disease witho ut heart failure Maddie Quinonez PA-C 03/04/2020 R94.31 Abnormal electrocardiogram [ECG] [EKG] Maddie Quinonez PA-C 03/04/2020 I44.0 Atrioventricular block, first de gree Maddie Quinonez PA-C 03/04/2020 I35.1 Nonrheumatic aortic (valve) insu fficiency Maddie Quinonez PA-C 03/04/2020 I34.0 Nonrheumatic mitral (valve) insu fficiency Maddie Quinonez PA-C 03/04/2020 E78.00 Pure hypercholesterolemia, unspe cified Maddie Quinonez PA-C 03/04/2020 I65.23 Occlusion and stenosis of bilate ral carotid arteries Maddie Quinonez PA-C Plan of Treatment Future Appointment(s):* 09/03/2020 9:45 am - Maddie Quinonez PA-C at Main Office 03/04/2020 - Maddie Quinonez PA-C* I25.10 Atherosclerotic heart disease of [place] coronary artery with * Z95.5 Presence of [...]
--- OUTSIDE RECORDS SUMMARY | 2020-05-11 08:35 | CCD | Continuity of Care Document ---
Author Author Brown MARROQUIN M.D. Organization Unknown Address [address] [place] [address] Phone [phone] Care Team Providers Care Pharmaceutical Sales Specialist Name Role Phone Yoel Pritchard M.D. AUTM [phone] Problems Active Problems Provider Date Ischemic stroke [...] lb BMI (Body Mass Index) 26.6 kg/m2 [place] Body Weight 142 lb 11/14/2019 1:24pm Respiratory Rate 12 /min Height 66 inches 5'6" Weight 165.00 lb BMI (Body Mass Index) 26.6 kg/m2 [place] Body Weight 142 lb Results Description No Information Available Procedures Date Code Description Status 01/24/2020 91210 Sympathetic Skin Responses Compl eted 01/24/2020 28601 Sympathetic Skin Responses Compl eted 01/24/2020 60878 Test Autonomic Nervous System, C ardiovagal Innervation Completed 01/24/2020 01938 Test Autonomic Nervous System, C ardiovagal Innervation Completed 12/13/2019 35673 EEG Recording Awake & Asleep Com pleted 12/13/2019 91132 EEG Recording Awake & Asleep Com pleted Medical Devices Description No Information Available Encounters Type Date Location Provider Dx Diagnosis Office Visit 02/24/2020 11:00a [facility] Nell ponce M.D. G62.9 Polyneuropathy, unspecified I63.9 Cerebral infarction, unspeci fied Office Visit 11/14/2019 1:00p [facility] Nell ponce M.D. I63.9 Cerebral infarction, unspecified [...] 12:45 pm - Nell Marroquin M.D. at [facility] Functional Status Description No Information Available Mental Status Description No Information Available Referrals Description No Information Available
--- OUTSIDE RECORDS SUMMARY | 2020-05-11 08:36 | CCD ---
Author Author [facility] Organization [facility] Address Unknown Phone Unavailable Care Team Providers Care Life Science Technical Officer Name Role Phone Anne Villalta Unavailable Unavailable Symenow, Anne Perkins PA Unavailable Unavailable Symenow, Anne Perkins PA Unavailable Unavailable Symenow, Anne Perkins PA Unavailable Unavailable Symenow, Anne Perkins PA Unavailable Unavailable Symenow, Anne Perkins PA Unavailable Unavailable Symenow, Anne Perkins PA Unavailable Unavailable Symenojob, Anne Perkins PA Unavailable Unavailable Symenow, Anne Perkins PA Unavailable Unavailable Symenojob, Anne Perkins PA Unavailable Unavailable Symenojob, Anne Perkins PA Unavailable Unavailable Symenojob, Anne Perkins PA Unavailable Unavailable Abimaelenojob, Anne Perkins PA Unavailable Unavailable Symenojob, Anne Perkins PA Unavailable Unavailable Symenojob, Anne Perkins PA Unavailable Unavailable Symenojob, Anne Perkins PA Unavailable Unavailable Symenow, Anne Perkins PA Unavailable Unavailable Symenow, Anne Perkins PA Unavailable Unavailable Symenow, Anne Maddie PA Unavailable Unavailable Symenow, Anne Maddie PA Unavailable Unavailable Symenow, Anne Maddie PA Unavailable Unavailable Symenow, Anne Maddie PA Unavailable Unavailable Symenow, Anne Maddie PA Unavailable Unavailable Symenow, Anne Maddie PA Unavailable Unavailable Symenow, Anne Maddie PA Unavailable Unavailable Symenow, Anne Maddie PA Unavailable Unavailable Symenow, Anne Maddie PA Unavailable Unavailable Symenow, Anne Maddie PA Unavailable Unavailable Symenow, Anne Maddie PA Unavailable Unavailable Symenow, Anne Maddie PA Unavailable Unavailable Symenow, Anne Maddie PA Unavailable Unavailable Symenow, Anne Maddie PA Unavailable Unavailable Symenow, Anne Maddie PA Unavailable Unavailable Symenow, Anne Maddie PA Unavailable Unavailable Symenow, Anne Maddie PA Unavailable Unavailable Symenow, Anne Maddie PA Unavailable Unavailable PICKERAL JR, J ZACHARY PA-C Unavailable Unavailable PICKERAL JR, J ZACHARY PA-C Unavailable Unavailable PICKERAL JR, J ZACHARY PA-C Unavailable Unavailable PICKERAL JR, J ZACHARY PA-C Unavailable Unavailable PICKERAL JR, J ZACHARY PA-C Unavailable Unavailable PICKERAL JR, J ZACHARY PA-C Unavailable Unavailable PICKERAL JR, J ZACHARY PA-C Unavailable Unavailable PICKERAL JR, J ZACHARY PA-C Unavailable Unavailable PICKERAL JR, J ZACHARY PA-C Unavailable Unavailable PICKERAL JR, J ZACHARY PA-C Unavailable Unavailable PICKERAL JR, J ZACHARY PA-C Unavailable Unavailable PICKERAL JR, J ZACHARY PA-C Unavailable Unavailable PICKERAL JR, J ZACHARY PA-C Unavailable Unavailable PICKERAL JR, J ZACHARY PA-C Unavailable Unavailable PICKERAL JR, J ZACHARY PA-C Unavailable Unavailable PICKERAL JR, J ZACHARY PA-C Unavailable Unavailable PICKERAL JR, J ZACHARY PA-C Unavailable Unavailable PICKERAL JR, J ZACHARY PA-C Unavailable Unavailable PICKERAL JR, J ZACHARY PA-C Unavailable Unavailable Scott Hinds MD Unavailable Unavailable Scott Hinds MD Unavailable Unavailable Scott Hinds MD Unavailable Unavailable Scott Hinds MD Unavailable Unavailable Scott Hinds MD Unavailable Unavailable Scott Hinds MD Unavailable Unavailable Scott Hinds MD Unavailable Unavailable Scott Hinds MD Unavailable Unavailable Scott Hinds MD Unavailable Unavailable Scott Hinds MD Unavailable Unavailable Scott Hinds MD Unavailable Unavailable Scott Hinds MD Unavailable Unavailable Scott Hinds MD Unavailable Unavailable Scott Hinds MD Unavailable Unavailable Scott Hinds MD Unavailable Unavailable Scott Hinds MD Unavailable Unavailable Scott Hinds MD Unavailable Unavailable Scott Hinds MD Unavailable Unavailable Scott Hinds MD Unavailable Unavailable Scott Hinds MD Unavailable Unavailable Scott Hinds MD Unavailable Unavailable Scott Hinds MD Unavailable Unavailable Scott Hinds MD Unavailable Unavailable Scott Hinds MD Unavailable Unavailable Scott Hinds MD Unavailable Unavailable Scott Hinds MD Unavailable Unavailable Scott Hinds MD Unavailable Unavailable Scott Hinds MD Unavailable Unavailable Scott Hinds MD Unavailable Unavailable Scott Hinds MD Unavailable Unavailable Scott Hinds MD Unavailable Unavailable Scott Hinds MD Unavailable Unavailable Scott Hinds MD Unavailable Unavailable Scott Hinds MD Unavailable Unavailable Scott Hinds MD Unavailable Unavailable Scott Hinds MD Unavailable Unavailable Scott Hinds MD Unavailable Unavailable Scott Hinds MD Unavailable Unavailable Scott Hinds MD Unavailable Unavailable Scott Hinds MD Unavailable Unavailable Scott Hinds MD Unavailable Unavailable Scott Hinds MD Unavailable Unavailable Scott Hinds MD Unavailable Unavailable Scott Hinds MD Unavailable Unavailable Scott Hinds MD Unavailable Unavailable Scott Hinds MD Unavailable Unavailable Scott Hinds MD Unavailable Unavailable Scott Hinds MD Unavailable Unavailable Scott Hinds MD Unavailable Unavailable Scott Hinds MD Unavailable Unavailable Scott Hinds MD Unavailable Unavailable Lizet, O Samah MD Unavailable Unavailable Lizet, O Samah MD Unavailable Unavailable Lizet, O Samah MD Unavailable Unavailable Lizet, O Samah MD Unavailable Unavailable Lizet, O Samah MD Unavailable Unavailable Lizet, O Samah MD Unavailable Unavailable Lizet, O Samah MD Unavailable Unavailable Lizet, O Samah MD Unavailable Unavailable Lizet, O Samah MD Unavailable Unavailable Lizet, O Samah MD Unavailable Unavailable Lizet, O Samah MD Unavailable Unavailable Lizet, O Samah MD Unavailable Unavailable Lizet, O Samah MD Unavailable Unavailable Lizet, O Samah MD Unavailable Unavailable Lizet, O Samah MD Unavailable Unavailable Lizet, O Samah MD Unavailable Unavailable Lizet, O Samah MD Unavailable Unavailable Lizet, O Samah MD Unavailable Unavailable Lizet, O Samah MD Unavailable Unavailable Lizet, O Samah MD Unavailable Unavailable Lizet, O Samah MD Unavailable Unavailable Lizet, O Samah MD Unavailable Unavailable Lizet, O Samah MD Unavailable Unavailable Lizet, O Samah MD Unavailable Unavailable Re-disclosure Warning The records that you are about to access may contain information from federally-assisted alcohol or drug abuse programs. If such information is present, then the following federally mandated warning applies: This information has been disclosed to you from records protected by federal confidentiality rules (42 CFR part 2). The federal rules prohibit you from making any further disclosure of this information unless further disclosure is expressly permitted by the written consent of the person to whom it pertains or as otherwise permitted by 42 CFR part 2. A general authorization for the release of medical or other information is NOT sufficient for this purpose. The Federal rules restrict any use of the information to criminally investigate or prosecute any alcohol or drug abuse patient.The records that you are about to access may contain highly sensitive health information, the redisclosure of which is protected by Article 27-F of the [facility] Public Health law. If you continue you may have access to information: Regarding HIV / AIDS; Provided by facilities licensed or operated by the [facility] Office of Mental Health; or Provided by the [facility] Office for People With Developmental Disabilities. If such information is present, then the following [facility] mandated warning applies: This information has been disclosed to you from confidential records which are protected by state law. State law prohibits you from making any further disclosure of this information without the specific written consent of the person to whom it pertains, or as otherwise permitted by law. Any unauthorized further disclosure in violation of state law may result in a fine or retirement sentence or both. A general authorization for the release of medical or other information is NOT sufficient authorization for further disc losure. Family History Family Member Name Family Member Gender Family Member Status Date o f Status Description Data Source(s) Unknown Unknown Problem [facility] ([facility] Unknown Male Problem MEDENT ([facility]) Unknown Unknown Problem MEDENT ([facility]) Encounters Encounter Providers Location Date Indications Data Source(s ) Outpatient [address] [facility] [id number] 04/23/2020 12:00:00 AM EST eCW1 ([facility]) Unknown [address] [facility] [address] 04/23/2020 12:00:00 AM EST eCW1 [facility]) Outpatient [address] [facility] [id number] 03/27/2020 12:00:00 AM EST eCW1 ([facility]) Unknown [address] [facility] [id number] 03/27/2020 12:00:00 AM EST eCW1 ([facility]) Outpatient Attender: Maddie BENEDICT Main Office 03/04/2020 07:15:00 AM EST MEDENT ([facility]) Outpatient [address] [facility] [id number] 03/02/2020 12:00:00 AM EST eCW1 ([facility]) Unknown [address] [facility] [id number] 03/02/2020 12:00:00 AM EST eCW1 ([facility]) Outpatient Attender: Nell Hinds MD Main office - [facility] 02/24/2020 10:00:00 AM EST MEDENT ([facility] (Cysto1) Urology [address] [place] [address] 02/12/2020 12:00:00 AM EDT eCW1 ([facility]) Office Visit Attender: Nell Hinds MD Main office - [facility] 11/14/2019 01:00:00 PM EDT MEDENT ([facility]) Outpatient [address] [facility] [address] 11/11/2019 12:00:00 AM EDT eCW1 ([facility]) Unknown [address] [facility] [address] 11/11/2019 12:00:00 AM EDT eCW1 ([facility]) Outpatient [address] [facility] [id number] 11/05/2019 12:00:00 AM EDT eCW1 ([facility]) [facility] Urology [address] [facility] [id number] 10/24/2019 12:00:00 AM EDT eCW1 ([facility]) Unknown [address] [facility] [address] 10/14/2019 12:00:00 AM EDT eCW1 ([facility]) Outpatient Attender: ZACHARY Chandler 0 10/02/2019 11:20:00 AM EDT MEDENT ([facility] ) Unknown [address] [facility] [place] [address] 09/30/2019 12:00:00 AM EDT eCW1 ([facility]) Unknown [address] [facility] [address] [address] 09/30/2019 12:00:00 AM EDT eCW1 ([facility]) [facility] Urology [address] [facility] [address] [address] 09/26/2019 12:00:00 AM EDT eCW1 ([facility]) Unknown [address] [facility] [address] [address] 09/25/2019 12:00:00 AM EDT eCW1 ([facility]) Outpatient 09/24/2019 02:49:00 PM EDT [facility] [place] [address] [facility] [address] 09/22/2019 12:00:00 AM EDT eCW1 ([facility]) [facility] [place] [address] [facility] [address] 09/20/2019 12:00:00 AM EDT eCW1 ([facility]) [facility] Urology [address] [place] [address], [place] [address] 09/17/2019 12:00:00 AM EDT [facility]CW[facility] [place] [place] [address] [facility] [address] 09/13/2019 12:00:00 AM EDT [facility]CW1 [facility] [place] [address] [facility] [address] 09/10/2019 12:00:00 AM EDT eCW1 ([facility]) [facility] Urology [address] [place] [address], [place] [address] 09/09/2019 12:00:00 AM EDT eCW1 ([facility]) Outpatient Attender: Maddie BENEDICT Main Office 09/02/2019 07:45:00 AM EDT MEDENT ([facility]) [facility] [place] [address] [facility] [address] 08/29/2019 12:00:00 AM EDT eCW1 ([facility] Urology [address] [place] [address], [place] [address] 08/20/2019 12:00:00 AM EDT eCW1 [facility] Urology [address] [place] [address], [place] [address] 08/01/2019 12:00:00 AM EDT eCW1 [facility] [place] Urology [address] [place] [address], [place] [address] 07/04/2019 12:00:00 AM EDT eCW1 ([facility]) [facility] Urology Center [address] [place] [address] 06/06/2019 12:00:00 AM EST eCW1 ([facility]) [facility] [place] [address] [facility] [address] 06/05/2019 12:00:00 AM EST eCW1 ([facility]) [facility] [place]rology [address] [facility] [address] 05/09/2019 12:00:00 AM EST eCW1 ([facility]) [facility] [place] [address] [facility] [address] 04/04/2019 12:00:00 AM EST eCW1 ([facility]) Medications Medication Brand Name Start Date Product Form Dose Route Admi nistrative Instructions Pharmacy Instructions Status Indications Reaction Description Data Source(s) Ciprofloxacin 500 MG Oral Tablet Ciprofloxacin HCl 500 MG Ciprofloxacin HCl 500 MG 02/12/2020 12:00:00 AM EDT 1.0 {tablet} activ e Ciprofloxacin HCl 500 MG eCW1 ([facility]) Ciprofloxacin 500 MG Oral Tablet Ciprofloxacin HCl 500 MG Ciprofloxacin HCl 500 MG 02/12/2020 12:00:00 AM EDT 1.0 {tablet} activ e Ciprofloxacin HCl 500 MG eCW1 ([facility]) Ciprofloxacin 500 MG Oral Tablet Ciprofloxacin HCl 500 MG Ciprofloxacin HCl 500 MG 02/12/2020 12:00:00 AM EDT 1.0 {tablet} activ e Ciprofloxacin HCl 500 MG eCW1 ([facility]) Ciprofloxacin 500 MG Oral Tablet Ciprofloxacin HCl 500 MG Ciprofloxacin HCl 500 MG 02/12/2020 12:00:00 AM EDT 1.0 {tablet} activ e Ciprofloxacin HCl 500 MG eCW1 ([facility]) Ciprofloxacin 500 MG Oral Tablet Ciprofloxacin HCl 500 MG Ciprofloxacin HCl 500 MG 02/12/2020 12:00:00 AM EDT 1.0 {tablet} activ e Ciprofloxacin HCl 500 MG eCW1 ([facility]) Ciprofloxacin 500 MG Oral Tablet Ciprofloxacin HCl 500 MG Ciprofloxacin HCl 500 MG 02/12/2020 12:00:00 AM EDT 1.0 {tablet} activ e Ciprofloxacin HCl 500 MG eCW1 ([facility]) 500 mg 02/12/2020 12:00:00 AM EDT tablet 20 TAKE ONE TABLET BY MOUTH EVERY 12 HOURS FOR 10 DAYS TAKE ONE TABLET BY MOUTH EVERY 12 HOURS FOR 10 DAYS SO LD: 02/12/2020 [facility] Ciprofloxacin 500 MG Oral Tablet Ciprofloxacin HCl 500 MG Ciprofloxacin HCl 500 MG 02/12/2020 12:00:00 AM EDT 1.0 {tablet} activ e Ciprofloxacin HCl 500 MG eCW1 ([facility]) Cephalexin 500 MG Oral Capsule CEPHALEXIN 01/15/2020 12:00:00 AM EDT capsule 20 TAKE ONE CAPSULE BY MOUTH FOUR TIMES A DAY TAKE ONE CA PSULE BY MOUTH FOUR TIMES A DAY SOLD: 01/15/2020 [facility] 250 mg 01/05/2020 12:00:00 AM EDT tablet 20 TAKE ONE TABLET BY MOUTH TWICE A DAY TAKE ONE TABLET BY MOUTH TWICE A DAY SOLD: 01/05/2020 [facility] Oxybutynin chloride 5 MG Oral Tablet OXYBUTYNIN CHLORIDE 12:00:00 AM EDT tablet 54 TAKE ONE TABLET BY MOUTH TWI CE A DAY FOR URINARY DISCOMFORT TAKE ONE TABLET BY MOUTH TWICE A DAY FOR URINARY DISCOMFORT SOLD: 2020 [facility] clopidogrel 75 MG Oral Tablet [Plavix] Plavix 11/29/2019 12:00:00 AM EDT ORAL active MEDENT ([facility]) 500 mg 11/11/2019 12:00:00 AM EDT capsule 40 TAKE ONE CAPSULE BY MOUTH FOUR TIMES A DAY TAKE ONE CAPSULE BY MOUTH FOUR TIMES A DAY SOLD: 11/11/2019 [facility] 325 mg (65 mg iron) 09/25/2019 12:00:00 AM EDT tablet 14 TAKE 1 TABLET [325MG] BY MOUTH TWO TIMES A DAY TAKE 1 TABLET [325MG] BY MOUTH TWO TIMES A DAY SOLD: 09/27/2019 [facility] 150 mg 09/13/2019 12:00:00 AM EDT tablet 5 TAKE 1 TABLET [150MG] BY MOUTH DAILY AT 6:00PM TAKE 1 TABLET [150MG] BY MOUTH DAILY AT 6:00PM SOLD: 020 [facility] Ceftriaxone 100 MG/ML Injectable Solution Ceftriaxone Sodium 09/13/2019 12:00:00 AM EDT completed MEDENT ([facility]) 800-160 mg 09/13/2019 12:00:00 AM EDT tablet 10 TAKE ONE TABLET BY MOUTH TWICE A DAY TAKE ONE TABLET BY MOUTH TWICE A DAY SOLD: 09/13/2019 [facility] 5 mg 09/13/2019 12:00:00 AM EDT tablet 30 TAKE ONE TABLET BY MOUTH EVERY DAY TAKE ONE TABLET BY MOUTH EVERY DAY SOLD: 09/13/2019 [facility] 500 mg 09/10/2019 12:00:00 AM EDT tablet 28 TAKE 1 TABLET BY MOUTH EVERY 12 HOURS FOR 14 DAYS TAKE 1 TABLET BY MOUTH EVERY 12 HOURS FOR 14 DAYS SOLD : 09/10/2019 [facility] Famotidine 20 MG Oral Tablet Famotidine 09/01/2019 12:00:00 AM EDT ORAL active MEDENT ([facility]) Nortriptyline 10 MG Oral Capsule Nortriptyline HCL 09/01/2019 12:00 :00 AM EDT ORAL active [facility] ([facility]) Amlodipine 5 MG Oral Tablet Amlodipine Besylate 09/01/2019 12:00:00 A M EDT ORAL active [facility] ([facility]) Acetaminophen 325 MG Oral Tablet Acetaminophen 09/01/2019 12:00:00 AM EDT active [facility] ([facility]) 100 mg 08/18/2019 12:00:00 AM EDT capsule 14 TAKE ONE CAPSULE BY MOUTH TWICE A DAY TAKE ONE CAPSULE BY MOUTH TWICE A DAY SOLD: 08/18/2019 [facility] Nortriptyline 10 MG Oral Capsule Nortriptyline HCL 08/12/2019 12:00 :00 AM EDT active MEDENT ([facility]) 10 mg 08/10/2019 12:00:00 AM EDT capsule 60 TAKE 1 CAPSULE BY MOUTH AT BEDTIME FOR 1 WEEK THEN TAKE 2 CAPSULES AT BEDTIME TAKE 1 CAPSULE BY MOUTH AT BEDTIME FOR 1 WEEK THEN TAKE 2 CAPSULES AT BEDTIME SOLD: 08/10/2019 [facility] 800-160 mg 08/08/2019 12:00:00 AM EDT tablet 14 TAKE 1 TABLET BY MOUTH TWO TIMES A DAY FOR 7 DAYS TAKE 1 TABLET BY MOUTH TWO TIMES A DAY FOR 7 DAYS SOLD : 08/08/2019 [facility] 5 mg 08/08/2019 12:00:00 AM EDT tablet 30 TAKE 1 TABLET [5MG] BY MOUTH DAILY TAKE 1 TABLET [5MG] BY MOUTH DAILY SOLD: 08/08/2019 [facility] 75 mg 08/08/2019 12:00:00 AM EDT tablet 30 TAKE ONE TABLET BY MOUTH EVERY DAY TAKE ONE TABLET BY MOUTH EVERY DAY SOLD: 08/08/2019 [facility] 81 mg 08/08/2019 12:00:00 AM EDT tablet,delayed release (DR/EC) 30 TAKE 1 TABLET [81MG] BY MOUTH DAILY TAKE 1 TABLET [81MG] BY MOUTH DAILY SOLD: 08/08/2019 [facility] Ranitidine 150 MG Oral Tablet [Zantac] Zantac 06/26/2019 12:00:00 AM EST ORAL completed MEDENT ([facility]) 500 mg 06/01/2019 12:00:00 AM EST tablet 10 TAKE ONE TABLET BY MOUTH TWICE A DAY TAKE ONE TABLET BY MOUTH TWICE A DAY SOLD: 06/01/2019 [facility] 0.4 mg 12/07/2018 12:00:00 AM EDT capsule 30 TAKE ONE CAPSULE BY MOUTH ONCE A DAY TAKE ONE CAPSULE BY MOUTH ONCE A DAY SOLD: 05/25/2019 [facility] 0.4 mg 12/07/2018 12:00:00 AM EDT capsule 30 TAKE ONE CAPSULE BY MOUTH ONCE A DAY TAKE ONE CAPSULE BY MOUTH ONCE A DAY SOLD: 04/25/2019 [facility] Insurance Providers Payer name Policy type / Coverage type Policy ID Covered green party ID Covered green party's relationship to romeo Policy Romeo Plan Information MEDICARE [id number] SP [id number] [employer] [id number] SP [id number] [employer] [id number] SP [id number] [employer] O [id number] S [id number] MEDICARE C [id number] S [id number] N68 [employer] [facility] ([place]) Other [id number] Self [id number] Medicare Part B [facility] Other 0 Se lf 0 ANSI-Commercial [id number] ANSI-Commercial [id number] ANSI-Medicare Part B [id number] ANSI-Commercial [id number] ANSI-Medicare Part B [id number] ANSI-Commercial [id number] ANSI-Medicare Part B [id number] ANSI-Commercial [id number] ANSI-Commercial [id number] ANSI-Medicare Part B [id number] ANSI-Commercial [id number] ANSI-Commercial [id number] ANSI-Commercial [id number] ANSI-Commercial [id number] ANSI-Medicare Part B [id number] ANSI-Commercial [id number] ANSI-Medicare Part B [id number] ANSI-Commercial [id number] ANSI-Commercial [id number] ANSI-Medicare Part B [id number] ANSI-Commercial [id number] [employer] [id number] SP [id number] MEDICARE [id number] SP [id number] ANSI-Commercial [id number] ANSI-Commercial [id number] ANSI-Medicare Part B [id number] [employer] Medigap Part B [id number] Self [id number] Medicare (Part B) Medicare Primary [id number] Self [id number] [employer] Medigap Part B [id number] Self [id number] [employer] Medigap Part B [id number] Self [id number] [employer] Medigap Part B [id number] Self [id number] Medicare (Part B) Medicare Primary [id number] Self [id number] ANSI-Commercial [id number] ANSI-Medicare Part B [id number] ANSI-Commercial [id number] ANSI-Medicare Part B [id number] ANSI-Commercial [id number] ANSI-Commercial [id number] ANSI-Commercial [id number] ANSI-Medicare Part B [id number] ANSI-Commercial [id number] [facility]-Medicare Part B [id number] ANSI-Commercial [id number]-ykif-48p4-bj98-7tuon7ep3h12 [id number]-hlkk-37i5-xe99-3hqhl3dz7h24 ANSI-Commercial [id number]-[id number] [id number]-4760-j365z46cnn64 ANSI-Commercial [id number] 82kq6k10-6u65-7765-06b1-[id number] ANSI-Commercial [id number]-5081-5a85-14xi-[id number] 0c981a7s-5134-1r72-79ja-[id number] ANSI-Medicare Part B [id number]-h1ix-28w446sm50re ANSI-Commercial 9188h4nd-u8ji-9421-4nd2-20fs31219593 2631z4no-x4nc-3885-5ec8-44fb28491090 ANSI-Medicare Part B [id number]-eq6e-[id number] 7140ww88-g606-8452-qn2u-9v25351672a7 ANSI-Commercial 3z681d07-32es-5nw1-9980-vze9pc2v1mx8 2q365g75-46ka-2gz0-3579-hvo0va1p5lj6 ANSI-Commercial zjfsirb5-376s-8u604m42-t338-1531g69cri44 kjdiqoh5-768j-1r945c26-m522-4236a25gpj06 ANSI-Medicare Part B [id number]-5787-[id number]-yv5f-2689-r2g2-262k747236ae ANSI-Commercial 5m5f6z51-1231-66t2-5r02-7l6u2lih99q1 5o9x1h46-3122-19i8-7r17-1p8t4qgs12g9 ANSI-Commercial kuf6592z-4iv6-628w-680a-540se40z5768 jvo7101q-2nz9-043c-484f-948vc99b6710 ANSI-Commercial i745102r-4975-9961-x9h1-1s451quz97f0 q605442g-3849-1235-n8l3-5a767uvt47w2 ANSI-Medicare Part B [id number]-729v-47e5-[id number] 224dqq00-517l-299o-05r6-wua75556vk12 ANSI-Medicare Part B [id number]-h20f-0y33fsq22q24 y1r0m4d6-51j1-8745-q69u-7x77cix94a44 ANSI-Commercial 215t5653-2426-0518-be66-d89nd95689g5 648t6913-1224-8845-gl11-a75bk95965r9 ANSI-Commercial a89eyq54-4zq2-93nd-7e34-68i5q567ocx7 j89dmh99-6ab2-40tr-5t82-76t0r722nrv3 ANSI-Commercial ul8t29u0-35sm-443o-3gh9-872281gc22v4 gc6g86k4-78ea-218k-6zj2-363072lu25z8 ANSI-Commercial 7kk9no52-xc5l-0qcv-b46t-51625e0580vf 2wu0od46-kd3f-7nbk-g77k-91839h8572ty ANSI-Medicare Part B [id number] [id number]-73wo-0889-2jr4-6900krc38res ANSI-Medicare Part B [id number]-k8q6-[id number] b3w9jgg4-13x1-95j1-j7u2-j80qiy041087 ANSI-Commercial vso49e62-3365-9oz0-iz6f-988496h875b7 fbr78k38-9439-6ne8-gv2f-013895g348o2 ANSI-Commercial 93nwr878-1163-1yv6-1529-6k989141p754 75tjg623-3617-2wj2-6715-1k595097n658 ANSI-Commercial 3n14ofy0-1k43-6zi9-2c74-921zhb5al0b3 1v73hbb3-3t52-7rw6-9x51-986yfz8ty6g4 ANSI-Medicare Part B [id number]-7730-97wh-r8u4-92451u7g84a2 654e3ock-6865-07ot-z9m8-06681e2v48a2 ANSI-Commercial 472qvs07-b7m4-8m90-eyl3-9a7t38111ae9 678tyk27-a5i1-6y30-rtp4-9v0x55082mj4 ANSI-Commercial 02y96515-sc46-0zaj-322a-0c8z396mq1k9 33n48053-nx64-8tmm-890h-5a0v529pb3c5 ANSI-Medicare Part B [id number]-swk5-1xp2-z8x4-tpl8v695p00z bp138048-ygs1-7uf4-b7l3-xns9l388g06p ANSI-Commercial 922uw542-u76r-86db-564z-68n343d5u6uw 607hj218-g01k-56jn-598r-68v658l9i0cm ANSI-Commercial 67l65e2g-3za4-47kv-22j7-833uv19s47jm 10u44v2y-5zw0-50aa-34x5-039bg67b79jj ANSI-Commercial p7gf9r57-08lo-1sjk-789i-t4425bbx0w22 z9ri4d61-26nn-4jax-993b-l9055mzx0w07 ANSI-Medicare Part B [id number]-4755-1w6c-hfo2-diddfeezrsb6 5n21x79t-7167-5t4h-yif4-ymfazosianq4 ANSI-Commercial 889y0x6a-9348-027s-0669-7600h160qzp2 475t8k9f-1761-849e-2821-8270n860uxi1 ANSI-Medicare Part B 52870tff-n1lm-16cj-w4e1-28t8v276j65p 52884rzz-h5ye-21yj-y3o2-82x2y343u49z ANSI-Commercial 55zx7218-2277-4ol0-26e4-67221388p18f 50sp1947-7477-1yz7-70e9-25753032k53w ANSI-Medicare Part B [id number]3g3 25084143-97z6-0987-6415-9cz4541466t4 ANSI-Commercial q4112lu1-j372-0760-o961-x2v5po8spor9 m7745tl4-l733-1836-p418-p4r9ky3gyph7 ANSI-Commercial myo00370-a094-9a86-l744-715144p79g47 olv14865-s816-5n10-l346-563124u02h51 ANSI-Medicare Part B [id number]-nz0m-21qbs7y2v40q o2752970-28c0-629g-im2x-00zbo6g0k62j ANSI-Commercial yjw78h44-vg67-18l6-roy0-6135yc53l1vu lvz06v49-ib56-31m0-kcv9-3493ea22j1nd ANSI-Commercial 1b64subt-6587-4400-gzx2-nwt9n1qi0x9e 6z09nwem-4033-6924-cwy3-uvr0o2dd3l0p ANSI-Medicare Part B [id number]-4404-2b28-3ox3-csb9121j2npr 6p071c8w-2577-1a27-6hm3-qmx7125g6wxd ANSI-Commercial ah55f0q9-523i-6488-g76y-68900571wa23 za01u1o0-038h-3701-a89m-15456750uk47 ANSI-Commercial 3fw25pda-q977-7191-r391-pm3n005184ii 8mo85vjk-o506-7302-f078-gr8w084501xv ANSI-Medicare Part B [id number]-s249-52bz-19u8-49b93fbx813a 7ly38572-a516-16iq-82h4-21w98jdn981b ANSI-Commercial s0421626-55v8-2ir1-x6b9-924887z4oixq r1312102-56z1-5si6-h6i4-895779f4unnj ANSI-Commercial 93j27r26-337o-1112-9bae-i97389616472 85u56o29-859w-1231-0upm-r72153127211 ANSI-Commercial 7co64qjr-9397-5wo9-74f9-84d36t2xbxy3 9zx10cff-2131-1vj8-47a7-62i20s0cenw0 ANSI-Medicare Part B [id number]511a c1830601-7945-1646-84w0-33359j23984f ANSI-Commercial 80cm5dvk-1565-25t7-n787-3922so27329k 56au1zta-7891-88k8-s432-4807ox87484x ANSI-Commercial 6b26qr6m-6mpy-3337-i2t5-19f900qwv8z3 6x20pm0z-0shv-3115-a1h8-57a021upi1e1 ANSI-Commercial cg22f6vl-3l34-11zq-62yd-8866x252f5h7 wx51y4nm-0m27-98lt-33wr-4901q352o9k2 [facility]-Medicare Part B 40y2d19y-u64s-030r-lli4-k1xg35s1b40m 57q8b30i-j15p-829m-tdh2-o9gb28m0n91c ANSI-Commercial g546dzj2-yk5y-5cb5-y781-orue42sqx329 n897uho6-il1n-6le2-x161-copo80jrf770 ANSI-Commercial 6e530n35-97sk-595e-p4kr-8u345yr68053 7i317w93-65wx-956e-h2sj-9z606ob57582 ANSI-Medicare Part B 53c0v2i1-z56m-08i4-j5s5-s4238bm564s6 69m0q6g3-r00d-83d5-d0o8-n5386lx920a8 ANSI-Commercial f10n8vq0-u773-76e7-e179-427mj07418bx r05m9ud9-j848-72p4-f867-838vd02947cp ANSI-Commercial x48l771o-912x-7569-13o4-196p3a318bj5 y32d856v-935y-0003-31d3-450s8d243rf4 ANSI-Medicare Part B [id number]-dqwt0xe48o08 3mo600c2-h7d7-3fx7-312v-cqdz0ul26m24 [facility] [id number] Self [id number] Medicare [facility] [employer] Medicare Primary [id number] Self [id number] [facility] Part B [id number] Self [id number] ANSI-Medicare Part B [id number]-23c8-032j-[id number] td098f2h-58f7-526s-8972-56n82283ndu6 ANSI-Commercial o38i061l-w8yn-5278-2511-xqz56s4w16ed a00c372h-d4wo-2573-5801-ogq77w9k31ls ANSI-Commercial 409j2382-2r2o-7ny6-h29e-l53x1b4vs1r8 347t0277-8z3s-9ae1-r39f-c68e3a3yd9b5 ANSI-Commercial jb7ii321-k714-2u8x-qc74-07u0sh02im03 bq2ki387-g186-2a5s-ja75-39x8zc16pl36 ANSI-Medicare Part B [id number]-5o4x-[id number] 816s2gmf-s768-3g2k-5t4m-1u0epr47j118 ANSI-Commercial 583h9vh2-1166-9f38-wtu2-z6021rqsv2ne 796l3gm6-2432-9y18-esn9-p6889uhwk6tq Cigna/MVP/Apwu [facility] [id number] Self [id number] Medicare (Part B) Medicare Primary [id number] Self [id number] ANSI-Commercial 44xi6304-4e57-435r-rsxb-180wyr80d590 94ww1388-0i32-840f-gmyj-685nxo75y160 ANSI-Medicare Part B [id number]-[id number]-0795-0561-3150j3383160 ANSI-Commercial 044s0u87-7o5w-6121-4zv3-2b55p7y13g13 492i5h78-8u8y-9292-8ab2-0o69y6u17q43 ANSI-Commercial 1787q9i8-12c9-3hnp-083o-7iyc257379s8 1586e1s1-34q9-9art-039m-5tzw778986q3 ANSI-Medicare Part B [id number]-937q-m7e0-8z767i9ekr61 6h26l52w-1cic-539i-d0k7-0x900p3gql11 ANSI-Commercial 97f9y43r-4960-521b-s7b9-yl11mn5s9mx9 43s4a63y-3112-813l-a5s6-oo06to2z6fo3 ANSI-Commercial 1498628z-jgm4-7hu5-rit7-285042jh951f 2040621s-vfn9-0pq8-rfc2-761978ai272f ANSI-Commercial utg6b6w4-z653-08kx-h332-fp4032v9mf53 whw4p5c6-c284-98kw-p941-nc4095f7ch86 ANSI-Medicare Part B [id number]-18e7-onjy-m84vuj866oo6 b6950enc-rjtt-96r6-wtbd-l88kgt931ay1 MEDICARE [id number] A ANSI-Medicare Part B [id number]-8636-j67u-[id number] tq197o68-9o6e-1483-b12u-k75m2245j7xk ANSI-Commercial l23jx5fb-5328-20dq-2m66-v93n0k69nhc0 b05mj3sq-7297-67jk-3w90-z55t2k68tla3 ANSI-Commercial 4516l859-620j-10y9-930v-81kc73xj531d 2705l613-899r-49u7-936g-19by31gy992c ANSI-Medicare Part B [id number] [id number]x81c55rh60 ANSI-Commercial 1500vj8j-4j3v-2p27-2320-e355bis0r980 9633ft9a-5l8v-2d57-8711-u533rlr2d689 ANSI-Commercial 49et0g69-x67i-6aw5-4v78-9d2384as0rrj 23wd9g92-w30j-9mq1-0p29-8f6196wz3qnc ANSI-Medicare Part B [id number]-8d86-9gq9-eix9-t7ohl2ft79ij 685w820j-7s14-1se5-ehr0-n3rvo6dd97pd ANSI-Commercial yt32ddpz-3880-4ckr-o0w6-9zskwy81p18t kf87gaea-1005-2ryz-z9t0-4molfc39v05m ANSI-Commercial f2321b6y-514h-6bdm-00e8-2r79317a9ih1 s7931n8p-323u-2ttw-17a2-0v59064s6gn9 [employer] [id number] SP [id number] MEDICARE [id number] SP [id number] A MEDICARE [id number] SP [id number] A [employer] [id number] SP [id number] ANSI-Commercial 2323665y-jm4h-1p88-839l-p0s1l593pe1p 3552272u-ne7p-7x02-502x-r4f3r503sy3d ANSI-Commercial 7w79q8e5-20ft-28fh-19x2-b9hc985mss6u 9g95a0w4-04on-32cl-90i5-v8eb246jpu1e ANSI-Medicare Part B [id number]-2288-ny20db4k1438 a9g14c60-42ht-419v-0668-nu55ly5a5862 ANSI-Commercial 20m17f73-0lgy-9du6-5ne6-q185e0k4264d 34i03i31-3bhh-4wc9-4nr6-e572n0b3587a ANSI-Commercial 6284da91-5q45-14h5-e5zt-4eon588798ks 8124xh40-8g85-04x4-p5gx-0rsp461886mi ANSI-Medicare Part B [id number]-[id number] px9x7340-f5xp-7mg2-26j0-g3l3181160ze ANSI-Commercial 516rvp99-6uzo-3qgb-66ko-74ua0715r9s7 081fbs66-8tom-4vnc-96ts-31kw4648x6j5 ANSI-Commercial 721s00u3-r1s1-3xs3-vf71-b9azrn6w8234 007r54h2-p5b5-3sv8-wm45-z5roeq0v2674 ANSI-Medicare Part B [id number]-[id number] ANSI-Commercial 96p867r7-342q-9u06-5147-438r88a1e496 13n889g1-537p-7b86-0492-772j33t8e541 ANSI-Medicare Part B [id number]7l8 ANSI-Commercial vxju8101-5k09-10hm-cn26-19fq6c6y9o78 rify9029-8c97-42oe-gs68-62vh6j5h6x68 Medicare Part B [facility] Other 0 Se lf 0 [employer] [place] [employer] ([employer]) Other [id number] Self [id number] Medicare Part B [facility] Other 0 Se lf 0 [employer] [place] [facility] ([employer]) Other [id number] Self [id number] [employer] O [id number] S [id number] MEDICARE C [id number] S [id number] A [facility] OPTIONS C [id number] O [id number] [place]ID[place] PART B C [id number] O [id number] [employer] Medigap Part B [id number] Self [id number] Medicare [employer] Medicare Primary [id number] Self [id number] Cigna/MVP/Apwu Medigap Part B [id number] Self [id number] Medicare (Part B) Medicare Primary [id number] Self [id number] Cigna/MVP/Apwu Medigap Part B [id number] Self [id number] Medicare (Part B) Medicare Primary [id number] Self [id number] [employer] Plan Medigap Part B [id number] Self [id number] [place] Primary [id number] Self [id number] [employer] Benefit Plan Medigap Part B Self Apwu Medigap Part B [id number] Self [id number] Medicare [facility] Serv[facility] Medicare Primary Self [employer] Medigap Part B Self [employer] Medigap Part B Self Cigna/MVP/Apwu Medigap Part B Self Medicare (Part B) Medicare Primary Self O [id number] S [id number] MEDICARE M [id number] S [id number] A O [id number] S [id number] A Problems, Conditions, and Diagnoses Code Display Name Description Problem Type Effective Dates Data Source(s) Z93.59 956059024 Suprapubic catheter Problem 11/11/2019 12:00 :00 AM EDT eCW1 ([facility]) Surgeries/Procedures Procedure Description Date Indications Data Source(s) Insert Supra Pubic Catheter 20F, Complex 04/23/2020 12 :00:00 AM EST eCW1 ([facility]) Insert Supra Pubic Catheter 20F, Simple 03/27/2020 12: 00:00 AM EST eCW1 ([facility]) ECG ROUTINE ECG W/LEAST 12 LDS W/I&R 03/04/2020 12:00: 00 AM EST [facility] ([facility]) Insert Supra Pubic Catheter 20F, Simple 03/02/2020 12: 00:00 AM EST eCW1 ([facility]) Medication: Lidocaine HCl 2% Jelly 5mL Intravesically 02/12/2020 12:00:00 AM EDT eCW1 ([facility]) TSTG ANS FUNCJ CARDIOVAGAL INNERVAJ PARASYMP 0 12:00:00 AM EDT [facility] ([facility]) TSTG ANS FUNCJ CARDIOVAGAL INNERVAJ PARASYMP 0 12:00:00 AM EDT [facility] ([facility] ) TESTING AUTONOMIC NERVOUS SYSTEM FUNCTION 01/24/2020 1 2:00:00 AM EDT [facility] ([facility]) TESTING AUTONOMIC NERVOUS SYSTEM FUNCTION 01/24/2020 1 2:00:00 AM EDT [facility] ([facility] ) ELECTROENCEPHALOGRAM W/REC AWAKE&ASLEEP 12/13/2019 12: 00:00 AM EDT [facility] ([facility]) ELECTROENCEPHALOGRAM W/REC AWAKE&ASLEEP 12/13/2019 12: 00:00 AM EDT [facility] ([facility] ) BLDR IRRIGATION SMPL LAVAGE&/INSTLJ 11/11/2019 12:00:0 0 AM EDT eCW1 ([facility]) Insert Supra Pubic Catheter 20F, Complex 11/05/2019 12 :00:00 AM EDT eCW1 ([facility]) CYSTOSCOPY 09/20/2019 12:00:00 AM EDT e CW1 ([facility]) Office Visit, Est Pt., Level 2 FC 09/19/2019 12:00:00 AM EDT eCW1 ([facility]) Office Visit, Est Pt., Level 3 PC 09/19/2019 12:00:00 AM EDT eCW1 ([facility]) Irrigation of Bladder 09/19/2019 12:00:00 AM EDT eCW1 ([facility]) ECG ROUTINE ECG W/LEAST 12 LDS W/I&R 09/02/2019 12:00: 00 AM EDT [facility] ([facility]) INSERT BLADDER CATHETER 08/29/2019 12:00:00 AM EDT eCW1 ([facility]) Results ID Date Data Source [id number] 02/05/2020 07:46:00 AM EDT [facility] Name Value Range Interpretation Code Description Data Wendy rce(s) Supporting Document(s) Iron 74 [facility] ([facility]) Tibc % Saturation 23.3 [facility] ([facility]) Iron binding capacity [Mass/volume] in Serum or Plasma 318 [facility] ([facility]) ID Date Data Source [id number] 02/05/2020 07:46:00 AM EDT [facility] Name Value Range Interpretation Code Description Data Wendy rce(s) Supporting Document(s) Triglycerides 84 30-150 [facility] ([facility]) HDL 46 35-60 [facility] ([facility]) Cholesterol in LDL [Mass/volume] in Serum or Plasma by calculation 63 50-159 [facility] ([facility]) Cholesterol 126 131-200 [facility] ([facility]) Chol/HDL Ratio Laboratory test result [facility] ([facility]) ID Date Data Source [id number] 02/05/2020 07:46:00 AM EDT [facility] Name Value Range Interpretation Code Description Data Wendy rce(s) Supporting Document(s) Albumin [Mass/volume] in Serum or Plasma 3.4 [facility] ([facility]) Alanine aminotransferase [Enzymatic activity/volume] in Serum or Pl asma 31 [facility] ([facility]) Calcium [Mass/volume] in Serum or Plasma 9.7 [facility] ([facility]) Carbon dioxide, total [Moles/volume] in Serum or Plasma 30 [facility] ([facility]) Chloride [Moles/volume] in Serum or Plasma 104 [facility] ([facility]) Potassium [Moles/volume] in Serum or Plasma 4.3 [facility] ([facility]) Alkaline phosphatase [Enzymatic activity/volume] in Serum or Plasma 1 65 [facility] ([facility]) Protein [Mass/volume] in Serum or Plasma 8.4 [facility] ([facility]) Aspartate aminotransferase [Enzymatic activity/volume] in Serum or Plasma 21 [facility] ([facility]) Sodium 140 [facility] Glucose 113 74-99 [facility] Urea nitrogen [Mass/volume] in Serum or Plasma 23 [facility] ([facility]) Creatinine For GFR 1.3 [facility] ([facility]) ID Date Data Source [id number] 02/05/2020 07:46:00 AM EDT [facility] ([facility]) Name Value Range Interpretation Code Description Data Wendy rce(s) Supporting Document(s) Hemoglobin A1c/Hemoglobin.total in Blood 7.4 [facility] ([facility]) ID Date Data Source [id number] 02/05/2020 07:46:00 AM EDT [facility] ([facility]) Name Value Range Interpretation Code Description Data Wendy rce(s) Supporting Document(s) White Blood Count 8.8 4.1-10.9 [facility] ([facility]) Red Blood Count 5.94 4.2-6.30 [facility] ([facility]) Platelets 387 140-440 [facility] Hemoglobin 11.7 12.0-18.0 [facility] ([facility]) Hematocrit 34.4 37.0-51.0 [facility] ([facility]) ID Date Data Source [id number] 01/05/2020 09:12:00 AM EDT [facility] ([facility]) Name Value Range Interpretation Code Description Data Wendy rce(s) Supporting Document(s) Reflex Urine Culture Laboratory test result MED[facility] ([facility]) FULL REPORT IN LAB NOTES (eCW and [facility] ). SPECIMEN APPEARS CONTAMINATED ID Date Data Source [id number] 01/05/2020 09:12:00 AM EDT [facility] ([facility]) Name Value Range Interpretation Code Description Data Wendy rce(s) Supporting Document(s) WBC, Urine Man RFX Laboratory test result 0-3 [facility] ([facility]) RBC, Urine Laboratory test result 0-3 [facility] ([facility]) Squamous Epithelial Cell Urine Laboratory test result [facility] ([facility]) Hyaline Cast, Urine Laboratory test result 0-1 [facility] ([facility]) Microscopic Exam Laboratory test result [facility] Bacteria, Urine Laboratory test result M EDENT ([facility]) ID Date Data Source [id number] 01/05/2020 09:12:00 AM EDT [facility] ([facility] Name Value Range Interpretation Code Description Data Wendy rce(s) Supporting Document(s) Appearance, Urine Manual RFX Laboratory test result [facility] ([facility]) Color, Urine Manual Reflex Laboratory test result [facility] ([facility]) SP [place],Urine Manual Reflex 1.014 1.002-1.035 [facility] ([facility]) Glucose, Urine (Ua) Manual Laboratory test result [facility] ([facility]) Protein, Urine Manual Reflex Laboratory test result [facility] ([facility]) PH,Urine Man Reflex 5.5 units 5.0-7.0 [facility] ([facility]) Ketone, Urine Manual Laboratory test result [facility] ([facility]) Bilirubin, Urine Manual Laboratory test result [facility] ([facility]) Urobilinogen, Urine Manual Laboratory test result [facility] ([facility]) Leukocyte Esterase, Ur Man RFX Laboratory test result [facility] ([facility]) Blood Urine Manual RFX Laboratory test result [facility] ([facility]) Nitrite, Urine Manual RFX Laboratory test result [facility] ([facility]) ID Date Data Source [id number] 01/05/2020 09:00:00 AM EDT [facility] ([facility]) Name Value Range Interpretation Code Description Data Wendy rce(s) Supporting Document(s) Abo/RH Type Manual Laboratory test result [facility] ([facility]) ID Date Data Source [id number] 01/05/2020 09:00:00 AM EDT [facility] ([facility]) Name Value Range Interpretation Code Description Data Wendy rce(s) Supporting Document(s) AB Screen (Indirect Barrie)Vis Laboratory test result [facility] ([facility]) ID Date Data Source [id number] 01/05/2020 09:00:00 AM EDT [facility] Name Value Range Interpretation Code Description Data Wendy rce(s) Supporting Document(s) Glucose, Fasting 120 mg/dL 70-100 [facility] ([facility]) Blood Urea Nitrogen 20 mg/dL 7-18 [facility] ([facility]) Sodium Level 138 meq/L 136-145 [facility] ([facility]) Creatinine For GFR 1.20 mg/dL 0.70-1.30 [facility] ([facility]) Glomerular Filtration Rate Laboratory test result [facility] <content>Units are mL/min/1.73 m2</content>
<content></content>
<content>Chronic Kidney Disease Staging per NKF:</content>
<content></content>
<content>Stage I & II GFR >=60 Normal to Mildly Decreased</content>
<content>Stage III GFR 30- 59 Moderately Decreased</content>
<content>Stage IV GFR 15-29 Severely Decreased</content>
<content>Stage V GFR <15 Very Little GFR Left</content>
<content>ESRD GFR <15 on AGING BOX HAND</content>
<content></content> Chloride Level 105 meq/L 98-107 [facility] ([facility]) Potassium Serum 4.3 meq/L 3.5-5.1 [facility] ([facility]) Anion Gap 6 meq/L 8-16 [facility] [facility] Carbon Dioxide Level 27 meq/L 21-32 [facility] ([facility]) Calcium Level 9.2 mg/dL 8.8-10.2 [facility] ([facility]) ID Date Data Source [id number] 01/05/2020 09:00:00 AM EDT [facility] ([facility]) Name Value Range Interpretation Code Description Data Wendy rce(s) Supporting Document(s) Prothrombin Time 13.8 s 11.8-14.0 [facility] ([facility]) Inr 1.03 [facility] ([facility]) THERAPUTIC HUMAN INR VALUES INDICATIONS NORMAL RANGES PROPHYLAXIS/TREATMENT OF: VENOUS THROMBOSIS 2.0-3.0 PULMONARY EMBOLISM 2.0-3.0 PREVENTION OF SYSTEMIC EMBOLISM FROM: TISSUE HEART VALVES 2.0-3.0 ACUTE MYOCARDIAL INFARCTION 2.0-3.0 VALVULAR HEART DISEASE 2.0-3.0 ATRIAL FIBRILLATION 2.0-3.0 MECHANICAL VALVES(HIGH RISK) 2.5-3.5 RECURRENT MYOCARDIAL INFARCTION 2.5-3.5 ID Date Data Source [id number] 01/05/2020 09:00:00 AM EDT [facility] ([facility]) Name Value Range Interpretation Code Description Data Wendy rce(s) Supporting Document(s) White Blood Count 9.6 10 4.0-10.0 [facility] ([facility]) Red Blood Count 6.03 10 4.30-6.10 [facility] ([facility]) Hematocrit 35.8 % 42.0-52.0 [facility] ([facility]) Hemoglobin 10.9 g/dL 13.5-17.5 [facility] ([facility]) Mean Corpuscular Volume 59.4 fl 80.0-96.0 [facility] ([facility]) Mean Corpuscular HGB Conc 30.4 g/dL 32.0-36.5 [facility] NT ([facility]) Red Cell Distribution Width 18.5 % 11.5-14.5 [place] [facility] ([facility]) Mean Corpuscular Hemoglobin 18.1 pg 27.0-33.0 [place] [facility] ([facility]) Platelet Count, Automated 328 10 150-450 [facility] NT ([facility]) Larue % 7.5 % 0.0-5.0 [facility] ([place] [facility]) Lymph % 20.3 % 24.0-44.0 [facility] [facility] Neutrophils % 68.0 % 36.0-66.0 [facility] ([facility]) Baso % 0.7 % 0.0-1.0 [facility] ([place] [facility]) Immature Granulocyte % 0.2 % 0-3.0 [facility] ([facility]) Eos % 3.3 % 0.0-3.0 [facility] ([place] [facility]) Lymph # 2.0 10 1.5-5.0 [facility] ([place] [facility]) Neutrophils # 6.6 10 1.5-8.5 [facility] ([facility]) Nucleated Red Blood Cell % 0.0 % 0-0 MED ENT ([facility]) Eos # 0.3 10 0.0-0.5 [facility] ([place] [facility]) Larue # 0.7 10 0.0-0.8 [facility] ([place] [facility]) Baso # 0.1 10 0.0-0.2 [facility] ([place] [facility]) ID Date Data Source [id number] 11/10/2019 06:49:00 PM EDT [facility] ([facility]) Name Value Range Interpretation Code Description Data Wendy rce(s) Supporting Document(s) Color, Urine Laboratory test result MED[facility] NT ([facility]) Appearance, Urine Laboratory test result [facility] ([facility]) Specific [place] Urine Auto 1.018 1.002-1.035 [facility] ([facility]) PH,Urine 5.0 units 5.0-9.0 [facility] ([place] [facility]) Protein, Urine Auto Laboratory test result [facility] ([facility]) Glucose, Urine (Ua) Auto Laboratory test result [facility] ([facility]) Ketone, Urine Auto Laboratory test result [facility] ([facility]) Urobilinogen, Urine Auto 0.2 mg/dL 0.0-2.0 MEDEN T ([facility]) Nitrite, Urine Auto Laboratory test result MEDENT ([facility]) Blood, Urine Blood Laboratory test result [facility] Bilirubin, Urine Auto Laboratory test result [facility] ([facility] Leukocyte Esterase, Urine Auto Laboratory test result [facility] ([facility] Bacteria, Urine Auto Laboratory test result [facility] ([facility] RBC, Urine Auto 6 /HPF 0-3 [facility] ([facility]) WBC, Urine Auto 126 /HPF 0-3 MED[facility] ([facility]) Squamous Epithelial Cell Ur AU 0 /HPF 0-6 [facility] ([facility] Mucus, Urine Laboratory test result MEDE NT ([facility]) Hyaline Cast, Urine Auto 0 /LPF 0-1 [facility] T ([facility] ID Date Data Source [id number] 11/10/2019 06:49:00 PM EDT MED[facility] ([facility] Name Value Range Interpretation Code Description Data Wendy rce(s) Supporting Document(s) Urine Culture Laboratory test result MED ENT ([facility]) <content>FULL REPORT IN LAB NOTES (eCW a nd Medent).</content>
<content></content>
<content>ORGANISM 1: KLEBSIELLA OXYTOCA</content>
<content></content>
<content>COLONY COUNT >100,000</content>
<content></content>
<content>ORGANISM 2: ENTEROCOCCUS FAECALIS</content>
<content></content>
<content>COLONY COUNT > 100,000</content>
<content></content>
<content>ORGANISM 3: AEROCOCCUS URINAE</content>
<content></content>
<content>COLONY COUNT >100,000</content>
<content>Aerococcus urinae has been described as susceptible to</content>
<content>penicillin, amoxicillin, piperacillin, cefepime,</content>
<content>rifampin, and nitrofurantoin but resistant to</content>
<content>sulfonamides and netilmicin.</content>
<content></content>
<content></content>
<kary nt>ORGANISM 1: KLEBSIELLA OXYTOCA</content>
<content>ORGANISM 2: ENTEROCOCCUS FAECALIS</content>
<content>ORGANISM 3: AEROCOCCUS URINAE</content>
<content></content>
<content>KLEBSIELLA OXYTOCA: REACTION</content>
<content>TRIMETHOPRIM/SULFAMETHOXAZOLE IV 160mg TMP & 800mg SMXq6h <=20 S</content>
<content>TRIMETHOPRIM/SULFAMETHOXAZOLE PO Bactrim DS Bid <=20 S</content>
<content>AMPICILLIN IV 500mg q6h >=32 R</content>
<content>AMPICILLIN PO 500mg q6h fasting >=32 R</content>
<content>GENTAMICIN IV 80mg q8h <=1 S</content>
<content>NITROFURANTOIN PO 100mg BID <=16 S</content>
<content>CEFAZOLIN IV 1gm q8h 8 S</content>
<content>LEVOFLOXACIN IV 500mg qd <=0.12 S</content>
<content>LEVOFLOXACIN PO 250mg qd <=0.12 S</content>
<content>LEVOFLOXACIN PO 500mg qd <=0.12 S</content>
<content>TOBRAMYCIN IV 80mg q8h <=1 S</content>
<content>CEFTRIAXONE IV 1gm q24h <=1 S</content>
<content>CEFTAZIDIME IV 1gm q8h <=1 S</content>
<content>AMPICILLIN/SULBACTAM IV 1.5g q6h 16 I</content>
<content>PIPERACILLIN/TAZOBACTAM IV 2.25 gm q6h <=4 S</content>
<content>AZTREONAM IV 1gm q8h <=1 S</content>
<content>ERTAPENEM IV 1gm qd <=0.5 S</content>
<content>MEROPENEM IV 1 gm q8h <=0.25 S</content>
<content> MEROPENEM IV 500 mg q8h <=0.25 S</content>
<content>TIGECYCLINE IV 50mg q12h <=0.5 S</content>
<content>CEFEPIME IV 1 gm q12h <=1 S</content>
<content>CEFEPIME IV 2 gm q12h <=1 S</content>
<content>EXTD BRD SPCTRM BETA LACTAMASE IV NEGATIVE FOR ESBL</content>
<content></content>
<content>ENTEROCOCCUS FAECALIS: REACTION</content>
<content>TETRACYCLINE PO 250 mg qid >=16 R</content>
<content>PENICILLIN G IV 1 mu q6H 2 S</content>
<content> PENICILLIN G IV 1 mu q6h 2 S</content>
<content>PENICILLIN G PO 250mg q6h fasting 2 S</content>
<content>AMPICILLIN IV 500mg q6h <=2 S</content>
<content>AMPICILLIN PO 500mg q6h fasting <=2 S</content>
<content> ERYTHROMYCIN IV 500mg q6h 2 I</content>
<content>ERYTHROMYCIN PO 500mg q6h 2 I</content>
<content>GENTAMICIN 500 IV 80mg q8h S</content>
<content>NITROFURANTOIN PO 100mg BID <=16 S</content>
<content>LEVOFLOXACIN IV 500mg qd 1 S</content>
<content>LEVOFLOXACIN PO 250mg qd 1 S</content>
<content>LEVOFLOXACIN PO 500mg qd 1 S</content>
<content>CIPROFLOXACIN IV 400mg bid 1 S</content>
<content>CIPROFLOXACIN PO 500mg q12h 1 S</content>
<content>VANCOMYCIN IV 500mg q8h 2 S</content>
<content>LINEZOLID (ZYVOX) IV 600MG Q12HR 2 S</content>
<content>LINEZOLID (ZYVOX) PO 600MG Q12HR 2 S</content>
<content></content> ID Date Data Source [id number] 10/02/2019 11:47:00 AM EDT MEDENT ([facility]) Name Value Range Interpretation Code Description Data Wendy rce(s) Supporting Document(s) Glucose [Mass/volume] in Serum or Plasma 225 mg/dL 74-99 MEDENT ([facility]) 100-125 mg/dL PRE-DIABETES/FASTING >126 mg/dL DIABETES/FASTING Urea nitrogen [Mass/volume] in Serum or Plasma 22 mg/dL 7-18 MED[facility] ([facility]) Creatinine 1.2 mg/dL 0.6-1.3 [facility] ([facility]) Sodium [Moles/volume] in Serum or Plasma 141 meq/L 136-145 MED[facility] ([facility]) Potassium [Moles/volume] in Serum or Plasma 4.0 meq/L 3.5-5.1 [facility] ([facility]) Chloride [Moles/volume] in Serum or Plasma 105 meq/L 98-107 [facility] ([facility]) Glomerular filtration rate/1.73 sq M pre dicted among non-blacks [Volume Rate/Area] in Serum or Plasma by Creatinine-based formula (MDRD) 57 mL/min MEDENT ([facility]) Calcium [Mass/volume] in Serum or Plasma 8.9 mg/dL 8.5-10.1 [facility] ([facility]) Carbon dioxide, total [Moles/volume] in Serum or Plasma 29 meq/L 21 -32 [facility] ([facility]) Glomerular filtration rate/1.73 sq M pre dicted among blacks [Volume Rate/Area] in Serum or Plasma by Creatinine-based formula (MDRD) Laboratory test result [facility] ([facility]) <content>CHRONIC KIDNEY DISEASE STAGING PER NKF</content>
<content></content>
<content>STAGE I & II GFR >= 60 NORMAL TO MILDLY DECREASED</content>
<content>STAGE III GFR 30-59 MODERATELY DECREASED</content>
<content>STAGE IV GFR 15-29 SEVERELY DECREASED</content>
<content>STAGE V GFR <15 VERY LITTLE GFR LEFT</content>
<content>ESRD GFR <15 ON AGING BOX HAND</content>
<content></content> ID Date Data Source [id number] 10/02/2019 11:47:00 AM EDT MED[facility] ([facility]) Name Value Range Interpretation Code Description Data Wendy rce(s) Supporting Document(s) Leukocytes [#/volume] in Blood by Automated count 12.4 x10*3/UL 4.1-1 0.9 MEDENT ([facility]) Erythrocytes [#/volume] in Blood by Automated count 4.72 x10*6/UL 4.2 0-6.30 [facility] ([facility]) MCV 59.0 fL 80.0-97.0 [facility] [facility]) Hemoglobin [Mass/volume] in Blood 9.3 g/dL 12.0-18.0 [facility] ([facility]) NOTE: RESULT VERIFIED. Hematocrit [Volume Fraction] of Blood by Automated count 27.8 % 3 7.0-51.0 [facility] ([facility]) Erythrocyte distribution width [Ratio] by Automated count 16.6 % 11.6-13.7 [facility] ([facility]) MCH 19.8 pg 26.0-32.0 [facility] [facility]) MCHC 33.6 g/dL 31.0-38.0 [facility] ([place] [facility]) MPV 9.1 FL 7.8-11.0 [facility] [facility] Lymph % 18.3 % 10.0-58.5 [facility] [facility] Platelets [#/volume] in Blood by Automated count 489 x10*3/UL 140-440 MED[facility] ([facility]) Mid % 7.0 % 1.7-9.3 [facility] [facility] Mid # 1.0 x10*3/UL 0.1-0.6 [facility] ([facility]) Neut % 74.7 % 37.0-92.0 [facility] [facility] Lymph # 2.2 x10*3/UL 0.6-4.1 [facility] ([facility]) Neut # 9.2 x10*3/UL 2.0-7.8 [facility] ([facility]) ID Date Data Source [id number] 09/22/2019 04:33:00 PM EDT MED[facility] ([facility]) Name Value Range Interpretation Code Description Data Wendy rce(s) Supporting Document(s) Laboratory test finding (navigational concept) 35.0 % 38.0-51.0 MED[facility] ([facility]) Laboratory test finding (navigational concept) 115 mg/dL 70-105 [facility] ([facility]) Laboratory test finding (navigational concept) 4.9 meq/L 3.5-5.1 [facility] ([facility]) Laboratory test finding (navigational concept) 139 meq/L 136-145 MED[facility] ([facility]) Laboratory test finding (navigational concept) 23 mg/dL 8-26 [facility] ([facility]) Laboratory test finding (navigational concept) 5.0 mg/dL 4.5-5.3 [facility] ([facility]) Laboratory test finding (navigational concept) 28.0 MM/L 23.0-27.0 [facility] ([facility]) Laboratory test finding (navigational concept) 101 meq/L 98-109 MED[facility] ([facility]) Laboratory test finding (navigational concept) 1.1 mg/dL 0.6-1.3 [facility] ([facility]) ID Date Data Source [id number] 09/22/2019 04:26:00 PM EDT MED[facility] ([facility]) Name Value Range Interpretation Code Description Data Wendy rce(s) Supporting Document(s) WBC, Urine Man RFX Laboratory test result 0-3 MED[facility] ([facility]) Squamous Epithelial Cell Urine Laboratory test result MEDENT ([facility]) Bacteria, Urine Laboratory test result M EDENT ([facility]) RBC, Urine Laboratory test result 0-3 [facility] ([facility]) Hyaline Cast, Urine Laboratory test result 0-1 [facility] ([facility]) Mucus, Urine Laboratory test result MEDE NT ([facility]) Microscopic Exam Laboratory test result MEDENT ([facility]) ID Date Data Source [id number] 09/22/2019 04:26:00 PM EDT MED[facility] ([facility]) Name Value Range Interpretation Code Description Data Wendy rce(s) Supporting Document(s) Color, Urine Manual Reflex Laboratory test result MEDENT ([facility]) Appearance, Urine Manual RFX Laboratory test result MEDENT ([facility]) Glucose, Urine (Ua) Manual Laboratory test result MED[facility] ([facility]) PH,Urine Man Reflex 5.0 units 5.0-7.0 [facility] ([facility]) Protein, Urine Manual Reflex Laboratory test result MEDENT ([facility]) SP [place],Urine Manual Reflex 1.020 1.002-1.035 MED[facility] ([facility]) Bilirubin, Urine Manual Laboratory test result [facility] ([facility]) Urobilinogen, Urine Manual Laboratory test result MED[facility] ([facility]) Ketone, Urine Manual Laboratory test result [facility] ([facility]) Leukocyte Esterase, Ur Man RFX Laboratory test result [facility] ([facility]) Nitrite, Urine Manual RFX Laboratory test result [facility] ([facility]) Blood Urine Manual RFX Laboratory test result [facility] ([facility]) ID Date Data Source [id number] 09/22/2019 04:26:00 PM EDT MEDENT ([facility]) Name Value Range Interpretation Code Description Data Wendy rce(s) Supporting Document(s) White Blood Count 9.9 10 4.0-10.0 MED[facility] ([facility]) Hematocrit 35.4 % 42.0-52.0 [facility] ([facility]) Red Blood Count 5.89 10 4.30-6.10 MED[facility] ([facility]) Hemoglobin 10.7 g/dL 13.5-17.5 [facility] Mean Corpuscular Hemoglobin 18.2 pg 27.0-33.0 ME DENT ([facility]) Mean Corpuscular HGB Conc 30.2 g/dL 32.0-36.5 MEDE NT ([facility]) Mean Corpuscular Volume 60.1 fl 80.0-96.0 [facility] ([facility]) Lymph % 26.2 % 24.0-44.0 [facility]) Neutrophils % 63.2 % 36.0-66.0 MED[facility] ([facility]) Platelet Count, Automated 589 10 150-450 MEDE NT ([facility]) Red Cell Distribution Width 18.0 % 11.5-14.5 ME DENT ([facility]) Larue % 6.7 % 0.0-5.0 [facility]) Eos % 2.8 % 0.0-3.0 [facility]) Baso % 0.6 % 0.0-1.0 [facility] ([facility]) Lymph # 2.6 10 1.5-5.0 [facility]) Nucleated Red Blood Cell % 0.0 % 0-0 MED ENT ([facility]) Neutrophils # 6.2 10 1.5-8.5 MED[facility] ([facility]) Immature Granulocyte % 0.5 % 0-3.0 MEDENT ([facility]) Larue # 0.7 10 0.0-0.8 [facility] [facility]) Eos # 0.3 10 0.0-0.5 [facility] ([facility]) Baso # 0.1 10 0.0-0.2 [facility]) ID Date Data Source [id number] 09/21/2019 09:14:00 PM EDT MED[facility] ([facility]) Name Value Range Interpretation Code Description Data Wendy rce(s) Supporting Document(s) PH,Urine RFX 6.0 units 5.0-9.0 [facility] ([facility] Color, Urine RFX Laboratory test result MEDENT ([facility]) Specific [place] Ur Auto RFX 1.005 1.002-1.035 [facility] ([facility] Appearance, Urine RFX Laboratory test result [facility] ([facility]) Protein, Urine Auto RFX Laboratory test result [facility] ([facility]) Glucose, Urine (Ua) Auto RFX Laboratory test result [facility] ([facility]) Ketone, Urine Auto RFX Laboratory test result [facility] ([facility]) Nitrite, Urine Auto RFX Laboratory test result [facility] ([facility]) Urobilinogen, Urine Auto RFX 0.2 mg/dL 0.0-2.0 [facility] ([facility]) Bilirubin, Urine Auto RFX Laboratory test result [facility] ([facility]) Blood, Urine Blood RFX Laboratory test result MED[facility] ([facility]) Leukocyte Esterase Ur Auto RFX Laboratory test result [facility] ([facility]) WBC, Urine Auto RFX 43 /HPF 0-3 [facility] ([facility] RBC, Urine Auto RFX Laboratory test result 0-3 [facility] ([facility]) Bacteria, Urine Auto RFX Laboratory test result [facility] ([facility]) Hyaline Cast, Urine Auto RFX 0 /LPF 0-1 M EDENT ([facility]) Squam Epithelial Cell Ur Aurfx 0 /HPF 0-6 [facility] ([facility]) ID Date Data Source [id number] 09/21/2019 09:14:00 PM EDT [facility]) Name Value Range Interpretation Code Description Data Wendy rce(s) Supporting Document(s) Reflex Urine Culture Laboratory test [facility] FULL REPORT IN LAB NOTES (eCW and Medent ). NO GROWTH ID Date Data Source [id number] 09/21/2019 08:01:00 PM EDT [facility] ([facility]) Name Value Range Interpretation Code Description Data Wendy rce(s) Supporting Document(s) White Blood Count 10.1 10 4.0-10.0 MED[facility] ([facility]) Hematocrit 32.6 % 42.0-52.0 [facility] Red Blood Count 5.47 10 4.30-6.10 [facility] ([facility]) Hemoglobin 10.0 g/dL 13.5-17.5 [facility]) Mean Corpuscular Volume 59.6 fl 80.0-96.0 [facility] ([facility]) Mean Corpuscular HGB Conc 30.7 g/dL 32.0-36.5 MEDE NT ([facility]) Mean Corpuscular Hemoglobin 18.3 pg 27.0-33.0 ME DENT ([facility]) Red Cell Distribution Width 17.4 % 11.5-14.5 ME DENT ([facility]) Neutrophils % 59.6 % 36.0-66.0 MED[facility] ([facility]) Platelet Count, Automated 544 10 150-450 MEDE NT ([facility]) Eos % 5.6 % 0.0-3.0 [facility] ([place] [facility]) Baso % 0.7 % 0.0-1.0 [facility] ([place] [facility]) Lymph % 25.6 % 24.0-44.0 [facility] ([place] [facility]) Lar[place] % 7.9 % 0.0-5.0 [facility] ([place] [facility]) Neutrophils # 6.0 10 1.5-8.5 [facility] ([facility]) Immature Granulocyte % 0.6 % 0-3.0 MED[facility] ([facility]) Nucleated Red Blood Cell % 0.0 % 0-0 MED ENT ([facility]) Baso # 0.1 10 0.0-0.2 [facility] ([place] [facility]) Lymph # 2.6 10 1.5-5.0 [facility] [facility]) Larue # 0.8 10 0.0-0.8 MED[facility] ([facility]) Eos # 0.6 10 0.0-0.5 [facility]) ID Date Data Source [id number] 09/21/2019 08:01:00 PM EDT [facility] ([facility]) Name Value Range Interpretation Code Description Data Wendy rce(s) Supporting Document(s) Inr 1.14 [facility] ([facility]) THERAPUTIC HUMAN INR VALUES INDICATIONS NORMAL RANGES PROPHYLAXIS/TREATMENT OF: VENOUS THROMBOSIS 2.0-3.0 PULMONARY EMBOLISM 2.0-3.0 PREVENTION OF SYSTEMIC EMBOLISM FROM: TISSUE HEART VALVES 2.0-3.0 ACUTE MYOCARDIAL INFARCTION 2.0-3.0 VALVULAR HEART DISEASE 2.0-3.0 ATRIAL FIBRILLATION 2.0-3.0 MECHANICAL VALVES(HIGH RISK) 2.5-3.5 RECURRENT MYOCARDIAL INFARCTION 2.5-3.5 Prothrombin Time 14.3 s 11.8-14.0 [facility] ([facility]) ID Date Data Source [id number] 09/21/2019 08:01:00 PM EDT [facility] ([facility]) Name Value Range Interpretation Code Description Data Wendy rce(s) Supporting Document(s) aPTT in Blood by Coagulation assay 36.1 s 25.0-38.4 [facility] ID Date Data Source [id number] 09/21/2019 08:01:00 PM EDT [facility] ([facility]) Name Value Range Interpretation Code Description Data Wendy rce(s) Supporting Document(s) Glucose, Fasting 117 mg/dL 70-100 [facility] ([facility]) Glomerular Filtration Rate Laboratory test result [facility] [facility] <content>Units are mL/min/1.73 m2</content>
<content></content>
<content>Chronic Kidney Disease Staging per NKF:</content>
<content></content>
<content>Stage I & II GFR >=60 Normal to Mildly Decreased</content>
<content>Stage III GFR 30- 59 Moderately Decreased</content>
<content>Stage IV GFR 15-29 Severely Decreased</content>
<content>Stage V GFR <15 Very Little GFR Left</content>
<content>ESRD GFR <15 on AGING BOX HAND</content>
<content></content> Creatinine For GFR 1.08 mg/dL 0.70-1.30 MED[facility] ([facility]) Blood Urea Nitrogen 23 mg/dL 7-18 [facility] ([facility]) Potassium Serum 5.1 meq/L 3.5-5.1 [facility] ([facility]) Sodium Level 140 meq/L 136-145 [facility] ([facility]) Chloride Level 104 meq/L 98-107 [facility] ([facility]) Anion Gap 7 meq/L 8-16 [facility] ([place] [facility]) Calcium Level 8.5 mg/dL 8.8-10.2 [facility] ([facility]) Carbon Dioxide Level 29 meq/L 21-32 [facility] ([facility]) ID Date Data Source [id number] 09/15/2019 08:57:00 AM EDT MED[facility] ([facility]) Name Value Range Interpretation Code Description Data Wendy rce(s) Supporting Document(s) Reflex Urine Culture Laboratory test result [facility] ([facility]) FULL REPORT IN LAB NOTES (eCW and Medent ). NO GROWTH ID Date Data Source [id number] 09/15/2019 08:57:00 AM EDT [facility] ([facility]) Name Value Range Interpretation Code Description Data Wendy rce(s) Supporting Document(s) Appearance, Urine RFX Laboratory test result [facility] ([facility]) Specific [place] Ur Auto RFX 1.017 1.002-1.035 [facility] ([facility]) Color, Urine RFX Laboratory test result [facility] ([facility]) PH,Urine RFX 5.0 units 5.0-9.0 [facility] ([facility]) Protein, Urine Auto RFX Laboratory test result [facility] ([facility]) Urobilinogen, Urine Auto RFX 0.2 mg/dL 0.0-2.0 [facility] ([facility]) Ketone, Urine Auto RFX Laboratory test result [facility] ([facility]) Glucose, Urine (Ua) Auto RFX Laboratory test result [facility] [facility] Nitrite, Urine Auto RFX Laboratory test result [facility] ([place] [facility] Bilirubin, Urine Auto RFX Laboratory test result [facility] ([place] [facility] Leukocyte Esterase Ur Auto RFX Laboratory test result [facility] ([facility]) Bacteria, Urine Auto RFX Laboratory test result [facility] ([facility]) RBC, Urine Auto RFX 133 /HPF 0-3 [facility] WBC, Urine Auto RFX 55 /HPF 0-3 [facility] ([facility]) Blood, Urine Blood RFX Laboratory test result [facility] ([facility]) Mucus, Urine RFX Laboratory test result [facility] ([facility]) Squam Epithelial Cell Ur Aurfx 0 /HPF 0-6 [facility] ([facility]) Hyaline Cast, Urine Auto RFX 0 /LPF 0-1 M EDENT ([facility]) Amorphous Sediment RFX Laboratory test result [facility] ([facility]) ID Date Data Source [id number] 09/15/2019 08:33:00 AM EDT [facility] Name Value Range Interpretation Code Description Data Wendy rce(s) Supporting Document(s) Lipoprotein lipase [Enzymatic activity/volume] in Serum or Plasm a 77 U/L 73-393 [facility] ([facility]) ID Date Data Source [id number] 09/15/2019 08:33:00 AM EDT [facility] Name Value Range Interpretation Code Description Data Wendy rce(s) Supporting Document(s) Glucose, Fasting 144 mg/dL 70-100 [facility] Blood Urea Nitrogen 23 mg/dL 7-18 [facility] ([facility] Creatinine For GFR 1.25 mg/dL 0.70-1.30 [facility] Glomerular Filtration Rate 58.3 MED ENT ([facility]) <content>Units are mL/min/1.73 m2</content>
<content></content>
<content>Chronic Kidney Disease Staging per NKF:</content>
<content></content>
<content>Stage I & II GFR >=60 Normal to Mildly Decreased</content>
<content>Stage III GFR 30-59 Moderately Decreased</content>
<content>Stage IV GFR 15-29 Severely Decreased</content>
<content>Stage V GFR <15 Very Little GFR Left</content>
<content>ESRD GFR <15 on AGING BOX HAND</content>
<content></content> Sodium Level 141 meq/L 136-145 [facility] ([facility]) Carbon Dioxide Level 24 meq/L 21-32 [facility] ([facility]) Potassium Serum 4.2 meq/L 3.5-5.1 [facility] ([facility]) Chloride Level 107 meq/L 98-107 [facility] ([facility] [facility]) Anion Gap 10 meq/L 8-16 [facility] ([place] [facility]) Calcium Level 8.8 mg/dL 8.8-10.2 [facility] ([facility]) ID Date Data Source [id number] 09/15/2019 08:33:00 AM EDT [facility] ([facility]) Name Value Range Interpretation Code Description Data Wendy rce(s) Supporting Document(s) Alkaline Phosphatase 153 U/L 45-117 [facility] ([facility]) Alt/SGPT 65 U/L 12-78 [facility] ([place] [facility]) Ast/Sgot 37 U/L 7-37 [facility] ([place] [facility]) Total Protein 7.5 GM/DL 6.4-8.2 [facility] ([facility]) Bilirubin,Total 0.4 mg/dL 0.2-1.0 [facility] ([facility]) Bilirubin,Direct 0.2 mg/dL 0.0-0.2 [facility] ([facility]) Albumin 3.1 GM/DL 3.2-5.2 [facility] ([place] [facility]) Albumin/Globulin Ratio 0.7 [facility] ([place] [facility]) ID Date Data Source [id number] 09/15/2019 08:33:00 AM EDT [facility] ([facility]) Name Value Range Interpretation Code Description Data Wendy rce(s) Supporting Document(s) Hemoglobin 10.0 g/dL 13.5-17.5 [facility] ([facility]) Red Blood Count 5.48 10 4.30-6.10 [facility] ([facility]) White Blood Count 11.8 10 4.0-10.0 [facility] ([facility]) Hematocrit 32.2 % 42.0-52.0 [facility] ([facility]) Mean Corpuscular Hemoglobin 18.2 pg 27.0-33.0 ME DENT ([place] [facility]) Mean Corpuscular Volume 58.8 fl 80.0-96.0 [facility] ([place] [facility]) Mean Corpuscular HGB Conc 31.1 g/dL 32.0-36.5 MEDE NT ([place] [facility]) Platelet Count, Automated 322 10 150-450 MEDE NT ([place] [facility]) Red Cell Distribution Width 16.7 % 11.5-14.5 ME DENT ([place] [facility]) Larue % 8.1 % 0.0-5.0 [facility] [facility] Lymph % 10.2 % 24.0-44.0 [facility] [facility] Neutrophils % 79.0 % 36.0-66.0 [facility] ([facility]) Baso % 0.5 % 0.0-1.0 [facility] [facility] Immature Granulocyte % 1.1 % 0-3.0 [facility] ([place] [facility]) Eos % 1.1 % 0.0-3.0 [facility] ([place] [facility]) Neutrophils # 9.3 10 1.5-8.5 [facility] ([facility]) Lymph # 1.2 10 1.5-5.0 [facility] [facility] Nucleated Red Blood Cell % 0.0 % 0-0 MED ENT ([place] [facility]) Larue # 1.0 10 0.0-0.8 [facility] ([place] [facility]) Baso # 0.1 10 0.0-0.2 [facility] ([place] [facility]) Eos # 0.1 10 0.0-0.5 [facility] ([facility]) ID Date Data Source [id number] 09/12/2019 02:18:00 AM EDT [facility] ([facility]) Name Value Range Interpretation Code Description Data Wendy rce(s) Supporting Document(s) Lactate [Mass/volume] in Serum or Plasma 0.8 mmol/L 0.4-2.0 [facility] ([place] [facility]) Y/N query for Sepsis Lactate Rule: Y ID Date Data Source [id number] 09/12/2019 02:18:00 AM EDT [facility] ([facility]) Name Value Range Interpretation Code Description Data Wendy rce(s) Supporting Document(s) Color, Urine Laboratory test result MEDE NT ([place] [facility]) Appearance, Urine Laboratory test result [facility] ([place] [facility]) PH,Urine 5.0 units 5.0-9.0 [facility] ([facility]) Glucose, Urine (Ua) Auto Laboratory test result [facility] ([place] [facility]) Specific [place] Urine Auto 1.015 1.002-1.035 [facility] ([place] [facility]) Ketone, Urine Auto Laboratory test result [facility] ([place] [facility]) Protein, Urine Auto Laboratory test result [facility] ([place] [facility]) Urobilinogen, Urine Auto 0.2 mg/dL 0.0-2.0 MEDEN T ([place] [facility]) Nitrite, Urine Auto Laboratory test result [facility] ([place] [facility]) Bilirubin, Urine Auto Laboratory test result [facility] ([place] [facility]) Leukocyte Esterase, Urine Auto Laboratory test result [facility] ([place] [facility]) Blood, Urine Blood Laboratory test result [facility] ([place] [facility]) WBC, Urine Auto Laboratory test result 0-3 M EDENT ([place] [facility]) RBC, Urine Auto 154 /HPF 0-3 [facility] ([facility]) Bacteria, Urine Auto Laboratory test result [facility] ([place] [facility]) Yeast Like Cell Urine Auto Laboratory test result [facility] ([place] [facility]) Squamous Epithelial Cell Ur AU 2 /HPF 0-6 [facility] ([place] [facility]) Mucus, Urine Laboratory test result MEDE NT ([place] [facility]) Transitional Epithelial Auto 7 /HPF M EDENT ([place] [facility]) Hyaline Cast, Urine Auto 31 /LPF 0-1 MEDEN T ([place] [facility]) Amorphous Sediment Laboratory test result [facility] ([place] [facility]) ID Date Data Source [id number] 09/12/2019 12:38:00 AM EDT [facility] ([facility]) Name Value Range Interpretation Code Description Data Wendy rce(s) Supporting Document(s) Laboratory test finding (navigational concept) 155 mg/dL 70-105 [facility] ([place] [facility]) Laboratory test finding (navigational concept) 31.0 % 38.0-51.0 [facility] ([place] [facility] Laboratory test finding (navigational concept) 4.0 meq/L 3.5-5.1 [facility] ([place] [facility]) Laboratory test finding (navigational concept) 138 meq/L 136-145 [facility] ([place] [facility]) Laboratory test finding (navigational concept) 101 meq/L 98-109 [facility] ([place] [facility]) Laboratory test finding (navigational concept) 4.7 mg/dL 4.5-5.3 [facility] ([place] [facility]) Laboratory test finding (navigational concept) 29 mg/dL 8-26 [facility] ([place] [facility]) Laboratory test finding (navigational concept) 24.0 MM/L 23.0-27.0 [facility] ([place] [facility]) Laboratory test finding (navigational concept) 1.4 mg/dL 0.6-1.3 [facility] ([place] [facility]) ID Date Data Source [id number] 09/11/2019 12:30:00 AM EDT [facility] ([facility]) Name Value Range Interpretation Code Description Data Wendy rce(s) Supporting Document(s) Hematocrit 30.8 % 42.0-52.0 [facility] ([facility]) Red Blood Count 5.19 10 4.30-6.10 [facility] ([facility]) Hemoglobin 9.7 g/dL 13.5-17.5 [facility] ([place] [facility]) White Blood Count 19.0 10 4.0-10.0 [facility] ([facility]) Mean Corpuscular Volume 59.3 fl 80.0-96.0 [facility] ([place] [facility]) Mean Corpuscular Hemoglobin 18.7 pg 27.0-33.0 ME DENT ([place] [facility]) Mean Corpuscular HGB Conc 31.5 g/dL 32.0-36.5 MEDE NT ([place] [facility]) Platelet Count, Automated 214 10 150-450 MEDE NT ([place] [facility]) Red Cell Distribution Width 16.9 % 11.5-14.5 ME DENT ([place] [facility]) Neutrophils % 82.9 % 36.0-66.0 [facility] ([facility]) Larue % 7.6 % 0.0-5.0 [facility] ([place] [facility]) Lymph % 8.4 % 24.0-44.0 [facility] ([place] [facility]) Baso % 0.3 % 0.0-1.0 [facility] ([place] [facility]) Eos % 0.2 % 0.0-3.0 [facility] ([place] [facility]) Immature Granulocyte % 0.6 % 0-3.0 [facility] ([place] [facility]) Neutrophils # 15.8 10 1.5-8.5 [facility] ([facility]) Nucleated Red Blood Cell % 0.0 % 0-0 MED ENT ([place] [facility]) Lymph # 1.6 10 1.5-5.0 [facility] ([place] [facility]) Larue # 1.5 10 0.0-0.8 [facility] ([place] [facility]) Eos # 0.0 10 0.0-0.5 [facility] ([place] [facility]) Baso # 0.1 10 0.0-0.2 [facility] ([place] [facility]) ID Date Data Source [id number] 09/08/2019 12:16:00 AM EDT [facility] ([facility]) Name Value Range Interpretation Code Description Data Wendy rce(s) Supporting Document(s) Laboratory test finding (navigational concept) 119 mg/dL 70-105 [facility] ([place] [facility]) Laboratory test finding (navigational concept) 37.0 % 38.0-51.0 [facility] ([place] [facility]) Laboratory test finding (navigational concept) 142 meq/L 136-145 [facility] ([place] [facility]) Laboratory test finding (navigational concept) 5.1 mg/dL 4.5-5.3 [facility] ([place] [facility]) Laboratory test finding (navigational concept) 4.4 meq/L 3.5-5.1 [facility] ([place] [facility]) Laboratory test finding (navigational concept) 103 meq/L 98-109 [facility] ([place] [facility]) Laboratory test finding (navigational concept) 27.0 MM/L 23.0-27.0 [facility] ([place] [facility]) Laboratory test finding (navigational concept) 22 mg/dL 8-26 [facility] ([place] [facility]) Laboratory test finding (navigational concept) 1.1 mg/dL 0.6-1.3 [facility] ([place] [facility]) ID Date Data Source [id number] 09/08/2019 12:12:00 AM EDT [facility]) Name Value Range Interpretation Code Description Data Wendy rce(s) Supporting Document(s) aPTT in Blood by Coagulation assay 37.1 s 25.0-38.4 [facility] [facility]) ID Date Data Source [id number] 09/08/2019 12:12:00 AM EDT [facility] ([facility]) Name Value Range Interpretation Code Description Data Wendy rce(s) Supporting Document(s) Prothrombin Time 14.4 s 11.8-14.0 [facility] ([facility]) Inr 1.15 [facility] ([place] [facility]) THERAPUTIC HUMAN INR VALUES INDICATIONS NORMAL RANGES PROPHYLAXIS/TREATMENT OF: VENOUS THROMBOSIS 2.0-3.0 PULMONARY EMBOLISM 2.0-3.0 PREVENTION OF SYSTEMIC EMBOLISM FROM: TISSUE HEART VALVES 2.0-3.0 ACUTE MYOCARDIAL INFARCTION 2.0-3.0 VALVULAR HEART DISEASE 2.0-3.0 ATRIAL FIBRILLATION 2.0-3.0 MECHANICAL VALVES(HIGH RISK) 2.5-3.5 RECURRENT MYOCARDIAL INFARCTION 2.5-3.5 ID Date Data Source [id number] 09/08/2019 12:12:00 AM EDT [facility] ([facility]) Name Value Range Interpretation Code Description Data Wendy rce(s) Supporting Document(s) Red Blood Count 5.95 10 4.30-6.10 [facility] ([facility]) White Blood Count 9.5 10 4.0-10.0 [facility] ([facility]) Hematocrit 36.3 % 42.0-52.0 [facility] ([facility]) Mean Corpuscular Hemoglobin 18.5 pg 27.0-33.0 ME DENT ([place] [facility]) Hemoglobin 11.0 g/dL 13.5-17.5 [facility] ([facility]) Mean Corpuscular Volume 61.0 fl 80.0-96.0 [facility] ([place] [facility]) Platelet Count, Automated 323 10 150-450 MEDE NT ([place] [facility]) Red Cell Distribution Width 17.7 % 11.5-14.5 [place] [facility] ([place] [facility]) Mean Corpuscular HGB Conc 30.3 g/dL 32.0-36.5 MEDE NT ([place] [facility]) Lymph % 23.8 % 24.0-44.0 [facility] [facility] Neutrophils % 57.2 % 36.0-66.0 [facility] ([facility]) Larue % 10.5 % 0.0-5.0 [facility] [facility] Eos % 7.4 % 0.0-3.0 [facility] [facility] Baso % 0.8 % 0.0-1.0 [facility] [facility] Nucleated Red Blood Cell % 0.0 % 0-0 MED ENT ([place] [facility]) Immature Granulocyte % 0.3 % 0-3.0 [facility] ([place] [facility]) Lymph # 2.3 10 1.5-5.0 [facility] ([place] [facility]) Larue # 1.0 10 0.0-0.8 [facility] ([place] [facility]) Neutrophils # 5.4 10 1.5-8.5 [facility] ([facility]) Eos # 0.7 10 0.0-0.5 [facility] ([place] [facility]) Baso # 0.1 10 0.0-0.2 [facility] [facility] ID Date Data Source [id number] 08/19/2019 11:10:00 AM EDT [facility] ([facility]) Name Value Range Interpretation Code Description Data Wendy rce(s) Supporting Document(s) Ygmow-6-Vxqreucov % 13.4 % 7.1-11.8 [facility] ([facility]) Albumin % 51.1 % 55.8-66.1 [facility] [facility] Rszwi-7-Ysrpbgfb % 5.1 % 2.9-4.9 [facility] ([facility]) Jmay-5-Wewattdhd % 6.3 % 3.2-6.5 [facility] ([facility]) Albumin 4.14 GM/DL 3.29-5.55 [facility] [facility] Pgjd-9-Zomxobhxe % 5.3 % 4.7-7.2 [facility] ([facility]) Gamma Globulin % 18.8 % 11.1-18.8 [facility] ([facility]) Xhktx-8-Xeaqmtykj 1.09 GM/DL 0.42-0.99 [facility] ([facility]) Mydxx-7-Elkuicdiy 0.41 GM/DL 0.17-0.41 [facility] ([facility]) Ggmf-2-Hvrhdhfwp 0.43 GM/DL 0.28-0.60 [facility] ([facility]) Total Protein 8.1 GM/DL 6.4-8.2 [facility] ([facility]) Gamma Globulins 1.52 GM/DL 0.65-1.58 [facility] ([facility]) Xboy-1-Azqlhiuce 0.51 GM/DL 0.19-0.55 [facility] ([facility]) Spep Interpretation For RFX Laboratory test result [facility] ([place] [facility]) NO M-SPIKE(S)NOTED. Laboratory test finding (navigational concept) Laboratory test result [facility] ([place] [facility]) REV'D BY Scott MCKINNON ID Date Data Source [id number] 08/19/2019 11:10:00 AM EDT [facility] ([facility]) Name Value Range Interpretation Code Description Data Wendy rce(s) Supporting Document(s) Percent Saturation 38.0 % 19.7-50.0 [facility] ([facility]) Iron (Fe) 111 ug/dL 65-175 [facility] ([place] [facility]) Total Iron Binding Capacity 292 ug/dL 250-450 [place] [facility] ([place] [facility]) ID Date Data Source [id number] 08/19/2019 11:10:00 AM EDT [facility] ([facility]) Name Value Range Interpretation Code Description Data Wendy rce(s) Supporting Document(s) Ferritin [Mass/volume] in Serum or Plasma 189 ng/mL 26-388 [facility] [facility]) ID Date Data Source [id number] 08/19/2019 11:09:00 AM EDT [facility] ([facility]) Name Value Range Interpretation Code Description Data Wendy rce(s) Supporting Document(s) Urea nitrogen [Mass/volume] in Serum or Plasma 26 mg/dL 7-18 [facility] ([place] [facility]) Creatinine 1.6 mg/dL 0.6-1.3 [facility] ([place] [facility]) Sodium [Moles/volume] in Serum or Plasma 139 meq/L 136-145 [facility] ([place] [facility]) Glucose [Mass/volume] in Serum or Plasma 173 mg/dL 74-99 [facility] ([place] [facility]) 100-125 mg/dL PRE-DIABETES/FASTING >126 mg/dL DIABETES/FASTING Chloride [Moles/volume] in Serum or Plasma 102 meq/L 98-107 [facility] ([place] [facility]) Carbon dioxide, total [Moles/volume] in Serum or Plasma 28 meq/L 21 -32 [facility] ([place] [facility]) Potassium [Moles/volume] in Serum or Plasma 4.7 meq/L 3.5-5.1 [facility] ([place] [facility]) Calcium [Mass/volume] in Serum or Plasma 9.2 mg/dL 8.5-10.1 [facility] ([place] [facility]) Total Bilirubin 0.4 mg/dL 0.2-1.0 [facility] ([facility]) Alkaline phosphatase isoenzyme [Units/volume] in Serum or Pl asma 172 mg/dL 46-116 [facility] ([place] [facility]) Aspartate aminotransferase [Enzymatic activity/volume] in Serum or Plasma 25 U/L 15-37 [facility] ([place] [facility] ) Alanine aminotransferase [Enzymatic activity/volume] in Seru m or Plasma 45 U/L 12-78 [facility] ([place] [facility]) Albumin [Mass/volume] in Serum or Plasma 3.6 g/dL 3.4-5.0 [facility] ([place] [facility]) Proteinase 3 Ab [Units/volume] in Serum 8.5 g/dL 6.4-8.2 [facility] ([place] [facility]) NOTE: RESULT VERIFIED. Glomerular filtration rate/1.73 sq M pre dicted among non-blacks [Volume Rate/Area] in Serum or Plasma by Creatinine-based formula (MDRD) 41 mL/min [facility] ([place] [facility]) A/G Ratio 0.73 CALC 1.00-1.90 [facility] [facility] Glomerular filtration rate/1.73 sq M pre dicted among blacks [Volume Rate/Area] in Serum or Plasma by Creatinine-based formula (MDRD) 50 mL/min [facility] ([place] [facility]) <content>CHRONIC KIDNEY DISEASE STAGING PER NKF</content>
<content></content>
<content>STAGE I & II GFR >= 60 NORMAL TO MILDLY DECREASED</content>
<content>STAGE III GFR 30-59 MODERATELY DECREASED</content>
<content>STAGE IV GFR 15-29 SEVERELY DECREASED</content>
<content>STAGE V GFR <15 VERY LITTLE GFR LEFT</content>
<content>ESRD GFR <15 ON AGING BOX HAND</content>
<content></content> ID Date Data Source [id number] 08/19/2019 11:09:00 AM EDT [facility] ([facility]) Name Value Range Interpretation Code Description Data Wendy rce(s) Supporting Document(s) Hematocrit [Volume Fraction] of Blood by Automated count 37.0 % 3 7.0-51.0 [facility] ([place] [facility]) Erythrocytes [#/volume] in Blood by Automated count 6.36 x10*6/UL 4.2 0-6.30 [facility] ([place] [facility] Hemoglobin [Mass/volume] in Blood 12.7 g/dL 12.0-18.0 [facility] ([place] [facility] Leukocytes [#/volume] in Blood by Automated count 10.3 x10*3/UL 4.1-1 0.9 [facility] ([place] [facility]) MCHC 34.3 g/dL 31.0-38.0 [facility] ([place] [facility]) MCV 58.2 fL 80.0-97.0 [facility] ([facility]) MCH 19.9 pg 26.0-32.0 [facility] ([facility]) MPV 8.7 FL 7.8-11.0 [facility] ([facility]) Platelets [#/volume] in Blood by Automated count 389 x10*3/UL 140-440 [facility] ([place] [facility]) Lymph % 22.0 % 10.0-58.5 [facility] ([facility]) Erythrocyte distribution width [Ratio] by Automated count 15.9 % 11.6-13.7 [facility] ([place] [facility]) Lymph # 2.2 x10*3/UL 0.6-4.1 [facility] ([place] [facility]) Mid % 6.6 % 1.7-9.3 [facility] ([place] [facility]) Neut % 71.4 % 37.0-92.0 [facility] ([facility]) Neut # 7.3 x10*3/UL 2.0-7.8 [facility] ([place] [facility]) Mid # 0.8 x10*3/UL 0.1-0.6 [facility] ([place] [facility]) ID Date Data Source [id number] 08/18/2019 01:38:00 PM EDT [facility] ([facility]) Name Value Range Interpretation Code Description Data Wendy rce(s) Supporting Document(s) Reflex Urine Culture Laboratory test result [facility] ([place] [facility]) FULL REPORT IN LAB NOTES (eCW and [facility] ). NO GROWTH ID Date Data Source [id number] 08/18/2019 01:38:00 PM EDT [facility] ([facility]) Name Value Range Interpretation Code Description Data Wendy rce(s) Supporting Document(s) Appearance, Urine RFX Laboratory test result [facility] ([place] [facility] PH,Urine RFX 5.0 units 5.0-9.0 [facility] ([place] [facility]) Color, Urine RFX Laboratory test result [facility] ([place] [facility]) Specific [place] Ur Auto RFX 1.014 1.002-1.035 [facility] ([place] [facility]) Protein, Urine Auto RFX Laboratory test result [facility] ([place] [facility]) Glucose, Urine (Ua) Auto RFX Laboratory test result [facility] ([place] [facility]) Ketone, Urine Auto RFX Laboratory test result [facility] ([place] [facility]) Leukocyte Esterase Ur Auto RFX Laboratory test result [facility] ([place] [facility]) Urobilinogen, Urine Auto RFX 0.2 mg/dL 0.0-2.0 [facility] ([place] [facility]) Bilirubin, Urine Auto RFX Laboratory test result [facility] ([place] [facility]) Nitrite, Urine Auto RFX Laboratory test result [facility] ([place] [facility]) Blood, Urine Blood RFX Laboratory test result [facility] ([place] [facility]) RBC, Urine Auto RFX Laboratory test result 0-3 [facility] ([place] [facility]) WBC, Urine Auto RFX 23 /HPF 0-3 [facility] ([facility]) Mucus, Urine RFX Laboratory test result [facility] ([place] [facility] Bacteria, Urine Auto RFX Laboratory test result [facility] ([place] [facility]) Squam Epithelial Cell Ur Aurfx 0 /HPF 0-6 [facility] ([place] [facility] Uric Acid Crystals RFX Laboratory test result [facility] ([place] [facility]) Amorphous Sediment RFX Laboratory test result [facility] ([place] [facility]) Hyaline Cast, Urine Auto RFX 0 /LPF 0-1 M EDENT ([facility] [facility]) ID Date Data Source [id number] 08/07/2019 12:38:00 PM EDT [facility] ([facility]) Name Value Range Interpretation Code Description Data Wendy rce(s) Supporting Document(s) Platelets 230 150-450 [facility] Red Blood Count 6.71 4.30-6.10 [facility] ([facility]) White Blood Count 9.5 4.0-10.0 [facility] ([facility]) Hematocrit 40.5 [facility] ([facility]) Hemoglobin 12.4 [facility] ([facility]) ID Date Data Source [id number] 08/07/2019 12:38:00 PM EDT [facility] ([facility]) Name Value Range Interpretation Code Description Data Wendy rce(s) Supporting Document(s) Albumin [Mass/volume] in Serum or Plasma 3.5 [facility] ([facility]) Alanine aminotransferase [Enzymatic activity/volume] in Serum or Pl asma 42 [facility] ([facility]) Calcium [Mass/volume] in Serum or Plasma 9.0 [facility] ([facility]) Carbon dioxide, total [Moles/volume] in Serum or Plasma 26 [facility] ([facility]) Chloride [Moles/volume] in Serum or Plasma 106 [facility] ([facility]) Alkaline phosphatase [Enzymatic activity/volume] in Serum or Plasma 1 46 [facility] ([facility]) Potassium [Moles/volume] in Serum or Plasma 4.4 [facility] ([facility]) Sodium 140 [facility] Aspartate aminotransferase [Enzymatic activity/volume] in Serum or Plasma 33 [facility] ([facility]) Protein [Mass/volume] in Serum or Plasma 7.4 [facility] ([facility]) Urea nitrogen [Mass/volume] in Serum or Plasma 18 [facility] ([facility]) Creatinine For GFR 1.11 [facility] ([facility]) Glucose 95 70-100 [facility] ([facility] ID Date Data Source [id number] 08/05/2019 08:19:00 AM EDT [facility] ([facility]) Name Value Range Interpretation Code Description Data Wendy rce(s) Supporting Document(s) Triglycerides 76 [facility] ([facility] HDL 36 [facility] Cholesterol 108 [facility] Cholesterol in LDL [Mass/volume] in Serum or Plasma by calculation 57 [facility]) Chol/HDL Ratio 3.000 [facility] ([facility] ID Date Data Source [id number] 08/05/2019 08:19:00 AM EDT [facility] ([facility] [facility]) Name Value Range Interpretation Code Description Data Wendy rce(s) Supporting Document(s) Blood Urea Nitrogen 18 7-18 MEDENT (Ca [facility]diology [facility]) Glucose 96 70-100 [facility] Potassium 4.2 3.5-5.1 [facility] Creatinine 1.09 0.70-1.30 MEDENT ([facility]) Sodium 140 136-145 [facility] ([facility]) Chloride 107 98-107 [facility] ([facility] Glomerular filtration rate/1.73 sq M.pre dicted [Volume Rate/Area] in Serum or Plasma by Creatinine-based formula (MDRD) Laboratory test result [facility] Calcium 8.7 8.2-9.6 [facility] ([facility] Carbon Dioxide 26 21-32 MEDENT (Cardiol [facility]gy [facility]) ID Date Data Source [id number] 08/05/2019 08:19:00 AM EDT MEDENT ([facility]i [facility]y [facility]) Name Value Range Interpretation Code Description Data Wendy rce(s) Supporting Document(s) White Blood Count 10.8 4.0-10.0 [facility] Red Blood Count 5.89 4.30-6.10 MEDENT (Cardio [facility]y [facility]) Hemoglobin 10.9 [facility] ([facility]) Platelets 194 150-450 [facility] ([facility] Hematocrit 35.5 MEDENT (Cardiology [facility]) ID Date Data Source [id number] 08/04/2019 12:36:00 PM EDT MEDENT ([facility]) Name Value Range Interpretation Code Description Data Wendy rce(s) Supporting Document(s) Troponin 0.02 MEDENT ([facility]) ID Date Data Source [id number] 08/04/2019 12:35:00 PM EDT MEDENT ([facility]) Name Value Range Interpretation Code Description Data Wendy rce(s) Supporting Document(s) Troponin Laboratory test result MEDENT (Cardiology [facility]) ID Date Data Source [id number] 08/04/2019 12:35:00 PM EDT MEDENT ([facility]) Name Value Range Interpretation Code Description Data Wendy rce(s) Supporting Document(s) Thyrotropin [Units/volume] in Serum or Plasma 2.330 MEDENT ([facility]) ID Date Data Source [id number] 08/04/2019 12:35:00 PM EDT MEDENT ([facility]) Name Value Range Interpretation Code Description Data Wendy rce(s) Supporting Document(s) Troponin Laboratory test result MEDENT ([facility]) ID Date Data Source [id number] 08/04/2019 12:35:00 PM EDT MEDENT ([facility]) Name Value Range Interpretation Code Description Data Wendy rce(s) Supporting Document(s) MB/CK Relative 1.37 MEDENT ([facility]) Creatine kinase [Enzymatic activity/volume] in Serum or Plasma 277 MEDENT ([facility]iology [facility]) CPK-MB 3.8 MEDENT ([facility]) ID Date Data Source [id number] 08/04/2019 12:35:00 PM EDT MEDENT ([facility]) Name Value Range Interpretation Code Description Data Wendy rce(s) Supporting Document(s) Albumin [Mass/volume] in Serum or Plasma 3.7 MEDENT ([facility]) Alanine aminotransferase [Enzymatic activity/volume] in Serum or Pl asma 33 MEDENT ([facility]) Calcium [Mass/volume] in Serum or Plasma 8.9 MEDENT ([facility]) Carbon dioxide, total [Moles/volume] in Serum or Plasma 29 MEDENT ([facility]) Chloride [Moles/volume] in Serum or Plasma 105 MEDENT ([facility]) Protein [Mass/volume] in Serum or Plasma 7.7 MEDENT ([facility]) Alkaline phosphatase [Enzymatic activity/volume] in Serum or Plasma 1 44 MEDENT ([facility]) Potassium [Moles/volume] in Serum or Plasma 4.0 MEDENT ([facility]) Sodium 140 MEDENT ([facility] Urea nitrogen [Mass/volume] in Serum or Plasma 21 MEDENT ([facility]) Aspartate aminotransferase [Enzymatic activity/volume] in Serum or Plasma 27 MEDENT ([facility]) Creatinine For GFR 1.24 MEDENT (Car diology [facility]) Glucose 106 70-100 MEDENT ([facility]) ID Date Data Source [id number] 08/04/2019 12:35:00 PM EDT MEDENT ([facility]i [facility]) Name Value Range Interpretation Code Description Data Wendy rce(s) Supporting Document(s) Red Blood Count 6.57 4.30-6.10 MEDENT (Cardio [facility]y [facility]) White Blood Count 10.5 4.0-10.0 MEDENT (Card [facility]ology [facility]) Hematocrit 40.1 MEDENT ([facility]) Hemoglobin 12.0 MEDENT ([facility]) Platelets 213 150-450 MEDENT ([facility]) ID Date Data Source [id number] 06/01/2019 05:23:00 AM EST MEDENT ([facility]) Name Value Range Interpretation Code Description Data Wendy rce(s) Supporting Document(s) Reflex Urine Culture Laboratory test result MEDENT ([facility]) <content>FULL REPORT IN LAB NOTES (eCW a nd Medent).</content>
<content></content>
<content>ORGANISM 1: KLEBSIELLA PNEUMONIAE</content>
<content></content>
<content>COLONY COUNT >100,000</content>
<content></content>
<content>ORGANISM 2: AEROCOCCUS URINAE</content>
<content></content>
<content>COLONY COUNT 10,000</content>
<content>Aerococcus urinae has been described as susceptible to</content>
<content>penicillin, amoxicillin, piperacillin, cefepime,</content>
<content>rifampin, and nitrofurantoin but resistant to</content>
<content>sulfonamides and netilmicin.</content>
<content></content>
<content></content>
<kary nt>ORGANISM 1: KLEBSIELLA PNEUMONIAE</content>
<content>ORGANISM 2: AEROCOCCUS URINAE</content>
<content></content>
<content>KLEBSIELLA PNEUMONIAE: REACTION</content>
<content>EXTD BRD SPCTRM BETA LACTAMASE IV NEGATIVE FOR ESBL</content>
<content>TRIMETHOPRIM/SULFAMETHOXAZOLE IV 160mg TMP & 800mg SMXq6h <=20 S</content>
<content> TRIMETHOPRIM/SULFAMETHOXAZOLE PO Bactrim DS Bid <=20 S</content>
<content>AMPICILLIN IV 500mg q6h >=32 R</content>
<content>AMPICILLIN PO 500mg q6h fasting >=32 R</content>
<content>GENTAMICIN IV 80mg q8h <=1 S</content>
<content>NITROFURANTOIN PO 100mg BID 32 S</content>
<content>CEFAZOLIN IV 1gm q8h <=4 S</content>
<content> LEVOFLOXACIN IV 500mg qd <=0.12 S</content>
<content>LEVOFLOXACIN PO 250mg qd <=0.12 S</content>
<content>LEVOFLOXACIN PO 500mg qd <=0.12 S</content>
<content>TOBRAMYCIN IV 80mg q8h <=1 S</content>
<content>CEFTRIAXONE IV 1gm q24h <=1 S</content>
<content>CEFTAZIDIME IV 1gm q8h <=1 S</content>
<content> AMPICILLIN/SULBACTAM IV 1.5g q6h 4 S</content>
<content>PIPERACILLIN/TAZOBACTAM IV 2.25 gm q6h <=4 S</content>
<content>AZTREONAM IV 1gm q8h <=1 S</content>
<content>ERTAPENEM IV 1gm qd <=0.5 S</content>
<content>MEROPENEM IV 1 gm q8h <=0.25 S</content>
<content>MEROPENEM IV 500 mg q8h <=0.25 S</content>
<content> TIGECYCLINE IV 50mg q12h 1 S</content>
<content>CEFEPIME IV 1 gm q12h <=1 S</content>
<content>CEFEPIME IV 2 gm q12h <=1 S</content>
<content></content> ID Date Data Source [id number] 06/01/2019 05:23:00 AM EST [facility] Name Value Range Interpretation Code Description Data Wendy rce(s) Supporting Document(s) Color, Urine RFX Laboratory test result MEDENT ([facility]) Appearance, Urine RFX Laboratory test result [facility] ([facility]) Protein, Urine Auto RFX Laboratory test result [facility] ([facility]) PH,Urine RFX 6.0 units 5.0-9.0 [facility] ([facility] Specific [place] Ur Auto RFX 1.010 1.002-1.035 [facility] ([facility]) Glucose, Urine (Ua) Auto RFX Laboratory test result [facility] ([facility]) Ketone, Urine Auto RFX Laboratory test result [facility] ([facility]) Urobilinogen, Urine Auto RFX 0.2 mg/dL 0.0-2.0 [facility]) Bilirubin, Urine Auto RFX Laboratory test result [facility] ([facility]) Nitrite, Urine Auto RFX Laboratory test result [facility] Blood, Urine Blood RFX Laboratory test result [facility] WBC, Urine Auto RFX 170 /HPF 0-3 MED[facility] ([facility]) Leukocyte Esterase Ur Auto RFX Laboratory test result [facility] ([facility]) Squam Epithelial Cell Ur Aurfx 0 /HPF 0-6 [facility] ([facility]) Bacteria, Urine Auto RFX Laboratory test result [facility] ([facility] RBC, Urine Auto RFX 133 /HPF 0-3 [facility] Mucus, Urine RFX Laboratory test result [facility] ([facility]) Hyaline Cast, Urine Auto RFX 0 /LPF 0-1 M EDENT ([facility]) ID Date Data Source [id number] 06/01/2019 05:23:00 AM EST [facility] Name Value Range Interpretation Code Description Data Wendy rce(s) Supporting Document(s) Glucose, Fasting 136 mg/dL 70-100 [facility] ([facility]) Blood Urea Nitrogen 24 mg/dL 7-18 [facility] ([facility]) Glomerular Filtration Rate Laboratory test result [facility] ([facility]) <content>Units are mL/min/1.73 m2</content>
<content></content>
<content>Chronic Kidney Disease Staging per NKF:</content>
<content></content>
<content>Stage I & II GFR >=60 Normal to Mildly Decreased</content>
<content>Stage III GFR 30-59 Moderately Decreased</content>
<content>Stage IV GFR 15-29 Severely Decreased</content>
<content>Stage V GFR <15 Very Little GFR Left</content>
<content>ESRD GFR <15 on AGING BOX HAND</content>
<content></content> Creatinine For GFR 1.15 mg/dL 0.70-1.30 MEDENT ([facility]) Sodium Level 141 meq/L 136-145 MEDENT ([facility]) Chloride Level 110 meq/L 98-107 MED[facility] ([facility]) Potassium Serum 4.5 meq/L 3.5-5.1 MED[facility] ([facility]) Calcium Level 8.3 mg/dL 8.8-10.2 MED[facility] ([facility]) Anion Gap 4 meq/L 8-16 [facility] ([place] [facility] Carbon Dioxide Level 27 meq/L 21-32 MED[facility] ([facility]) ID Date Data Source [id number] 06/01/2019 05:23:00 AM EST MEDENT ([facility]) Name Value Range Interpretation Code Description Data Wendy rce(s) Supporting Document(s) Inr 1.20 [facility] ([place] [facility] THERAPUTIC HUMAN INR VALUES INDICATIONS NORMAL RANGES PROPHYLAXIS/TREATMENT OF: VENOUS THROMBOSIS 2.0-3.0 PULMONARY EMBOLISM 2.0-3.0 PREVENTION OF SYSTEMIC EMBOLISM FROM: TISSUE HEART VALVES 2.0-3.0 ACUTE MYOCARDIAL INFARCTION 2.0-3.0 VALVULAR HEART DISEASE 2.0-3.0 ATRIAL FIBRILLATION 2.0-3.0 MECHANICAL VALVES(HIGH RISK) 2.5-3.5 RECURRENT MYOCARDIAL INFARCTION 2.5-3.5 [facility] Partial Thromboplastin Time 36.9 s 25.0-38.4 ME DENT ([facility]) ID Date Data Source [id number] 06/01/2019 05:23:00 AM EST MEDENT ([facility]) Name Value Range Interpretation Code Description Data Wendy rce(s) Supporting Document(s) White Blood Count 14.0 10 4.0-10.0 MEDENT ([facility]) Red Blood Count 5.96 10 4.30-6.10 MED[facility] ([facility]) Hematocrit 36.4 % 42.0-52.0 [facility] ([facility]) Hemoglobin 11.0 g/dL 13.5-17.5 [facility] ([facility]) Mean Corpuscular Volume 61.1 fl 80.0-96.0 MEDENT ([facility]) Mean Corpuscular HGB Conc 30.2 g/dL 32.0-36.5 MEDE NT ([facility]) Red Cell Distribution Width 17.1 % 11.5-14.5 ME DENT ([facility]) Mean Corpuscular Hemoglobin 18.5 pg 27.0-33.0 ME DENT ([facility]) Platelet Count, Automated 210 10 150-450 MEDE NT ([facility]) Neutrophils % 76.7 % 36.0-66.0 MEDENT ([facility]) Lymph % 13.2 % 24.0-44.0 [facility] ([place] [facility]) Baso % 0.5 % 0.0-1.0 [facility] ([facility]) Eos % 0.6 % 0.0-3.0 [facility] ([facility]) Larue % 8.6 % 0.0-5.0 [facility] ([facility]) Nucleated Red Blood Cell % 0.0 % 0-0 MED ENT ([facility]) Immature Granulocyte % 0.4 % 0-3.0 MEDENT ([facility]) Neutrophils # 10.7 10 1.5-8.5 MED[facility] ([facility]) Eos # 0.1 10 0.0-0.5 [facility] ([place] [facility]) Lymph # 1.9 10 1.5-5.0 [facility] ([facility]) Larue # 1.2 10 0.0-0.8 [facility] ([place]) Baso # 0.1 10 0.0-0.2 [facility] ([facility]) Procedure Social History Code Duration Value Status Description Data Source(s ) Smoking 04/23/2020 12:00:00 AM EST Former Smoker completed Former Smoker eCW1 ([facility]) Smoking 04/23/2020 12:00:00 AM EST Former Smoker completed Former Smoker eCW1 ([facility]) Smoking 03/27/2020 12:00:00 AM EST Former Smoker completed Former Smoker eCW1 ([facility]) Smoking 03/27/2020 12:00:00 AM EST Former Smoker completed Former Smoker eCW1 ([facility]) Smoking 03/04/2020 12:00:00 AM EST Patient is a former smoker completed Patient is a former smoker MED[facility] ([facility]) Smoking 03/02/2020 12:00:00 AM EST Former Smoker completed Former Smoker eCW1 ([facility]) Smoking 03/02/2020 12:00:00 AM EST Former Smoker completed Former Smoker eCW1 ([facility]) Smoking 02/12/2020 12:00:00 AM EDT Former Smoker completed Former Smoker eCW1 ([facility]) Smoking 11/11/2019 12:00:00 AM EDT Former Smoker completed Former Smoker eCW1 ([facility]) Smoking 11/11/2019 12:00:00 AM EDT Former Smoker completed Former Smoker eCW1 ([facility]) Smoking 11/05/2019 12:00:00 AM EDT Former Smoker completed Former Smoker eCW1 ([facility]) Smoking 09/20/2019 12:00:00 AM EDT Former Smoker completed Former Smoker eCW1 ([facility]) Smoking 09/20/2019 12:00:00 AM EDT Former Smoker completed Former Smoker eCW1 ([facility]) Smoking 09/20/2019 12:00:00 AM EDT Former Smoker completed Former Smoker eCW1 ([facility]) Vital Signs ID Date Data Source [id number] Name Value Range Interpretation Code Description Data Source(s) Diastolic blood pressure 84 mm[Hg] 84 mm[Hg] eCW1 ([facility]) Systolic blood pressure 152 mm[Hg] 152 mm[Hg] e CW1 ([facility]) Body temperature 97.1 [degF] 97.1 [degF] eCW1 ( [facility]) Respiratory rate 18 /min 18 /min eCW1 ([facility]) Heart rate 82 /min 82 /min eCW1 ([facility]) Body mass index (BMI) [Ratio] 26.79 kg/m2 26.79 kg/m2 eCW1 ([facility]) Body height 66 [in_i] 66 [in_i] eCW1 ([facility]) Body weight 166 [lb_av] 166 [lb_av] eCW1 ([facility] Diastolic blood pressure 76 mm[Hg] 76 mm[Hg] eCW1 ([facility]) Systolic blood pressure 162 mm[Hg] 162 mm[Hg] e CW1 ([facility]) Body temperature 97.4 [degF] 97.4 [degF] eCW1 ( [facility]) Respiratory rate 18 /min 18 /min eCW1 ([facility]) Heart rate 64 /min 64 /min eCW1 ([facility]) Body mass index (BMI) [Ratio] 26.79 kg/m2 26.79 kg/m2 eCW1 ([facility]) Body height 66 [in_i] 66 [in_i] eCW1 ([facility]) Body weight 166 [lb_av] 166 [lb_av] eCW1 ([facility]) Diastolic blood pressure 74 mm[Hg] 74 mm[Hg] MEDENT ([facility]) sitting Systolic blood pressure 140 mm[Hg] 140 mm[Hg] M EDENT ([facility]) sitting Diastolic blood pressure 74 mm[Hg] 74 mm[Hg] MEDENT ([facility]) sitting, regular cuff Systolic blood pressure 136 mm[Hg] 136 mm[Hg] M EDENT ([facility]) sitting, regular cuff Respiratory rate 16 /min 16 /min MEDENT ( [facility]) Heart rate 72 /min 72 /min MEDENT ([facility]io [facility]) Regular Body mass index (BMI) [Ratio] 24.8 kg/m2 24.8 k g/m2 MEDENT ([facility]) Body height 68 [in_i] 68 [in_i] MEDENT ([facility]i [facility]) 5'8" Body weight 163.00 [lb_av] 163.00 [lb_av] MEDEN T ([facility]) Body temperature 97.7 [degF] 97.7 [degF] eCW1 ( [facility]) Respiratory rate 18 /min 18 /min eCW1 ([facility]) Heart rate 72 /min 72 /min eCW1 ([facility]) Body mass index (BMI) [Ratio] 26.95 kg/m2 26.95 kg/m2 eCW1 ([facility]) Body height 66 [in_i] 66 [in_i] eCW1 ([facility]) Body weight 167 [lb_av] 167 [lb_av] eCW1 ([facility]) Diastolic blood pressure 74 mm[Hg] 74 mm[Hg] eCW1 ([facility]) Systolic blood pressure 150 mm[Hg] 150 mm[Hg] e CW1 ([facility]) [place] body weight 142 [lb_av] 142 [lb_av] MEDEN T ([facility], ) Body mass index (BMI) [Ratio] 26.6 kg/m2 26.6 k g/m2 MEDENT ([facility], ) Body weight 165.00 [lb_av] 165.00 [lb_av] MEDEN T ([facility], ) Body height 66 [in_i] 66 [in_i] MEDENT ([facility], ) 5'6" Respiratory rate 12 /min 12 /min MEDENT ( [facility], ) Diastolic blood pressure 66 mm[Hg] 66 mm[Hg] eCW1 ([facility]) Systolic blood pressure 132 mm[Hg] 132 mm[Hg] e CW1 ([facility]) Body temperature 97.8 [degF] 97.8 [degF] eCW1 ( [facility]) Respiratory rate 20 /min 20 /min eCW1 ([facility]) Heart rate 96 /min 96 /min eCW1 ([facility]) Body mass index (BMI) [Ratio] 25.98 kg/m2 25.98 kg/m2 eCW1 ([facility]) Body height 66 [in_i] 66 [in_i] eCW1 ([facility]) Body weight 161 [lb_av] 161 [lb_av] eCW1 ([facility]) [place] body weight 142 [lb_av] 142 [lb_av] MEDEN T ([facility], ) Body mass index (BMI) [Ratio] 26.6 kg/m2 26.6 k g/m2 MEDENT ([facility], ) Body weight 165.00 [lb_av] 165.00 [lb_av] MEDEN T ([facility], ) Body height 66 [in_i] 66 [in_i] MEDENT ([facility], ) 5'6" Respiratory rate 12 /min 12 /min MEDENT ( [facility]) Diastolic blood pressure 78 mm[Hg] 78 mm[Hg] eCW1 ([facility]) Systolic blood pressure 148 mm[Hg] 148 mm[Hg] e CW1 ([facility]) Body temperature 97.2 [degF] 97.2 [degF] eCW1 ( [facility]) Respiratory rate 20 /min 20 /min eCW1 ([facility]) Heart rate 88 /min 88 /min eCW1 ([facility]) Body mass index (BMI) [Ratio] 26.63 kg/m2 26.63 kg/m2 W1 ([facility]) Body height 66 [in_i] 66 [in_i] eCW1 ([facility]) Body weight 165 [lb_av] 165 [lb_av] eCW1 ([facility]) Diastolic blood pressure mm[Hg] eCW1 ([facility]) Systolic blood pressure 128 mm[Hg] 128 mm[Hg] e CW1 ([facility]) Body temperature 97.9 [degF] 97.9 [degF] eCW1 ( [facility]) Respiratory rate 17 /min 17 /min eCW1 ([facility]) Heart rate 93 /min 93 /min eCW1 ([facility]) Body mass index (BMI) [Ratio] 26.47 kg/m2 26.47 kg/m2 W1 ([facility]) Body height 66 [in_i] 66 [in_i] eCW1 ([facility]) Body weight 164 [lb_av] 164 [lb_av] eCW1 ([facility]) Body mass index (BMI) [Ratio] 27.2 kg/m2 27.2 k g/m2 MEDENT ([facility]) Oxygen saturation in Arterial blood by Pulse oximetry 97 % 97 % MEDENT ([facility]) Body weight 166.00 [lb_av] 166.00 [lb_av] MEDEN T ([facility]) Body height 65.50 [in_i] 65.50 [in_i] MEDENT ([facility]) 5'5.50" Heart rate 88 /min 88 /min MEDENT ([facility]) Diastolic blood pressure 66 mm[Hg] 66 mm[Hg] MEDENT ([facility]) Systolic blood pressure 142 mm[Hg] 142 mm[Hg] M EDENT ([facility]) Diastolic blood pressure mm[Hg] eCW1 ([facility]) Systolic blood pressure 142 mm[Hg] 142 mm[Hg] e CW1 ([facility]) Body temperature 97.9 [degF] 97.9 [degF] eCW1 ( [facility]) Respiratory rate 17 /min 17 /min eCW1 ([facility]) Heart rate 77 /min 77 /min eCW1 ([facility]) Body mass index (BMI) [Ratio] 26.95 kg/m2 26.95 kg/m2 eCW1 ([facility]) Body height 66 [in_us] 66 [in_us] eCW1 ([facility]) Body weight Measured 167 [lb_av] 167 [lb_av] eC W1 ([facility]) Body mass index (BMI) [Ratio] 27.4 kg/m2 27.4 k g/m2 MEDENT ([facility]) Body weight 167.00 [lb_av] 167.00 [lb_av] MEDEN T ([facility]) Body height 65.50 [in_i] 65.50 [in_i] MEDENT ([facility]) 5'5.50" Heart rate 82 /min 82 /min MEDENT ([facility]) Diastolic blood pressure 62 mm[Hg] 62 mm[Hg] MEDENT ([facility]) Systolic blood pressure 140 mm[Hg] 140 mm[Hg] M EDENT ([facility]) Diastolic blood pressure 78 mm[Hg] 78 mm[Hg] eCW1 ([facility]) Systolic blood pressure 160 mm[Hg] 160 mm[Hg] e CW1 ([facility]) Body temperature 98.3 [degF] 98.3 [degF] eCW1 ( [facility]) Respiratory rate 20 /min 20 /min eCW1 ([facility]) Heart rate 83 /min 83 /min eCW1 ([facility]) Body mass index (BMI) [Ratio] 27.11 kg/m2 27.11 kg/m2 eCW1 ([facility]) Body height 66 [in_us] 66 [in_us] eCW1 ([facility]) Body weight Measured 168 [lb_av] 168 [lb_av] eC W1 ([facility]) Diastolic blood pressure 68 mm[Hg] 68 mm[Hg] MEDENT ([facility]) sitting Systolic blood pressure 136 mm[Hg] 136 mm[Hg] M EDENT ([facility]) sitting Diastolic blood pressure 68 mm[Hg] 68 mm[Hg] MEDENT ([facility]) sitting, regular cuff Systolic blood pressure 134 mm[Hg] 134 mm[Hg] M EDENT ([facility]) sitting, regular cuff Respiratory rate 16 /min 16 /min MEDENT ( [facility]) Heart rate 64 /min 64 /min MEDENT ([facility]) Regular Body mass index (BMI) [Ratio] 26.1 kg/m2 26.1 k g/m2 MED[facility] ([facility]) Body height 68 [in_i] 68 [in_i] MEDENT ([facility]) 5'8" Body weight 172.00 [lb_av] 172.00 [lb_av] MEDEN T ([facility]) Diastolic blood pressure 71 mm[Hg] 71 mm[Hg] eCW1 ([facility]) Systolic blood pressure 147 mm[Hg] 147 mm[Hg] e CW1 ([facility]) Body temperature 96.4 [degF] 96.4 [degF] eCW1 ( [facility]) Respiratory rate 16 /min 16 /min eCW1 ([facility]) Heart rate 74 /min 74 /min eCW1 ([facility]) Body mass index (BMI) [Ratio] 28.24 kg/m2 28.24 kg/m2 eCW1 ([facility]) Body height 66 [in_us] 66 [in_us] eCW1 ([facility]) Body weight Measured 175 [lb_av] 175 [lb_av] eC W1 ([facility]) Body mass index (BMI) [Ratio] 27.9 kg/m2 27.9 k g/m2 MEDENT ([facility]) Body weight 170.00 [lb_av] 170.00 [lb_av] MEDEN T ([facility]) Body height 65.50 [in_i] 65.50 [in_i] MEDENT ([facility] 5'5.50" Heart rate 78 /min 78 /min MEDENT ([facility]) Diastolic blood pressure 62 mm[Hg] 62 mm[Hg] MEDENT ([facility]) Systolic blood pressure 134 mm[Hg] 134 mm[Hg] M EDENT ([facility]) [place] body weight 142 [lb_av] 142 [lb_av] MEDEN T ([facility] ) Body mass index (BMI) [Ratio] 26.6 kg/m2 26.6 k g/m2 MEDENT ([facility] ) Body weight 165.00 [lb_av] 165.00 [lb_av] MEDEN T ([facility], ) Body height 66 [in_i] 66 [in_i] MEDENT ([facility] ) 5'6" Respiratory rate 12 /min 12 /min MEDENT ( [facility] ) Diastolic blood pressure 76 mm[Hg] 76 mm[Hg] eCW1 ([facility]) Systolic blood pressure 170 mm[Hg] 170 mm[Hg] e CW1 ([facility]) Body temperature 97.6 [degF] 97.6 [degF] eCW1 ( [facility]) Respiratory rate 18 /min 18 /min eCW1 ([facility]) Heart rate 60 /min 60 /min eCW1 ([facility]) Body mass index (BMI) [Ratio] 28.73 kg/m2 28.73 kg/m2 eCW1 ([facility]) Body height 66 [in_us] 66 [in_us] eCW1 ([facility]) Body weight Measured 178 [lb_av] 178 [lb_av] eC W1 ([facility]) Diastolic blood pressure 76 mm[Hg] 76 mm[Hg] eCW1 ([facility]) Systolic blood pressure 180 mm[Hg] 180 mm[Hg] e CW1 ([facility]) Body temperature 97.8 [degF] 97.8 [degF] eCW1 ( [facility]) Respiratory rate 18 /min 18 /min eCW1 ([facility]) Heart rate 60 /min 60 /min eCW1 ([facility]) Body mass index (BMI) [Ratio] 28.08 kg/m2 28.08 kg/m2 eCW1 ([facility]) Body height 66 [in_us] 66 [in_us] eCW1 ([facility]) Body weight Measured 174 [lb_av] 174 [lb_av] eC W1 ([facility]) Diastolic blood pressure 70 mm[Hg] 70 mm[Hg] eCW1 ([facility]) Systolic blood pressure 174 mm[Hg] 174 mm[Hg] e CW1 ([facility]) Body temperature 97.9 [degF] 97.9 [degF] eCW1 ( [facility]) Respiratory rate 18 /min 18 /min eCW1 ([facility]) Heart rate 62 /min 62 /min eCW1 ([facility]) Body mass index (BMI) [Ratio] 28.08 kg/m2 28.08 kg/m2 eCW1 ([facility]) Body height 66 [in_us] 66 [in_us] eCW1 ([facility]) Body weight Measured 174 [lb_av] 174 [lb_av] eC W1 ([facility]) Patient Treatment Plan of Care Planned Activity Planned Date Details Description Data Source (s) Ciprofloxacin 500 MG Oral Tablet 02/12/2020 12:00:00 AM EDT eCW1 ([facility])
--- NOTE | 2020-05-11 08:58 | REP ---
INDICATION: CHEST PAIN. COMPARISON: Comparison chest x-ray August 04, 2019. July 26, 2018 prior radiograph is also reviewed. TECHNIQUE: Portable upright AP chest radiograph. FINDINGS: There are increased markings. The left lung base which appear to be chronic consistent with fibrosis. No acute infiltrate is seen. Heart is not enlarged. Pleural angles are sharp. Monitoring electrodes are noted. Pulmonary vasculature is not increased. No significant bony abnormality is appreciated. IMPRESSION: Chronic changes left base. Unchanged from the comparison study of July 26, 2018. No acute disease.. <Electronically signed by George Read > 05/11/20 [id number]
[2020-05-11] MEDS ORDERED: ASPIRIN 81 MG CHEW TABLET PO ONE (09:00)
[2020-05-11 09:08] LABS: BASO # 0.1 10^3/uL (0.0-0.2); BASO % 0.7 % (0.0-1.0); EOS # 0.2 10^3/uL (0.0-0.5); EOS % 1.7 % (0.0-3.0); HEMATOCRIT 37.5 % (42.0-52.0); HEMOGLOBIN 11.1 g/dl (13.5-17.5); LYMPH % 16.3 % (24.0-44.0); MEAN CORPUSCULAR HEMOGLOBIN 18.3 pg (27.0-33.0); MEAN CORPUSCULAR HGB CONC 29.6 g/dl (32.0-36.5); MEAN CORPUSCULAR VOLUME 61.8 fl (80.0-96.0); MONO # 0.8 10^3/uL (0.0-0.8); MONO % 6.4 % (0.0-5.0); NEUTROPHILS # 9.2 10^3/uL (1.5-8.5); NEUTROPHILS % 74.4 % (36.0-66.0); PLATELET COUNT, AUTOMATED 350 10^3/uL (150-450); RED BLOOD COUNT 6.07 10^6/uL (4.30-6.10); WHITE BLOOD COUNT 12.4 10^3/uL (4.0-10.0)
--- NOTE | 2020-05-11 09:14 | ECGEPIP ---
[facility] - ED Test Date: 2020-05-11 Pat Name: KALYAN MILLAN Department: Room: - Gender: Male Learning Support Aide: misa : [id number] Requested By: Todd Torres Order Number: [id number] Reading MD: Ángela Cartagena Measurements Intervals [place] Rate: 78 P: 38 MT: 248 QRS: 6 QRSD: 90 T: 138 QT: 363 QTc: 414 Interpretive Statements SINUS RHYTHM WITH FIRST DEGREE AV BLOCK ST DEVIATION AND MODERATE T-WAVE ABNORMALITY, CONSIDER LATERAL ISCHEMIA INCREASED RATE 08/04/19 Electronically Signed on 05-11-2020 9:14:26 EST by Ángela Cartagena
--- OUTSIDE RECORDS SUMMARY | 2020-05-11 10:11 | CCD ---
Author Author [facility] Organization [facility] Address Unknown Phone Unavailable Care Team Providers Care Supervisor Abattoir Name Role Phone Anne Villalta Unavailable Unavailable AbimaelenoAnne kaiser Unavailable Unavailable Anne Villalta Unavailable Unavailable AbimaelenoAnne kaiser Unavailable Unavailable Anne Villalta Unavailable Unavailable Anne Villalta Unavailable Unavailable AbimaelenoAnne kaiser Unavailable Unavailable Anne Villalta Unavailable Unavailable Anne Villalta Unavailable Unavailable Anne Villalta Unavailable Unavailable Anne Villalta Unavailable Unavailable Anne Villalta Unavailable Unavailable Anne Villalta PA Unavailable Unavailable Anne Villalta PA Unavailable Unavailable Anne Villalta PA Unavailable Unavailable Anne Villalta Unavailable Unavailable Symenow, Anne Maddie PA Unavailable [...] Unavailable Unavailable Scott Hinds MD Unavailable Unavailable cSott Hinds MD Unavailable Unavailable Scott Hinds MD [...] is protected by Article 27-F of the [facility] Public Health law. If you continue you may have access to information: Regarding HIV / AIDS; Provided by facilities licensed or operated by the [facility] Office of Mental Health; or Provided by the [facility] Office for People With Developmental Disabilities. If such information is present, then the following [facility] mandated warning applies: This information has been [...] law may result in a fine or longterm sentence or both. A general authorization for the release of medical or other information is NOT sufficient authorization for further disc losure. Family History Family Member Name Family Member Gender Family Member Status Date o f Status Description Data Source(s) Unknown Unknown Problem MEDENT ([facility] Unknown Male Problem MEDENT ([facility]) Unknown Unknown Problem MEDENT ([facility]) Encounters Encounter Providers Location Date Indications Data Source(s ) Outpatient [address] [facility] [id number] 04/23/2020 12:00:00 AM EST eCW1 ([facility]) Unknown [address] [facility] [address] 04/23/2020 12:00:00 AM EST [facility]CW1 [facility]) Outpatient [address] [facility] [address] 03/27/2020 12:00:00 AM EST eCW1 ([facility]) Unknown [address] [facility] [address] 03/27/2020 12:00:00 AM EST eCW1 ([facility]) Outpatient Attender: Maddie BENEDICT Main Office 03/04/2020 07:15:00 AM EST MEDENT ([facility]) Outpatient [address] [facility] [address] 03/02/2020 12:00:00 AM EST eCW1 ([facility]) Unknown [address] [facility] [address] 03/02/2020 12:00:00 AM EST eCW1 ([facility]) Outpatient Attender: Nell Hinds MD Main office - [facility] 02/24/2020 10:00:00 AM EST MEDENT ([facility]) (Cysto1) Urology [address] [place] [address] 02/12/2020 12:00:00 AM EDT eCW1 ([facility]) Office Visit Attender: Nell Hinds MD [facility] office - [facility] 11/14/2019 01:00:00 PM EDT MEDENT ([facility]) Outpatient [address] [facility] [id number] 11/11/2019 12:00:00 AM EDT eCW1 ([facility]) Unknown [address] [facility] [address] 11/11/2019 12:00:00 AM EDT eCW1 ([facility]) Outpatient [address] [facility] [id number] 11/05/2019 12:00:00 AM EDT eCW1 ([facility]) [facility] [address] [facility] [address] 10/24/2019 12:00:00 AM EDT eCW1 ([facility]) Unknown [address] [facility] [address] 10/14/2019 12:00:00 AM EDT eCW1 ([facility]) Outpatient Attender: ZACHARY Chandler 0 10/02/2019 11:20:00 AM EDT MEDENT ([facility] ) Unknown [address] [facility] [address] 09/30/2019 12:00:00 AM EDT eCW1 ([facility]) Unknown [address] [facility] [address] 09/30/2019 12:00:00 AM EDT eCW1 ([facility]) [facility] [address] [facility] [address] 09/26/2019 12:00:00 AM EDT eCW1 ([facility]) [place] [address] [facility] [address] 09/25/2019 12:00:00 AM EDT eCW1 ([facility]) Outpatient 09/24/2019 02:49:00 PM EDT [facility] [place] [address] [facility] [address] 09/22/2019 12:00:00 AM EDT eCW1 ([facility]) [facility] [place] [address] [facility] [address] 09/20/2019 12:00:00 AM EDT eCW1 ([facility]) [facility] [place] [address] [facility] [address] 09/17/2019 12:00:00 AM EDT eCW1 ([facility]) [facility] [place] [address] [facility] [address] 09/13/2019 12:00:00 AM EDT eCW1 ([facility]) [facility] [place] [address] [facility] [address] 09/10/2019 12:00:00 AM EDT eCW1 ([facility]) [facility] [place] [address] [facility] [address] 09/09/2019 12:00:00 AM EDT eCW1 ([facility]) Outpatient Attender: Maddie BENEDICT Main Office 09/02/2019 07:45:00 AM EDT MEDENT ([facility]) [facility] [place] [address] [facility] [address] 08/29/2019 12:00:00 AM EDT eCW1 ([facility]) [facility] Urology [address] [facility] [place] [address] 08/20/2019 12:00:00 AM EDT eCW1 ([facility]) [facility] Urology [address] [place] [address] [place] [address] 08/01/2019 12:00:00 AM EDT eCW1 ([facility]) [facility] [place] [address] [facility] [address] 07/04/2019 12:00:00 AM EDT eCW1 ([facility]) [facility]rology Center [address] [place] [address] 06/06/2019 12:00:00 AM EST eCW1 ([facility]) [facility] Urology [address] [facility] [address] 06/05/2019 12:00:00 AM EST eCW1 ([facility]) [facility] Urology [address] [facility] [address] 05/09/2019 12:00:00 AM EST eCW1 ([facility]) [facility] Urology [address] [facility] [address] 04/04/2019 12:00:00 AM EST eCW1 ([facility]) Medications Medication Brand Name Start Date Product Form Dose Route Admi nistrative Instructions Pharmacy Instructions Status Indications Reaction Description Data Source(s) Ciprofloxacin 500 MG Oral Tablet Ciprofloxacin HCl 500 MG Ciprofloxacin HCl 500 MG 02/12/2020 12:00:00 AM EDT 1.0 {tablet} activ e Ciprofloxacin HCl 500 MG eCW1 ([facility]) Ciprofloxacin 500 MG Oral Tablet Ciprofloxacin HCl 500 MG Ciprofloxacin HCl 500 MG 02/12/2020 12:00:00 AM EDT 1.0 {tablet} activ e Ciprofloxacin HCl 500 MG eCW1 ([facility]) Ciprofloxacin 500 MG Oral Tablet Ciprofloxacin HCl 500 MG Ciprofloxacin HCl 500 MG 02/12/2020 12:00:00 AM EDT 1.0 {tablet} activ e Ciprofloxacin HCl 500 MG eCW1 ([facility]) Ciprofloxacin 500 MG Oral Tablet Ciprofloxacin HCl 500 MG Ciprofloxacin HCl 500 MG 02/12/2020 12:00:00 AM EDT 1.0 {tablet} activ e Ciprofloxacin HCl 500 MG eCW1 ([facility]) Ciprofloxacin 500 MG Oral Tablet Ciprofloxacin HCl 500 MG Ciprofloxacin HCl 500 MG 02/12/2020 12:00:00 AM EDT 1.0 {tablet} activ e Ciprofloxacin HCl 500 MG eCW1 ([facility]) Ciprofloxacin 500 MG Oral Tablet Ciprofloxacin HCl 500 MG Ciprofloxacin HCl 500 MG 02/12/2020 12:00:00 AM EDT 1.0 {tablet} activ e Ciprofloxacin HCl 500 MG eCW1 ([facility]) 500 mg 02/12/2020 12:00:00 AM EDT tablet 20 TAKE ONE TABLET BY MOUTH EVERY 12 HOURS FOR 10 DAYS TAKE ONE TABLET BY MOUTH EVERY 12 HOURS FOR 10 DAYS SO LD: 02/12/2020 [facility] Ciprofloxacin 500 MG Oral Tablet Ciprofloxacin HCl 500 MG Ciprofloxacin HCl 500 MG 02/12/2020 12:00:00 AM EDT 1.0 {tablet} activ e Ciprofloxacin HCl 500 MG eCW1 ([facility]) Cephalexin 500 MG Oral Capsule CEPHALEXIN 01/15/2020 12:00:00 AM EDT capsule 20 TAKE ONE CAPSULE BY MOUTH FOUR TIMES A DAY TAKE ONE CA PSULE BY MOUTH FOUR TIMES A DAY SOLD: 01/15/2020 [facility] 250 mg 01/05/2020 12:00:00 AM EDT tablet 20 TAKE ONE TABLET BY MOUTH TWICE A DAY TAKE ONE TABLET BY MOUTH TWICE A DAY SOLD: 01/05/2020 [facility] Oxybutynin chloride 5 MG Oral Tablet OXYBUTYNIN CHLORIDE 12:00:00 AM EDT tablet 54 TAKE ONE TABLET BY MOUTH TWI CE A DAY FOR URINARY DISCOMFORT TAKE ONE TABLET BY MOUTH TWICE A DAY FOR URINARY DISCOMFORT SOLD: 2020 [facility] clopidogrel 75 MG Oral Tablet [Plavix] Plavix 11/29/2019 12:00:00 AM EDT ORAL active MEDENT ([facility]) 500 mg 11/11/2019 12:00:00 AM EDT capsule 40 TAKE ONE CAPSULE BY MOUTH FOUR TIMES A DAY TAKE ONE CAPSULE BY MOUTH FOUR TIMES A DAY SOLD: 11/11/2019 [facility] 325 mg (65 mg iron) 09/25/2019 12:00:00 AM EDT tablet 14 TAKE 1 TABLET [325MG] BY MOUTH TWO TIMES A DAY TAKE 1 TABLET [325MG] BY MOUTH TWO TIMES A DAY SOLD: 09/27/2019 [facility] 150 mg 09/13/2019 12:00:00 AM EDT tablet 5 TAKE 1 TABLET [150MG] BY MOUTH DAILY AT 6:00PM TAKE 1 TABLET [150MG] BY MOUTH DAILY AT 6:00PM SOLD: 020 [facility] Ceftriaxone 100 MG/ML Injectable Solution Ceftriaxone Sodium 09/13/2019 12:00:00 AM EDT completed MEDENT ([facility]) 800-160 mg 09/13/2019 12:00:00 AM EDT [...] ORAL active MEDENT ([facility]) Nortriptyline 10 MG Oral Capsule Nortriptyline HCL 09/01/2019 12:00 :00 AM EDT ORAL active MEDENT ([facility]) Amlodipine 5 MG Oral Tablet Amlodipine Besylate 09/01/2019 12:00:00 A M EDT ORAL active MEDENT ([facility]) Acetaminophen 325 MG Oral Tablet Acetaminophen 09/01/2019 12:00:00 AM EDT active MEDENT ([facility]) 100 mg 08/18/2019 12:00:00 AM EDT capsule 14 TAKE ONE CAPSULE BY MOUTH TWICE A DAY TAKE ONE CAPSULE BY MOUTH TWICE A DAY SOLD: 08/18/2019 [facility] Nortriptyline 10 MG Oral Capsule Nortriptyline HCL 08/12/2019 12:00 :00 AM EDT active MEDENT ([facility]) 10 mg 08/10/2019 12:00:00 AM [...] 06/26/2019 12:00:00 AM EST ORAL completed MEDENT ([facility]) 500 mg 06/01/2019 12:00:00 AM EST [...] type / Coverage type Policy ID Covered republican ID Covered republican's relationship to romeo Policy Romeo Plan Information MEDICARE [id number] SP [id number] N68 [employer] [id number] SP [id number] [employer] [id number] SP [id number] [employer] O [id number] S [id number] MEDICARE C [id number] S [id number] N68 [employer] [facility] ([facility] Other [id number] Self [id number] Medicare Part B [facility] Other 0 Se lf 0 ANSI-Commercial [id number] ANSI-Commercial [id number] ANSI-Medicare Part B [id number] ANSI-Commercial [id number]-[id number] ANSI-Medicare Part B [id number] ANSI-Commercial [id number]-l6bn13785ckr 56ev88z3-5927-3462-1m4m-b7rz06862qjr ANSI-Medicare Part B [id number] ANSI-Commercial [id number]-2803-1e6s-i1108wi5krrt [id number]-3141-7t4c-[id number] ANSI-Commercial [id number]-v5r1-34q5-[id number] 4p7vj203-w9c6-97i7-y6b7-96045qb77096 ANSI-Medicare Part B [id number]-0xgf-[id number] ANSI-Commercial 3a0mh954-j01z-5yq1-loy7-fcr741946hb8 5p0yi254-l15x-1xf4-kti6-usz346085yd0 ANSI-Commercial 65w23l5c-f26x-9i52-17fr-qu8y3e26o640 44t96n3r-t34r-8v46-55nm-os8r0e22p780 ANSI-Commercial imfy2718-1b33-6763-9512-18h3xal79208 yzyd0155-6c61-1242-4649-82z4dyn44654 ANSI-Commercial 036uo7i3-43b9-6y50-181q-37440y75sul8 572pl4w9-83d3-7o29-188s-92191w00oar8 ANSI-Medicare Part B [id number]-e02v-5s90-5rpb-2ixrjxi40wb0 ANSI-Commercial 8p583i42-yk66-4k62-sj48-zr6lv3ecwr9k 5z403f73-kd91-8k99-xj30-wx1bn2aqbh6h ANSI-Medicare Part B [id number] 169c4zt3-e7t9-9l53-p02t-[id number] ANSI-Commercial 8q45fha4-19oc-9lz1-o35m-9vd91368pf3u 4f63vpt8-10ey-7lv6-z31k-5rc22208wd6i ANSI-Commercial 2qi10782-1leq-321r-935c-0r46c9e812a2 4gm46161-2vri-147k-671t-8t10w9d427z8 ANSI-Medicare Part B [id number] k0gxip3e-354g-[id number] ANSI-Commercial 3orx668s-wm62-4po9-g0sy-a119802zzm2i 7bcb143p-hx90-4fd4-l6ve-p099573npo0b [employer] [id number] SP [id number] MEDICARE [id number] SP [id number] N68 ANSI-Commercial 403fqwp8-3189-8p4w-0159-77m20w01y07m 263izbd2-1616-9r3m-0484-77p05s52w93y ANSI-Commercial 01702921-m43k-2ixa-74ir-v0c0d3qz9g0b 30469340-x55u-2gel-96vf-i3g1a8ir3m9x ANSI-Medicare Part B [id number] [employer]/MVP/[employer] Medigap Part B [id number] Self [id number] Medicare (Part B) Medicare Primary [id number] Self [id number] [employer] [facility] Part B [id number] Self [id number] [employer] Medigap Part B [id number] Self [id number] [employer]/M[employer] Medigap Part B [id number] Self [id number] Medicare (Part B) Medicare Primary [id number] Self [id number] ANSI-Commercial [id number] [id number]3rg5t765f98 ANSI-Medicare Part B [id number]-[id number] ANSI-Commercial 88b59v08-6zbe-76gq-o20x-m4qq8e4uk4hh 69f91w38-4qco-15nj-q12p-h8of1a6yu6pp ANSI-Medicare Part B [id number]-ij30-40q0nm0de5tr ANSI-Commercial 85y4l7yy-7532-648e-q297-n5q72c089pof 88r2b3jq-9237-367b-h886-n1p08u983lon ANSI-Commercial z1504593-oc07-3j7n-8iw7-ry4677nv86s8 m3816115-wn82-0h0t-3ke5-mb1217rj93n4 ANSI-Commercial 4p946y63-2572-58hd-fx25-78424w76lkt9 2s359c45-1712-82te-io39-26878z96yuj2 [facility]-Medicare Part B [id number]-49t0-5f40-95zm36dytfi1 ANSI-Commercial 825997pr-207x-01o8-7182-6a9s5700819w 603465kw-428e-77n8-0011-9m1d1350016i [facility]-Medicare Part B [id number] [id number]-6fl360b8c6dw ANSI-Commercial 6593hu94-rbgc-61l2-ep34-4vksy1po7x30 2749va94-ttwi-81q4-ce48-9ycpu7sw2c06 ANSI-Commercial 5x04l0h2-5vc9-268s-9053-l861i35bxx98 4m77h6u0-9no9-529m-1229-s783g12mav92 ANSI-Commercial 12yn5o65-5g50-8999-40f4-n13305n3o625 93tb9k71-0g26-2407-54p5-b12452k0t843 ANSI-Commercial 3z788j7r-7704-7v55-31nr-1199286s1l2y 6a630d4i-1443-0a11-02vw-1153448d8x6z [facility] [id number]-x1pk-50y217bn77nv ANSI-Commercial 8239m0sj-s4og-8551-4xq6-74hh79433672 2791d5hv-f5tj-1682-0sf6-24mw41280100 ANSI-Medicare Part B [id number] 2682bf56-m630-5863-wi4d-[id number] ANSI-Commercial 7n606z20-28ys-0ae0-6074-qsc1pe3h0ow6 8z860n51-02gv-4xg3-2506-kxp2yb7s7ov6 ANSI-Commercial fpkdked9-384u-9h804f76-m632-3246o81ugr17 mbihpne9-066a-4p398r52-q272-8867c23soa55 ANSI-Medicare Part B [id number]-jp8m-2212-h3x4-689i237483qi ANSI-Commercial 8z4v2j43-6604-64q1-8r06-0d6x6mpb10o5 0a9u9w91-8965-57k2-9z22-8m4t8qpf59u0 ANSI-Commercial irm4505b-1ws6-258p-485s-029xi07r7685 ldk0259s-3rx9-471l-712i-217mu40v8279 ANSI-Commercial b741928g-2643-1859-k6k3-6b241uph67z7 r440676f-8725-0648-c7g2-8c424elm24d0 ANSI-Medicare Part B [id number] 068mal66-712q-451o-22v2-hlf30904ed62 ANSI-Medicare Part B [id number]-v93m-6z24vhd37r96 b2t2o6r4-14g9-2918-u97q-5t22ctr92n03 ANSI-Commercial 479y2936-3253-3554-zo11-r57sj81796u4 995d2875-3928-6732-bz57-q35ck49408r1 ANSI-Commercial q64lxw30-5sp0-66mv-4c62-96h7u601rqt7 k80bep46-0cd9-00ew-2q42-61q8f216ytd9 ANSI-Commercial xm8g15s7-28nt-163p-3tq9-176971pl61f2 ze2i18x0-42ru-851e-7wa2-201801ud68j7 ANSI-Commercial 2ii5ap28-kr7p-6nzi-j97g-93457r6417ce 2pl3jz96-wc2y-2hrf-v04o-52187p1548sz ANSI-Medicare Part B [id number] r73047wi-24bn-6665-5np2-5684afc31zmy ANSI-Medicare Part B [id number]-d9i1-[id number] d8d6xhn1-51r6-07l6-g3w8-o98alu124809 ANSI-Commercial xmd17o70-9052-3qy9-pw7a-416012t268c5 ldx97x73-5856-4cf5-tv8t-384420p522z3 ANSI-Commercial 96han004-7624-5ie6-9624-0t214823q439 89svu993-7625-4cr6-0793-9w459878x865 ANSI-Commercial 9a74lai8-9v39-8ad8-3k25-653fdw6uk1g6 4y29ttq0-8x44-4oo1-7m62-636uwd8vi7g8 ANSI-Medicare Part B [id number]-d7p6-98870c3b05u3 483p1vuq-0798-70hr-u5j0-97264l4v81l4 ANSI-Commercial 265svj48-k8a2-4b08-vmq4-7p6i73333kd7 567kwc45-r3u1-6p67-upj8-5y5r24184ro2 ANSI-Commercial 56u03766-rx28-8zie-383w-5g7w219en8w7 69e54341-to70-4yqj-266c-9h5r569ve4b1 ANSI-Medicare Part B [id number]-d0g5-dil5a723o62t [id number]-eao1-5aj8-f3a3-qgv9d356n92h ANSI-Commercial 177jd351-y45n-86lx-474p-39f602g6x5mf 881ey718-t75o-82hn-119y-46r616x9a9rp ANSI-Commercial 47u72w0q-7sh1-46ip-93o6-874lt50s64xl 29p73x8z-3ou0-78vp-55l9-657bv02j18uz ANSI-Commercial c9cr6i86-71es-4gze-897n-p6864fsu6m40 u3ej6d88-13he-5rwb-924p-c4524dvz0u09 ANSI-Medicare Part B [id number]-2750-8e7d-vsd2-ikelenzjrmw4 7z40n52g-3342-3j6x-aer3-bvdrqzrgyhi6 ANSI-Commercial 642s4e1y-4550-285a-8377-8656b935ulr5 384a8k9i-6136-581i-1249-5807i793haz9 ANSI-Medicare Part B [id number]-17dn-q3n3-14x7y850r24h 11415vxl-b4rr-15ab-e6c7-63d7s603f72z ANSI-Commercial 73qh5284-5280-8mg7-93g2-06208984e50p 17vu3606-1013-2vr0-65q4-80961169a88x ANSI-Medicare Part B [id number]4b4 ANSI-Commercial y0902az7-u232-0093-p626-x7m7rf9gaup5 h5736nv9-u252-8998-w250-u4q5bi8petu0 ANSI-Commercial gzk30239-c413-6v89-j367-571873v05b79 yog72596-c204-9r36-h966-421231v35p84 ANSI-Medicare Part B [id number]-ky4e-67har6y6b14w [id number]-ct8d-18ivd2d2h77s ANSI-Commercial ujc61e63-xu58-71p3-ysz6-4167hx88f1lz tto03q72-na13-77w7-hmw2-4547en83b5ib ANSI-Commercial 9u93yeub-9151-9812-wnj6-viv0h0pb7j0a 2f20iers-1617-3051-onq7-egs0g4jf0f6e ANSI-Medicare Part B 2i543v3u-1213-8v15-4wv2-axh6239g4mno 3n520r4z-9330-5b36-3uj2-kfx9189q8ohe ANSI-Commercial on13k3g2-909i-2703-j64y-59694707ul91 gx44m2f8-508k-1999-m99x-59320738ii68 ANSI-Commercial 7ej03jhx-b642-2917-z889-rp0u551086dl 5vw47hmp-u081-3388-l860-bg1d969468mo ANSI-Medicare Part B 4na44587-g785-90sc-98r0-04y22ksl685w 7ut35124-j694-64an-81z4-84b60lub759m ANSI-Commercial o2019760-64q8-6if0-k7t5-056706g1wtsu z4138944-52y6-2eh0-a9e9-043046n3ecvt ANSI-Commercial 83q99u62-168f-0810-0weh-p25720262584 16f41e12-074i-7407-9vza-j83759751903 ANSI-Commercial 0xn94obn-5002-4nt4-66j8-63x78q3gvyk0 8wh92edi-4329-6fd1-61e8-82r56y9moer1 [facility]-Medicare Part B [id number]0y06885b k9551184-8149-8074-94s1-31576z99433p ANSI-Commercial 14lo0xku-7268-22i1-r800-2708ox69566r 19nq7mfi-7899-80m7-c939-1203kp59656h ANSI-Commercial 3y29ml3p-2jlk-3205-z6m8-66x811cya5b4 0a61ye7n-4aop-0146-i9a3-77s421jdc8j6 ANSI-Commercial rz30y7rg-1k46-48dh-45ud-5888r144h5n0 mh66j8sv-2g60-82xj-90gk-6310c423g3w9 [facility] 24l8q92h-o69l-419t-ikr7-f9zz12c4j65e 25s7o92w-d58r-266f-dqt8-s8pq80t3j33n ANSI-Commercial o422vyb2-op9b-9ht2-b182-hfkx96aob600 e853jpn3-fn7z-6mm4-t277-fuvx05vfc982 ANSI-Commercial 2w236f72-50pk-329i-r8jy-5m894te03871 0f346u76-39sx-034i-d2rx-7u575aq58403 [facility] 07y9y4n6-z30y-95u7-t1r1-w5962uq939q2 31w1t4c3-c02a-18z8-q5p5-p8773ti030f4 ANSI-Commercial a45j9nx4-p506-87d6-k125-976an76818tv d65m5vq2-t434-30p2-m048-253kj92606lj ANSI-Commercial k91x283q-138a-8732-60p5-699t7a491oz1 e45m116s-583g-6202-45e0-705e5k062qy6 ANSI-Medicare Part B 1vj732u3-y5v2-0ew8-107a-wdkz6ay86b01 5do068k0-s4b1-6zh0-564n-oovr8hb72j22 [facility] [facility] Part B [id number] Self [id number] Medicare Natl Govt Serv Medicare Primary [id number] Self [id number] [employer] Benefit Plan [facility] Part B [id number] Self [id number] ANSI-Medicare Part B [id number]-66n1-788d-[id number] si545q2e-14i5-714j-3732-25p10114rpm0 ANSI-Commercial l77z434y-u7dn-3947-1116-quz25x7c49kg x73j101j-y6yg-8235-7539-lrd28f5a30wu ANSI-Commercial 062i1223-4j4b-8kd2-d21p-f84r8y3rx9q0 448q8111-1p9m-7vx0-k63o-u96h6g2ce7j1 ANSI-Commercial nz7al120-k546-9n7b-xx18-52j0sq23jc04 up9kp864-n371-0j5q-wt60-73l1by90ud50 ANSI-Medicare Part B 517v5hcz-p077-8l1u-9l8m-6w2ezc22n460 547y4kbv-y429-0f7v-2f5s-4u8bmn79d998 ANSI-Commercial 514l2hu8-9549-9r45-cbc7-v5961zakn0ea 088v5sa8-8455-4u42-vnl0-c1150qcoj1mv [employer]/MVP/Apwu [facility] Part B [id number] Self [id number] Medicare (Part B) Medicare Primary [id number] Self [id number] ANSI-Commercial 18nn1268-6x51-487h-xwqn-874aqh99j660 94sa7937-0w28-153e-zvan-033eog05x788 ANSI-Medicare Part B [id number]-[id number] 67w3d015-5ghw-0113-2912-9031i0185039 ANSI-Commercial 696l1e25-7w3u-4680-0px6-8h23d3f23j94 025q7b89-1h7t-6640-4gs9-2j66l9e25n64 ANSI-Commercial 6340b0d5-00l4-9wst-475f-6zzm001078f6 3627e6i5-39w7-1idu-632x-9zef810238o2 ANSI-Medicare Part B 9j41r36p-6sky-325w-v5v2-7x330o8zrc95 1w95v01t-1uvk-055x-c5r5-6a973i9dqe65 ANSI-Commercial 49x6s80a-2385-870x-y6r9-uy17ge1h6gk2 47x6d20n-3617-083v-z0z8-ku99wn9n2ac4 ANSI-Commercial 4340196s-xfk8-6mn2-bjm3-763314sj591g 2209086z-yat4-8pn8-src6-059511by761i ANSI-Commercial dem6t6g7-k652-01iw-e891-ky4702t4pc15 his2f1v7-i159-63vd-i277-zn8334b3sy47 ANSI-Medicare Part B a2460siz-obfa-36w8-cnyj-e85sgu756ax8 u7332bni-kqgv-73k1-umtf-j21npw069ud8 MEDICARE [id number] A ANSI-Medicare Part B [id number]-8495-n05z-y00x9745y4cy jx370z85-1i0u-4814-l83h-o68o9919f4ug ANSI-Commercial p48jr4ut-5243-38xd-9n17-w14r5n52jun4 w98ot5yd-9852-60sd-8d09-g45i3x28jhy1 ANSI-Commercial 0225e027-786y-30s0-692w-36uz22ba543p 2432v943-539h-67l4-537s-71kf91xs140m ANSI-Medicare Part B 52386001-4gf9-48p5-3170-9kn50z56ft89 68052939-6cc7-84q9-5711-4wf27l55xh56 ANSI-Commercial 5978tg2p-5l5w-8f46-9749-n908kru7z117 2971ag0b-4c1u-2j38-0548-e950cto6x869 ANSI-Commercial 55qh0m77-b16e-7io1-3c34-2y7721oa2axq 60gc8m74-d32l-2um8-6n77-5z2262mh2bde ANSI-Medicare Part B 658m780i-8q69-8mg6-dvq6-y8vro9kg61as 029q991t-5t71-6zr1-nji9-z1jlq9rx86au ANSI-Commercial vg17gzys-1443-6fsz-k6x4-5ktbhx60b24m fi84bcab-8594-2jjn-f2e5-3dusrv31a28k ANSI-Commercial w3661r5w-471z-6kst-33g0-6x15141r4am8 j8793a8x-486g-0whs-09p2-1z59718v4ib3 [employer] [id number] SP [id number] MEDICARE [id number] SP [id number] A MEDICARE [id number] SP [id number] A [employer] [id number] SP [id number] ANSI-Commercial 6414438f-ts0d-4z00-916u-h0k2f735bx5w 0218864b-gy7u-5k57-016o-f8h4i466kv4u ANSI-Commercial 2f46h2r8-92qh-18ks-74v2-c5oi138uld6d 6s05a0d2-27pc-53rl-03b4-y7lb859ejw8u ANSI-Medicare Part B o4f79a92-40xm-689f-4422-ea94xl8q2226 j3o60a89-82sl-392c-9950-ty63rn7e7249 ANSI-Commercial [id number] ANSI-Commercial [id number] ANSI-Medicare Part B [id number] ANSI-Commercial [id number] ANSI-Commercial [id number] ANSI-Medicare Part B [id number] ANSI-Commercial [id number] ANSI-Medicare Part B [id number] ANSI-Commercial [id number] Medicare Part B [facility] Other 0 Se lf 0 [employer] ([employer]) Other [id number] Self [id number] Medicare Part B [facility] Other 0 Se lf 0 [employer] ([employer]) Other [id number] Self [id number] [employer] O [id number] S [id number] MEDICARE C [id number] S [id number] A [facility] [employer] C [id number] O [id number] NORIDIAN PART B C [id number] O [id number] Ap[place] Medigap Part B [id number] Self [id number] Medicare [place] Govt Servic Medicare Primary [id number] Self [id number] Cigna/MVP/Apwu Medigap Part B [id number] Self [id number] Medicare (Part B) Medicare Primary [id number] Self [id number] Cigna/MVP/[place] Medigap Part B [id number] Self [id number] Medicare (Part B) Medicare Primary [id number] Self [id number] [place] Health Plan Medigap Part B [id number] Self [id number] [place] Primary [id number] Self [id number] Mailhandlers Benefit Plan Medigap Part B Self Apwu Medigap Part B [id number] Self [id number] Medicare [place] Govt Servic Medicare Primary Self Mailhandlers Medigap Part B Self Mailhandlers Medigap Part B Self Cigna/MVP/Apwu Medigap Part B Self Medicare (Part B) Medicare Primary Self O [id number] S [id number] MEDICARE M [id number] S [id number] A O [id number] S [id number] A Problems, Conditions, and Diagnoses Code Display Name Description Problem Type Effective Dates Data Source(s) Z93.59 [id number] Suprapubic catheter Problem 11/11/2019 12:00 :00 AM EDT eCW1 ([facility]) Surgeries/Procedures Procedure Description Date Indications Data Source(s) Insert Supra Pubic Catheter 20F, Complex 04/23/2020 12 :00:00 AM EST eCW1 ([facility]) Insert Supra Pubic Catheter 20F, Simple 03/27/2020 12: 00:00 AM EST eCW1 ([facility]) ECG ROUTINE ECG W/LEAST 12 LDS W/I&R 03/04/2020 12:00: 00 AM EST MEDENT ([facility]) Insert Supra Pubic Catheter 20F, Simple 03/02/2020 12: 00:00 AM EST eCW1 ([facility]) Medication: Lidocaine HCl 2% Jelly 5mL Intravesically 02/12/2020 12:00:00 AM EDT eCW1 ([facility]) TSTG ANS FUNCJ CARDIOVAGAL INNERVAJ PARASYMP 0 12:00:00 AM EDT MEDENT ([facility] ) TSTG ANS FUNCJ CARDIOVAGAL INNERVAJ PARASYMP 0 12:00:00 AM EDT MEDENT ([facility], ) TESTING AUTONOMIC NERVOUS SYSTEM FUNCTION 01/24/2020 1 2:00:00 AM EDT MEDENT ([facility], ) TESTING AUTONOMIC NERVOUS SYSTEM FUNCTION 01/24/2020 1 2:00:00 AM EDT MEDENT ([facility], ) ELECTROENCEPHALOGRAM W/REC AWAKE&ASLEEP 12/13/2019 12: 00:00 AM EDT MEDENT ([facility] ) ELECTROENCEPHALOGRAM W/REC AWAKE&ASLEEP 12/13/2019 12: 00:00 AM EDT MEDENT ([facility] ) BLDR IRRIGATION SMPL LAVAGE&/INSTLJ 11/11/2019 12:00:0 0 AM EDT eCW1 ([facility]) Insert Supra Pubic Catheter 20F, Complex 11/05/2019 12 :00:00 AM EDT eCW1 ([facility]) CYSTOSCOPY 09/20/2019 12:00:00 AM EDT e CW1 ([facility]) Office Visit, Est Pt., Level 2 FC 09/19/2019 12:00:00 AM EDT eCW1 ([facility]) Office Visit, Est Pt., Level 3 PC 09/19/2019 12:00:00 AM EDT eCW1 ([facility]) Irrigation of Bladder 09/19/2019 12:00:00 AM EDT eCW1 ([facility]) ECG ROUTINE ECG W/LEAST 12 LDS W/I&R 09/02/2019 12:00: 00 AM EDT MEDENT ([facility]) INSERT BLADDER CATHETER 08/29/2019 12:00:00 AM EDT eCW1 ([facility]) Results ID Date Data Source [id number] 02/05/2020 07:46:00 AM EDT MEDENT ([facility]) Name Value Range Interpretation Code Description Data Wendy rce(s) Supporting Document(s) Iron 74 MEDENT ([facility]) Tibc % Saturation 23.3 [facility] Iron binding capacity [Mass/volume] in Serum or Plasma 318 MEDENT ([facility]) ID Date Data Source [id number] 02/05/2020 07:46:00 AM EDT MEDENT ([facility]) Name Value Range Interpretation Code Description Data Wendy rce(s) Supporting Document(s) Triglycerides 84 30-150 MEDENT ([facility]) HDL 46 35-60 MED[facility] ([facility]) Cholesterol in LDL [Mass/volume] in Serum or Plasma by calculation 63 50-159 MED[facility] ([facility]) Cholesterol 126 131-200 MED[facility] ([facility]) Chol/HDL Ratio Laboratory test result MEDENT ([facility]) ID Date Data Source [id number] 02/05/2020 07:46:00 AM EDT MEDENT ([facility]) Name Value Range Interpretation Code Description Data Wendy rce(s) Supporting Document(s) Albumin [Mass/volume] in Serum or Plasma 3.4 MED[facility] ([facility]) Alanine aminotransferase [Enzymatic activity/volume] in Serum or Pl asma 31 MEDENT ([facility]) Calcium [Mass/volume] in Serum or Plasma 9.7 MEDENT ([facility]) Carbon dioxide, total [Moles/volume] in Serum or Plasma 30 MED[facility] ([facility]) Chloride [Moles/volume] in Serum or Plasma 104 MED[facility] ([facility]) Potassium [Moles/volume] in Serum or Plasma 4.3 MED[facility] ([facility]) Alkaline phosphatase [Enzymatic activity/volume] in Serum or Plasma 1 65 MEDENT ([facility]) Protein [Mass/volume] in Serum or Plasma 8.4 MED[facility] ([facility]) Aspartate aminotransferase [Enzymatic activity/volume] in Serum or Plasma 21 MED[facility] ([facility]) Sodium 140 MED[facility] ([facility] Glucose 113 74-99 MED[facility] Urea nitrogen [Mass/volume] in Serum or Plasma 23 MED[facility] ([facility]) Creatinine For GFR 1.3 MEDENT (Car [facility]) ID Date Data Source [id number] 02/05/2020 07:46:00 AM EDT MEDENT ([facility]) Name Value Range Interpretation Code Description Data Wendy rce(s) Supporting Document(s) Hemoglobin A1c/Hemoglobin.total in Blood 7.4 MED[facility] ([facility]) ID Date Data Source [id number] 02/05/2020 07:46:00 AM EDT MEDENT ([facility]) Name Value Range Interpretation Code Description Data Wendy rce(s) Supporting Document(s) White Blood Count 8.8 4.1-10.9 MED[facility] ([facility]) Red Blood Count 5.94 4.2-6.30 MED[facility] ([facility]io [facility]) Platelets 387 140-440 MED[facility] ([facility]) Hemoglobin 11.7 12.0-18.0 MED[facility] ([facility]) Hematocrit 34.4 37.0-51.0 MED[facility] ([facility]) ID Date Data Source [id number] 01/05/2020 09:12:00 AM EDT MEDENT ([facility]) Name Value Range Interpretation Code Description Data Wendy rce(s) Supporting Document(s) Reflex Urine Culture Laboratory test result [facility] FULL REPORT IN LAB NOTES (eCW and Medent ). SPECIMEN APPEARS CONTAMINATED ID Date Data Source [id number] 01/05/2020 09:12:00 AM EDT MED[facility] Name Value Range Interpretation Code Description Data Wendy rce(s) Supporting Document(s) WBC, Urine Man RFX Laboratory test result 0-3 MED[facility] ([facility]) RBC, Urine Laboratory test result 0-3 [facility] Squamous Epithelial Cell Urine Laboratory test result MED[facility] ([facility]) Hyaline Cast, Urine Laboratory test result 0-1 MED[facility] ([facility]) Microscopic Exam Laboratory test result [facility] Bacteria, Urine Laboratory test result M EDENT [facility] ID Date Data Source [id number] 01/05/2020 09:12:00 AM EDT MEDENT ([facility]) Name Value Range Interpretation Code Description Data Wendy rce(s) Supporting Document(s) Appearance, Urine Manual RFX Laboratory test result MED[facility] ([facility]) Color, Urine Manual Reflex Laboratory test result MED[facility] ([facility]) SP [place],Urine Manual Reflex 1.014 1.002-1.035 [facility] ([facility]) Glucose, Urine (Ua) Manual Laboratory test result MED[facility] ([facility]) Protein, Urine Manual Reflex Laboratory test result MED[facility] ([facility]) PH,Urine Man Reflex 5.5 units 5.0-7.0 MEDENT ([facility]) Ketone, Urine Manual Laboratory test result MED[facility] ([facility]) Bilirubin, Urine Manual Laboratory test result MED[facility] ([facility]) Urobilinogen, Urine Manual Laboratory test result MEDENT ([facility]) Leukocyte Esterase, Ur Man RFX Laboratory test result MED[facility] ([facility]) Blood Urine Manual RFX Laboratory test result MED[facility] ([facility]) Nitrite, Urine Manual RFX Laboratory test result MED[facility] ([facility]) ID Date Data Source [id number] 01/05/2020 09:00:00 AM EDT MEDENT ([facility]) Name Value Range Interpretation Code Description Data Wendy rce(s) Supporting Document(s) Abo/RH Type Manual Laboratory test result MEDENT ([facility]) ID Date Data Source [id number] 01/05/2020 09:00:00 AM EDT MEDENT ([facility]) Name Value Range Interpretation Code Description Data Wendy rce(s) Supporting Document(s) AB Screen (Indirect Barrie)Vis Laboratory test result MED[facility] ([facility]) ID Date Data Source [id number] 01/05/2020 09:00:00 AM EDT MEDENT ([facility]) Name Value Range Interpretation Code Description Data Wendy rce(s) Supporting Document(s) Glucose, Fasting 120 mg/dL 70-100 MEDENT ([facility]) Blood Urea Nitrogen 20 mg/dL 7-18 [facility] Sodium Level 138 meq/L 136-145 MED[facility] ([facility]) Creatinine For GFR 1.20 mg/dL 0.70-1.30 MEDENT ([facility]) Glomerular Filtration Rate Laboratory test result [facility]) <content>Units are mL/min/1.73 m2</content>
<content></content>
<content>Chronic Kidney Disease Staging per NKF:</content>
<content></content>
<content>Stage I & II GFR >=60 Normal to Mildly Decreased</content>
<content>Stage III GFR 30- 59 Moderately Decreased</content>
<content>Stage IV GFR 15-29 Severely Decreased</content>
<content>Stage V GFR <15 Very Little GFR Left</content>
<content>ESRD GFR <15 on SERVICE ADVISOR</content>
<content></content> Chloride Level 105 meq/L 98-107 MEDENT ([facility]) Potassium Serum 4.3 meq/L 3.5-5.1 MEDENT ([facility]) Anion Gap 6 meq/L 8-16 [facility]) Carbon Dioxide Level 27 meq/L 21-32 [facility] Calcium Level 9.2 mg/dL 8.8-10.2 MEDENT ([facility]) ID Date Data Source [id number] 01/05/2020 09:00:00 AM EDT MEDENT ([facility]) Name Value Range Interpretation Code Description Data Wendy rce(s) Supporting Document(s) Prothrombin Time 13.8 s 11.8-14.0 MEDENT ([facility]) Inr 1.03 [facility] ([facility]) THERAPUTIC HUMAN INR VALUES INDICATIONS NORMAL RANGES PROPHYLAXIS/TREATMENT OF: VENOUS THROMBOSIS 2.0-3.0 PULMONARY EMBOLISM 2.0-3.0 PREVENTION OF SYSTEMIC EMBOLISM FROM: TISSUE HEART VALVES 2.0-3.0 ACUTE MYOCARDIAL INFARCTION 2.0-3.0 VALVULAR HEART DISEASE 2.0-3.0 ATRIAL FIBRILLATION 2.0-3.0 MECHANICAL VALVES(HIGH RISK) 2.5-3.5 RECURRENT MYOCARDIAL INFARCTION 2.5-3.5 ID Date Data Source [id number] 01/05/2020 09:00:00 AM EDT MEDENT ([facility]) Name Value Range Interpretation Code Description Data Wendy rce(s) Supporting Document(s) White Blood Count 9.6 10 4.0-10.0 MEDENT ([facility]) Red Blood Count 6.03 10 4.30-6.10 MEDENT ([facility]) Hematocrit 35.8 % 42.0-52.0 [facility] Hemoglobin 10.9 g/dL 13.5-17.5 [facility] Mean Corpuscular Volume 59.4 fl 80.0-96.0 [facility] ([facility]) Mean Corpuscular HGB Conc 30.4 g/dL 32.0-36.5 MEDE NT ([facility]) Red Cell Distribution Width 18.5 % 11.5-14.5 [facility] ([facility]) Mean Corpuscular Hemoglobin 18.1 pg 27.0-33.0 [facility] ([facility]) Platelet Count, Automated 328 10 150-450 MEDE NT ([facility]) Grimes % 7.5 % 0.0-5.0 [facility] Lymph % 20.3 % 24.0-44.0 [facility] Neutrophils % 68.0 % 36.0-66.0 MEDENT ([facility]) Baso % 0.7 % 0.0-1.0 [facility] Immature Granulocyte % 0.2 % 0-3.0 MED[facility] ([facility]) Eos % 3.3 % 0.0-3.0 [facility] Lymph # 2.0 10 1.5-5.0 [facility] Neutrophils # 6.6 10 1.5-8.5 MEDENT ([facility]) Nucleated Red Blood Cell % 0.0 % 0-0 MED ENT ([facility]) Eos # 0.3 10 0.0-0.5 [facility] Grimes # 0.7 10 0.0-0.8 [facility] Baso # 0.1 10 0.0-0.2 [facility] ID Date Data Source [id number] 11/10/2019 06:49:00 PM EDT MEDENT ([facility]) Name Value Range Interpretation Code Description Data Wendy rce(s) Supporting Document(s) Color, Urine Laboratory test result MEDE NT ([facility]) Appearance, Urine Laboratory test result MED[facility] ([facility]) Specific [place] Urine Auto 1.018 1.002-1.035 MED[facility] ([facility]) PH,Urine 5.0 units 5.0-9.0 [facility] ([facility]) Protein, Urine Auto Laboratory test result MED[facility] ([facility]) Glucose, Urine (Ua) Auto Laboratory test result MED[facility] ([facility]) Ketone, Urine Auto Laboratory test result MED[facility] ([facility]) Urobilinogen, Urine Auto 0.2 mg/dL 0.0-2.0 MEDEN T ([facility]) Nitrite, Urine Auto Laboratory test result MED[facility] ([facility]) Blood, Urine Blood Laboratory test result MED[facility] ([facility]) Bilirubin, Urine Auto Laboratory test result [facility] Leukocyte Esterase, Urine Auto Laboratory test result [facility] Bacteria, Urine Auto Laboratory test result [facility] RBC, Urine Auto 6 /HPF 0-3 MEDENT ([facility]) WBC, Urine Auto 126 /HPF 0-3 MEDENT ([facility]) Squamous Epithelial Cell Ur AU 0 /HPF 0-6 MED[facility] ([facility]) Mucus, Urine Laboratory test result MEDE NT [facility] Hyaline Cast, Urine Auto 0 /LPF 0-1 MEDEN T ([facility]) ID Date Data Source [id number] 11/10/2019 06:49:00 PM EDT MED[facility] ([facility] Name Value Range Interpretation Code Description Data Wendy rce(s) Supporting Document(s) Urine Culture Laboratory test result MED ENT [facility] <content>FULL REPORT IN LAB NOTES (eCW [...] 2 S</content>
<content></content> ID Date Data Source [id number] 10/02/2019 11:47:00 AM EDT MEDENT ([facility]) Name Value Range Interpretation Code Description Data Wendy rce(s) Supporting Document(s) Glucose [Mass/volume] in Serum or Plasma 225 mg/dL 74-99 MED[facility] ([facility]) 100-125 mg/dL PRE-DIABETES/FASTING >126 mg/dL DIABETES/FASTING Urea nitrogen [Mass/volume] in Serum or Plasma 22 mg/dL 7-18 MED[facility] ([facility]) Creatinine 1.2 mg/dL 0.6-1.3 MED[facility] ([facility]) Sodium [Moles/volume] in Serum or Plasma 141 meq/L 136-145 MED[facility] ([facility]) Potassium [Moles/volume] in Serum or Plasma 4.0 meq/L 3.5-5.1 MED[facility] ([facility]) Chloride [Moles/volume] in Serum or Plasma 105 meq/L 98-107 MED[facility] ([facility]) Glomerular filtration rate/1.73 sq M pre dicted among non-blacks [Volume Rate/Area] in Serum or Plasma by Creatinine-based formula (MDRD) 57 mL/min MEDENT ([facility]) Calcium [Mass/volume] in Serum or Plasma 8.9 mg/dL 8.5-10.1 [facility] ([facility]) Carbon dioxide, total [Moles/volume] in Serum or Plasma 29 meq/L 21 -32 MED[facility] ([facility]) Glomerular filtration rate/1.73 sq M pre dicted among blacks [Volume Rate/Area] in Serum or Plasma by Creatinine-based formula (MDRD) Laboratory test result MEDENT ([facility]) <content>CHRONIC KIDNEY DISEASE STAGING PER NKF</content>
<content></content>
<content>STAGE I & II GFR >= 60 NORMAL TO MILDLY DECREASED</content>
<content>STAGE III GFR 30-59 MODERATELY DECREASED</content>
<content>STAGE IV GFR 15-29 SEVERELY DECREASED</content>
<content>STAGE V GFR <15 VERY LITTLE GFR LEFT</content>
<content>ESRD GFR <15 ON SERVICE ADVISOR</content>
<content></content> ID Date Data Source [id number] 10/02/2019 11:47:00 AM EDT MEDENT ([facility]) Name Value Range Interpretation Code Description Data Wendy rce(s) Supporting Document(s) Leukocytes [#/volume] in Blood by Automated count 12.4 x10*3/UL 4.1-1 0.9 MED[facility] ([facility]) Erythrocytes [#/volume] in Blood by Automated count 4.72 x10*6/UL 4.2 0-6.30 [facility] ([facility]) MCV 59.0 fL 80.0-97.0 [facility] ([facility]) Hemoglobin [Mass/volume] in Blood 9.3 g/dL 12.0-18.0 [facility] ([facility]) NOTE: RESULT VERIFIED. Hematocrit [Volume Fraction] of Blood by Automated count 27.8 % 3 7.0-51.0 [facility] Erythrocyte distribution width [Ratio] by Automated count 16.6 % 11.6-13.7 MED[facility] ([facility]) MCH 19.8 pg 26.0-32.0 [facility] ([facility]) MCHC 33.6 g/dL 31.0-38.0 MEDENT ([facility]) MPV 9.1 FL 7.8-11.0 [facility] ([facility]) Lymph % 18.3 % 10.0-58.5 [facility]) Platelets [#/volume] in Blood by Automated count 489 x10*3/UL 140-440 MED[facility] ([facility]) Mid % 7.0 % 1.7-9.3 [facility] Mid # 1.0 x10*3/UL 0.1-0.6 [facility] ([facility]) Neut % 74.7 % 37.0-92.0 [facility] Lymph # 2.2 x10*3/UL 0.6-4.1 [facility] ([facility]) Neut # 9.2 x10*3/UL 2.0-7.8 [facility] ([facility]) ID Date Data Source [id number] 09/22/2019 04:33:00 PM EDT MEDENT ([facility]) Name Value Range Interpretation Code Description Data Wendy rce(s) Supporting Document(s) Laboratory test finding (navigational concept) 35.0 % 38.0-51.0 [facility] ([facility]) Laboratory test finding (navigational concept) 115 mg/dL 70-105 [facility] ([facility]) Laboratory test finding (navigational concept) 4.9 meq/L 3.5-5.1 [facility] ([facility]) Laboratory test finding (navigational concept) 139 meq/L 136-145 [facility] ([facility]) Laboratory test finding (navigational concept) 23 mg/dL 8-26 [facility] ([facility]) Laboratory test finding (navigational concept) 5.0 mg/dL 4.5-5.3 [facility] ([facility]) Laboratory test finding (navigational concept) 28.0 MM/L 23.0-27.0 [facility] ([facility]) Laboratory test finding (navigational concept) 101 meq/L 98-109 [facility] ([facility]) Laboratory test finding (navigational concept) 1.1 mg/dL 0.6-1.3 [facility] ([facility]) ID Date Data Source [id number] 09/22/2019 04:26:00 PM EDT MEDENT ([facility]) Name Value Range Interpretation Code Description Data Wendy rce(s) Supporting Document(s) WBC, Urine Man RFX Laboratory test result 0-3 [facility] ([facility]) Squamous Epithelial Cell Urine Laboratory test result [facility] ([facility]) Bacteria, Urine Laboratory test result M [facility] RBC, Urine Laboratory test result 0-3 [facility] ([facility]) Hyaline Cast, Urine Laboratory test result 0-1 [facility] Mucus, Urine Laboratory test result MEDE NT [facility] Microscopic Exam Laboratory test result [facility] ID Date Data Source [id number] 09/22/2019 04:26:00 PM EDT MEDENT ([facility]) Name Value Range Interpretation Code Description Data [facility] rce(s) Supporting Document(s) Color, Urine Manual Reflex Laboratory test result [facility] ([facility]) Appearance, Urine Manual RFX Laboratory test result [facility] ([facility]) Glucose, Urine (Ua) Manual Laboratory test result [facility] ([facility]) PH,Urine Man Reflex 5.0 units 5.0-7.0 MED[facility] ([facility]) Protein, Urine Manual Reflex Laboratory test result [facility] ([facility]) SP [place],Urine Manual Reflex 1.020 1.002-1.035 [facility] ([facility]) Bilirubin, Urine Manual Laboratory test result [facility] ([facility]) Urobilinogen, Urine Manual Laboratory test result [facility] ([facility]) Ketone, Urine Manual Laboratory test result [facility] ([facility]) Leukocyte Esterase, Ur Man RFX Laboratory test result [facility] ([facility]) Nitrite, Urine Manual RFX Laboratory test result [facility] ([facility]) Blood Urine Manual RFX Laboratory test result [facility] ([facility]) ID Date Data Source [id number] 09/22/2019 04:26:00 PM EDT MED[facility] Name Value Range Interpretation Code Description Data Wendy rce(s) Supporting Document(s) White Blood Count 9.9 10 4.0-10.0 MED[facility] ([facility]) Hematocrit 35.4 % 42.0-52.0 [facility] Red Blood Count 5.89 10 4.30-6.10 MED[facility] ([facility]) Hemoglobin 10.7 g/dL 13.5-17.5 [facility] Mean Corpuscular Hemoglobin 18.2 pg 27.0-33.0 [facility] ([facility]) Mean Corpuscular HGB Conc 30.2 g/dL 32.0-36.5 MEDE NT ([facility]) Mean Corpuscular Volume 60.1 fl 80.0-96.0 MEDENT ([facility]) Lymph % 26.2 % 24.0-44.0 [facility] Neutrophils % 63.2 % 36.0-66.0 [facility] ([facility]) Platelet Count, Automated 589 10 150-450 MEDE NT ([facility]) Red Cell Distribution Width 18.0 % 11.5-14.5 [place] DENT ([facility]) Grimes % 6.7 % 0.0-5.0 [facility] Eos % 2.8 % 0.0-3.0 [facility]) Baso % 0.6 % 0.0-1.0 [facility] Lymph # 2.6 10 1.5-5.0 [facility]) Nucleated Red Blood Cell % 0.0 % 0-0 MED ENT ([facility]) Neutrophils # 6.2 10 1.5-8.5 [facility] ([facility]) Immature Granulocyte % 0.5 % 0-3.0 [facility] ([facility]) Grimes # 0.7 10 0.0-0.8 [facility] Eos # 0.3 10 0.0-0.5 [facility] Baso # 0.1 10 0.0-0.2 [facility]) ID Date Data Source [id number] 09/21/2019 09:14:00 PM EDT [facility] ([facility]) Name Value Range Interpretation Code Description Data Wendy rce(s) Supporting Document(s) PH,Urine RFX 6.0 units 5.0-9.0 [facility] Color, Urine RFX Laboratory test result [facility] Specific [place] Ur Auto RFX 1.005 1.002-1.035 [facility] Appearance, Urine RFX Laboratory test result [facility] Protein, Urine Auto RFX Laboratory test result [facility] Glucose, Urine (Ua) Auto RFX Laboratory test result [facility] Ketone, Urine Auto RFX Laboratory test result [facility] Nitrite, Urine Auto RFX Laboratory test result [facility] Urobilinogen, Urine Auto RFX 0.2 mg/dL 0.0-2.0 [facility] Bilirubin, Urine Auto RFX Laboratory test result [facility] Blood, Urine Blood RFX Laboratory test result [facility] Leukocyte Esterase Ur Auto RFX Laboratory test result [facility] WBC, Urine Auto RFX 43 /HPF 0-3 [facility] RBC, Urine Auto RFX Laboratory test result 0-3 [facility] ([facility]) Bacteria, Urine Auto RFX Laboratory test result [facility] Hyaline Cast, Urine Auto RFX 0 /LPF 0-1 M [facility] Squam Epithelial Cell Ur Aurfx 0 /HPF 0-6 [facility] ([facility]) ID Date Data Source [id number] 09/21/2019 09:14:00 PM EDT [facility] ([facility]) Name Value Range Interpretation Code Description Data Wendy rce(s) Supporting Document(s) Reflex Urine Culture Laboratory test result [facility] FULL REPORT IN LAB NOTES (eCW and [facility] ). NO GROWTH ID Date Data Source [id number] 09/21/2019 08:01:00 PM EDT [facility] ([facility]) Name Value Range Interpretation Code Description Data Wendy rce(s) Supporting Document(s) White Blood Count 10.1 10 4.0-10.0 [facility] ([facility]) Hematocrit 32.6 % 42.0-52.0 [facility] ([facility]) Red Blood Count 5.47 10 4.30-6.10 [facility] ([facility]) Hemoglobin 10.0 g/dL 13.5-17.5 [facility] ([facility]) Mean Corpuscular Volume 59.6 fl 80.0-96.0 [facility] ([facility]) Mean Corpuscular HGB Conc 30.7 g/dL 32.0-36.5 MEDE NT ([facility]) Mean Corpuscular Hemoglobin 18.3 pg 27.0-33.0 ME DENT ([facility]) Red Cell Distribution Width 17.4 % 11.5-14.5 [place] [facility] ([facility]) Neutrophils % 59.6 % 36.0-66.0 [facility] ([facility]) Platelet Count, Automated 544 10 150-450 MEDE NT ([facility]) Eos % 5.6 % 0.0-3.0 [facility] Baso % 0.7 % 0.0-1.0 [facility]) Lymph % 25.6 % 24.0-44.0 [facility]) [place] % 7.9 % 0.0-5.0 [facility]) Neutrophils # 6.0 10 1.5-8.5 [facility] ([facility]) Immature Granulocyte % 0.6 % 0-3.0 [facility] ([facility]) Nucleated Red Blood Cell % 0.0 % 0-0 MED ENT ([facility]) Baso # 0.1 10 0.0-0.2 [facility]) Lymph # 2.6 10 1.5-5.0 [facility] Grimes # 0.8 10 0.0-0.8 [facility] Eos # 0.6 10 0.0-0.5 [facility] ID Date Data Source [id number] 09/21/2019 08:01:00 PM EDT [facility] ([facility]) Name Value Range Interpretation Code Description Data Wendy rce(s) Supporting Document(s) Inr 1.14 [facility] ([facility]) THERAPUTIC HUMAN INR VALUES INDICATIONS NORMAL RANGES PROPHYLAXIS/TREATMENT OF: VENOUS THROMBOSIS 2.0-3.0 PULMONARY EMBOLISM 2.0-3.0 PREVENTION OF SYSTEMIC EMBOLISM FROM: TISSUE HEART VALVES 2.0-3.0 ACUTE MYOCARDIAL INFARCTION 2.0-3.0 VALVULAR HEART DISEASE 2.0-3.0 ATRIAL FIBRILLATION 2.0-3.0 MECHANICAL VALVES(HIGH RISK) 2.5-3.5 RECURRENT MYOCARDIAL INFARCTION 2.5-3.5 Prothrombin Time 14.3 s 11.8-14.0 [facility] ([facility]) ID Date Data Source [id number] 09/21/2019 08:01:00 PM EDT [facility] ([facility]) Name Value Range Interpretation Code Description Data Wendy rce(s) Supporting Document(s) aPTT in Blood by Coagulation assay 36.1 s 25.0-38.4 [facility] ([facility]) ID Date Data Source [id number] 09/21/2019 08:01:00 PM EDT [facility] ([facility]) Name Value Range Interpretation Code Description Data Wendy rce(s) Supporting Document(s) Glucose, Fasting 117 mg/dL 70-100 [facility] ([facility]) Glomerular Filtration Rate Laboratory test result [facility] ([facility]) <content>Units are mL/min/1.73 m2</content>
<content></content>
<content>Chronic Kidney Disease Staging per NKF:</content>
<content></content>
<content>Stage I & II GFR >=60 Normal to Mildly Decreased</content>
<content>Stage III GFR 30- 59 Moderately Decreased</content>
<content>Stage IV GFR 15-29 Severely Decreased</content>
<content>Stage V GFR <15 Very Little GFR Left</content>
<content>ESRD GFR <15 on SERVICE ADVISOR</content>
<content></content> Creatinine For GFR 1.08 mg/dL 0.70-1.30 [facility] ([facility]) Blood Urea Nitrogen 23 mg/dL 7-18 [facility] ([facility]) Potassium Serum 5.1 meq/L 3.5-5.1 [facility] ([facility]) Sodium Level 140 meq/L 136-145 [facility] ([facility]) Chloride Level 104 meq/L 98-107 [facility] ([facility]) Anion Gap 7 meq/L 8-16 [facility]) Calcium Level 8.5 mg/dL 8.8-10.2 [facility] ([facility]) Carbon Dioxide Level 29 meq/L 21-32 [facility] ([facility]) ID Date Data Source [id number] 09/15/2019 08:57:00 AM EDT [facility] ([facility]) Name Value Range Interpretation Code Description Data Wendy rce(s) Supporting Document(s) Reflex Urine Culture Laboratory test result [facility] FULL REPORT IN LAB NOTES (eCW and [facility] ). NO GROWTH ID Date Data Source [id number] 09/15/2019 08:57:00 AM EDT [facility] ([facility]) Name Value Range Interpretation Code Description Data Wendy rce(s) Supporting Document(s) Appearance, Urine RFX Laboratory test result [facility] ([facility]) Specific [place] Ur Auto RFX 1.017 1.002-1.035 [facility] ([facility]) Color, Urine RFX Laboratory test result [facility] ([facility]) PH,Urine RFX 5.0 units 5.0-9.0 [facility] ([facility]) Protein, Urine Auto RFX Laboratory test result [facility] ([facility]) Urobilinogen, Urine Auto RFX 0.2 mg/dL 0.0-2.0 [facility] ([facility]) Ketone, Urine Auto RFX Laboratory test result [facility] ([facility]) Glucose, Urine (Ua) Auto RFX Laboratory test result [facility] ([facility]) Nitrite, Urine Auto RFX Laboratory test result [facility] ([facility]) Bilirubin, Urine Auto RFX Laboratory test result [facility] ([facility]) Leukocyte Esterase Ur Auto RFX Laboratory test result [facility] ([facility]) Bacteria, Urine Auto RFX Laboratory test result [facility] ([facility]) RBC, Urine Auto RFX 133 /HPF 0-3 [facility] WBC, Urine Auto RFX 55 /HPF 0-3 [facility] ([facility]) Blood, Urine Blood RFX Laboratory test result [facility] ([facility]) Mucus, Urine RFX Laboratory test result [facility] ([facility]) Squam Epithelial Cell Ur Aurfx 0 /HPF 0-6 [facility] ([facility]) Hyaline Cast, Urine Auto RFX 0 /LPF 0-1 M EDENT ([facility]) Amorphous Sediment RFX Laboratory test result [facility] ([facility]) ID Date Data Source [id number] 09/15/2019 08:33:00 AM EDT [facility] ([facility]) Name Value Range Interpretation Code Description Data Wendy rce(s) Supporting Document(s) Lipoprotein lipase [Enzymatic activity/volume] in Serum or Plasm a 77 U/L 73-393 [facility] ([facility]) ID Date Data Source [id number] 09/15/2019 08:33:00 AM EDT [facility] ([facility]) Name Value Range Interpretation Code Description Data Wendy rce(s) Supporting Document(s) Glucose, Fasting 144 mg/dL 70-100 [facility] Blood Urea Nitrogen 23 mg/dL 7-18 [facility] Creatinine For GFR 1.25 mg/dL 0.70-1.30 [facility] Glomerular Filtration Rate 58.3 MED [facility] ([facility]) <content>Units are mL/min/1.73 m2</content>
<content></content>
<content>Chronic Kidney Disease Staging per NKF:</content>
<content></content>
<content>Stage I & II GFR >=60 Normal to Mildly Decreased</content>
<content>Stage III GFR 30-59 Moderately Decreased</content>
<content>Stage IV GFR 15-29 Severely Decreased</content>
<content>Stage V GFR <15 Very Little GFR Left</content>
<content>ESRD GFR <15 on SERVICE ADVISOR</content>
<content></content> Sodium Level 141 meq/L 136-145 [facility] ([facility]) Carbon Dioxide Level 24 meq/L 21-32 [facility] ([facility]) Potassium Serum 4.2 meq/L 3.5-5.1 [facility] ([facility]) Chloride Level 107 meq/L 98-107 [facility] ([facility]) Anion Gap 10 meq/L 8-16 [facility]) Calcium Level 8.8 mg/dL 8.8-10.2 [facility] ([facility]) ID Date Data Source [id number] 09/15/2019 08:33:00 AM EDT [facility] ([facility]) Name Value Range Interpretation Code Description Data Wendy rce(s) Supporting Document(s) Alkaline Phosphatase 153 U/L 45-117 [facility] ([facility]) Alt/SGPT 65 U/L 12-78 [facility] ([facility]) Ast/Sgot 37 U/L 7-37 [facility] ([facility]) Total Protein 7.5 GM/DL 6.4-8.2 [facility] ([facility]) Bilirubin,Total 0.4 mg/dL 0.2-1.0 [facility] ([facility]) Bilirubin,Direct 0.2 mg/dL 0.0-0.2 [facility] ([facility]) Albumin 3.1 GM/DL 3.2-5.2 [facility] ([facility]) Albumin/Globulin Ratio 0.7 [facility] ([facility]) ID Date Data Source [id number] 09/15/2019 08:33:00 AM EDT [facility] ([facility]) Name Value Range Interpretation Code Description Data Wendy rce(s) Supporting Document(s) Hemoglobin 10.0 g/dL 13.5-17.5 [facility] ([facility]) Red Blood Count 5.48 10 4.30-6.10 [facility] ([facility]) White Blood Count 11.8 10 4.0-10.0 [facility] ([facility]) Hematocrit 32.2 % 42.0-52.0 [facility] ([facility]) Mean Corpuscular Hemoglobin 18.2 pg 27.0-33.0 ME DENT ([facility]) Mean Corpuscular Volume 58.8 fl 80.0-96.0 [facility] ([facility]) Mean Corpuscular HGB Conc 31.1 g/dL 32.0-36.5 MEDE NT ([facility]) Platelet Count, Automated 322 10 150-450 [facility] NT ([facility]) Red Cell Distribution Width 16.7 % 11.5-14.5 ME DENT ([facility]) [place] % 8.1 % 0.0-5.0 [facility] Lymph % 10.2 % 24.0-44.0 [facility] Neutrophils % 79.0 % 36.0-66.0 [facility] ([facility]) Baso % 0.5 % 0.0-1.0 [facility] Immature Granulocyte % 1.1 % 0-3.0 [facility] ([facility]) Eos % 1.1 % 0.0-3.0 [facility]) Neutrophils # 9.3 10 1.5-8.5 [facility] ([facility]) Lymph # 1.2 10 1.5-5.0 [facility]) Nucleated Red Blood Cell % 0.0 % 0-0 MED [facility] ([facility]) Grimes # 1.0 10 0.0-0.8 [facility] ([facility]) Baso # 0.1 10 0.0-0.2 [facility] Eos # 0.1 10 0.0-0.5 [facility] ([facility]) ID Date Data Source [id number] 09/12/2019 02:18:00 AM EDT [facility] ([facility]) Name Value Range Interpretation Code Description Data Wendy rce(s) Supporting Document(s) Lactate [Mass/volume] in Serum or Plasma 0.8 mmol/L 0.4-2.0 [facility] ([facility]) Y/N query for Sepsis Lactate Rule: Y ID Date Data Source [id number] 09/12/2019 02:18:00 AM EDT [facility] ([facility]) Name Value Range Interpretation Code Description Data Wendy rce(s) Supporting Document(s) Color, Urine Laboratory test result [facility] Appearance, Urine Laboratory test result [facility] ([facility]) PH,Urine 5.0 units 5.0-9.0 [facility] ([facility]) Glucose, Urine (Ua) Auto Laboratory test result [facility] Specific [place] Urine Auto 1.015 1.002-1.035 [facility] Ketone, Urine Auto Laboratory test result [facility] Protein, Urine Auto Laboratory test result [facility] Urobilinogen, Urine Auto 0.2 mg/dL 0.0-2.0 [facility] Nitrite, Urine Auto Laboratory test result [facility] ([facility]) Bilirubin, Urine Auto Laboratory test result [facility] Leukocyte Esterase, Urine Auto Laboratory test result [facility] ([facility]) Blood, Urine Blood Laboratory test result [facility] WBC, Urine Auto Laboratory test result 0-3 M [facility]ENT [facility] RBC, Urine Auto 154 /HPF 0-3 [facility] ([facility]) Bacteria, Urine Auto Laboratory test result [facility] ([facility]) Yeast Like Cell Urine Auto Laboratory test result [facility] ([facility]) Squamous Epithelial Cell Ur AU 2 /HPF 0-6 [facility] ([facility]) Mucus, Urine Laboratory test result [facility] Transitional Epithelial Auto 7 /HPF M [facility] Hyaline Cast, Urine Auto 31 /LPF 0-1 MEDEN T ([facility]) Amorphous Sediment Laboratory test result [facility] ([facility]) ID Date Data Source [id number] 09/12/2019 12:38:00 AM EDT [facility] Name Value Range Interpretation Code Description Data Wendy rce(s) Supporting Document(s) Laboratory test finding (navigational concept) 155 mg/dL 70-105 [facility] ([facility]) Laboratory test finding (navigational concept) 31.0 % 38.0-51.0 [facility] ([facility]) Laboratory test finding (navigational concept) 4.0 meq/L 3.5-5.1 [facility] ([facility]) Laboratory test finding (navigational concept) 138 meq/L 136-145 [facility] ([facility]) Laboratory test finding (navigational concept) 101 meq/L 98-109 [facility] ([facility]) Laboratory test finding (navigational concept) 4.7 mg/dL 4.5-5.3 [facility] ([facility]) Laboratory test finding (navigational concept) 29 mg/dL 8-26 [facility] ([facility]) Laboratory test finding (navigational concept) 24.0 MM/L 23.0-27.0 [facility] ([facility]) Laboratory test finding (navigational concept) 1.4 mg/dL 0.6-1.3 [facility] ([facility]) ID Date Data Source [id number] 09/11/2019 12:30:00 AM EDT [facility] Name Value Range Interpretation Code Description Data Wendy rce(s) Supporting Document(s) Hematocrit 30.8 % 42.0-52.0 [facility]) Red Blood Count 5.19 10 4.30-6.10 [facility] ([facility]) Hemoglobin 9.7 g/dL 13.5-17.5 [facility]) White Blood Count 19.0 10 4.0-10.0 [facility] Mean Corpuscular Volume 59.3 fl 80.0-96.0 [facility] ([facility]) Mean Corpuscular Hemoglobin 18.7 pg 27.0-33.0 ME DENT ([facility]) Mean Corpuscular HGB Conc 31.5 g/dL 32.0-36.5 MEDE NT ([facility]) Platelet Count, Automated 214 10 150-450 [facility] NT ([facility]) Red Cell Distribution Width 16.9 % 11.5-14.5 ME [facility] ([facility]) Neutrophils % 82.9 % 36.0-66.0 [facility] ([facility]) [place] % 7.6 % 0.0-5.0 [facility]) Lymph % 8.4 % 24.0-44.0 [facility]) Baso % 0.3 % 0.0-1.0 [facility]) Eos % 0.2 % 0.0-3.0 [facility]) Immature Granulocyte % 0.6 % 0-3.0 [facility] ([facility]) Neutrophils # 15.8 10 1.5-8.5 [facility] ([facility]) Nucleated Red Blood Cell % 0.0 % 0-0 MED [facility] ([facility]) Lymph # 1.6 10 1.5-5.0 [facility]) [place] # 1.5 10 0.0-0.8 [facility]) Eos # 0.0 10 0.0-0.5 [facility]) Baso # 0.1 10 0.0-0.2 [facility]) ID Date Data Source [id number] 09/08/2019 12:16:00 AM EDT [facility] ([facility]) Name Value Range Interpretation Code Description Data Wendy rce(s) Supporting Document(s) Laboratory test finding (navigational concept) 119 mg/dL 70-105 [facility] ([facility]) Laboratory test finding (navigational concept) 37.0 % 38.0-51.0 [facility] ([facility]) Laboratory test finding (navigational concept) 142 meq/L 136-145 [facility] ([facility]) Laboratory test finding (navigational concept) 5.1 mg/dL 4.5-5.3 [facility] ([facility]) Laboratory test finding (navigational concept) 4.4 meq/L 3.5-5.1 [facility] ([facility]) Laboratory test finding (navigational concept) 103 meq/L 98-109 [facility] ([facility]) Laboratory test finding (navigational concept) 27.0 MM/L 23.0-27.0 [facility] ([facility]) Laboratory test finding (navigational concept) 22 mg/dL 8-26 [facility] ([facility]) Laboratory test finding (navigational concept) 1.1 mg/dL 0.6-1.3 [facility] ([facility]) ID Date Data Source [id number] 09/08/2019 12:12:00 AM EDT [facility] ([facility]) Name Value Range Interpretation Code Description Data Wendy rce(s) Supporting Document(s) aPTT in Blood by Coagulation assay 37.1 s 25.0-38.4 [facility] ([facility]) ID Date Data Source [id number] 09/08/2019 12:12:00 AM EDT [facility] ([facility]) Name Value Range Interpretation Code Description Data Wendy rce(s) Supporting Document(s) Prothrombin Time 14.4 s 11.8-14.0 [facility] ([facility]) Inr 1.15 [facility]) THERAPUTIC HUMAN INR VALUES INDICATIONS NORMAL RANGES PROPHYLAXIS/TREATMENT OF: VENOUS THROMBOSIS 2.0-3.0 PULMONARY EMBOLISM 2.0-3.0 PREVENTION OF SYSTEMIC EMBOLISM FROM: TISSUE HEART VALVES 2.0-3.0 ACUTE MYOCARDIAL INFARCTION 2.0-3.0 VALVULAR HEART DISEASE 2.0-3.0 ATRIAL FIBRILLATION 2.0-3.0 MECHANICAL VALVES(HIGH RISK) 2.5-3.5 RECURRENT MYOCARDIAL INFARCTION 2.5-3.5 ID Date Data Source [id number] 09/08/2019 12:12:00 AM EDT [facility] ([facility]) Name Value Range Interpretation Code Description Data Wendy rce(s) Supporting Document(s) Red Blood Count 5.95 10 4.30-6.10 [facility] ([facility]) White Blood Count 9.5 10 4.0-10.0 [facility] ([facility]) Hematocrit 36.3 % 42.0-52.0 [facility] Mean Corpuscular Hemoglobin 18.5 pg 27.0-33.0 [facility] ([facility]) Hemoglobin 11.0 g/dL 13.5-17.5 [facility] ([facility]) Mean Corpuscular Volume 61.0 fl 80.0-96.0 [facility] Platelet Count, Automated 323 10 150-450 [facility] ([facility]) Red Cell Distribution Width 17.7 % 11.5-14.5 [place] [facility] ([facility]) Mean Corpuscular HGB Conc 30.3 g/dL 32.0-36.5 [facility] ([facility]) Lymph % 23.8 % 24.0-44.0 [facility] ([facility]) Neutrophils % 57.2 % 36.0-66.0 [facility] ([facility]) [place] % 10.5 % 0.0-5.0 [facility] ([facility]) Eos % 7.4 % 0.0-3.0 [facility] ([facility]) Baso % 0.8 % 0.0-1.0 [facility] ([facility]) Nucleated Red Blood Cell % 0.0 % 0-0 [facility] ([facility]) Immature Granulocyte % 0.3 % 0-3.0 [facility] ([facility]) Lymph # 2.3 10 1.5-5.0 [facility]) [place]imes # 1.0 10 0.0-0.8 [facility]) Neutrophils # 5.4 10 1.5-8.5 [facility] ([facility] Eos # 0.7 10 0.0-0.5 [facility]) Baso # 0.1 10 0.0-0.2 [facility]) ID Date Data Source [id number] 08/19/2019 11:10:00 AM EDT [facility] ([facility]) Name Value Range Interpretation Code Description Data Wendy rce(s) Supporting Document(s) Isgkp-2-Lqckocfxn % 13.4 % 7.1-11.8 [facility] Albumin % 51.1 % 55.8-66.1 [facility] ([facility]) Blmoc-8-Mxlbkadj % 5.1 % 2.9-4.9 [facility] ([facility]) Vlse-9-Yyzqgxuke % 6.3 % 3.2-6.5 [facility] ([facility]) Albumin 4.14 GM/DL 3.29-5.55 [facility]) Idkf-9-Jqkycvspm % 5.3 % 4.7-7.2 [facility] Gamma Globulin % 18.8 % 11.1-18.8 [facility] ([facility]) Izxxl-4-Mrzjrhxlu 1.09 GM/DL 0.42-0.99 [facility] ([facility]) Emtrs-9-Iafxygnkf 0.41 GM/DL 0.17-0.41 [facility] ([facility]) Ywgd-8-Ccrzbqbxb 0.43 GM/DL 0.28-0.60 [facility] Total Protein 8.1 GM/DL 6.4-8.2 [facility] ([facility]) Gamma Globulins 1.52 GM/DL 0.65-1.58 [facility] ([facility]) Cfnw-0-Qydphpnan 0.51 GM/DL 0.19-0.55 [facility] ([facility]) Spep Interpretation For RFX Laboratory test result [facility] ([facility]) NO M-SPIKE(S)NOTED. Laboratory test finding (navigational concept) Laboratory test result [facility] ([facility]) REV'D BY Scott MCKINNON ID Date Data Source [id number] 08/19/2019 11:10:00 AM EDT [facility] ([facility]) Name Value Range Interpretation Code Description Data Wendy rce(s) Supporting Document(s) Percent Saturation 38.0 % 19.7-50.0 [facility] ([facility]) Iron (Fe) 111 ug/dL 65-175 [facility]) Total Iron Binding Capacity 292 ug/dL 250-450 [place] [facility] ([facility]) ID Date Data Source [id number] 08/19/2019 11:10:00 AM EDT [facility] ([facility]) Name Value Range Interpretation Code Description Data Wendy rce(s) Supporting Document(s) Ferritin [Mass/volume] in Serum or Plasma 189 ng/mL 26-388 [facility] ([facility]) ID Date Data Source [id number] 08/19/2019 11:09:00 AM EDT [facility] ([facility]) Name Value Range Interpretation Code Description Data Wendy rce(s) Supporting Document(s) Urea nitrogen [Mass/volume] in Serum or Plasma 26 mg/dL 7-18 [facility] ([facility]) Creatinine 1.6 mg/dL 0.6-1.3 [facility]) Sodium [Moles/volume] in Serum or Plasma 139 meq/L 136-145 [facility] ([facility]) Glucose [Mass/volume] in Serum or Plasma 173 mg/dL 74-99 [facility] ([facility]) 100-125 mg/dL PRE-DIABETES/FASTING >126 mg/dL DIABETES/FASTING Chloride [Moles/volume] in Serum or Plasma 102 meq/L 98-107 [facility] ([facility]) Carbon dioxide, total [Moles/volume] in Serum or Plasma 28 meq/L 21 -32 [facility] ([facility]) Potassium [Moles/volume] in Serum or Plasma 4.7 meq/L 3.5-5.1 [facility] ([facility]) Calcium [Mass/volume] in Serum or Plasma 9.2 mg/dL 8.5-10.1 [facility] ([facility]) Total Bilirubin 0.4 mg/dL 0.2-1.0 [facility] ([facility]) Alkaline phosphatase isoenzyme [Units/volume] in Serum or Pl asma 172 mg/dL 46-116 [facility] ([facility]) Aspartate aminotransferase [Enzymatic activity/volume] in Serum or Plasma 25 U/L 15-37 [facility] ([facility] ) Alanine aminotransferase [Enzymatic activity/volume] in Seru m or Plasma 45 U/L 12-78 [facility] ([facility]) Albumin [Mass/volume] in Serum or Plasma 3.6 g/dL 3.4-5.0 [facility] ([facility]) Proteinase 3 Ab [Units/volume] in Serum 8.5 g/dL 6.4-8.2 [facility] ([facility]) NOTE: RESULT VERIFIED. Glomerular filtration rate/1.73 sq M pre dicted among non-blacks [Volume Rate/Area] in Serum or Plasma by Creatinine-based formula (MDRD) 41 mL/min [facility] ([facility]) A/G Ratio 0.73 CALC 1.00-1.90 [facility] ([facility]) Glomerular filtration rate/1.73 sq M pre dicted among blacks [Volume Rate/Area] in Serum or Plasma by Creatinine-based formula (MDRD) 50 mL/min [facility] ([facility]) <content>CHRONIC KIDNEY DISEASE STAGING PER NKF</content>
<content></content>
<content>STAGE I & II GFR >= 60 NORMAL TO MILDLY DECREASED</content>
<content>STAGE III GFR 30-59 MODERATELY DECREASED</content>
<content>STAGE IV GFR 15-29 SEVERELY DECREASED</content>
<content>STAGE V GFR <15 VERY LITTLE GFR LEFT</content>
<content>ESRD GFR <15 ON SERVICE ADVISOR</content>
<content></content> ID Date Data Source [id number] 08/19/2019 11:09:00 AM EDT [facility] ([facility]) Name Value Range Interpretation Code Description Data Wendy rce(s) Supporting Document(s) Hematocrit [Volume Fraction] of Blood by Automated count 37.0 % 3 7.0-51.0 [facility] ([facility]) Erythrocytes [#/volume] in Blood by Automated count 6.36 x10*6/UL 4.2 0-6.30 [facility] ([facility]) Hemoglobin [Mass/volume] in Blood 12.7 g/dL 12.0-18.0 [facility] ([facility]) Leukocytes [#/volume] in Blood by Automated count 10.3 x10*3/UL 4.1-1 0.9 [facility] ([facility]) MCHC 34.3 g/dL 31.0-38.0 [facility] ([facility]) MCV 58.2 fL 80.0-97.0 [facility] ([facility]) MCH 19.9 pg 26.0-32.0 [facility] ([facility]) MPV 8.7 FL 7.8-11.0 [facility] ([facility]) Platelets [#/volume] in Blood by Automated count 389 x10*3/UL 140-440 [facility] ([facility]) Lymph % 22.0 % 10.0-58.5 [facility] ([facility]) Erythrocyte distribution width [Ratio] by Automated count 15.9 % 11.6-13.7 [facility] ([facility]) Lymph # 2.2 x10*3/UL 0.6-4.1 [facility] ([facility]) Mid % 6.6 % 1.7-9.3 [facility] Neut % 71.4 % 37.0-92.0 [facility] ([facility]) Neut # 7.3 x10*3/UL 2.0-7.8 [facility] ([facility]) Mid # 0.8 x10*3/UL 0.1-0.6 [facility] ID Date Data Source [id number] 08/18/2019 01:38:00 PM EDT [facility] Name Value Range Interpretation Code Description Data Wendy rce(s) Supporting Document(s) Reflex Urine Culture Laboratory test result [facility] ([facility]) FULL REPORT IN LAB NOTES (eCW and [facility] ). NO GROWTH ID Date Data Source [id number] 08/18/2019 01:38:00 PM EDT [facility] Name Value Range Interpretation Code Description Data Wendy rce(s) Supporting Document(s) Appearance, Urine RFX Laboratory test result [facility] PH,Urine RFX 5.0 units 5.0-9.0 [facility] Color, Urine RFX Laboratory test result [facility] Specific [place] Ur Auto RFX 1.014 1.002-1.035 [facility] Protein, Urine Auto RFX Laboratory test result [facility] Glucose, Urine (Ua) Auto RFX Laboratory test result [facility] Ketone, Urine Auto RFX Laboratory test result [facility] Leukocyte Esterase Ur Auto RFX Laboratory test result [facility] Urobilinogen, Urine Auto RFX 0.2 mg/dL 0.0-2.0 [facility] Bilirubin, Urine Auto RFX Laboratory test result [facility] Nitrite, Urine Auto RFX Laboratory test result [facility] Blood, Urine Blood RFX Laboratory test result [facility] RBC, Urine Auto RFX Laboratory test result 0-3 [facility] WBC, Urine Auto RFX 23 /HPF 0-3 [facility] Mucus, Urine RFX Laboratory test result [facility] Bacteria, Urine Auto RFX Laboratory test result [facility] Squam Epithelial Cell Ur Aurfx 0 /HPF 0-6 [facility] ([facility]) Uric Acid Crystals RFX Laboratory test result [facility] ([facility]) Amorphous Sediment RFX Laboratory test result [facility] ([facility]) Hyaline Cast, Urine Auto RFX 0 /LPF 0-1 M EDENT ([facility]) ID Date Data Source [id number] 08/07/2019 12:38:00 PM EDT [facility] ([facility]) Name Value Range Interpretation Code Description Data Wendy rce(s) Supporting Document(s) Platelets 230 150-450 [facility] ([facility] Red Blood Count 6.71 4.30-6.10 [facility] ([facility]) White Blood Count 9.5 4.0-10.0 [facility] ([facility]) Hematocrit 40.5 [facility] ([facility]) Hemoglobin 12.4 [facility] ([facility]) ID Date Data Source [id number] 08/07/2019 12:38:00 PM EDT [facility] ([facility]) Name Value Range Interpretation Code Description Data Wendy rce(s) Supporting Document(s) Albumin [Mass/volume] in Serum or Plasma 3.5 [facility] ([facility]) Alanine aminotransferase [Enzymatic activity/volume] in Serum or Pl asma 42 [facility] ([facility]) Calcium [Mass/volume] in Serum or Plasma 9.0 [facility] ([facility]) Carbon dioxide, total [Moles/volume] in Serum or Plasma 26 [facility] ([facility]) Chloride [Moles/volume] in Serum or Plasma 106 [facility] ([facility]) Alkaline phosphatase [Enzymatic activity/volume] in Serum or Plasma 1 46 [facility] ([facility]) Potassium [Moles/volume] in Serum or Plasma 4.4 [facility] ([facility]) Sodium 140 [facility] ([facility]) Aspartate aminotransferase [Enzymatic activity/volume] in Serum or Plasma 33 [facility] ([facility]) Protein [Mass/volume] in Serum or Plasma 7.4 [facility] ([facility]) Urea nitrogen [Mass/volume] in Serum or Plasma 18 [facility] ([facility]) Creatinine For GFR 1.11 [facility] ([facility]) Glucose 95 70-100 [facility] ([facility]) ID Date Data Source [id number] 08/05/2019 08:19:00 AM EDT [facility] ([facility]) Name Value Range Interpretation Code Description Data Wendy rce(s) Supporting Document(s) Triglycerides 76 [facility] ([facility]) HDL 36 [facility] ([facility] Cholesterol 108 [facility] ([facility]) Cholesterol in LDL [Mass/volume] in Serum or Plasma by calculation 57 [facility] ([facility]) Chol/HDL Ratio 3.000 [facility] ([facility]) ID Date Data Source [id number] 08/05/2019 08:19:00 AM EDT [facility] ([facility]) Name Value Range Interpretation Code Description Data Wendy rce(s) Supporting Document(s) Blood Urea Nitrogen 18 7-18 [facility] ([facility]) Glucose 96 70-100 [facility] ([facility]) Potassium 4.2 3.5-5.1 [facility] ([facility]) Creatinine 1.09 0.70-1.30 [facility] ([facility]) Sodium 140 136-145 [facility] ([facility] Chloride 107 98-107 [facility] ([facility]) Glomerular filtration rate/1.73 sq M.pre dicted [Volume Rate/Area] in Serum or Plasma by Creatinine-based formula (MDRD) Laboratory test result [facility] ([facility]) Calcium 8.7 8.2-9.6 [facility] ([facility]) Carbon Dioxide 26 21-32 [facility] ([facility]) ID Date Data Source [id number] 08/05/2019 08:19:00 AM EDT [facility] ([facility]) Name Value Range Interpretation Code Description Data Wendy rce(s) Supporting Document(s) White Blood Count 10.8 4.0-10.0 [facility] ([facility]) Red Blood Count 5.89 4.30-6.10 [facility] ([facility]) Hemoglobin 10.9 [facility] ([facility]) Platelets 194 150-450 [facility] ([facility]) Hematocrit 35.5 [facility] ([facility]) ID Date Data Source [id number] 08/04/2019 12:36:00 PM EDT [facility] ([facility]) Name Value Range Interpretation Code Description Data Wendy rce(s) Supporting Document(s) [facility]roponin 0.02 [facility] ID Date Data Source [id number] 08/04/2019 12:35:00 PM EDT [facility] ([facility]) Name Value Range Interpretation Code Description Data Wendy rce(s) Supporting Document(s) Troponin Laboratory test result [facility] ([facility]) ID Date Data Source [id number] 08/04/2019 12:35:00 PM EDT [facility] ([facility]) Name Value Range Interpretation Code Description Data Wendy rce(s) Supporting Document(s) Thyrotropin [Units/volume] in Serum or Plasma 2.330 [facility] ([facility]) ID Date Data Source [id number] 08/04/2019 12:35:00 PM EDT [facility] ([facility]) Name Value Range Interpretation Code Description Data Wendy rce(s) Supporting Document(s) Troponin Laboratory test result [facility] ([facility]) ID Date Data Source [id number] 08/04/2019 12:35:00 PM EDT [facility] ([facility]) Name Value Range Interpretation Code Description Data Wendy rce(s) Supporting Document(s) MB/CK Relative 1.37 [facility] ([facility]) Creatine kinase [Enzymatic activity/volume] in Serum or Plasma 277 [facility] ([facility]) CPK-MB 3.8 [facility] ID Date Data Source [id number] 08/04/2019 12:35:00 PM EDT [facility] ([facility]) Name Value Range Interpretation Code Description Data Wendy rce(s) Supporting Document(s) Albumin [Mass/volume] in Serum or Plasma 3.7 [facility] ([facility]) Alanine aminotransferase [Enzymatic activity/volume] in Serum or Pl asma 33 [facility] ([facility]) Calcium [Mass/volume] in Serum or Plasma 8.9 [facility] ([facility]) Carbon dioxide, total [Moles/volume] in Serum or Plasma 29 [facility] ([facility]) Chloride [Moles/volume] in Serum or Plasma 105 [facility] ([facility]) Protein [Mass/volume] in Serum or Plasma 7.7 [facility] ([facility]) Alkaline phosphatase [Enzymatic activity/volume] in Serum or Plasma 1 44 [facility] ([facility]) Potassium [Moles/volume] in Serum or Plasma 4.0 [facility] ([facility]) Sodium 140 [facility] ([facility] Urea nitrogen [Mass/volume] in Serum or Plasma 21 [facility] ([facility]) Aspartate aminotransferase [Enzymatic activity/volume] in Serum or Plasma 27 [facility] ([facility]) Creatinine For GFR 1.24 [facility] ([facility]) Glucose 106 70-100 [facility] ([facility]) ID Date Data Source [id number] 08/04/2019 12:35:00 PM EDT [facility] ([facility]) Name Value Range Interpretation Code Description Data Wendy rce(s) Supporting Document(s) Red Blood Count 6.57 4.30-6.10 [facility] ([facility]) White Blood Count 10.5 4.0-10.0 [facility] ([facility]) Hematocrit 40.1 [facility] ([facility]) Hemoglobin 12.0 [facility] ([facility]) Platelets 213 150-450 [facility] ([facility]) ID Date Data Source [id number] 06/01/2019 05:23:00 AM EST [facility] ([facility]) Name Value Range Interpretation Code Description Data Wendy rce(s) Supporting Document(s) Reflex Urine Culture Laboratory test result [facility] ([facility]) <content>FULL REPORT IN LAB NOTES (eCW [...] <=1 S</content>
<content></content> ID Date Data Source [id number] 06/01/2019 05:23:00 AM EST [facility] Name Value Range Interpretation Code Description Data Wendy rce(s) Supporting Document(s) Color, Urine RFX Laboratory test result [facility] Appearance, Urine RFX Laboratory test result [facility] ([facility]) Protein, Urine Auto RFX Laboratory test result [facility] PH,Urine RFX 6.0 units 5.0-9.0 [facility] Specific [place] Ur Auto RFX 1.010 1.002-1.035 [facility] Glucose, Urine (Ua) Auto RFX Laboratory test result [facility] ([facility]) Ketone, Urine Auto RFX Laboratory test result [facility] ([facility]) Urobilinogen, Urine Auto RFX 0.2 mg/dL 0.0-2.0 [facility] Bilirubin, Urine Auto RFX Laboratory test result [facility] Nitrite, Urine Auto RFX Laboratory test result [facility] Blood, Urine Blood RFX Laboratory test result [facility] WBC, Urine Auto RFX 170 /HPF 0-3 [facility] Leukocyte Esterase Ur Auto RFX Laboratory test result [facility] ([facility]) Squam Epithelial Cell Ur Aurfx 0 /HPF 0-6 [facility] Bacteria, Urine Auto RFX Laboratory test result [facility] ([facility]) RBC, Urine Auto RFX 133 /HPF 0-3 [facility] Mucus, Urine RFX Laboratory test result [facility] ([facility]) Hyaline Cast, Urine Auto RFX 0 /LPF 0-1 [facility] ID Date Data Source [id number] 06/01/2019 05:23:00 AM EST [facility] ([facility]) Name Value Range Interpretation Code Description Data Wendy rce(s) Supporting Document(s) Glucose, Fasting 136 mg/dL 70-100 [facility] Blood Urea Nitrogen 24 mg/dL 7-18 [facility] Glomerular Filtration Rate Laboratory test result [facility] ([facility]) <content>Units are mL/min/1.73 m2</content>
<content></content>
<content>Chronic Kidney Disease Staging per NKF:</content>
<content></content>
<content>Stage I & II GFR >=60 Normal to Mildly Decreased</content>
<content>Stage III GFR 30-59 Moderately Decreased</content>
<content>Stage IV GFR 15-29 Severely Decreased</content>
<content>Stage V GFR <15 Very Little GFR Left</content>
<content>ESRD GFR <15 on SERVICE ADVISOR</content>
<content></content> Creatinine For GFR 1.15 mg/dL 0.70-1.30 [facility] ([facility]) Sodium Level 141 meq/L 136-145 [facility] ([facility]) Chloride Level 110 meq/L 98-107 [facility] ([facility]) Potassium Serum 4.5 meq/L 3.5-5.1 [facility] ([facility]) Calcium Level 8.3 mg/dL 8.8-10.2 [facility] ([facility]) Anion Gap 4 meq/L 8-16 [facility]) Carbon Dioxide Level 27 meq/L 21-32 [facility] ([facility]) ID Date Data Source [id number] 06/01/2019 05:23:00 AM EST [facility] ([facility]) Name Value Range Interpretation Code Description Data Wendy rce(s) Supporting Document(s) Inr 1.20 [facility] ([facility]) THERAPUTIC HUMAN INR VALUES INDICATIONS NORMAL RANGES PROPHYLAXIS/TREATMENT OF: VENOUS THROMBOSIS 2.0-3.0 PULMONARY EMBOLISM 2.0-3.0 PREVENTION OF SYSTEMIC EMBOLISM FROM: TISSUE HEART VALVES 2.0-3.0 ACUTE MYOCARDIAL INFARCTION 2.0-3.0 VALVULAR HEART DISEASE 2.0-3.0 ATRIAL FIBRILLATION 2.0-3.0 MECHANICAL VALVES(HIGH RISK) 2.5-3.5 RECURRENT MYOCARDIAL INFARCTION 2.5-3.5 Prothrombin Time 15.0 s 11.8-14.0 [facility] ([facility]) Partial Thromboplastin Time 36.9 s 25.0-38.4 [facility] ([facility]) ID Date Data Source [id number] 06/01/2019 05:23:00 AM EST [facility] ([facility]) Name Value Range Interpretation Code Description Data Wendy rce(s) Supporting Document(s) White Blood Count 14.0 10 4.0-10.0 [facility] ([facility]) Red Blood Count 5.96 10 4.30-6.10 [facility] ([facility]) Hematocrit 36.4 % 42.0-52.0 [facility] Hemoglobin 11.0 g/dL 13.5-17.5 [facility] Mean Corpuscular Volume 61.1 fl 80.0-96.0 [facility] ([facility]) Mean Corpuscular HGB Conc 30.2 g/dL 32.0-36.5 MED[facility] NT ([facility]) Red Cell Distribution Width 17.1 % 11.5-14.5 [facility] ([facility]) Mean Corpuscular Hemoglobin 18.5 pg 27.0-33.0 [facility] ([facility]) Platelet Count, Automated 210 10 150-450 [facility] NT ([facility]) Neutrophils % 76.7 % 36.0-66.0 [facility]) Lymph % 13.2 % 24.0-44.0 [facility]) Baso % 0.5 % 0.0-1.0 [facility]) Eos % 0.6 % 0.0-3.0 [facility]) [place] % 8.6 % 0.0-5.0 [facility]) Nucleated Red Blood Cell % 0.0 % 0-0 MED [facility] ([facility]) Immature Granulocyte % 0.4 % 0-3.0 [facility] ([facility]) Neutrophils # 10.7 10 1.5-8.5 [facility]) Eos # 0.1 10 0.0-0.5 [facility] Lymph # 1.9 10 1.5-5.0 [facility]) [place] # 1.2 10 0.0-0.8 [facility] Baso # 0.1 10 0.0-0.2 [facility]) Procedure Social History Code Duration Value Status Description Data Source(s ) Smoking 04/23/2020 12:00:00 AM EST Former Smoker completed Former Smoker [email or web address] ([facility]) Smoking 04/23/2020 12:00:00 AM EST Former Smoker completed Former Smoker [email or web address] ([facility]) Smoking 03/27/2020 12:00:00 AM EST Former Smoker completed Former Smoker [email or web address] ([facility]) Smoking 03/27/2020 12:00:00 AM EST Former Smoker completed Former Smoker [email or web address] ([facility]) Smoking 03/04/2020 12:00:00 AM EST Patient is a former smoker completed Patient is a former smoker [facility] ([facility]) Smoking 03/02/2020 12:00:00 AM EST Former Smoker completed Former Smoker [email or web address] ([facility]) Smoking 03/02/2020 12:00:00 AM EST Former Smoker completed Former Smoker [email or web address] ([facility]) Smoking 02/12/2020 12:00:00 AM EDT Former Smoker completed Former Smoker [email or web address] ([facility]) Smoking 11/11/2019 12:00:00 AM EDT Former Smoker completed Former Smoker [email or web address] ([facility]) Smoking 11/11/2019 12:00:00 AM EDT Former Smoker completed Former Smoker [email or web address] ([facility]) Smoking 11/05/2019 12:00:00 AM EDT Former Smoker completed Former Smoker [email or web address] ([facility]) Smoking 09/20/2019 12:00:00 AM EDT Former Smoker completed Former Smoker [email or web address] ([facility]) Smoking 09/20/2019 12:00:00 AM EDT Former Smoker completed Former Smoker eCW1 ([facility]) Smoking 09/20/2019 12:00:00 AM EDT Former Smoker completed Former Smoker eCW1 ([facility]) Vital Signs ID Date Data Source UNK Name Value Range Interpretation Code Description Data Source(s) Diastolic blood pressure 84 mm[Hg] 84 mm[Hg] eCW1 ([facility]) Systolic blood pressure 152 mm[Hg] 152 mm[Hg] e CW1 ([facility]) Body temperature 97.1 [degF] 97.1 [degF] eCW1 ( [facility]) Respiratory rate 18 /min 18 /min eCW1 ([facility]) Heart rate 82 /min 82 /min eCW1 ([facility]) Body mass index (BMI) [Ratio] 26.79 kg/m2 26.79 kg/m2 eCW1 ([facility]) Body height 66 [in_i] 66 [in_i] eCW1 ([facility]) Body weight 166 [lb_av] 166 [lb_av] eCW1 ([facility]) Diastolic blood pressure 76 mm[Hg] 76 mm[Hg] eCW1 ([facility]) Systolic blood pressure 162 mm[Hg] 162 mm[Hg] e CW1 ([facility]) Body temperature 97.4 [degF] 97.4 [degF] eCW1 ( [facility]) Respiratory rate 18 /min 18 /min eCW1 ([facility]) Heart rate 64 /min 64 /min eCW1 ([facility]) Body mass index (BMI) [Ratio] 26.79 kg/m2 26.79 kg/m2 eCW1 ([facility]) Body height 66 [in_i] 66 [in_i] eCW1 ([facility]) Body weight 166 [lb_av] 166 [lb_av] eCW1 ([facility]) Diastolic blood pressure 74 mm[Hg] 74 mm[Hg] MEDENT ([facility]) sitting Systolic blood pressure 140 mm[Hg] 140 mm[Hg] M EDENT ([facility]) sitting Diastolic blood pressure 74 mm[Hg] 74 mm[Hg] MEDENT ([facility]) sitting, regular cuff Systolic blood pressure 136 mm[Hg] 136 mm[Hg] M EDENT ([facility]) sitting, regular cuff Respiratory rate 16 /min 16 /min MEDENT ( [facility]) Heart rate 72 /min 72 /min MEDENT ([facility]) Regular Body mass index (BMI) [Ratio] 24.8 kg/m2 24.8 k g/m2 MEDENT ([facility]) Body height 68 [in_i] 68 [in_i] MEDENT ([facility]) 5'8" Body weight 163.00 [lb_av] 163.00 [lb_av] MEDEN T ([facility]) Body temperature 97.7 [degF] 97.7 [degF] eCW1 ( [facility]) Respiratory rate 18 /min 18 /min eCW1 ([facility]) Heart rate 72 /min 72 /min eCW1 ([facility]) Body mass index (BMI) [Ratio] 26.95 kg/m2 26.95 kg/m2 eCW1 ([facility]) Body height 66 [in_i] 66 [in_i] eCW1 ([facility]) Body weight 167 [lb_av] 167 [lb_av] eCW1 ([facility]) Diastolic blood pressure 74 mm[Hg] 74 mm[Hg] eCW1 ([facility]) Systolic blood pressure 150 mm[Hg] 150 mm[Hg] e CW1 ([facility]) [place] body weight 142 [lb_av] 142 [lb_av] MEDEN T ([facility], ) Body mass index (BMI) [Ratio] 26.6 kg/m2 26.6 k g/m2 MEDENT ([facility], ) Body weight 165.00 [lb_av] 165.00 [lb_av] MEDEN T ([facility], ) Body height 66 [in_i] 66 [in_i] MEDENT ([facility], ) 5'6" Respiratory rate 12 /min 12 /min MEDENT ( [facility], ) Diastolic blood pressure 66 mm[Hg] 66 mm[Hg] eCW1 ([facility]) Systolic blood pressure 132 mm[Hg] 132 mm[Hg] e CW1 ([facility]) Body temperature 97.8 [degF] 97.8 [degF] eCW1 ( [facility]) Respiratory rate 20 /min 20 /min eCW1 ([facility]) Heart rate 96 /min 96 /min eCW1 ([facility]) Body mass index (BMI) [Ratio] 25.98 kg/m2 25.98 kg/m2 eCW1 ([facility]) Body height 66 [in_i] 66 [in_i] eCW1 ([facility]) Body weight 161 [lb_av] 161 [lb_av] eCW1 ([facility]) [place] body weight 142 [lb_av] 142 [lb_av] MEDEN T ([facility], ) Body mass index (BMI) [Ratio] 26.6 kg/m2 26.6 k g/m2 MEDENT ([facility], ) Body weight 165.00 [lb_av] 165.00 [lb_av] MEDEN T ([facility], ) Body height 66 [in_i] 66 [in_i] MEDENT ([facility], ) 5'6" Respiratory rate 12 /min 12 /min MEDENT ( [facility]) Diastolic blood pressure 78 mm[Hg] 78 mm[Hg] eCW1 ([facility]) Systolic blood pressure 148 mm[Hg] 148 mm[Hg] e CW1 ([facility]) Body temperature 97.2 [degF] 97.2 [degF] eCW1 ( [facility]) Respiratory rate 20 /min 20 /min eCW1 ([facility]) Heart rate 88 /min 88 /min eCW1 ([facility]) Body mass index (BMI) [Ratio] 26.63 kg/m2 26.63 kg/m2 W1 ([facility]) Body height 66 [in_i] 66 [in_i] eCW1 ([facility]) Body weight 165 [lb_av] 165 [lb_av] eCW1 ([facility]) Diastolic blood pressure mm[Hg] eCW1 ([facility]) Systolic blood pressure 128 mm[Hg] 128 mm[Hg] e CW1 ([facility]) Body temperature 97.9 [degF] 97.9 [degF] eCW1 ( [facility]) Respiratory rate 17 /min 17 /min eCW1 ([facility]) Heart rate 93 /min 93 /min eCW1 ([facility]) Body mass index (BMI) [Ratio] 26.47 kg/m2 26.47 kg/m2 eCW1 ([facility]) Body height 66 [in_i] 66 [in_i] eCW1 ([facility]) Body weight 164 [lb_av] 164 [lb_av] eCW1 ([facility]) Body mass index (BMI) [Ratio] 27.2 kg/m2 27.2 k g/m2 MEDENT ([facility]) Oxygen saturation in Arterial blood by Pulse oximetry 97 % 97 % MEDENT ([facility]) Body weight 166.00 [lb_av] 166.00 [lb_av] MEDEN T ([facility]) Body height 65.50 [in_i] 65.50 [in_i] MEDENT ([facility]) 5'5.50" Heart rate 88 /min 88 /min MEDENT ([facility]) Diastolic blood pressure 66 mm[Hg] 66 mm[Hg] MEDENT ([facility]) Systolic blood pressure 142 mm[Hg] 142 mm[Hg] M EDENT ([facility]) Diastolic blood pressure mm[Hg] eCW1 ([facility]) Systolic blood pressure 142 mm[Hg] 142 mm[Hg] e CW1 ([facility]) Body temperature 97.9 [degF] 97.9 [degF] eCW1 ( [facility]) Respiratory rate 17 /min 17 /min eCW1 ([facility]) Heart rate 77 /min 77 /min eCW1 ([facility]) Body mass index (BMI) [Ratio] 26.95 kg/m2 26.95 kg/m2 eCW1 ([facility]) Body height 66 [in_us] 66 [in_us] eCW1 ([facility]) Body weight Measured 167 [lb_av] 167 [lb_av] eC W1 ([facility]) Body mass index (BMI) [Ratio] 27.4 kg/m2 27.4 k g/m2 MEDENT ([facility]) Body weight 167.00 [lb_av] 167.00 [lb_av] MEDEN T ([facility]) Body height 65.50 [in_i] 65.50 [in_i] MEDENT ([facility]) 5'5.50" Heart rate 82 /min 82 /min MEDENT ([facility]) Diastolic blood pressure 62 mm[Hg] 62 mm[Hg] MEDENT ([facility]) Systolic blood pressure 140 mm[Hg] 140 mm[Hg] M EDENT ([facility]) Diastolic blood pressure 78 mm[Hg] 78 mm[Hg] eCW1 ([facility]) Systolic blood pressure 160 mm[Hg] 160 mm[Hg] e CW1 ([facility]) Body temperature 98.3 [degF] 98.3 [degF] eCW1 ( [facility]) Respiratory rate 20 /min 20 /min eCW1 ([facility]) Heart rate 83 /min 83 /min eCW1 ([facility]) Body mass index (BMI) [Ratio] 27.11 kg/m2 27.11 kg/m2 eCW1 ([facility]) Body height 66 [in_us] 66 [in_us] eCW1 ([facility]) Body weight Measured 168 [lb_av] 168 [lb_av] eC W1 ([facility]) Diastolic blood pressure 68 mm[Hg] 68 mm[Hg] MEDENT ([facility]) sitting Systolic blood pressure 136 mm[Hg] 136 mm[Hg] M EDENT ([facility]) sitting Diastolic blood pressure 68 mm[Hg] 68 mm[Hg] MEDENT ([facility]) sitting, regular cuff Systolic blood pressure 134 mm[Hg] 134 mm[Hg] M EDENT ([facility]) sitting, regular cuff Respiratory rate 16 /min 16 /min MEDENT ( [facility]) Heart rate 64 /min 64 /min MEDENT ([facility]) Regular Body mass index (BMI) [Ratio] 26.1 kg/m2 26.1 k g/m2 MEDENT ([facility]) Body height 68 [in_i] 68 [in_i] MEDENT ([facility]) 5'8" Body weight 172.00 [lb_av] 172.00 [lb_av] MEDEN T ([facility]) Diastolic blood pressure 71 mm[Hg] 71 mm[Hg] eCW1 ([facility]) Systolic blood pressure 147 mm[Hg] 147 mm[Hg] e CW1 ([facility]) Body temperature 96.4 [degF] 96.4 [degF] eCW1 ( [facility]) Respiratory rate 16 /min 16 /min eCW1 ([facility]) Heart rate 74 /min 74 /min eCW1 ([facility]) Body mass index (BMI) [Ratio] 28.24 kg/m2 28.24 kg/m2 eCW1 ([facility]) Body height 66 [in_us] 66 [in_us] eCW1 ([facility]) Body weight Measured 175 [lb_av] 175 [lb_av] eC W1 ([facility]) Body mass index (BMI) [Ratio] 27.9 kg/m2 27.9 k g/m2 MEDENT ([facility]) Body weight 170.00 [lb_av] 170.00 [lb_av] MEDEN T ([facility]) Body height 65.50 [in_i] 65.50 [in_i] MEDENT ( [facility]) 5'5.50" Heart rate 78 /min 78 /min MEDENT ([facility]) Diastolic blood pressure 62 mm[Hg] 62 mm[Hg] MEDENT ([facility]) Systolic blood pressure 134 mm[Hg] 134 mm[Hg] M EDENT ([facility]) [place] body weight 142 [lb_av] 142 [lb_av] MEDEN T ([facility], ) Body mass index (BMI) [Ratio] 26.6 kg/m2 26.6 k g/m2 MEDENT ([facility], ) Body weight 165.00 [lb_av] 165.00 [lb_av] MEDEN T ([facility], ) Body height 66 [in_i] 66 [in_i] MEDENT ([facility], ) 5'6" Respiratory rate 12 /min 12 /min MEDENT ( [facility], ) Diastolic blood pressure 76 mm[Hg] 76 mm[Hg] eCW1 ([facility]) Systolic blood pressure 170 mm[Hg] 170 mm[Hg] e CW1 ([facility]) Body temperature 97.6 [degF] 97.6 [degF] eCW1 ( [facility]) Respiratory rate 18 /min 18 /min eCW1 ([facility]) Heart rate 60 /min 60 /min eCW1 ([facility]) Body mass index (BMI) [Ratio] 28.73 kg/m2 28.73 kg/m2 eCW1 ([facility]) Body height 66 [in_us] 66 [in_us] eCW1 ([facility]) Body weight Measured 178 [lb_av] 178 [lb_av] eC W1 ([facility]) Diastolic blood pressure 76 mm[Hg] 76 mm[Hg] eCW1 ([facility]) Systolic blood pressure 180 mm[Hg] 180 mm[Hg] e CW1 ([facility]) Body temperature 97.8 [degF] 97.8 [degF] eCW1 ( [facility]) Respiratory rate 18 /min 18 /min eCW1 ([facility]) Heart rate 60 /min 60 /min eCW1 ([facility]) Body mass index (BMI) [Ratio] 28.08 kg/m2 28.08 kg/m2 eCW1 ([facility]) Body height 66 [in_us] 66 [in_us] eCW1 ([facility]) Body weight Measured 174 [lb_av] 174 [lb_av] eC W1 ([facility]) Diastolic blood pressure 70 mm[Hg] 70 mm[Hg] eCW1 ([facility]) Systolic blood pressure 174 mm[Hg] 174 mm[Hg] e CW1 ([facility]) Body temperature 97.9 [degF] 97.9 [degF] eCW1 ( [facility]) Respiratory rate 18 /min 18 /min eCW1 ([facility]) Heart rate 62 /min 62 /min eCW1 ([facility]) Body mass index (BMI) [Ratio] 28.08 kg/m2 28.08 kg/m2 eCW1 ([facility]) Body height 66 [in_us] 66 [in_us] eCW1 ([facility]) Body weight Measured 174 [lb_av] 174 [lb_av] eC W1 ([facility]) Patient Treatment Plan of Care Planned Activity Planned Date Details Description Data Source (s) Ciprofloxacin 500 MG Oral Tablet 02/12/2020 12:00:00 AM EDT eCW1 ([facility])
[2020-05-11] MEDS ORDERED: ISOVUE-370 76% 100ML VIAL As Ordered ONE (13:58)
--- NOTE | 2020-05-11 14:34 | REP ---
INDICATION: right chest pain r/o PE. COMPARISON: CT abdomen 09/12/2019. TECHNIQUE: CT angiogram chest performed following the intravenous administration of 100 cc of Isovue 370. Sagittal and coronal reconstruction images are performed. FINDINGS: Lungs: Subcentimeter nodule in the right middle lobe is unchanged. Interstitial opacities in the lingula appears centrally unchanged. Appears to be volume loss in the left lower lobe with increased patchy consolidative opacities representing increased atelectasis/infiltrate. Mediastinum: Mild subcarinal adenopathy measures 1.6 cm in short axis. Pulmonary arteries: No evidence of pulmonary embolism. Yesenia: No adenopathy. Axilla: No adenopathy. Pleura: No effusion. Heart: Not enlarged. Thoracic aorta: No aneurysm or dissection. Upper abdominal structures: There is a small hiatal hernia.. There is a large right renal cyst again noted, superior aspect partially visualized. Visualized osseous structures: Unremarkable. IMPRESSION: No CT evidence of pulmonary embolism. Increased patchy consolidative opacity in the left lower lobe compared to the prior study of 09/12/2019 representing increased atelectasis/infiltrate. Mild subcarinal adenopathy. <Electronically signed by Endy Busch > 05/11/20 [id number]
[2020-05-11 15:34] VITALS: BP 148/69
--- NOTE | 2020-05-11 19:57 | ECGEPIP ---
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
--- NOTE | 2020-05-11 20:01 | ECGEPIP ---
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
--- NOTE | 2020-05-12 11:28 | ED PDOC ---
Post-Departure Follow-Up cta chest faxed to dr segundo for fu Onel Bearden MD May 12, 2020 11:28
== END 2020-05-11 15:38 | disposition home or self-care (01) ==
LOC: M ED 08:29
DX: J98.11 Atelectasis (principal); R07.9 Chest pain, unspecified; I11.9 Hypertensive heart disease without heart failure; E78.5 Hyperlipidemia, unspecified; K21.9 Gastro-esophageal reflux disease without esophagitis; Z79.82 Long term (current) use of aspirin; Z79.899 Other long term (current) drug therapy
CPT/HCPCS: 36415; 71045; 71275; 80047; 84484; 85025; 93005; 93041; 94760; 99285; Q9967

== ENCOUNTER → 2020-07-16 | Outpatient (REF) | payer MEDICARE, OTHER ==
[~2020-07-16] MED LIST changes: +ASPI-569 PO; -ASPI81TAEC PO
[2020-07-16 18:30] LABS: APPEARANCE, URINE MANUAL HAZY (CLEAR); COLOR, URINE MANUAL LT YELLOW (YELLOW)
[2020-07-16 18:31] LABS: SPECIFIC GRAVITY,URINE MANUAL 1.025 (1.002-1.035)
[2020-07-16 18:32] LABS: BILIRUBIN, URINE MANUAL NEGATIVE (NEGATIVE); BLOOD URINE MANUAL POSITIVE (NEGATIVE); GLUCOSE, URINE (UA) MANUAL 1+(100 MG/DL) mg/dL (NEGATIVE); KETONE, URINE MANUAL NEGATIVE (NEGATIVE); LEUKOCYTE ESTERASE, URINE MAN POSITIVE (NEGATIVE); NITRITE, URINE MANUAL NEGATIVE (NEGATIVE); PROTEIN, URINE MANUAL 2+ mg/dL (NEGATIVE); UROBILINOGEN, URINE MANUAL NORMAL (NORMAL)
[2020-07-16 18:44] LABS: HYALINE CAST, URINE NONE SEEN /lpf (0-1); SQUAMOUS EPITHELIAL CELL URINE SMALL AMOUNT /hpf (SMALL AMT)
[2020-07-16 18:47] LABS: BACTERIA, URINE SMALL AMOUNT
== END ==
LOC: M SMT 16:57
PROVIDERS: ATTEND Urology
DX: R33.9 Retention of urine, unspecified (principal)

== ENCOUNTER → 2020-08-05 | Outpatient (REF) | payer MEDICARE, OTHER ==
[2020-08-05 14:11] LABS: APPEARANCE, URINE CLOUDY (CLEAR); BACTERIA, URINE AUTO NEGATIVE (NEGATIVE); BILIRUBIN, URINE AUTO NEGATIVE (NEGATIVE); BLOOD, URINE BLOOD 3+ (NEGATIVE); COLOR, URINE YELLOW (YELLOW); GLUCOSE, URINE (UA) AUTO NEGATIVE (NEGATIVE); KETONE, URINE AUTO NEGATIVE (NEGATIVE); LEUKOCYTE ESTERASE, URINE AUTO 3+ (NEGATIVE); MUCUS, URINE SMALL (NEGATIVE); NITRITE, URINE AUTO NEGATIVE (NEGATIVE); PROTEIN, URINE AUTO 2+ mg/dL (NEGATIVE); RBC, URINE AUTO TNTC /HPF (0-3); SPECIFIC GRAVITY URINE AUTO 1.015 (1.002-1.035); SQUAMOUS EPITHELIAL CELL UR AU 0 /HPF (0-6); UROBILINOGEN, URINE AUTO 0.2 mg/dL (0.0-2.0); WBC, URINE AUTO TNTC /HPF (0-3)
== END ==
LOC: M SMT 12:56
PROVIDERS: ATTEND Urology
DX: R33.9 Retention of urine, unspecified (principal)

== ENCOUNTER → 2020-09-30 | Outpatient (CLI) | payer MEDICARE, OTHER ==
--- NOTE | 2020-09-30 14:42 | REP ---
INDICATION: HEART FAILURE. COMPARISON: 05/11/2020 a portable exam TECHNIQUE: PA and lateral FINDINGS: The superior mediastinal structures are midline. The cardiac silhouette is unremarkable in size, shape, and position. The diaphragmatic surfaces of the lungs are regular, and the costophrenic angles are clear. The pulmonary winter are clear. The imaged osseous structures are intact. IMPRESSION: There is no acute cardiopulmonary disease. <Electronically signed by Ruperto Candelario > 09/30/20 [id number]
[2020-09-30 16:01] LABS: HEMATOCRIT 37.5 % (42.0-52.0); HEMOGLOBIN 11.2 g/dl (13.5-17.5); MEAN CORPUSCULAR HEMOGLOBIN 18.2 pg (27.0-33.0); MEAN CORPUSCULAR HGB CONC 29.9 g/dl (32.0-36.5); MEAN CORPUSCULAR VOLUME 61.1 fl (80.0-96.0); PLATELET COUNT, AUTOMATED 257 10^3/uL (150-450); RED BLOOD COUNT 6.14 10^6/uL (4.30-6.10); WHITE BLOOD COUNT 7.7 10^3/uL (4.0-10.0)
[2020-09-30 16:49] LABS: BLOOD UREA NITROGEN 21 MG/DL (7-18); CALCIUM LEVEL 9.2 MG/DL (8.8-10.2); CARBON DIOXIDE LEVEL 29 MEQ/L (21-32); CHLORIDE LEVEL 106 MEQ/L (98-107); CREATININE FOR GFR 1.09 MG/DL (0.70-1.30); GLOMERULAR FILTRATION RATE > 60.0 (>35); GLUCOSE, FASTING 177 MG/DL (70-100); MAGNESIUM LEVEL 2.2 MG/DL (1.8-2.4); NT-PRO BNP 56 PG/ML (<450); POTASSIUM SERUM 4.3 MEQ/L (3.5-5.1); SODIUM LEVEL 142 MEQ/L (136-145)
== END ==
LOC: M WUC 14:01
PROVIDERS: ATTEND Physician Assistant
DX: I50.9 Heart failure, unspecified (principal)

== ENCOUNTER → 2020-10-14 | Outpatient (CLI) | payer MEDICARE, OTHER ==
[2020-10-14 18:50] LABS: CALCIUM LEVEL 9.1 MG/DL (8.8-10.2); CREATININE FOR GFR 1.24 MG/DL (0.70-1.30); GLOMERULAR FILTRATION RATE 58.7 (>35); MAGNESIUM LEVEL 2.4 MG/DL (1.8-2.4); POTASSIUM SERUM 4.4 MEQ/L (3.5-5.1)
== END ==
LOC: M WUC 12:58
PROVIDERS: ATTEND Physician Assistant
DX: I50.9 Heart failure, unspecified (principal); Z79.82 Long term (current) use of aspirin

== ENCOUNTER 2020-12-05 10:17 | Emergency (ER) | payer MEDICARE, OTHER ==
[~2020-12-05] VITALS: Ht 157.5 cm; Wt 79.7 kg
[2020-12-05 11:31] LABS: HEMATOCRIT 37.3 % (42.0-52.0); HEMOGLOBIN 11.5 g/dl (13.5-17.5); MEAN CORPUSCULAR HEMOGLOBIN 18.8 pg (27.0-33.0); MEAN CORPUSCULAR HGB CONC 30.8 g/dl (32.0-36.5); PLATELET COUNT, AUTOMATED 255 10^3/uL (150-450); RED BLOOD COUNT 6.11 10^6/uL (4.30-6.10); WHITE BLOOD COUNT 9.5 10^3/uL (4.0-10.0)
[2020-12-05 11:39] LABS: INR 1.09; PROTHROMBIN TIME 14.5 SECONDS (12.7-14.5)
[2020-12-05 11:50] LABS: CALCIUM LEVEL 8.7 MG/DL (8.8-10.2); CREATININE FOR GFR 1.34 MG/DL (0.70-1.30); GLOMERULAR FILTRATION RATE 53.7 (>35); POTASSIUM SERUM 4.2 MEQ/L (3.5-5.1)
[2020-12-05 12:13] VITALS: BP 128/62
== END 2020-12-05 12:32 | disposition home or self-care (01) ==
LOC: M ED 10:17
DX: T83.091A Other mechanical complication of indwelling urethral catheter, initial encounter (principal); E78.5 Hyperlipidemia, unspecified; I10 Essential (primary) hypertension; I25.2 Old myocardial infarction; N40.2 Nodular prostate without lower urinary tract symptoms; Z79.899 Other long term (current) drug therapy; Z95.5 Presence of coronary angioplasty implant and graft

== ENCOUNTER → 2020-12-07 | Outpatient (CLI) | payer MEDICARE, OTHER ==
[2020-12-07 16:39] LABS: HEMATOCRIT 32.9 % (42.0-52.0); HEMOGLOBIN 9.9 g/dl (13.5-17.5); MEAN CORPUSCULAR HEMOGLOBIN 18.5 pg (27.0-33.0); MEAN CORPUSCULAR HGB CONC 30.1 g/dl (32.0-36.5); MEAN CORPUSCULAR VOLUME 61.5 fl (80.0-96.0); PLATELET COUNT, AUTOMATED 240 10^3/uL (150-450); RED BLOOD COUNT 5.35 10^6/uL (4.30-6.10); WHITE BLOOD COUNT 11.8 10^3/uL (4.0-10.0)
[2020-12-07 17:02] LABS: CALCIUM LEVEL 8.8 MG/DL (8.8-10.2); CREATININE FOR GFR 1.47 MG/DL (0.70-1.30); GLOMERULAR FILTRATION RATE 48.2 (>35); POTASSIUM SERUM 4.9 MEQ/L (3.5-5.1)
== END ==
LOC: M WUC 13:37
PROVIDERS: ATTEND Urology
DX: R31.0 Gross hematuria (principal)
CPT/HCPCS: 36415; 51700; 80048; 85027; G0463

== ENCOUNTER → 2020-12-29 | Outpatient (CLI) | payer MEDICARE, OTHER ==
[2020-12-29 12:54] LABS: CALCIUM LEVEL 9.1 MG/DL (8.8-10.2); CREATININE FOR GFR 1.25 MG/DL (0.70-1.30); GLOMERULAR FILTRATION RATE 58.2 (>35); POTASSIUM SERUM 4.5 MEQ/L (3.5-5.1)
== END ==
LOC: M WUC 10:11
PROVIDERS: ATTEND Physician Assistant
DX: I50.9 Heart failure, unspecified (principal)

== ENCOUNTER 2021-01-30 18:17 | Inpatient (IN) | payer MEDICARE, OTHER ==
[~2021-01-30] VITALS: Ht 175.3 cm; Wt 79.7 kg
[2021-01-30] MEDS ORDERED: NS 1,000 ML IV ONE (20:45)
[2021-01-30 21:45] LABS: BASO # 0.1 10^3/uL (0.0-0.2); BASO % 0.4 % (0.0-1.0); EOS % 0.2 % (0.0-3.0); HEMATOCRIT 32.5 % (42.0-52.0); HEMOGLOBIN 9.9 g/dl (13.5-17.5); LYMPH # 0.8 10^3/uL (1.5-5.0); MEAN CORPUSCULAR HEMOGLOBIN 18.9 pg (27.0-33.0); MEAN CORPUSCULAR HGB CONC 30.5 g/dl (32.0-36.5); MONO # 0.6 10^3/uL (0.0-0.8); MONO % 3.9 % (2.0-8.0); NEUTROPHILS # 14.5 10^3/uL (1.5-8.5); PLATELET COUNT, AUTOMATED 254 10^3/uL (150-450); RED BLOOD COUNT 5.24 10^6/uL (4.30-6.10); WHITE BLOOD COUNT 16.1 10^3/uL (4.0-10.0)
[2021-01-30] MEDS ORDERED: ISOVUE-370 76% 100ML VIAL As Ordered ONE (22:19)
[2021-01-30 22:38] LABS: BILIRUBIN, URINE MANUAL OBSCURED (NEGATIVE); GLUCOSE, URINE (UA) MANUAL 4+(1000 MG/DL) mg/dL (NEGATIVE); KETONE, URINE MANUAL OBSCURED mg/dL (NEGATIVE); UROBILINOGEN, URINE MANUAL OBSCURED mg/dl (NORMAL)
[2021-01-30 22:47] LABS: BACTERIA, URINE SMALL AMOUNT; HYALINE CAST, URINE NONE SEEN /lpf (0-1); RBC, URINE TNTC /hpf (0-3); SQUAMOUS EPITHELIAL CELL URINE SMALL AMOUNT /hpf (SMALL AMT)
[2021-01-30] MEDS ORDERED: NS 1,000 ML IV SCH (22:55)
[2021-01-30] MEDS ORDERED: ASPI81TA26 PO (23:10)
[2021-01-30] MEDS ORDERED: FURO20TA2 PO (23:10)
[2021-01-30] MEDS ORDERED: HOME MED LIST COMPLETE! XX SCH (23:10)
[2021-01-30 23:27] LABS: RSV AMPLIFICATION NEGATIVE (NEGATIVE)
--- NOTE | 2021-01-31 00:46 | REPVR ---
PROCEDURE INFORMATION: Exam: CT Abdomen And Pelvis With Contrast Exam date and time: 01/30/2021 10:31 PM Age: 86 years old Clinical indication: Other: Hematuria; Additional info: Hematuria, simone, clots TECHNIQUE: Imaging protocol: Computed tomography of the abdomen and pelvis with contrast. Radiation optimization: All CT scans at this facility use at least one of these dose optimization techniques: automated exposure control; mA and/or kV adjustment per patient size (includes targeted exams where dose is matched to clinical indication); or iterative reconstruction. Contrast material: ISOVUE 370; Contrast volume: 100 ml; Contrast route: INTRAVENOUS (IV); COMPARISON: 1. CT ABD PELVIS W/O CONTRAST 2019-09-12 18:[address] ABD PELVIS W/O FOL BY WIT 2017-11-21 13:54 FINDINGS: Tubes, catheters and devices: A balloon bladder catheter is present. Lungs: Left lower lobe bronchial wall thickening, mucous plugging, and consolidation, evidence for infection. Mediastinal space: Small hiatal hernia with gastroesophageal junctional thickening, correlate for esophagitis or reflux. Liver: Enlarged low attenuating liver, evidence of hepatic steatosis. Gallbladder and bile ducts: Normal. No calcified stones. No ductal dilation. Pancreas: Normal. No ductal dilation. Spleen: Normal. No splenomegaly. Adrenal glands: Normal. No mass. Kidneys and ureters: Unchanged large exophytic hypodense cystic lesion projecting laterally from the right kidney. Unchanged unenhanced sing left and right renal cysts. Stomach and bowel: See "Soft tissues" finding. Appendix: No evidence of appendicitis. Intraperitoneal space: Unremarkable. No free air. No significant fluid collection. Vasculature: Unremarkable. No abdominal aortic aneurysm. Lymph nodes: Unremarkable. No enlarged lymph nodes. Urinary bladder: Heterogeneous blood clots and hemorrhage within the bladder. Irregular bladder wall margins with hypervascularity and mild stranding anteriorly, recommend urology follow-up. Reproductive: Diffusely heterogeneous, enlarged prostate gland measuring 7 cm, hypoattenuating area in the right aspect of the central zone measuring 1.5 cm, correlate. Unchanged in size but more heterogeneous than prior with some enhancement. Bones/joints: Ankylosis of the sacroiliac joints. Moderate severe L2-L5 degenerative spinal stenosis. Soft tissues: Bilateral fat protruding inguinal hernias, the right also contains nonobstructed small bowel loops. IMPRESSION: 1. Diffusely heterogeneous, enlarged prostate gland measuring 7 cm, hypoattenuating area in the right aspect of the central zone measuring 1.5 cm, correlate. Unchanged in size but more heterogeneous than prior with some enhancement. 2. Bilateral fat protruding inguinal hernias, the right also contains nonobstructed small bowel loops. 3. Heterogeneous blood clots and hemorrhage within the bladder. Irregular bladder wall margins with hypervascularity and mild stranding anteriorly, recommend urology follow-up. 4. Left lower lobe bronchial wall thickening, mucous plugging, and consolidation, evidence for infection. 5. Small hiatal hernia with gastroesophageal junctional thickening, correlate for esophagitis or reflux. Electronically signed by: Vincent Pinon On 01/31/2021 00:46:16 AM
[2021-01-31] MEDS: NS 1,000 ML IV SCH ×2 (01:15→13:55)
--- NOTE | 2021-01-31 02:35 | REPVR ---
PROCEDURE INFORMATION: Exam: XR Chest Exam date and time: 01/31/2021 2:24 AM Age: 86 years old Clinical indication: Other: Evidence for pna on CT abd/pelvis, elev wbc TECHNIQUE: Imaging protocol: XR of the chest. Views: 2 views. COMPARISON: 1. CR CHEST 2 VIEW 2020-09-30 14:18 2. [place] PORTABLE CHEST X-RAY 2020-05-11 08:[address] ANGIO CHEST 2020-05-11 14:[address] ABD/PEL W/IV CONTRAST ONLY 2021-01-30 22:29 FINDINGS: Lungs: Left posterior basilar lower lobe consolidation. Pleural spaces: Unremarkable. No pleural effusion. No pneumothorax. Heart/Mediastinum: Cardiac enlargement. Bones/joints: Unremarkable. IMPRESSION: Left posterior basilar lower lobe consolidation. Electronically signed by: Vincent Pinon On 01/31/2021 02:34:59 AM
--- NOTE | 2021-01-31 02:46 | HPEPDOC ---
[facility] Medical History & Physical Date of Admission Jan 31, 2021 Date of Service: Jan 31, 2021 Primary Care Physician: WALTER DOWELL M.D. Other Provider [facility] at [facility] (primarily Dr. Nunn, but has been seen by nurse practitioners and Dr. Lang); Dr. Sam, cardiology; Dr. Varghese, neurology Attending Physician: SUSAN IRWIN MD History and Physical CHIEF COMPLAINT: Blood in urine HISTORY OF PRESENT ILLNESS: is a 86yo male with a notable PMHx of chronic gross hematuria since 09/2019 s/p suprapubic catheter placement due to BPH & chronic urinary retention despite button TURP, multiple CVAs (both hemorrhagic and ischemic), CAD with UT & s/p stenting, dementia, HTN, DLD, and reflux who presented to the [facility] ED on the evening of 01/30/2021 with a chief complaint of simone blood in his urine. The patient has some baseline dementia and upon conferring with his Migdalia, this gross hematuria has been a significant issue for him of late. The decision was made to bring the patient to the ED rather than to the outpatient urology office simply because it was a Monday and the urology office was not open. The patient himself states he has baseline intermittent penile pain, chronically rating 56/10, but that the pain has been more frequent of late - - he specifically described it as sharp and rating 9/10 on presentation today. On review, he reports a cough productive of "off white" sputum. Again it is important to note that patient has baseline dementia, and his HPI should be taken in context, especially since he was only oriented to self at time of admission. Upon review of outpatient records, he has had multiple urologic outpatient appointments over the past 2 months due to the gross hematuria and clot retention requiring suprapubic catheter irrigation. He most recently had a cyst oscopy performed by Dr. Nunn last month (December 2020). He gets regularly scheduled outpatient nursing visits for catheter changes. Also relevant on record review is patient has documented recent baseline anemia and leukocytosis. On presentation the ED, he had leukocytosis with absolute neutrophilia (WBC 16), and significantly microcytic anemia (Hgb 9.9). Two-view chest x-ray showed a left lower lobe consolidation and CT abdomen pelvis revealed multiple differing sized intrabladder blood clots and hemorrhage. The ED provider contacted the on-call [facility] (Dr. Cardona) who recommended holding the patient's Plavix pending her evaluation of the patient later in the morning of 01/31 with likely cystoscopy. REVIEW OF SYSTEMS: (Important to take into contacts that patient has baseline dementia and was only oriented to self at the time of this review). CONSTITUTIONAL: Denies recent fever, chills, night sweats, or unintentional change in weight HEENT: Denies double vision, blurry vision, eye pain, or ear pain CARDIOVASCULAR: Denies chest pain, chest pressure, or palpitations RESPIRATORY: Reports cough as described in HPI. Denies increased work of breathing, dyspnea, or pleuritic chest pain GASTROINTESTINAL: Reports chronic baseline abdominal distention. Denies abd ominal pain, nausea, vomiting, diarrhea, or blood in stool GENITOURINARY: Reports current hematuria with multiple recent episodes of gross hematuria. Denies suprapubic pain, flank pain MUSCULOSKELETAL: Denies any specific myalgias or arthralgias NEUROLOGICAL: Denies headache HEMATOLOGIC: Other than active hematuria, denies any other easy bleeding or bruising. LYMPHATIC: Denies any new lumps or bumps. PAST MEDICAL / SURGICAL HISTORY: Coronary artery disease with myocardial infarction (1994) s/p coronary stent placement x2, on aspirin and Plavix as outpatient and follows with Dr. Sam (cardiology) Multiple cerebrovascular accidents, both hemorrhagic and ischemic (1994; June 2017; July 2019); follows with Dr. Varghese (neurology) Benign prostatic hypertrophy with urinary retention and implantation of chronic suprapubic catheter (September 2019) despite button TURP (in February 2018) Multiple recent episodes of gross hematuria with blood clot retention requiring multiple catheter irrigations and cystoscopy as recently as last month (December 2020) -Follows with Dr. Nunn and [facility] as outpatient Dyslipidemia Hypertension Dementia Acid reflux Button TURP (03/05/2018) Cardiac stent placement, 1994 and 2004 Appendectomy, 1969 Cystoscopy, most recently performed December 2020 (prior procedures done 11/30/2017, 04/11/2018, 10/01/2018, 09/20/2019, and 09/25/2019) SOCIAL HISTORY: Patient lives with his independently in their home and reportedly does not use a cane or walker for ambulation. Patient occasionally over the past 20 years will smoke cigars, and has a remote cigarette smoking history in his 20s, but is reported that he did not smoke on a daily basis. Patient reported to have a social alcohol history Patient reported to have no illegal drug use history. FAMILY HISTORY: Father: CVA and CAD; at 88 years old / Mother: Degenerative joint disease; at 95 years old / Sister: Pericarditis and diabetes; in her 60s. ALLERGIES: Please see below. HOME MEDICATIONS: Please see below. PHYSICAL EXAMINATION: Date Time Temp Pulse Resp B/P (MAP) Pulse Ox O2 Delivery O2 Flow Rate FiO2 01/30/21 18:18 98.5 94 18 160/75 (103) 95 Room Air GENERAL APPEARANCE: Pleasantly demented male lying in ED bed. He is alert and oriented to self only. He responds appropriately to commands but some of his answers to questions are tangential. HEENT: Normocephalic, atraumatic. Pupils are equally constricted and have diminished responsiveness to light and accommodation. There appears to be some slight exophthalmos, potentially more prominent with the left eye. Conjunctival pallor present. Noninjected, anicteric sclera. Oral cavity: Wearing upper and lower dentures. MMM. No pharyngeal erythema or exudate appreciated. Neck: No lymphadenopathy. Trachea midline. CARDIOVASCULAR: Borderline tachycardic rate, regular rhythm. Normal S1, S2. 12/6 systolic murmur appreciated best at the left midclavicular intercostal space. 2+ radial and posterior tibial pulses bilaterally. LUNGS: There is moderate rhonchi diffusely with inspiratory crackles appreciated in the mid lung to lower lung lobes bilaterally. Breathing room air. Speaking full sentences. Symmetric chest expansion. No accessory muscle use. ABDOMEN: Soft with moderate diffuse distention. Nontender. Well-healed vertical incisional scar superior to the umbilicus. There is a suprapubic catheter in place; the skin surrounding the catheter is not erythematous nor indurated and there is slight amount of serous buildup around the insertion point of the catheter. No CVA tenderness. Genitourinary: There is approximately 400 cc of dark red-colored blood-tinged urine collected from the suprapubic catheter. MUSCULOSKELETAL: 5/5 muscle strength of upper and lower extremities bilaterally. EXTREMITIES: 2+ radial, posterior tibial, and dorsalis pedis pulses bilaterally. There are no signs of clubbing or cyanosis. Some trace lower extremity edema bilaterally, right greater than left. NEUROLOGICAL: Patient is awake, alert and oriented to self only. He thought he was at his own home in his own bed, and that the month was September. Cranial nerves III through XII are grossly intact. He is tangential sometimes with his answers but does follow commands appropriately. Sensation to light touch of upper and lower extremities is intact bilaterally. Nondysarthric speech. PSYCHIATRIC: Pleasant mood. Appropriate appearing affect. LABORATORY DATA: IMAGING:CT abdomen pelvis, 01/30/2021FINDINGS: Tubes, catheters and devices: A balloon bladder catheter is present. Lungs: Left lower lobe bronchial wall t hickening, mucous plugging, and consolidation, evidence for infection. Mediastinal space: Small hiatal hernia with gastroesophageal junctional thickening, correlate for esophagitis or reflux. Liver: Enlarged low attenuating liver, evidence of hepatic steatosis. Gallbladder and bile ducts: Normal. No calcified stones. No ductal dilation. Pancreas: Normal. No ductal dilation. Spleen: Normal. No splenomegaly. Adrenal glands: Normal. No mass. Kidneys and ureters: Unchanged large exophytic hypodense cystic lesion projecting laterally from the right kidney. Unchanged unenhanced sing left and right renal cysts. Stomach and bowel: See "Soft tissues" finding. Appendix: No evidence of appendicitis. Intraperitoneal space: Unremarkable. No free air. No significant fluid collection. Vasculature: Unremarkable. No abdominal aortic aneurysm. Lymph nodes: Unremarkable. No enlarged lymph nodes. Urinary bladder: Heterogeneous blood clots and hemorrhage within the bladder. Irregular bladder wall margins w ith hypervascularity and mild stranding anteriorly, recommend urology follow-up. Reproductive: Diffusely heterogeneous, enlarged prostate gland measuring 7 cm, hypoattenuating area in the right aspect of the central zone measuring 1.5 cm, correlate. Unchanged in size but more heterogeneous than prior with some enhancement. Bones/joints: Ankylosis of the sacroiliac joints. Moderate severe L2-L5 degenerative spinal stenosis. Soft tissues: Bilateral fat protruding inguinal hernias, the right also contains nonobstructed small bowel loops. IMPRESSION: 1. Diffusely heterogeneous, enlarged prostate gland measuring 7 cm, hypoattenuating area in the right aspect of the central zone measuring 1.5 cm, correlate. Unchanged in size but more heterogeneous than prior with some enhancement. 2. Bilateral fat protruding inguinal hernias, the right also contains nonobstructed small bowel loops. 3. Heterogeneous blood clots and hemorrhage within the bladder. Irregular bladder wall margins with hypervascularity and mild stranding anteriorly, recommend urology follow-up. 4. Left lower lobe bronchial wall thickening, mucous plugging, and consolidation, evidence for infection. 5. Small hiatal hernia with gastroesophageal junctional thickening, correlate for esophagitis or reflux. 2-view chest x-ray, 01/31/2021FINDINGS: Lungs: Left posterior basilar lower lobe consolidation. Pleural spaces: Unremarkable. No pleural effusion. No pneumothorax. Heart/Mediastinum: Cardiac enlargement. Bones/joints: Unremarkable. IMPRESSION: Left posterior basilar lower lobe consolidation. MICROBIOLOGY: negative respiratory panel ASSESSMENT & PLAN: This is an 86yo male w/ notable h/o multiple recent episodes of gross hematuria with clotting requiring irrigation & cystoscopy (12/2020) i/s/o bph and urinary r etention requiring chronic indwelling suprapubic catheter, multiple CVAs, coronary artery disease with UT and stent x2 on aspirin and Plavix, dementia, HTN, DLD who presented to the ED on the evening of 01/30/21 due to gross hematuria. This has been a chronic issue for the patient of late and because it was the weekend he did not go to his outpatient urology office and instead chose to come to the ED. Imaging in the ED showed intrabladder hemorrhage and blood clots, as well as a left lower lobe consolidation. Patient had leukocytosis and anemia but these appear to be chronic baseline issues. He was admitted primarily for urology evaluation and possible cystoscopy for irrigation. #Gross hematuria w/ multiple recent episodes of hematuria i/s/o chronic indwelling suprapubic catheter due to BPH and urinary retention -Patient has had multiple recent outpatient visits at urology for gross hematuria and clotting requiring irrigation as well as cystoscopy (most recently done last month by Dr. Nunn, 12/2020) -ED provider contacted on-call urologist (Dr. Cardona) who recommended admission, holding the patient's Plavix, and pending neuro evaluation later on 01/31 for possible cystoscopy -Patient has baseline anemia; Hgb 9.9 on admission (just 2 months ago was also 9.9 and recently has been in the 7s); type and screen; serial H&H q6h -UA showed too numerous to count RBCs -In preparation for possible cystoscopy later on today, patient made n.p.o. and IVF running -In the setting of presumed significant instrumentation with cystoscopy and sepsis, ceftriaxone ordered -Official consultation placed with Dr. Cardona of urology; patient follows with [facility] as outpatient (predominantly Dr. Nunn but is seen multiple providers at the office) #Sepsis -likely secondary to UTI and possible CAP -WBC 16.1 with absolute neutrophilia; is important to note that patient does hav e baseline intermittent leukocytosis on review of recent labs dating back to 2018 -left lower lobe consolidation on chest x-ray -small amount of urine bacteria/obscured high leukocyte esterase/obscured high nitrite on UA; pending urine culture -2 blood cultures obtained; lactic acid level ordered -Patient is hemodynamically stable and afebrile -IVF and n.p.o. setting for possible procedure #Coronary artery disease with UT, s/p stent x2 -Home Plavix held in setting of possible urologic intervention later today -Home aspirin, atorvastatin, and prn sl nitro continue -Follows with Dr. Sam of cardiology as outpatient #History of multiple CVAs, both hemorrhagic and ischemic -Follows with Dr. Varghese of neurology as outpatient #Undiagnosed diabetes mellitus with elevated serum glucose -Patient had initial serum glucose of 254 in the ED -A1c ordered resulted 7.1 -Presumed to be likely type II -N.p.o. status for possible urologic intervention -FSBS every 6, SSI every 6, hypoglycemic protocol -The day time team may consider starting Metformin prior to discharge #Chronic microcytic hypochromic anemia I/S/O gross hematuria -Hgb 9.9, MCV 62 on admission -On review, patient has had microcytic anemia since at least 2004 -Upon review, serum iron low on 1 prior value with ferritin WNL -Iron panel ordered -Should iron studies reveal iron deficiency, consider Venofer admi nistration #Grade 1 diastolic dysfunction and pulmonary hypertension -Patient's home oral furosemide not initially continued as patient is n.p.o., receiving IV fluids in the setting of sepsis, and suprapubic catheter hematuria #Hypertension -Patient's home ramipril and amlodipine continued on admission #Dementia #Acid reflux -Home famotidine not initially continued due to anticholinergic effects in the elderly and patient's baseline dementia (more prone to dizziness and falls; on beers criteria) #DVT prophylaxis: Teds and sequentials in the setting of gross hematuria with possible upcoming urologic intervention later today. CODE STATUS: Full code Disposition: Admit to [facility] with n.p.o. status pending possible urologic intervention later today as well as continue monitoring after meeting sepsis criteria. Home Medications Scheduled Amlodipine Besylate (Amlodipine Besylate) 5 Mg Tablet, 5 MG PO DAILY Aspirin (Aspirin EC) 81 Mg Tablet.dr, 81 MG PO DAILY Atorvastatin Calcium (Atorvastatin Calcium) 20 Mg Tablet, 20 MG PO QHS Clopidogrel Bisulfate (Clopidogrel) 75 Mg Tablet, 75 MG PO DAILY Famotidine (Famotidine) 20 Mg Tablet, 20 MG PO BID Furosemide (Furosemide) 20 Mg Tablet, 20 MG PO DAILY Ramipril (Ramipril) 10 Mg Capsule, 10 MG PO QHS Scheduled PRN Acetaminophen (Tylenol) 325 Mg Tablet, 325 MG PO QID PRN for PAIN Nitroglycerin (Nitroglycerin) 0.4 Mg Tab.subl, SL PRN PRN for pain Allergies Coded Allergies: No Known Allergies (Unverified , 04/11/18) TRU MOHAN D.O. Jan 31, 2021 02:46 SUSAN IRWIN MD Jan 31, 2021 19:24
[2021-01-31] MEDS ORDERED: ACETAMINOPHEN TAB 650MG DOSE (2X325MG) PO PRN (03:55)
[2021-01-31] MEDS ORDERED: NITROGLYCERIN 0.4 MG SUBL TABLET SL PRN (03:55)
[2021-01-31] MEDS ORDERED: MAALOX 30 ML SUSP *UDC PO PRN (03:55)
[2021-01-31] MEDS ORDERED: MOM 30ML SUSPENSION UDC PO PRN (03:55)
[2021-01-31] MEDS ORDERED: ATORVASTATIN 20 MG TAB PO SCH (04:02)
[2021-01-31 04:04] LABS: BASO # 0.1 10^3/uL (0.0-0.2); BASO % 0.3 % (0.0-1.0); EOS % 0.2 % (0.0-3.0); HEMATOCRIT 32.3 % (42.0-52.0); HEMOGLOBIN 9.9 g/dl (13.5-17.5); LYMPH # 1.7 10^3/uL (1.5-5.0); LYMPH % 11.4 % (24.0-44.0); MEAN CORPUSCULAR HEMOGLOBIN 18.8 pg (27.0-33.0); MEAN CORPUSCULAR HGB CONC 30.7 g/dl (32.0-36.5); MEAN CORPUSCULAR VOLUME 61.2 fl (80.0-96.0); MONO # 0.8 10^3/uL (0.0-0.8); MONO % 5.1 % (2.0-8.0); NEUTROPHILS # 12.6 10^3/uL (1.5-8.5); NEUTROPHILS % 82.4 % (36.0-66.0); PLATELET COUNT, AUTOMATED 266 10^3/uL (150-450); RED BLOOD COUNT 5.28 10^6/uL (4.30-6.10); WHITE BLOOD COUNT 15.2 10^3/uL (4.0-10.0)
[2021-01-31] MEDS ORDERED: NS 1,000 ML IV SCH (04:15)
[2021-01-31 04:27] LABS: HEMOGLOBIN A1c 7.1 %
[2021-01-31 04:28] LABS: CALCIUM LEVEL 8.2 MG/DL (8.8-10.2); CREATININE FOR GFR 1.43 MG/DL (0.70-1.30); GLOMERULAR FILTRATION RATE 49.7 (>35); POTASSIUM SERUM 4.7 MEQ/L (3.5-5.1)
[2021-01-31] MEDS: ramipriL 5 MG CAP PO SCH ×2 (04:48→22:02)
[2021-01-31 05:10] LABS: PERCENT SATURATION 10.3 % (19.7-50.0)
[2021-01-31] MEDS ORDERED: HumaLOG INSULIN (NovoLOG) PER UNIT SC SCH (06:00)
[2021-01-31] MEDS ORDERED: cefTRIAXone SOD 1 GM in D5W MINI-BAG PLUS 50 ML IV SCH (06:00)
[2021-01-31] MEDS ORDERED: DEXTROSE 50% 50 ML SYRINGE IV PRN (06:45)
[2021-01-31] MEDS ORDERED: GLUCAGON INJ 1MG VIAL SC PRN (06:45)
[2021-01-31] MEDS ORDERED: GLUCOSE 4GM CHEW TABLET PO PRN (06:45)
--- NOTE | 2021-01-31 06:48 | IPNPDOC ---
Text Note Date of Service The patient was seen on 01/31/21. NOTE ATTENDING ADDENDUM TIME OF SERVICE 535AM 86 yr old M admitted for SIRS & gross hematuria suspicious for malignancy.- f/u w rest per 's H&P VS,Fishbone, I+O VS, Fishbone, I+O Laboratory Tests 01/30/21 21:17 01/31/21 03:50 Vital Signs Date Time Temp Pulse Resp B/P (MAP) Pulse Ox O2 Delivery O2 Flow Rate FiO2 01/31/21 06:02 73 18 97 Room Air 01/31/21 05:45 124/60 (81) 01/30/21 18:18 98.5 I&O- Last 24 Hours up to 6 AM 01/31/21 06:00 Intake Total 990 ml Output Total 387 ml Balance 603 ml SUSAN IRWIN MD Jan 31, 2021 06:48
[2021-01-31] MEDS: ATORVASTATIN 20 MG TAB PO SCH ×2 (08:44→21:57)
[2021-01-31 09:00] VITALS: BP 156/67
[2021-01-31] MEDS ORDERED: FAMOTIDINE 20 MG TAB PO SCH (09:00)
[2021-01-31] MEDS: IRON POLYSAC (NIFEREX) 150 MG CAP PO SCH ×2 (09:00→21:57)
[2021-01-31] MEDS: PENTOSAN POLYSULFATE SODIUM 100 MG CAP (ELMIRON) PO SCH ×3 (09:00→21:57)
[2021-01-31] MEDS ORDERED: FUROSEMIDE 20 MG TAB PO SCH (09:00)
[2021-01-31] MEDS: ASPIRIN 81MG ENTERIC TABLET PO SCH (09:16)
[2021-01-31] MEDS: amLODIPine 5 MG TAB PO SCH (09:17)
[2021-01-31 10:38] LABS: HEMATOCRIT 29.5 % (42.0-52.0)
[2021-01-31 10:47] LABS: INR 1.1; PROTHROMBIN TIME 14.6 SECONDS (12.7-14.5)
[2021-01-31 10:48] LABS: PARTIAL THROMBOPLASTIN TIME 25.4 SECONDS (25.9-37.0)
--- NOTE | 2021-01-31 11:14 | CR.PDOC ---
General Date of Consultation: Jan 31, 2021 Referring Provider: SUSAN IRWIN MD Consultation REASON FOR CONSULTATION/CHIEF COMPLAINT: Patient with a suprapubic catheter with gross hematuria HISTORY OF PRESENT ILLNESS: The patient is an 86-year-old gentleman well-known to the urology clinic for a history of urinary retention status post suprapubic catheter placement 09/25/2019 after failing a TURP in 02/2018. He is on Plavix and aspirin secondary to multiple CVA accidents and coronary artery disease with an MO and stents x2. He has been seen in the clinic multiple times for gross hematuria and clot irrigation. He did have a cystoscopy done by Dr. Nunn on 12/08/2020 which showed the enlarged prostate and cystitis but no other significant abnormalities. His hemoglobin on admission was 9.9 which looks like it is his baseline. His white blood count was elevated to 16.1. Overnight his hemoglobin did drop to 9.0. His creatinine is 1.43 and it looks like this is around his baseline also. CT scan was done on 01/30/2021 and reviewed. This just shows chronic changes in the bladder and clots with an enlarged prostate. He does have hernias and some other lung findings. Today I changed his catheter to a three-way 20 [place] and hand irrigated quite a lot of clots. It was draining clear. We will plan on starting continuous bladder irrigation. At this point I do not believe a repeat cystoscopy is nece ssary. We will await the final urine culture and treat empirically with antibiotics. We will stop his Plavix and aspirin and will need to see what the plan is in the future for his multiple CVAs. I also recommend trying Elmiron which sometimes can help coat the bladder and help with the recurrent hemorrhagic cystitis. I also recommend hyperbaric oxygen as an outpatient. ALLERGIES: Please see below. HOME MEDICATIONS: Please see below. PAST MEDICAL HISTORY: -Recurrent episodes of gross hematuria status post to cystoscopy 12/08/2020 which is showed hemorrhagic cystitis -Coronary artery disease and myocardial infarction in 1994 status post coronary stent placement x2 followed by Dr. 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 Varghese on Plavix and aspirin -BPH with urinary retention with placement of a suprapubic catheter in September 2019 after he failed a TURP in February 2018 -High blood pressure -Dementia -Dyslipidemia -Acid reflux PAST SURGICAL HISTORY: -Button TURP in 2017 and then suprapubic tube placement in September 2019 -Multiple cystoscopies with the last being 12/08/2020 -Appendectomy -Cardiac stent placement 1994 and 2004 FAMILY HISTORY: Noncontributory SOCIAL HISTORY: He lives with his independently at home. Over the past 20 years he smokes cigars occasionally but quit smoking cigarettes in his 20s. He does have a social alcohol history but no illegal drug use. REVIEW OF SYSTEMS: Patient is a very poor historian secondary to his dementia PHYSICAL EXAMINATION: VITAL SIGNS: Please see below. GENERAL APPEARANCE: Well-developed well-nourished gentleman lying in a hospital bed HEENT: Normocephalic atraumatic RESPIRATORY: There is moderate rhonchi and some crackles in the mid to lower lungs bilaterally CARDIOVASCULAR: He has been slightly tachycardic overnight with a regular rhythm. ABDOMEN: Soft with some minimal diffuse tenderness EXTREMITIES: No cyanosis clubbing or edema NEUROLOGICAL: He is awake and alert but not oriented PSYCHIATRIC: Nonfocal LABORATORY DATA: Please see below. ASSESSMENT: -Recurrent gross hematuria most likely secondary to hemorrhagic cystitis in a patient with a long standing suprapubic tube for urinary retention most likely secondary to an enlarged prostate status post TURP in 02/2018. CT scan 01/31/2021 showed the chronic changes in the bladder and blood but no other significant urologic abnormalities. -Chronic anemia also now with acute blood loss -Chronic kidney disease with a creatinine now of 1.43 without any hydronephrosis and this appears to be around his baseline -Dementia and history of multiple CVA accidents in a patient on Plavix and aspirin -Multiple other medical issues as above PLAN: -Suprapubic catheter was changed to a 20 Chadian three-way Pisano catheter and hand irrigated until it was clear. We will place him on continuous bladder irrigation now -Treat empirically with antibiotics until final urine culture comes back -Continue to watch H&H -Recommend starting Elmiron 100 mg p.o. 3 times daily since sometimes this can help with chronic cystitis and hemorrhagic cystitis -Recommend hyperbaric oxygen as an outpatient Vital Signs/I&O Vital Signs Date Time Temp Pulse Resp B/P (MAP) Pulse Ox O2 Delivery O2 Flow Rate FiO2 01/31/21 09:17 82 157/83 01/31/21 09:00 98.0 18 97 Room Air I&O- Last 24 Hours up to 6 AM 01/31/21 06:00 Intake Total 990 ml Output Total 387 ml Balance 603 ml Laboratory Data Labs 24H Laboratory Tests 2 01/30/21 21:17: Immature Granulocyte % (Auto) 0.5, Neutrophils (%) (Auto) 90.0H, Lymphocytes (%) (Auto) 5.0L, Monocytes (%) (Auto) 3.9, Eosinophils (%) (Auto) 0.2, Basophils (%) (Auto) 0.4, Neutrophils # (Auto) 14.5H, Lymphocytes # (Auto) 0.8L, Monocytes # (Auto) 0.6, Eosinophils # (Auto) 0.0, Basophils # (Auto) 0.1, Nucleated Red Blood Cells % (auto) 0.0, Urine Color (RAYNE) REDH, Urine Appearance (RAYNE) TURBIDH, Urine pH (RAYNE) 5.0, Urine Specific Crawford (RAYNE) 1.030, Bedside Urine Glucose (UA) 4+(1000 MG/DL)H, Bedside Urine Ketones (LAB) OBSCUREDH, Bedside Urine Blood POSITIVEH, Bedside Urine Nitrite (LAB) OBSCUREDH, Bedside Urine Bilirubin (LAB) OBSCUREDH, Bedside Urine Urobilinogen (LAB) OBSCUREDH, Bedside Urine Leukocyte Esterase (L OBSCUREDH, Urine Sediment Examination PERFORMED, Urine RBC TNTCH, Urine WBC 1-3, Urine Squamous Epithelial Cells SMALL AMOUNT, Urine Bacteria SMALL AMOUNTH, Urine Hyaline Casts NONE SEEN 01/30/21 21:31: POC Glucose (Misc Panel) 259H, POC Sodium (Misc Panel) 140, POC Potassium (Misc Panel) 4.5, POC Chloride (Misc Panel) 104, POC Total CO2 (Misc Panel) 24.0, POC Blood Urea Nitrogen (Misc Panel 26, POC Ionized Calcium (Misc Panel) 4.5, POC Creatinine (Misc Panel) 1.3, POC Hematocrit (Misc Panel) 33.0L 01/30/21 21:34: POC Prothrombin Time (Misc) 12.0L, POC INR (Misc) 1.0 01/30/21 22:41: Coronavirus (COVID-19)(PCR) NEGATIVE, Influenza Type A (RT-PCR) NEGATIVE, Influenza Type B (RT-PCR) NEGATIVE, Respiratory Syncytial Virus (PCR) NEGATIVE 01/31/21 03:50: Immature Granulocyte % (Auto) 0.6, Neutrophils (%) (Auto) 82.4H, Lymphocytes (%) (Auto) 11.4L, Monocytes (%) (Auto) 5.1, Eosinophils (%) (Auto) 0.2, Basophils (%) (Auto) 0.3, Neutrophils # (Auto) 12.6H, Lymphocytes # (Auto) 1.7, Monocytes # (Auto) 0.8, Eosinophils # (Auto) 0.0, Basophils # (Auto) 0.1, Nucleated Red Blood Cells % (auto) 0.0, Anion Gap 8, Glomerular Filtration Rate 49.7, Estimated Mean Plasma Glucose 157H, Hemoglobin A1c 7.1, Calcium Level 8.2L, Magnesium Level 2.0, Iron Level 39L, Total Iron Binding Capacity 380, Transferrin % Saturation 10.3L, Ferritin 16L 01/31/21 03:52: Lactic Acid Level 3.4*H 01/31/21 08:03: Bedside Glucose (Misc Panel) 118H 01/31/21 10:23: Prothrombin Time 14.6H, Prothromb Time International Ratio 1.10, Activated Partial Thromboplast Time 25.4 CBC/BMP Laboratory Tests 01/30/21 21:17 01/31/21 03:50 01/31/21 10:23 Microbiology Microbiology 01/31/21 Blood Culture, Received Pending 01/31/21 Blood Culture, Received Pending 01/30/21 Urine Culture, Received Pending Allergies Coded Allergies: No Known Allergies (Unverified , 04/11/18) Home Medications Scheduled Amlodipine Besylate (Amlodipine Besylate) 5 Mg Tablet, 5 MG PO DAILY, (Reported) Aspirin (Aspirin EC) 81 Mg Tablet.dr, 81 MG PO DAILY, (Reported) Atorvastatin Calcium (Atorvastatin Calcium) 20 Mg Tablet, 20 MG PO QHS, (Reported) Clopidogrel Bisulfate (Clopidogrel) 75 Mg Tablet, 75 MG PO DAILY, (Reported) Famotidine (Famotidine) 20 Mg Tablet, 20 MG PO BID, (Reported) Furosemide (Furosemide) 20 Mg Tablet, 20 MG PO DAILY, (Reported) Ramipril (Ramipril) 10 Mg Capsule, 10 MG PO QHS, (Reported) Scheduled PRN Acetaminophen (Tylenol) 325 Mg Tablet, 325 MG PO QID PRN for PAIN, (Reported) Nitroglycerin (Nitroglycerin) 0.4 Mg Tab.subl, SL PRN PRN for pain, (Reported) RONNY MOSER MD Jan 31, 2021 11:14
--- NOTE | 2021-01-31 13:32 | IPNPDOC ---
Text Note Date of Service The patient was seen on 01/31/21. NOTE Subjective: Patient continues to have gross hematuria. Suprapubic Pisano cat heter was changed in the morning Objective: GENERAL APPEARANCE: NAD HEENT: no scleral icterus, no JVD, EOMI CARDIOVASCULAR: S1S2 LUNGS: Diminished lung sounds bilaterally ABDOMEN: soft & not tender w palpation, suprapubic catheter in place MUSCULOSKELETAL: no cyanosis, +1 swelling INTEGUMENT: no generalized pallor NEUROLOGICAL: cranial nerve function from 2-12 intact, follows commands, speech not dysarthric Assessment and plan Patient is 86yo male w/ notable h/o multiple recent episodes of gross hematuria with clotting requiring irrigation & cystoscopy (12/2020) i/s/o bph and urinary retention requiring chronic indwelling suprapubic catheter, multiple CVAs, coronary artery disease with [place] and stent x2 on aspirin and Plavix, dementia, HTN, DLD who presented to the ED on the evening of 01/30/21 due to gross hematuria. Gross hematuria Dr. Cardona saw the patient in the morning, she recommended to change suprapubic catheter and started bloody irrigation Plavix on hold. Sepsis Patient developed leukocytosis, elevated lactic acid Unknown etiology most likely secondary to UTI, does not have any sputum production or cough. Unlikely patient has pneumonia Patient afebrile IV fluid Continue ceftriaxone IV Await urine culture and blood culture Coronary artery disease Discontinue Plavix due to persistent hematuria Continue home meds Patient denies chest pain History of multiple CVAs, both hemorrhagic and ischemic Follows with Dr. Varghese of neurology as outpatient Type 2 diabetes HbA1c is 7.1, which is appropriate for his age group Continue to monitor glucose level Diabetes diet Microcytic anemia Most likely secondary to hematuria Hemoglobin stable, no indication for blood transfusion Iron supplementation Diastolic CHF Not in acute exacerbation I's and O's Cardiac diet Hypertension Continue home meds Blood pressure under control Dementia Follow-up with PCP Acid reflux PPI DVT prophylaxis: Teds and sequentials VS,Fishbone, I+O VS, Fishbone, I+O Laboratory Tests 01/30/21 21:17 01/31/21 03:50 01/31/21 10:23 Vital Signs Date Time Temp Pulse Resp B/P (MAP) Pulse Ox O2 Delivery O2 Flow Rate FiO2 01/31/21 09:17 82 157/83 01/31/21 09:00 98.0 18 97 Room Air I&O- Last 24 Hours up to 6 AM 01/31/21 06:00 Intake Total 990 ml Output Total 387 ml Balance 603 ml POLO CANO DO Jan 31, 2021 13:32
[2021-01-31] MEDS: PANTOPRAZOLE 20 MG TAB PO SCH (13:54)
[2021-01-31 13:59] LABS: BASO % 0.4 % (0.0-1.0); EOS # 0.2 10^3/uL (0.0-0.5); EOS % 1.6 % (0.0-3.0); HEMATOCRIT 29.9 % (42.0-52.0); HEMOGLOBIN 9.1 g/dl (13.5-17.5); LYMPH # 1.8 10^3/uL (1.5-5.0); LYMPH % 16.1 % (24.0-44.0); MEAN CORPUSCULAR HEMOGLOBIN 18.7 pg (27.0-33.0); MEAN CORPUSCULAR HGB CONC 30.4 g/dl (32.0-36.5); MEAN CORPUSCULAR VOLUME 61.5 fl (80.0-96.0); MONO # 0.6 10^3/uL (0.0-0.8); MONO % 5.9 % (2.0-8.0); NEUTROPHILS # 8.2 10^3/uL (1.5-8.5); NEUTROPHILS % 75.6 % (36.0-66.0); PLATELET COUNT, AUTOMATED 248 10^3/uL (150-450); RED BLOOD COUNT 4.86 10^6/uL (4.30-6.10); WHITE BLOOD COUNT 10.9 10^3/uL (4.0-10.0)
[2021-01-31 14:00] VITALS: BP 120/67
[2021-01-31] MEDS ORDERED: cefTRIAXone SOD 1 GM in D5W MINI-BAG PLUS 50 ML IV ONE (14:00)
[2021-01-31 14:27] LABS: BILIRUBIN,TOTAL 0.5 MG/DL (0.2-1.0); CREATININE FOR GFR 1.38 MG/DL (0.70-1.30); GLOMERULAR FILTRATION RATE 51.8 (>35); TOTAL PROTEIN 6.7 GM/DL (6.4-8.2)
[2021-01-31] MEDS ORDERED: QUEtiapine FUMARATE 25 MG TAB PO ONE (16:15)
[2021-01-31] MEDS ORDERED: OLANZapine INTRAMUSCULAR 10MG VIAL IM PRN (16:15)
[2021-01-31 16:39] LABS: HEMATOCRIT 30.5 % (42.0-52.0); HEMOGLOBIN 9.3 g/dl (13.5-17.5)
[2021-01-31] MEDS: QUEtiapine FUMARATE 25 MG TAB PO SCH (21:00)
[2021-01-31 21:56] LABS: HEMATOCRIT 27.8 % (42.0-52.0); HEMOGLOBIN 8.4 g/dl (13.5-17.5)
[2021-01-31 22:00] VITALS: BP 126/70
[2021-02-01] MEDS: NS 1,000 ML IV SCH (04:15)
[2021-02-01 04:25] LABS: BASO # 0.1 10^3/uL (0.0-0.2); BASO % 0.7 % (0.0-1.0); EOS # 0.4 10^3/uL (0.0-0.5); EOS % 4.8 % (0.0-3.0); HEMATOCRIT 29.3 % (42.0-52.0); HEMOGLOBIN 8.9 g/dl (13.5-17.5); LYMPH # 2.2 10^3/uL (1.5-5.0); MEAN CORPUSCULAR HEMOGLOBIN 18.7 pg (27.0-33.0); MEAN CORPUSCULAR HGB CONC 30.4 g/dl (32.0-36.5); MEAN CORPUSCULAR VOLUME 61.6 fl (80.0-96.0); MONO # 0.7 10^3/uL (0.0-0.8); MONO % 8.7 % (2.0-8.0); NEUTROPHILS % 59.7 % (36.0-66.0); PLATELET COUNT, AUTOMATED 237 10^3/uL (150-450); RED BLOOD COUNT 4.76 10^6/uL (4.30-6.10); WHITE BLOOD COUNT 8.4 10^3/uL (4.0-10.0)
[2021-02-01 04:53] LABS: ALBUMIN 2.7 GM/DL (3.2-5.2); ALT/SGPT 26 U/L (12-78); BILIRUBIN,TOTAL 0.5 MG/DL (0.2-1.0); BLOOD UREA NITROGEN 17 MG/DL (7-18); CALCIUM LEVEL 7.9 MG/DL (8.8-10.2); CARBON DIOXIDE LEVEL 25 MEQ/L (21-32); CHLORIDE LEVEL 113 MEQ/L (98-107); CREATININE FOR GFR 1.15 MG/DL (0.70-1.30); GLOMERULAR FILTRATION RATE > 60.0 (>35); GLUCOSE, FASTING 106 MG/DL (70-100); POTASSIUM SERUM 4.3 MEQ/L (3.5-5.1); SODIUM LEVEL 143 MEQ/L (136-145); TOTAL PROTEIN 6.4 GM/DL (6.4-8.2)
[2021-02-01 06:00] VITALS: BP 136/59
[2021-02-01] MEDS: PENTOSAN POLYSULFATE SODIUM 100 MG CAP (ELMIRON) PO SCH ×3 (09:07→21:09)
[2021-02-01] MEDS: PANTOPRAZOLE 20 MG TAB PO SCH (09:07)
[2021-02-01] MEDS: amLODIPine 5 MG TAB PO SCH (09:07)
[2021-02-01] MEDS: QUEtiapine FUMARATE 25 MG TAB PO SCH ×2 (09:07→21:08)
[2021-02-01] MEDS: IRON POLYSAC (NIFEREX) 150 MG CAP PO SCH ×2 (09:07→21:09)
[2021-02-01] MEDS: ASPIRIN 81MG ENTERIC TABLET PO SCH (09:07)
--- NOTE | 2021-02-01 10:54 | IPNPDOC ---
Text Note Date of Service The patient was seen on 02/01/21. NOTE Subjective: Patient continues to have gross hematuria. Patient reported that he feels better today. No fever or chills overnight Objective: GENERAL APPEARANCE: NAD HEENT: no scleral icterus, no JVD, EOMI CARDIOVASCULAR: S1S2 LUNGS: Diminished lung sounds bilaterally ABDOMEN: soft & not tender w palpation, suprapubic catheter in place MUSCULOSKELETAL: no cyanosis, +1 swelling INTEGUMENT: no generalized pallor NEUROLOGICAL: cranial nerve function from 2-12 intact, follows commands, speech not dysarthric Assessment and plan Patient is 86yo male w/ notable h/o multiple recent episodes of gross hematuria with clotting requiring irrigation & cystoscopy (12/2020) i/s/o bph and urinary retention requiring chronic indwelling suprapubic catheter, multiple CVAs, coronary artery disease with [place] and stent x2 on aspirin and Plavix, dementia, HTN, DLD who presented to the ED on the evening of 01/30/21 due to gross hematuria. Gross hematuria Patient has gross hematuria chronically. He was on the dual antiplatelet therapy. Dr. Cardona recommended to continue bladder irrigation Plavix on hold. Sepsis Patient developed leukocytosis, elevated lactic acid Unknown etiology most likely secondary to UTI, does not have any sputum production or cough. Unlikely patient has pneumonia Patient afebrile Continue ceftriaxone IV Await urine culture and blood culture negative Sepsis resolved Coronary artery disease Discontinue Plavix due to persistent hematuria Continue home meds Patient denies chest pain History of multiple CVAs, both hemorrhagic and ischemic Follows with Dr. Varghese of neurology as outpatient Type 2 diabetes HbA1c is 7.1, which is appropriate for his age group Continue to monitor glucose level Diabetes diet Microcytic anemia Most likely secondary to hematuria Hemoglobin stable, no indication for blood transfusion Continue iron supplementation Diastolic CHF Not in acute exacerbation I's and O's Cardiac diet Hypertension Continue home meds Blood pressure under control Dementia Follow-up with PCP Acid reflux PPI DVT prophylaxis: Teds and sequentials VS,Fishbone, I+O VS, Fishbone, I+O Laboratory Tests 01/31/21 13:47 01/31/21 16:24 01/31/21 21:46 02/01/21 04:13 Vital Signs Date Time Temp Pulse Resp B/P (MAP) Pulse Ox O2 Delivery O2 Flow Rate FiO2 02/01/21 09:07 61 136/59 02/01/21 06:00 98.2 16 95 Room Air I&O- Last 24 Hours up to 6 AM 02/01/21 06:00 Intake Total 2335 ml Output Total 4750 ml Balance -2415 ml POLO CANO DO Feb 01, 2021 10:54
[2021-02-01 11:12] LABS: HEMATOCRIT 29.9 % (42.0-52.0)
[2021-02-01] MEDS: cefTRIAXone SOD 2 GM in D5W MINI-BAG PLUS 50 ML IV SCH (12:00)
[2021-02-01 14:00] VITALS: BP 148/63
[2021-02-01 16:49] LABS: HEMOGLOBIN 8.8 g/dl (13.5-17.5)
--- NOTE | 2021-02-01 16:50 | IPNPDOC ---
Text Note Date of Service The patient was seen on 02/01/21. NOTE Patient was on very low CBI this morning without any blood clots but still with dark pink to light red urine. His H&H had dropped from 9.9-9 0.3-8.4 but was back up to 9.0. Physical exam: He has no CVA tenderness and his abdomen is soft and nontender this morning Plan -Try to decrease CBI to the point where we can turn it off -Elmiron was started yesterday -Referral was placed for hyperbaric oxygen on an outpatient basis -Continue to watch H&H for now -Continue to hold the Plavix and see if this can be held indefinitely VS,Ami, I+O VS, Ami, I+O Laboratory Tests 01/31/21 21:46 02/01/21 04:13 02/01/21 10:45 Vital Signs Date Time Temp Pulse Resp B/P (MAP) Pulse Ox O2 Delivery O2 Flow Rate FiO2 02/01/21 14:00 98.4 68 17 148/63 (91) 95 Room Air I&O- Last 24 Hours up to 6 AM 02/01/21 06:00 Intake Total 2335 ml Output Total 4750 ml Balance -2415 ml RONNY MOSER MD Feb 01, 2021 16:50
[2021-02-01] MEDS: ATORVASTATIN 20 MG TAB PO SCH (21:08)
[2021-02-01] MEDS: ramipriL 5 MG CAP PO SCH (21:12)
[2021-02-01 22:00] VITALS: BP 145/62
[2021-02-01 23:26] LABS: HEMATOCRIT 29.4 % (42.0-52.0); HEMOGLOBIN 8.9 g/dl (13.5-17.5)
[2021-02-02 06:00] VITALS: BP 139/63
[2021-02-02 06:12] LABS: BASO # 0.1 10^3/uL (0.0-0.2); BASO % 0.6 % (0.0-1.0); EOS # 0.4 10^3/uL (0.0-0.5); EOS % 4.6 % (0.0-3.0); HEMATOCRIT 29.4 % (42.0-52.0); LYMPH # 2.1 10^3/uL (1.5-5.0); LYMPH % 23.9 % (24.0-44.0); MEAN CORPUSCULAR HEMOGLOBIN 18.9 pg (27.0-33.0); MEAN CORPUSCULAR HGB CONC 30.6 g/dl (32.0-36.5); MEAN CORPUSCULAR VOLUME 61.6 fl (80.0-96.0); MONO # 0.8 10^3/uL (0.0-0.8); MONO % 9.4 % (2.0-8.0); NEUTROPHILS # 5.4 10^3/uL (1.5-8.5); NEUTROPHILS % 60.9 % (36.0-66.0); PLATELET COUNT, AUTOMATED 237 10^3/uL (150-450); RED BLOOD COUNT 4.77 10^6/uL (4.30-6.10); WHITE BLOOD COUNT 8.8 10^3/uL (4.0-10.0)
[2021-02-02 06:35] LABS: ALBUMIN 2.8 GM/DL (3.2-5.2); ALT/SGPT 30 U/L (12-78); BILIRUBIN,TOTAL 0.3 MG/DL (0.2-1.0); BLOOD UREA NITROGEN 17 MG/DL (7-18); CALCIUM LEVEL 8.5 MG/DL (8.8-10.2); CARBON DIOXIDE LEVEL 25 MEQ/L (21-32); CHLORIDE LEVEL 113 MEQ/L (98-107); CREATININE FOR GFR 1.16 MG/DL (0.70-1.30); GLOMERULAR FILTRATION RATE > 60.0 (>35); GLUCOSE, FASTING 116 MG/DL (70-100); POTASSIUM SERUM 4.1 MEQ/L (3.5-5.1); SODIUM LEVEL 144 MEQ/L (136-145); TOTAL PROTEIN 6.6 GM/DL (6.4-8.2)
[2021-02-02] MEDS: ASPIRIN 81MG ENTERIC TABLET PO SCH (10:32)
[2021-02-02] MEDS: IRON POLYSAC (NIFEREX) 150 MG CAP PO SCH ×2 (10:32→21:01)
[2021-02-02] MEDS: PENTOSAN POLYSULFATE SODIUM 100 MG CAP (ELMIRON) PO SCH ×3 (10:32→21:01)
[2021-02-02] MEDS: cefTRIAXone SOD 2 GM in D5W MINI-BAG PLUS 50 ML IV SCH (10:33)
[2021-02-02] MEDS: QUEtiapine FUMARATE 25 MG TAB PO SCH ×2 (10:33→21:00)
[2021-02-02] MEDS: PANTOPRAZOLE 20 MG TAB PO SCH (10:33)
[2021-02-02] MEDS: amLODIPine 5 MG TAB PO SCH (10:33)
[2021-02-02 10:49] LABS: HEMATOCRIT 29.3 % (42.0-52.0)
--- NOTE | 2021-02-02 13:32 | IPNPDOC ---
Text Note Date of Service The patient was seen on 02/02/21. NOTE Patient is still having gross hematuria and actually had clots last night so they needed to restart CBI slightly higher. His H&H has been stable though. It is day 2 being off of Plavix and we will wait till tomorrow where we usually see the urine becoming clear if it was mostly Plavix related. If he has significant clotting overnight then I will plan on doing a cystoscopy in the OR tomorrow. Physical exam: His urine is back to light red on very low CBI. His abdomen is soft and nontender. Plan: -Discontinue Plavix and see if this is feasible for ever more -If he is still bleeding tomorrow we will consider doing a cystoscopy in the operating room -Continue to follow H&H VS,Ami, I+O VS, Ami, I+O Laboratory Tests 02/01/21 16:33 02/01/21 22:41 02/02/21 05:28 02/02/21 10:29 Vital Signs Date Time Temp Pulse Resp B/P (MAP) Pulse Ox O2 Delivery O2 Flow Rate FiO2 02/02/21 10:33 69 139/63 02/02/21 06:00 99.3 18 95 Room Air I&O- Last 24 Hours up to 6 AM 02/02/21 06:00 Intake Total 1080 ml Output Total 1525 ml Balance -445 ml RONNY MOSER MD Feb 02, 2021 13:32
[2021-02-02 14:00] VITALS: BP 151/68
--- NOTE | 2021-02-02 16:08 | IPNPDOC ---
Subjective Date Seen The patient was seen on 02/02/21. Subjective Chief Complaint/HPI Patient was seen and examined at bedside this morning. He had no new complaints. He denied headaches, chest pain, palpitations, abdominal pain, nausea, vomiting, problems with urination and bowel movements. Objective Physical Examination Other physical findings General: Lying in bed, no acute distress Head/Neck/Throat: Trachea midline, mucous membranes moist Eyes: Sclera anicteric, no erythema or discharge appreciated bilaterally Thorax: Normal respiratory effort on room air, lungs clear to auscultation bilaterally, no wheezes/rales/rhonchi Cardiovascular: Normal rate, regular rhythm, normal S1, S2; 1+ lower extremity edema Abdomen: Bowel sounds present, soft, nontender, suprapubic catheter in place Genitourinary: No CVA tenderness, no Pisano in place Musculoskeletal: Moving all extremities, no edema Skin: Warm, dry Neurologic: AAOx3, speech fluent and goal-directed, no focal deficits, grossly intact Assessment /Plan Assessment #Gross hematuria -Continuous bladder irrigation required to be restarted overnight. Continue to hold Plavix, if urine does not clear up urology recommends possible cystoscopy in the OR on 02/03. #Sepsis -Resolved. This was likely due to urinary tract infection. Continue with IV ceftriaxone until cultures have resulted. #CAD -Continue with aspirin, ramipril, and statin therapy. Plavix has been held. #CVAs -History of hemorrhagic as well as ischemic strokes. Follows Dr. Varghese as outpatient -Continue with aspirin and statin therapy #Diabetes mellitus -Hemoglobin A1c is 7.1 which is appropriate for his age. Diabetic diet. #Microcytic anemia -Acute blood loss anemia secondary to hematuria. -Hemoglobin remains stable, transfuse if less than 7 -Continue iron supplementation #Diastolic heart failure -No signs of acute exacerbation. Continue to monitor intake/output. #Dementia -Continue follow-up with primary care physician #GERD -Continue with PPI therapy #DVT prophylaxis -Teds and sequential Plan/VTE VTE Prophylaxis Ordered?: Yes VS, I&O, 24H, Fishbone Vital Signs/I&O Vital Signs Date Time Temp Pulse Resp B/P (MAP) Pulse Ox O2 Delivery O2 Flow Rate FiO2 02/02/21 14:00 97.4 70 19 151/68 (95) 95 Room Air I&O- Last 24 Hours up to 6 AM 02/02/21 06:00 Intake Total 1080 ml Output Total 1525 ml Balance -445 ml Laboratory Data 24H LABS Laboratory Tests 2 02/02/21 05:28: Immature Granulocyte % (Auto) 0.6, Neutrophils (%) (Auto) 60.9, Lymphocytes (%) (Auto) 23.9L, Monocytes (%) (Auto) 9.4H, Eosinophils (%) (Auto) 4.6H, Basophils (%) (Auto) 0.6, Neutrophils # (Auto) 5.4, Lymphocytes # (Auto) 2.1, Monocytes # (Auto) 0.8, Eosinophils # (Auto) 0.4, Basophils # (Auto) 0.1, Nucleated Red Blood Cells % (auto) 0.0, Anion Gap 6L, Glomerular Filtration Rate > 60.0, Calcium Level 8.5L, Magnesium Level 2.0, Total Bilirubin 0.3, Aspartate Amino Transf (AST/SGOT) 40H, Alanine Aminotransferase (ALT/SGPT) 30, Alkaline Phosphatase 175H, Total Protein 6.6, Albumin 2.8L, Albumin/Globulin Ratio 0.7 CBC/BMP Laboratory Tests 02/01/21 16:33 02/01/21 22:41 02/02/21 05:28 02/02/21 10:29 Microbiology Microbiology 01/31/21 Blood Culture - Preliminary, Resulted No Growth after 48 hours. All Specime... 01/31/21 Blood Culture - Preliminary, Resulted No Growth after 48 hours. All Specime... 01/30/21 Urine Culture, Received Pending LUZ MARINA HOLLOWAY M.D. Feb 02, 2021 16:08
[2021-02-02] MEDS: ATORVASTATIN 20 MG TAB PO SCH (21:01)
[2021-02-02] MEDS: ramipriL 5 MG CAP PO SCH (21:01)
[2021-02-03 06:05] VITALS: BP 129/52
[2021-02-03 07:05] LABS: BASO # 0.1 10^3/uL (0.0-0.2); EOS # 0.4 10^3/uL (0.0-0.5); HEMATOCRIT 30.3 % (42.0-52.0); HEMOGLOBIN 9.1 g/dl (13.5-17.5); LYMPH # 1.9 10^3/uL (1.5-5.0); MEAN CORPUSCULAR HEMOGLOBIN 18.6 pg (27.0-33.0); MEAN CORPUSCULAR VOLUME 61.8 fl (80.0-96.0); MONO # 0.7 10^3/uL (0.0-0.8); MONO % 9.4 % (2.0-8.0); NEUTROPHILS # 4.7 10^3/uL (1.5-8.5); NEUTROPHILS % 60.2 % (36.0-66.0); PLATELET COUNT, AUTOMATED 258 10^3/uL (150-450); WHITE BLOOD COUNT 7.9 10^3/uL (4.0-10.0)
[2021-02-03 07:33] LABS: ALBUMIN 2.8 GM/DL (3.2-5.2); ALT/SGPT 32 U/L (12-78); BILIRUBIN,TOTAL 0.5 MG/DL (0.2-1.0); BLOOD UREA NITROGEN 20 MG/DL (7-18); CALCIUM LEVEL 8.5 MG/DL (8.8-10.2); CARBON DIOXIDE LEVEL 27 MEQ/L (21-32); CHLORIDE LEVEL 110 MEQ/L (98-107); CREATININE FOR GFR 1.17 MG/DL (0.70-1.30); GLOMERULAR FILTRATION RATE > 60.0 (>35); GLUCOSE, FASTING 107 MG/DL (70-100); PHOSPHORUS LEVEL 2.8 MG/DL (2.5-4.9); SODIUM LEVEL 144 MEQ/L (136-145); TOTAL PROTEIN 6.5 GM/DL (6.4-8.2)
[2021-02-03] MEDS: PENTOSAN POLYSULFATE SODIUM 100 MG CAP (ELMIRON) PO SCH (07:47)
[2021-02-03 07:48] VITALS: BP 129/52
[2021-02-03] MEDS: amLODIPine 5 MG TAB PO SCH (07:48)
[2021-02-03] MEDS: PANTOPRAZOLE 20 MG TAB PO SCH (07:48)
[2021-02-03] MEDS: QUEtiapine FUMARATE 25 MG TAB PO SCH (07:48)
[2021-02-03] MEDS: ASPIRIN 81MG ENTERIC TABLET PO SCH (07:48)
[2021-02-03] MEDS: IRON POLYSAC (NIFEREX) 150 MG CAP PO SCH (07:48)
[2021-02-03] MEDS ORDERED: PENT10CA PO (10:38)
[2021-02-03] MEDS ORDERED: BACT800T5 PO (10:38)
[2021-02-03] MEDS: cefTRIAXone SOD 2 GM in D5W MINI-BAG PLUS 50 ML IV SCH (11:23)
--- NOTE | 2021-02-03 11:36 | DS.PDOC ---
Discharge Summary General Date of Admission Jan 31, 2021 at 02:23 Date of Discharge 02/03/21 Discharge Summary DISCHARGE DIAGNOSES: 1. Hematuria 2. Iron deficiency anemia COMPLICATIONS/CHIEF COMPLAINT: Hematuria. HOSPITAL COURSE: Mr. Masters, is a 86-year-old male who presented to the emergency room [facility] on 01/31/2021 with chief complaints of simone blood in the urine. 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 He was evaluated by the urology team and it was recommended he undergo bladder irrigation and his clopidogrel to be held. No acute interventions including cystoscopy were deemed necessary during hospitalization as the gross hematuria resolved with holding clopidogrel. Medicine team reached out to Dr. Sam (cardiology) as well as Dr. Brenner (primary neurologist group) to discuss clopidogrel. It was determined due to his recurrent hematuria clopidogrel should be held at this time. His clopidogrel was being primary taken for CVA and not for his coronary artery disease history. He was also noted to have leukocytosis and elevated lactic acidosis on admission. Presumably the source was was secondary to his chronic indwelling suprapubic catheter associated with a urinary tract infection. Therefore he was started on ceftriaxone. Initially when patient was discharged urine cultures were pending and was sent home on Bactrim, however, shortly after urine cultures resulted. Therefore pharmacy was contacted to discontinue Bactrim and the levofloxacin prescription was sent. Patient and family was explained the change in antibiotic and risk/benefits were discussed, which were excepted. At the time of discharge patient's hemoglobin was stable at 9.1 g/dL. He was started on iron supplementations and should have appropriate blood work done with his primary care physician in his next follow-up visit. He was discharged with Levofloxacin for 5 days, as well as Elmiron. He will discuss continuing Elmiron, and his next urology follow-up. Patient is to follow-up with his primary care physician within 5 days. He is also to follow-up with the neurologist as well as urologist within 5 to 7 days upon discharge. DISCHARGE MEDICATIONS: Please see below. ALLERGIES: Please see below. PHYSICAL EXAMINATION ON DISCHARGE: VITAL SIGNS: Please see below. General: Lying in bed, no acute distress Head/Neck/Throat: Trachea midline, mucous membranes moist Eyes: Sclera anicteric, no erythema or discharge appreciated bilaterally Thorax: Normal respiratory effort on room air, lungs clear to auscultation bilaterally, no wheezes/rales/rhonchi Cardiovascular: Normal rate, regular rhythm, normal S1, S2; no S3, S4, rubs/gallops/murmurs Abdomen: Bowel sounds present, soft/nontender/nondistended Genitourinary: Suprapubic Pisano draining yellow urine Musculoskeletal: Moving all extremities, no edema Skin: Warm, dry LABORATORY DATA: Please see below. IMAGING: CT ABD/PEL W/IV CONTRAST ONLY FINDINGS: Tubes, catheters and devices: A balloon bladder catheter is present. Lungs: Left lower lobe bronchial wall thickening, mucous plugging, and consolidation, evidence for infection. Mediastinal space: Small hiatal hernia with gastroesophageal junctional thickening, correlate for esophagitis or reflux. Liver: Enlarged low attenuating liver, evidence of hepatic steatosis. Gallbladder and bile ducts: Normal. No calcified stones. No ductal dilation. Pancreas: Normal. No ductal dilation. Spleen: Normal. No splenomegaly. Adrenal glands: Normal. No mass. Kidneys and ureters: Unchanged large exophytic hypodense cystic lesion projecting laterally from the right kidney. Unchanged unenhanced sing left and right renal cysts. Stomach and bowel: See "Soft tissues" finding. Appendix: No evidence of appendicitis. Intraperitoneal space: Unremarkable. No free air. No significant fluid collection. Vasculature: Unremarkable. No abdominal aortic aneurysm. Lymph nodes: Unremarkable. No enlarged lymph nodes. Urinary bladder: Heterogeneous blood clots and hemorrhage within the bladder. Irregular bladder wall margins with hypervascularity and mild stranding anteriorly, recommend urology follow-up. Reproductive: Diffusely heterogeneous, enlarged prostate gland measuring 7 cm, hypoattenuating area in the right aspect of the central zone measuring 1.5 cm, correlate. Unchanged in size but more heterogeneous than prior with some enhancement. Bones/joints: Ankylosis of the sacroiliac joints. Moderate severe L2-L5 degenerative spinal stenosis. Soft tissues: Bilateral fat protruding inguinal hernias, the right also contains nonobstructed small bowel loops. IMPRESSION: 1. Diffusely heterogeneous, enlarged prostate gland measuring 7 cm, hypoattenuating area in the right aspect of the central zone measuring 1.5 cm, correlate. Unchanged in size but more heterogeneous than prior with some enhancement. 2. Bilateral fat protruding inguinal hernias, the right also contains nonobstructed small bowel loops. 3. Heterogeneous blood clots and hemorrhage within the bladder. Irregular bladder wall margins with hypervascularity and mild stranding anteriorly, recommend urology follow-up. 4. Left lower lobe bronchial wall thickening, mucous plugging, and consolidation, evidence for infection. 5. Small hiatal hernia with gastroesophageal junctional thickening, correlate for esophagitis or reflux. Chest, 2 view PA, Lat FINDINGS: Lungs: Left posterior basilar lower lobe consolidation. Pleural spaces: Unremarkable. No pleural effusion. No pneumothorax. Heart/Mediastinum: Cardiac enlargement. Bones/joints: Unremarkable. IMPRESSION: Left posterior basilar lower lobe consolidation. PROGNOSIS: Good ACTIVITY: As tolerated DIET: As tolerated DISPOSITION: Home with services DISCHARGE INSTRUCTIONS: 1. Follow-up with primary care physician within 5 days 2. Follow-up with urologist as well as neurologist within 5 to 7 days 3. Have repeat blood work done with your primary care physician in the next visit to ensure hemoglobin as well as iron levels are within normal limits DISCHARGE CONDITION: Stable TIME SPENT ON DISCHARGE: 30 minutes. Vital Signs/I&Os Vital Signs Date Time Temp Pulse Resp B/P (MAP) Pulse Ox O2 Delivery O2 Flow Rate FiO2 02/03/21 07:48 66 129/52 02/03/21 06:05 96.5 18 95 Room Air I&O- Last 24 Hours up to 6 AM 02/03/21 06:00 Intake Total 840 ml Output Total 1025 ml Balance -185 ml Laboratory Data Labs 24H Laboratory Tests 2 02/03/21 06:51: Immature Granulocyte % (Auto) 0.4, Neutrophils (%) (Auto) 60.2, Lymphocytes (%) (Auto) 24.0, Monocytes (%) (Auto) 9.4H, Eosinophils (%) (Auto) 5.0H, Basophils (%) (Auto) 1.0, Neutrophils # (Auto) 4.7, Lymphocytes # (Auto) 1.9, Monocytes # (Auto) 0.7, Eosinophils # (Auto) 0.4, Basophils # (Auto) 0.1, Nucleated Red Blood Cells % (auto) 0.0, Anion Gap 7L, Glomerular Filtration Rate > 60.0, Calcium Level 8.5L, Phosphorus Level 2.8, Magnesium Level 2.0, Total Bilirubin 0.5#, Aspartate Amino Transf (AST/SGOT) 31, Alanine Aminotransferase (ALT/SGPT) 32, Alkaline Phosphatase 174H, Total Protein 6.5, Albumin 2.8L, Albumin/Globulin Ratio 0.8 CBC/BMP Laboratory Tests 02/03/21 06:51 Microbiology Microbiology 01/31/21 Blood Culture - Preliminary, Resulted No Growth after 72 hours. All specime... 01/31/21 Blood Culture - Preliminary, Resulted No Growth after 72 hours. All specime... 01/30/21 Urine Culture, Received Pending Discharge Medications Scheduled Amlodipine Besylate (Amlodipine Besylate) 5 Mg Tablet, 5 MG PO DAILY, (Reported) Aspirin (Aspirin EC) 81 Mg Tablet.dr, 81 MG PO DAILY, (Reported) Atorvastatin Calcium (Atorvastatin Calcium) 20 Mg Tablet, 20 MG PO QHS, (Reported) Famotidine (Famotidine) 20 Mg Tablet, 20 MG PO BID, (Reported) Furosemide (Furosemide) 20 Mg Tablet, 20 MG PO DAILY, (Reported) Iron Ag,Ps/C/Fa6/B12/Zn/SA/Sto (Niferex Tablet) 1 Each Tablet, 150 MG PO BID Levofloxacin (Levofloxacin) 750 Mg Tablet, 750 MG PO Q48HP Pentosan Polysulfate Sodium (Elmiron) 100 Mg Capsule, 100 MG PO TID Ramipril (Ramipril) 10 Mg Capsule, 10 MG PO QHS, (Reported) Scheduled PRN Acetaminophen (Tylenol) 325 Mg Tablet, 325 MG PO QID PRN for PAIN, (Reported) Nitroglycerin (Nitroglycerin) 0.4 Mg Tab.subl, SL PRN PRN for pain, (Reported) Allergies Coded Allergies: No Known Allergies (Unverified , 04/11/18) LUZ MARINA HOLLOWAY M.D. Feb 03, 2021 11:36
[2021-02-03] MEDS ORDERED: NIFE15CA PO (11:43)
[2021-02-03] MEDS ORDERED: LEVO750T13 PO (14:27)
== END 2021-02-03 12:30 | disposition home health service (06) | DRG 698 ==
LOC: M ED 18:17 → M ED INP 01-31 02:23 → ENRESERV 01-31 06:57 → M MS5PR 01-31 09:00
PROVIDERS: ADMIT Internal Medicine; ATTEND Internal Medicine
DX: T83.518A Infection and inflammatory reaction due to other urinary catheter, initial encounter (principal); A41.9 Sepsis, unspecified organism; I50.32 Chronic diastolic (congestive) heart failure; D62 Acute posthemorrhagic anemia; E87.2 Acidosis; I11.0 Hypertensive heart disease with heart failure; N30.91 Cystitis, unspecified with hematuria; F03.90 Unspecified dementia, unspecified severity, without behavioral disturbance, psychotic disturbance, mood disturbance, and anxiety; E11.9 Type 2 diabetes mellitus without complications; Z86.73 Personal history of transient ischemic attack (TIA), and cerebral infarction without residual deficits; I25.10 Atherosclerotic heart disease of native coronary artery without angina pectoris; Z95.2 Presence of prosthetic heart valve; E78.5 Hyperlipidemia, unspecified; K21.9 Gastro-esophageal reflux disease without esophagitis; K44.9 Diaphragmatic hernia without obstruction or gangrene; K40.20 Bilateral inguinal hernia, without obstruction or gangrene, not specified as recurrent; Z79.899 Other long term (current) drug therapy; Z79.82 Long term (current) use of aspirin; I25.2 Old myocardial infarction; Y84.6 Urinary catheterization as the cause of abnormal reaction of the patient, or of later complication, without mention of misadventure at the time of the procedure

== ENCOUNTER → 2021-04-12 | Outpatient (REF) | payer MEDICARE, OTHER ==
[~2021-04-12] MED LIST changes: +CEFD300C41 PO; +DOXY-350 PO; +FERR325T19 PO; +FURO20TA2 PO; +LEVO750T13 PO; +NIFE15CA PO; +PENT10CA PO
[2021-04-12 12:46] LABS: CALCIUM LEVEL 9.3 MG/DL (8.8-10.2); CREATININE FOR GFR 1.52 MG/DL (0.70-1.30); GLOMERULAR FILTRATION RATE 46.3 (>35); POTASSIUM SERUM 3.9 MEQ/L (3.5-5.1)
== END ==
LOC: M WUC 11:04
PROVIDERS: ATTEND Physician Assistant
DX: I50.9 Heart failure, unspecified (principal)

== ENCOUNTER 2021-05-02 18:24 | Inpatient (IN) | payer MEDICARE, OTHER ==
[~2021-05-02] VITALS: Ht 162.6 cm; Wt 79.4 kg
[~2021-05-02 18:24] MED LIST changes: -CEFD300C41 PO; -DOXY-350 PO; -FERR325T19 PO
[2021-05-02] MEDS ORDERED: ISOVUE-370 76% 100ML VIAL As Ordered ONE (19:47)
[2021-05-02 19:49] LABS: BASO # 0.1 10^3/uL (0.0-0.2); BASO % 0.6 % (0.0-1.0); EOS # 0.2 10^3/uL (0.0-0.5); EOS % 1.2 % (0.0-3.0); HEMATOCRIT 37.7 % (42.0-52.0); HEMOGLOBIN 11.7 g/dl (13.5-17.5); LYMPH # 1.7 10^3/uL (1.5-5.0); LYMPH % 11.1 % (24.0-44.0); MEAN CORPUSCULAR HEMOGLOBIN 18.3 pg (27.0-33.0); MEAN CORPUSCULAR VOLUME 58.8 fl (80.0-96.0); MONO # 1.3 10^3/uL (0.0-0.8); MONO % 8.3 % (2.0-8.0); NEUTROPHILS # 11.8 10^3/uL (1.5-8.5); NEUTROPHILS % 78.4 % (36.0-66.0); PLATELET COUNT, AUTOMATED 321 10^3/uL (150-450); RED BLOOD COUNT 6.41 10^6/uL (4.30-6.10)
[2021-05-02] MEDS ORDERED: NS 1,000 ML IV ONE (19:50)
[2021-05-02 20:30] LABS: INR 1.07; PROTHROMBIN TIME 14.4 SECONDS (12.7-14.5)
[2021-05-02 20:54] LABS: APPEARANCE, URINE MANUAL TURBID (CLEAR); COLOR, URINE MANUAL RED (YELLOW)
[2021-05-02 20:55] LABS: BILIRUBIN, URINE MANUAL NEGATIVE (NEGATIVE); BLOOD URINE MANUAL POSITIVE (NEGATIVE); GLUCOSE, URINE (UA) MANUAL 1+(100 MG/DL) mg/dL (NEGATIVE); KETONE, URINE MANUAL NEGATIVE (NEGATIVE); LEUKOCYTE ESTERASE, URINE MAN POSITIVE (NEGATIVE); NITRITE, URINE MANUAL NEGATIVE (NEGATIVE); PROTEIN, URINE MANUAL 3+ mg/dL (NEGATIVE); UROBILINOGEN, URINE MANUAL NORMAL (NORMAL)
[2021-05-02 20:57] LABS: RBC, URINE TNTC /hpf (0-3); WBC, URINE 40-50 /hpf (0-3)
[2021-05-02 20:58] LABS: BACTERIA, URINE NONE SEEN; HYALINE CAST, URINE NONE SEEN /lpf (0-1); SQUAMOUS EPITHELIAL CELL URINE NONE SEEN /hpf (SMALL AMT)
[2021-05-02] MEDS ORDERED: cefTRIAXone SOD 2 GM in D5W MINI-BAG PLUS 50 ML IV ONE (21:35)
[2021-05-02] MEDS ORDERED: ACETAMINOPHEN TAB 650MG DOSE (2X325MG) PO ONE (21:40)
[2021-05-02] MEDS ORDERED: MAALOX 30 ML SUSP *UDC PO PRN (22:15)
[2021-05-02] MEDS ORDERED: MOM 30ML SUSPENSION UDC PO PRN (22:15)
[2021-05-02] MEDS ORDERED: ACETAMINOPHEN TAB 650MG DOSE (2X325MG) PO PRN (22:15)
[2021-05-02] MEDS ORDERED: FERR325T19 PO (22:32)
[2021-05-02] MEDS ORDERED: CLOP75TA2 PO (22:32)
[2021-05-02] MEDS ORDERED: HOME MED LIST COMPLETE! XX SCH (22:35)
[2021-05-03] MEDS ORDERED: NITROGLYCERIN 0.4 MG SUBL TABLET SL PRN (00:45)
[2021-05-03 01:20] VITALS: BP 158/88
[2021-05-03] MEDS: DOXYCYCLINE HYCLATE 100 MG in D5W MINI-BAG PLUS 100 ML IV SCH ×2 (01:44→14:00)
[2021-05-03 06:00] VITALS: BP 124/58
[2021-05-03] MEDS: FAMOTIDINE 20 MG TAB PO SCH (10:27)
[2021-05-03] MEDS: FUROSEMIDE 20 MG TAB PO SCH (10:27)
[2021-05-03] MEDS: FERROUS SULFATE 325MG TAB PO SCH (10:27)
[2021-05-03] MEDS: amLODIPine 5 MG TAB PO SCH (10:28)
[2021-05-03 11:48] LABS: HEMATOCRIT 35.6 % (42.0-52.0); MEAN CORPUSCULAR HEMOGLOBIN 18.3 pg (27.0-33.0); MEAN CORPUSCULAR HGB CONC 30.9 g/dl (32.0-36.5); MEAN CORPUSCULAR VOLUME 59.3 fl (80.0-96.0); PLATELET COUNT, AUTOMATED 302 10^3/uL (150-450); WHITE BLOOD COUNT 10.7 10^3/uL (4.0-10.0)
[2021-05-03 12:02] LABS: BLOOD UREA NITROGEN 19 MG/DL (7-18); CALCIUM LEVEL 8.8 MG/DL (8.8-10.2); CARBON DIOXIDE LEVEL 28 MEQ/L (21-32); CHLORIDE LEVEL 110 MEQ/L (98-107); CREATININE FOR GFR 1.06 MG/DL (0.70-1.30); GLOMERULAR FILTRATION RATE > 60.0 (>35); GLUCOSE, FASTING 105 MG/DL (70-100); POTASSIUM SERUM 4.2 MEQ/L (3.5-5.1); SODIUM LEVEL 144 MEQ/L (136-145)
[2021-05-03 14:00] VITALS: BP 178/80
[2021-05-03 15:26] VITALS: BP 144/65
[2021-05-03] MEDS: ATORVASTATIN 20 MG TAB PO SCH (21:12)
[2021-05-03] MEDS: ramipriL 5 MG CAP PO SCH (21:13)
[2021-05-03 22:00] VITALS: BP 141/65
[2021-05-03] MEDS: cefTRIAXone SOD 1 GM in D5W MINI-BAG PLUS 50 ML IV SCH (22:44)
[2021-05-04] MEDS: DOXYCYCLINE HYCLATE 100 MG in D5W MINI-BAG PLUS 100 ML IV SCH ×2 (02:04→14:49)
[2021-05-04 06:00] VITALS: BP 139/74
[2021-05-04 06:16] LABS: HEMATOCRIT 36.2 % (42.0-52.0); HEMOGLOBIN 11.1 g/dl (13.5-17.5); MEAN CORPUSCULAR HEMOGLOBIN 18.4 pg (27.0-33.0); MEAN CORPUSCULAR HGB CONC 30.7 g/dl (32.0-36.5); MEAN CORPUSCULAR VOLUME 60.1 fl (80.0-96.0); PLATELET COUNT, AUTOMATED 293 10^3/uL (150-450); RED BLOOD COUNT 6.02 10^6/uL (4.30-6.10)
[2021-05-04 06:43] LABS: BLOOD UREA NITROGEN 20 MG/DL (7-18); CALCIUM LEVEL 8.7 MG/DL (8.8-10.2); CARBON DIOXIDE LEVEL 29 MEQ/L (21-32); CHLORIDE LEVEL 107 MEQ/L (98-107); CREATININE FOR GFR 1.16 MG/DL (0.70-1.30); GLOMERULAR FILTRATION RATE > 60.0 (>35); GLUCOSE, FASTING 107 MG/DL (70-100); POTASSIUM SERUM 4.3 MEQ/L (3.5-5.1); SODIUM LEVEL 141 MEQ/L (136-145)
[2021-05-04] MEDS: FAMOTIDINE 20 MG TAB PO SCH (08:57)
[2021-05-04] MEDS: FERROUS SULFATE 325MG TAB PO SCH (08:57)
[2021-05-04] MEDS: FUROSEMIDE 20 MG TAB PO SCH (08:57)
[2021-05-04] MEDS: amLODIPine 5 MG TAB PO SCH (09:07)
[2021-05-04 14:00] VITALS: BP 150/69
[2021-05-04 18:17] LABS: HEMATOCRIT 35.3 % (42.0-52.0); HEMOGLOBIN 10.9 g/dl (13.5-17.5)
[2021-05-04] MEDS: ATORVASTATIN 20 MG TAB PO SCH (21:17)
[2021-05-04] MEDS: ramipriL 5 MG CAP PO SCH (21:17)
[2021-05-04 22:00] VITALS: BP 130/60
[2021-05-04] MEDS: cefTRIAXone SOD 1 GM in D5W MINI-BAG PLUS 50 ML IV SCH (23:31)
[2021-05-05] MEDS: DOXYCYCLINE HYCLATE 100 MG in D5W MINI-BAG PLUS 100 ML IV SCH (03:00)
[2021-05-05 06:00] VITALS: BP 173/75
[2021-05-05 06:55] LABS: BASO # 0.1 10^3/uL (0.0-0.2); BASO % 1.1 % (0.0-1.0); EOS # 0.2 10^3/uL (0.0-0.5); EOS % 2.9 % (0.0-3.0); HEMATOCRIT 37.9 % (42.0-52.0); HEMOGLOBIN 11.4 g/dl (13.5-17.5); LYMPH % 23.3 % (24.0-44.0); MEAN CORPUSCULAR HEMOGLOBIN 18.1 pg (27.0-33.0); MEAN CORPUSCULAR HGB CONC 30.1 g/dl (32.0-36.5); MEAN CORPUSCULAR VOLUME 60.3 fl (80.0-96.0); MONO # 0.7 10^3/uL (0.0-0.8); MONO % 8.2 % (2.0-8.0); NEUTROPHILS # 5.4 10^3/uL (1.5-8.5); PLATELET COUNT, AUTOMATED 327 10^3/uL (150-450); RED BLOOD COUNT 6.29 10^6/uL (4.30-6.10); WHITE BLOOD COUNT 8.4 10^3/uL (4.0-10.0)
[2021-05-05 07:12] LABS: CALCIUM LEVEL 8.7 MG/DL (8.8-10.2); CREATININE FOR GFR 1.23 MG/DL (0.70-1.30); GLOMERULAR FILTRATION RATE 59.1 (>35); MAGNESIUM LEVEL 2.3 MG/DL (1.8-2.4); POTASSIUM SERUM 4.3 MEQ/L (3.5-5.1)
[2021-05-05] MEDS: FAMOTIDINE 20 MG TAB PO SCH (08:35)
[2021-05-05] MEDS: FERROUS SULFATE 325MG TAB PO SCH (08:35)
[2021-05-05] MEDS: FUROSEMIDE 20 MG TAB PO SCH (08:35)
[2021-05-05 08:36] VITALS: BP 143/66
[2021-05-05] MEDS: amLODIPine 5 MG TAB PO SCH (08:36)
[2021-05-05] MEDS ORDERED: DOXY-350 PO (09:04)
[2021-05-05] MEDS ORDERED: CEFD300C41 PO (09:04)
[2021-05-07] MEDS ORDERED: LEVO750T13 PO (09:28)
== END 2021-05-05 12:23 | disposition home health service (06) | DRG 698 ==
LOC: M ED 18:24 → M ED INP 22:15 → ENRESERV 23:23 → M MSPAV 05-03 01:20
PROVIDERS: ADMIT Family Medicine; ATTEND Internal Medicine
DX: T83.518A Infection and inflammatory reaction due to other urinary catheter, initial encounter (principal); J18.9 Pneumonia, unspecified organism; I50.32 Chronic diastolic (congestive) heart failure; N17.9 Acute kidney failure, unspecified; N30.81 Other cystitis with hematuria; F03.90 Unspecified dementia, unspecified severity, without behavioral disturbance, psychotic disturbance, mood disturbance, and anxiety; I11.0 Hypertensive heart disease with heart failure; E11.9 Type 2 diabetes mellitus without complications; I25.10 Atherosclerotic heart disease of native coronary artery without angina pectoris; I25.2 Old myocardial infarction; Z95.2 Presence of prosthetic heart valve; Z79.82 Long term (current) use of aspirin; Z86.73 Personal history of transient ischemic attack (TIA), and cerebral infarction without residual deficits; N40.0 Benign prostatic hyperplasia without lower urinary tract symptoms; E78.5 Hyperlipidemia, unspecified; K21.9 Gastro-esophageal reflux disease without esophagitis; K44.9 Diaphragmatic hernia without obstruction or gangrene; Z79.899 Other long term (current) drug therapy; Y84.6 Urinary catheterization as the cause of abnormal reaction of the patient, or of later complication, without mention of misadventure at the time of the procedure

== ENCOUNTER → 2021-06-16 | Outpatient (REF) | payer MEDICARE, OTHER ==
[~2021-06-16] MED LIST changes: +CEFD300C41 PO; +DOXY-350 PO; +FERR325T19 PO
[2021-06-16 13:13] LABS: AMORPHOUS SEDIMENT SMALL (NEGATIVE); APPEARANCE, URINE CLEAR (CLEAR); BACTERIA, URINE AUTO 3+ (NEGATIVE); BILIRUBIN, URINE AUTO NEGATIVE (NEGATIVE); BLOOD, URINE BLOOD 3+ (NEGATIVE); COLOR, URINE YELLOW (YELLOW); GLUCOSE, URINE (UA) AUTO 3+ mg/dL (NEGATIVE); KETONE, URINE AUTO NEGATIVE (NEGATIVE); LEUKOCYTE ESTERASE, URINE AUTO 3+ (NEGATIVE); MUCUS, URINE SMALL (NEGATIVE); NITRITE, URINE AUTO POSITIVE (NEGATIVE); PROTEIN, URINE AUTO 2+ mg/dL (NEGATIVE); RBC, URINE AUTO 149 /HPF (0-3); SPECIFIC GRAVITY URINE AUTO 1.013 (1.002-1.035); SQUAMOUS EPITHELIAL CELL UR AU 0 /HPF (0-6); UROBILINOGEN, URINE AUTO 0.2 mg/dL (0.0-2.0); WBC, URINE AUTO 152 /HPF (0-3)
== END ==
LOC: M SHH 12:08
PROVIDERS: ATTEND Urology
DX: N39.0 Urinary tract infection, site not specified (principal); R31.0 Gross hematuria

== ENCOUNTER → 2021-06-28 | Outpatient (CLI) | payer MEDICARE, OTHER | LOC: M WUC 14:39 | PROVIDERS: ATTEND Physician Assistant Medical | DX: M17.11 Unilateral primary osteoarthritis, right knee (principal) ==

== ENCOUNTER → 2021-07-01 | Outpatient (CLI) | payer MEDICARE, OTHER | LOC: M RAD 13:35 | PROVIDERS: ATTEND Psychiatry & Neurology Neurology | DX: I63.9 Cerebral infarction, unspecified (principal); I65.23 Occlusion and stenosis of bilateral carotid arteries ==

== ENCOUNTER → 2021-07-23 | Outpatient (CLI) | payer MEDICARE, OTHER ==
[2021-07-23 13:30] LABS: CALCIUM LEVEL 8.6 MG/DL (8.8-10.2); CREATININE FOR GFR 1.33 MG/DL (0.70-1.30)
== END ==
LOC: M WUC 09:30
PROVIDERS: ATTEND Physician Assistant
DX: I50.9 Heart failure, unspecified (principal)

== ENCOUNTER 2021-09-12 12:33 | Inpatient (IN) | payer MEDICARE, OTHER ==
[~2021-09-12] VITALS: Ht 157.5 cm; Wt 78.6 kg
[2021-09-12 13:25] LABS: VENOUS BASE EXCESS 1.1 (-2.0-2.0); VENOUS HCO3 28.2 MEQ/L (23.0-27.0); VENOUS O2 SATURATION 44.8 % (60.0-80.0); VENOUS PARTIAL PRESSURE CO2 55.3 mmHg (38.0-50.0); VENOUS PARTIAL PRESSURE O2 25.7 mmHg (30.0-50.0); VENOUS PH 7.325 UNITS (7.330-7.430); VENOUS STANDARD HCO3 24.2 MEQ/L; VENOUS TOTAL CO2 29.9 MEQ/L (24.0-28.0)
[2021-09-12 13:31] LABS: BASO # 0.1 10^3/uL (0.0-0.2); BASO % 0.7 % (0.0-1.0); EOS # 0.3 10^3/uL (0.0-0.5); EOS % 2.1 % (0.0-3.0); HEMATOCRIT 40.4 % (42.0-52.0); HEMOGLOBIN 12.6 g/dl (13.5-17.5); LYMPH # 1.9 10^3/uL (1.5-5.0); LYMPH % 14.7 % (24.0-44.0); MEAN CORPUSCULAR HEMOGLOBIN 18.9 pg (27.0-33.0); MEAN CORPUSCULAR HGB CONC 31.2 g/dl (32.0-36.5); MEAN CORPUSCULAR VOLUME 60.6 fl (80.0-96.0); MONO # 1.1 10^3/uL (0.0-0.8); MONO % 8.4 % (2.0-8.0); NEUTROPHILS # 9.6 10^3/uL (1.5-8.5); NEUTROPHILS % 73.6 % (36.0-66.0); PLATELET COUNT, AUTOMATED 287 10^3/uL (150-450); RED BLOOD COUNT 6.67 10^6/uL (4.30-6.10)
[2021-09-12 13:39] LABS: INR 1.03; PROTHROMBIN TIME 13.9 SECONDS (12.7-14.5)
[2021-09-12 13:40] LABS: PARTIAL THROMBOPLASTIN TIME 32.4 SECONDS (25.9-37.0)
[2021-09-12 14:03] LABS: CK-MB VALUE MASS 2.8 NG/ML (<3.6); MB/CK RELATIVE INDEX 1.73 (< OR =4)
[2021-09-12 14:15] LABS: BLOOD UREA NITROGEN 27 MG/DL (7-18); CALCIUM LEVEL 9.4 MG/DL (8.8-10.2); CARBON DIOXIDE LEVEL 28 MEQ/L (21-32); CHLORIDE LEVEL 108 MEQ/L (98-107); CREATININE FOR GFR 1.42 MG/DL (0.70-1.30); ETHYL ALCOHOL (ETHANOL) < 0.003 % (0.000-0.010); GLOMERULAR FILTRATION RATE 50.1 (>35); GLUCOSE, FASTING 130 MG/DL (70-100); SODIUM LEVEL 142 MEQ/L (136-145)
[2021-09-12 14:41] LABS: CK-MB VALUE MASS 2.6 NG/ML (<3.6); MB/CK RELATIVE INDEX 1.68 (< OR =4)
[2021-09-12 15:33] LABS: AMPHETAMINES LEVEL URINE NEGATIVE (NEGATIVE); BARBITURATES URINE NEGATIVE (NEGATIVE); BENZODIAZEPINES URINE NEGATIVE (NEGATIVE); CANNABINOIDS URINE NEGATIVE (NEGATIVE); COCAINE METABOLITE URINE NEGATIVE (NEGATIVE); METHADONE URINE NEGATIVE (NEGATIVE); OPIATES URINE NEGATIVE (NEGATIVE); PHENCYCLIDINE URINE NEGATIVE (NEGATIVE)
[2021-09-12] MEDS ORDERED: NS 500 ML IV ONE (15:40)
[2021-09-12 17:29] LABS: C REACTIVE PROTEIN QUANTITATIV < 0.30 MG/DL (0.00-0.30); FERRITIN 75 NG/ML (26-388); FREE T4 0.94 NG/DL (0.76-1.46); IRON (FE) 95 UG/DL (65-175); PERCENT SATURATION 31.6 % (19.7-50.0); TOTAL IRON BINDING CAPACITY 301 UG/DL (250-450)
[2021-09-12] MEDS ORDERED: HOME MED LIST COMPLETE! XX SCH (17:30)
[2021-09-12 22:20] VITALS: BP 155/74
[2021-09-12] MEDS: ATORVASTATIN 20 MG TAB PO SCH (22:48)
[2021-09-12] MEDS: HEPARIN SOD (PORCINE) 5000UNITS/ML 1ML VIAL/SYRINGE SQ SCH (22:48)
[2021-09-12] MEDS: FAMOTIDINE 20 MG TAB PO SCH (22:48)
[2021-09-12] MEDS: ramipriL 5 MG CAP PO SCH (23:32)
[2021-09-13 00:49] LABS: APPEARANCE, URINE CLOUDY (CLEAR); BACTERIA, URINE AUTO NEGATIVE (NEGATIVE); BILIRUBIN, URINE AUTO NEGATIVE (NEGATIVE); BLOOD, URINE BLOOD NEGATIVE (NEGATIVE); COLOR, URINE YELLOW (YELLOW); GLUCOSE, URINE (UA) AUTO NEGATIVE (NEGATIVE); KETONE, URINE AUTO NEGATIVE (NEGATIVE); LEUKOCYTE ESTERASE, URINE AUTO 3+ (NEGATIVE); MUCUS, URINE SMALL (NEGATIVE); NITRITE, URINE AUTO NEGATIVE (NEGATIVE); PROTEIN, URINE AUTO 2+ mg/dL (NEGATIVE); RBC, URINE AUTO 3 /HPF (0-3); SPECIFIC GRAVITY URINE AUTO 1.014 (1.002-1.035); SQUAMOUS EPITHELIAL CELL UR AU 0 /HPF (0-6); UROBILINOGEN, URINE AUTO 0.2 mg/dL (0.0-2.0); WBC, URINE AUTO TNTC /HPF (0-3)
[2021-09-13 02:03] VITALS: BP 133/61
[2021-09-13] MEDS: HEPARIN SOD (PORCINE) 5000UNITS/ML 1ML VIAL/SYRINGE SQ SCH ×3 (05:00→21:01)
[2021-09-13 05:46] VITALS: BP 131/60
[2021-09-13 07:07] LABS: BASO # 0.1 10^3/uL (0.0-0.2); BASO % 0.8 % (0.0-1.0); EOS # 0.2 10^3/uL (0.0-0.5); HEMOGLOBIN 11.3 g/dl (13.5-17.5); LYMPH # 2.1 10^3/uL (1.5-5.0); LYMPH % 23.8 % (24.0-44.0); MEAN CORPUSCULAR HEMOGLOBIN 19.2 pg (27.0-33.0); MEAN CORPUSCULAR HGB CONC 31.4 g/dl (32.0-36.5); MEAN CORPUSCULAR VOLUME 61.1 fl (80.0-96.0); MONO # 0.8 10^3/uL (0.0-0.8); MONO % 9.6 % (2.0-8.0); NEUTROPHILS # 5.5 10^3/uL (1.5-8.5); NEUTROPHILS % 63.5 % (36.0-66.0); PLATELET COUNT, AUTOMATED 255 10^3/uL (150-450); RED BLOOD COUNT 5.89 10^6/uL (4.30-6.10); WHITE BLOOD COUNT 8.7 10^3/uL (4.0-10.0)
[2021-09-13 07:28] LABS: ALBUMIN 3.2 GM/DL (3.2-5.2); BILIRUBIN,TOTAL 0.8 MG/DL (0.2-1.0); CALCIUM LEVEL 9.2 MG/DL (8.8-10.2); CREATININE FOR GFR 1.25 MG/DL (0.70-1.30); MAGNESIUM LEVEL 2.3 MG/DL (1.8-2.4); PHOSPHORUS LEVEL 2.6 MG/DL (2.5-4.9); POTASSIUM SERUM 4.6 MEQ/L (3.5-5.1); TOTAL PROTEIN 6.9 GM/DL (6.4-8.2)
[2021-09-13 08:45] VITALS: BP 133/60
[2021-09-13] MEDS: amLODIPine 5 MG TAB PO SCH (08:48)
[2021-09-13] MEDS: CLOPIDOGREL 75 MG TAB PO SCH (08:48)
[2021-09-13] MEDS: FERROUS SULFATE 325MG TAB PO SCH (08:48)
[2021-09-13] MEDS: ASPIRIN 81MG ENTERIC TABLET PO SCH (08:48)
[2021-09-13] MEDS: FAMOTIDINE 20 MG TAB PO SCH ×2 (08:49→21:01)
[2021-09-13 10:27] LABS: FOLATE 13.8 NG/ML; VITAMIN B12 LEVEL 693 PG/ML
[2021-09-13 14:00] VITALS: BP 136/64
[2021-09-13] MEDS: ramipriL 5 MG CAP PO SCH (21:01)
[2021-09-13] MEDS: ATORVASTATIN 20 MG TAB PO SCH (21:01)
[2021-09-13] MEDS ORDERED: FLUTICASONE PROP 0.05% NASAL SPRAY 16 GM (FLONASE) NARES PRN (21:40)
[2021-09-13] MEDS ORDERED: BENZONATATE 100MG CAPSULE PO PRN (21:40)
[2021-09-13] MEDS ORDERED: guaiFENesin ER 600 MG TAB PO PRN (21:40)
[2021-09-13] MEDS ORDERED: RAMELTEON 8 MG TAB (ROZEREM) PO PRN (21:45)
[2021-09-13] MEDS ORDERED: LORATADINE 10 MG TAB PO ONE (21:45)
[2021-09-14] MEDS: HEPARIN SOD (PORCINE) 5000UNITS/ML 1ML VIAL/SYRINGE SQ SCH (05:25)
[2021-09-14 05:43] VITALS: BP 130/60
[2021-09-14 05:51] LABS: VENOUS BASE EXCESS -0.8 (-2.0-2.0); VENOUS HCO3 26.2 MEQ/L (23.0-27.0); VENOUS O2 SATURATION 53.7 % (60.0-80.0); VENOUS PARTIAL PRESSURE CO2 53.2 mmHg (38.0-50.0); VENOUS PARTIAL PRESSURE O2 30.3 mmHg (30.0-50.0); VENOUS STANDARD HCO3 22.9 MEQ/L; VENOUS TOTAL CO2 27.8 MEQ/L (24.0-28.0)
[2021-09-14 06:01] LABS: BASO # 0.1 10^3/uL (0.0-0.2); BASO % 0.6 % (0.0-1.0); EOS # 0.2 10^3/uL (0.0-0.5); EOS % 1.7 % (0.0-3.0); HEMATOCRIT 38.7 % (42.0-52.0); HEMOGLOBIN 11.8 g/dl (13.5-17.5); LYMPH # 2.1 10^3/uL (1.5-5.0); LYMPH % 21.8 % (24.0-44.0); MEAN CORPUSCULAR HEMOGLOBIN 18.9 pg (27.0-33.0); MEAN CORPUSCULAR HGB CONC 30.5 g/dl (32.0-36.5); MONO # 0.8 10^3/uL (0.0-0.8); MONO % 8.2 % (2.0-8.0); NEUTROPHILS # 6.6 10^3/uL (1.5-8.5); NEUTROPHILS % 67.3 % (36.0-66.0); PLATELET COUNT, AUTOMATED 263 10^3/uL (150-450); RED BLOOD COUNT 6.24 10^6/uL (4.30-6.10); WHITE BLOOD COUNT 9.8 10^3/uL (4.0-10.0)
[2021-09-14 06:26] LABS: CALCIUM LEVEL 9.2 MG/DL (8.8-10.2); CREATININE FOR GFR 1.36 MG/DL (0.70-1.30); GLOMERULAR FILTRATION RATE 52.6 (>35); POTASSIUM SERUM 4.3 MEQ/L (3.5-5.1)
[2021-09-14] MEDS ORDERED: cefTRIAXone SOD 1 GM in D5W MINI-BAG PLUS 50 ML IV SCH (08:00)
[2021-09-14] MEDS: ASPIRIN 81MG ENTERIC TABLET PO SCH (08:44)
[2021-09-14] MEDS: FERROUS SULFATE 325MG TAB PO SCH (08:44)
[2021-09-14 08:45] VITALS: BP 130/60
[2021-09-14] MEDS: amLODIPine 5 MG TAB PO SCH (08:45)
[2021-09-14] MEDS: FAMOTIDINE 20 MG TAB PO SCH (08:45)
[2021-09-14] MEDS: CLOPIDOGREL 75 MG TAB PO SCH (08:45)
[2021-09-14] MEDS ORDERED: LEVO500T4 PO (11:19)
== END 2021-09-14 13:51 | disposition home or self-care (01) | DRG 312 ==
LOC: EDBD 12:33 → M ED 12:33 → M ED INP 16:34 → ENRESERV 19:26 → M MSPAV 22:23
PROVIDERS: ADMIT Internal Medicine; ATTEND Internal Medicine
DX: R55 Syncope and collapse (principal); J98.11 Atelectasis; I50.32 Chronic diastolic (congestive) heart failure; I13.0 Hypertensive heart and chronic kidney disease with heart failure and stage 1 through stage 4 chronic kidney disease, or unspecified chronic kidney disease; I67.89 Other cerebrovascular disease; N39.0 Urinary tract infection, site not specified; I44.0 Atrioventricular block, first degree; N40.1 Benign prostatic hyperplasia with lower urinary tract symptoms; I25.10 Atherosclerotic heart disease of native coronary artery without angina pectoris; D72.829 Elevated white blood cell count, unspecified; K21.9 Gastro-esophageal reflux disease without esophagitis; F03.90 Unspecified dementia, unspecified severity, without behavioral disturbance, psychotic disturbance, mood disturbance, and anxiety; D53.9 Nutritional anemia, unspecified; E78.5 Hyperlipidemia, unspecified; N18.31 Chronic kidney disease, stage 3a; D18.1 Lymphangioma, any site; Z95.2 Presence of prosthetic heart valve; Z86.73 Personal history of transient ischemic attack (TIA), and cerebral infarction without residual deficits; Z79.899 Other long term (current) drug therapy; Z79.82 Long term (current) use of aspirin; I25.2 Old myocardial infarction; Z87.891 Personal history of nicotine dependence

== ENCOUNTER → 2021-10-22 | Outpatient (CLI) | payer MEDICARE, OTHER ==
[~2021-10-22] MED LIST changes: +LEVO500T4 PO
== END ==
LOC: M WUC 14:59
PROVIDERS: ATTEND Family Medicine
DX: R05.9 Cough, unspecified (principal)

== ENCOUNTER → 2021-10-26 | Outpatient (CLI) | payer MEDICARE, OTHER ==
[2021-10-26 12:24] LABS: CALCIUM LEVEL 9.5 MG/DL (8.8-10.2); CREATININE FOR GFR 1.46 MG/DL (0.70-1.30); GLOMERULAR FILTRATION RATE 48.5 (>35); MAGNESIUM LEVEL 2.1 MG/DL (1.8-2.4); POTASSIUM SERUM 4.7 MEQ/L (3.5-5.1)
== END ==
LOC: M WUC 09:18
PROVIDERS: ATTEND Physician Assistant
DX: I50.32 Chronic diastolic (congestive) heart failure (principal)

== ENCOUNTER → 2021-11-15 | Outpatient (CLI) | payer MEDICARE, OTHER | LOC: M RAD 15:21 | PROVIDERS: ATTEND Family Medicine | DX: J18.9 Pneumonia, unspecified organism (principal); R91.1 Solitary pulmonary nodule ==

== ENCOUNTER → 2022-01-18 | Outpatient (CLI) | payer MEDICARE, OTHER ==
[~2022-01-18] MED LIST changes: +LEVO1TAB39 PO; +LEVO1TAB40 PO; -LEVO500T4 PO; -LEVO750T13 PO
[2022-01-18 11:35] LABS: CREATININE FOR GFR 1.31 MG/DL (0.70-1.30); GLOMERULAR FILTRATION RATE 54.8 (>35); POTASSIUM SERUM 4.4 MEQ/L (3.5-5.1)
== END ==
LOC: M WUC 09:04
PROVIDERS: ATTEND Physician Assistant
DX: I50.32 Chronic diastolic (congestive) heart failure (principal); E83.42 Hypomagnesemia

== ENCOUNTER → 2022-04-19 | Outpatient (CLI) | payer MEDICARE, OTHER ==
[~2022-04-19] MED LIST changes: +CLOP75TA99 PO; -DOXY-350 PO; +DOXY-444 PO; -PLAV1TAB2 PO
[2022-04-19 17:17] LABS: BLOOD UREA NITROGEN 28 MG/DL (9-23); CALCIUM LEVEL 9.2 MG/DL (8.3-10.6); CARBON DIOXIDE LEVEL 29 MMOL/L (20-31); CHLORIDE LEVEL 107 MMOL/L (98-107); CREATININE FOR GFR 1.18 MG/DL (0.70-1.30); GLOMERULAR FILTRATION RATE > 60.0 (>35); GLUCOSE, FASTING 114 MG/DL (74-106); POTASSIUM SERUM 4.6 MMOL/L (3.5-5.1); SODIUM LEVEL 143 MMOL/L (136-145)
== END ==
LOC: M WUC 11:46
PROVIDERS: ATTEND Physician Assistant
DX: I50.32 Chronic diastolic (congestive) heart failure (principal); E83.42 Hypomagnesemia

== ENCOUNTER → 2022-07-13 | Outpatient (CLI) | payer MEDICARE, OTHER ==
[~2022-07-13] MED LIST changes: +ISOVUE-370 76% 100ML VIAL As Ordered ONE
== END ==
LOC: M RAD 13:58
PROVIDERS: ATTEND Family Medicine
DX: R91.8 Other nonspecific abnormal finding of lung field (principal)
CPT/HCPCS: 71260; Q9967

== ENCOUNTER → 2022-10-26 | Outpatient (CLI) | payer MEDICARE, OTHER ==
[~2022-10-26] MED LIST changes: -ISOVUE-370 76% 100ML VIAL As Ordered ONE
[2022-10-26 11:17] LABS: BLOOD UREA NITROGEN 28 MG/DL (9-23); CALCIUM LEVEL 9.4 MG/DL (8.3-10.6); CARBON DIOXIDE LEVEL 29 MMOL/L (20-31); CHLORIDE LEVEL 103 MMOL/L (98-107); CREATININE FOR GFR 1.15 MG/DL (0.70-1.30); GLOMERULAR FILTRATION RATE > 60.0 (>35); GLUCOSE, FASTING 319 MG/DL (74-106); MAGNESIUM LEVEL 1.7 MG/DL (1.8-2.4); POTASSIUM SERUM 4.5 MMOL/L (3.5-5.1); SODIUM LEVEL 137 MMOL/L (136-145)
== END ==
LOC: M WUC 08:37
PROVIDERS: ATTEND Physician Assistant
DX: I50.32 Chronic diastolic (congestive) heart failure (principal); E83.42 Hypomagnesemia